=== PATIENT | female | born 1945 | race Caucasian/White ===

== ENCOUNTER 2021-05-04 12:30 | Observation (INO) ==
[2021-05-04] MEDS ORDERED: SODIUM CHLORIDE 0.9% 1000ML 1,000 ML IV ONE (13:51)
[2021-05-04] MEDS ORDERED: ACETAMINOPHEN 1,000 MG/100 ML VIAL IV STA (13:51)
--- NOTE | 2021-05-04 14:14 | XRay Report ---
XR chest 1V portable HISTORY: Atypical Chest Pain COMPARISON: Chest 01/10/2014. Chest CT 03/14/2019 FINDINGS: No pneumothorax. No pleural effusions. The heart is normal in size. Mild diffuse interstiti al thickening which is likely chronic. Stable left suprahilar lobular density measuring 7.1 x 3.2 cm. This was better appreciated on the 03/14/[address] and is consistent with a saccular t horacic aortic aneurysm. IMPRESSION: No significant change compared to the prior study. No acute process. Stable thoracic aortic aneurysm. ACT 112: Negative or not required by law. Electronically signed by: Eduardo Peraza M.D. 05/04/2021 2:13 PM
[2021-05-04 14:33] LABS: Basophils # (auto) 0.02 K/uL (0-0.2); Basophils % (auto) 0.2 %; Eosinophils # (auto) 0.15 K/uL (0-0.5); Eosinophils % (auto) 1.5 %; Hematocrit (blood only) 43.1 % (37-47); Hemoglobin 13.8 g/dL (12.0-16.0); Immature Granulocytes # (auto) 0.03 K/uL (0.00-0.02); Immature Granulocytes % (auto) 0.3 %; Lymphocytes # (auto) 1.54 K/uL (1.2-3.4); Lymphocytes % (auto) 15.6 %; Mean Corpuscular Hemoglobin 33.4 pg (25-34); Mean Corpuscular Volume 104.4 fL (80-100); Mean Platelet Volume 10.4 fL (7.4-10.4); Monocytes % (auto) 13.2 %; Neutrophils # (auto) 6.83 K/uL (1.4-6.5); Neutrophils % (auto) 69.2 %; Platelet Count 168 K/uL (130-400); RDW Coefficient of Variation 12.9 % (11.5-14.5); RDW Standard Deviation 49.2 fL (36.4-46.3); Red Blood Count 4.13 M/uL (4.2-5.4); White Blood Count 9.87 K/uL (4.8-10.8)
[2021-05-04 14:48] LABS: Partial Thromboplastin Ratio 1.1; Partial Thromboplastin Time 27.9 Seconds (21.0-31.0); Prothrombin Time 10.2 Seconds (9.0-12.0)
[2021-05-04 14:51] LABS: Alanine Aminotransferase 13 U/L (12-78); Aspartate Aminotransferase 10 U/L (15-37); BUN Creatinine Ratio 17.5 (10-20); Bilirubin Direct 0.2 mg/dl (0-0.2); Blood Urea Nitrogen 16 mg/dl (7-18); Calcium 8.9 mg/dl (8.5-10.1); Carbon Dioxide 32 mmol/L (21-32); Chloride 102 mmol/L (98-107); Creatinine Clr Calc Pharmacy 42.6 ml/min; Est GFR (African American) 69.2 ml/min; Est GFR (Non-African American) 59.7 ml/min; Glucose 95 mg/dl (70-99); Lipase 122 U/L (73-393); Magnesium 1.7 mg/dl (1.8-2.4); Potassium 4.6 mmol/L (3.5-5.1); Sodium 138 mmol/L (136-145)
[2021-05-04 14:53] LABS: Albumin Globulin Ratio 0.8 (0.9-2); Alkaline Phosphatase 125 U/L (45-117); Bilirubin,Total 0.4 mg/dl (0.2-1); Creatine Kinase 56 U/L (26-192); Globulin 3.8 gm/dl (2.5-4.0); Phosphorus 4.6 mg/dl (2.5-4.9); Total Protein 6.8 gm/dl (6.4-8.2); Troponin I < 0.015 ng/ml (0-0.045)
[2021-05-04 15:38] LABS: Lyme Ab IgG w/WB Rflx Negative (Negative); Lyme Ab IgM w/WB Rflx Negative (Negative)
[2021-05-04] MEDS ORDERED: MAGNESIUM SULFATE / D5W 1 GM/100 ML BAG IV STA (16:17)
--- NOTE | 2021-05-04 16:24 | Emergency Department Note ---
Impression & Plan Atrial fibrillation with rapid ventricular response, Bilateral calf pain, Dehydration, Peripheral arterial disease, Hypomagnesemia, Atrial fibrillation, new onset ED Provider Note NAME: DOUGIE VILLALOBOS AGE: 75 SEX: F ARRIVES VIA: Walk-In INFORMANT: Patient, ED PROVIDER(S): Dante Ingram MD CHIEF COMPLAINT: Bilateral calf pain. PLAN: Disposition: Admit MEDICAL DECISION MAKING: The patient is a pleasant 75-year-old woman with a past medical history of PAD with h/o AAA status post repair in 2005 h/o aorto-femoral bypass on daily 81mg ASA, COPD, CAD, history of MA, tobacco abuse who presents to the emergency department accompanied by her with worsening calf pain bilaterally that has evolved since Wednesday. She reports the pain became quite severe today and so presents for evaluation. She denies any preceding symptoms of similar pain with ambulation prior to her current resting pain. She reports she has a history of getting cramps now and then but nothing like this. She felt as though last night her legs looked more swollen and were warm. Otherwise she denies any fevers, chills, cough, congestion, GI or symptoms. On arrival patient is uncomfortable but in no acute distress, afebrile stable vital signs. She has tenderness to light touch of bilateral lower legs. Slight fullness to right mid calf without significant edema or warmth. No discoloration. Dopplerable pedal pulses. Initial EKG was unremarkable, normal sinus rhythm without overt acute ischemia. Chest x-ray negative for acute cardiopulmonary process. WBC, H/H and platelets within normal limits. Chemistry without metabolic acidosis. Magnesium 1.7 with repletion provided. Electrolytes otherwise unremarkable. LFTs without significant abnormality. CPK within normal limits. Troponin negative/undetectable. ESR and CRP are elevated at 57 and 17.1, nonspecific. Lipase not elevated. Lyme screen was negative. Bilateral lower extremity ultrasound negative for DVT. Formal ABIs performed and consistent with moderate PAD, right greater than left. Upon reevaluation patient was feeling improved after IV fluid hydration and IV APAP as well as magnesium repletion. She was able to ambulate with improved pain though still residual right calf pain with mild limp but significantly better than her symptoms on presentation where she was unable to walk at all. I did review the patient's results with her and given her improvement she did agree with plan for close outpatient follow-up with her pcp and vascular surgery. She was given dose of dexamethasone for anti-inflammatory effect and additional pain relief. As the patient's discharge was being prepared I was notified by RN that the patient had developed atrial fibrillation with RVR in the 130s. I reevaluated the patient and she reports not feeling any palpitations or heart racing. Given the patient's new atrial fibrillation with lack of symptoms, unclear if she has had ongoing paroxysmal afib for some time. Patient agrees with plan for admission for further evaluation and management given her acute bilateral lower extremity pain and peripheral arterial disease. Denies any history of GI bleeding or bleeding otherwise. Will initiate heparin at this time given ISELA SVASC score. IV Lopressor given for rate control. Case was discussed with Dr. Esquivel, [facility] [place], who will evaluate the patient for admission. CTA for abdominal aorta with runoff ordered. Covid-19 PCR negative. Triage Nursing notes reviewed and agree them. Prior medical records reviewed Vital Signs: reviewed and remarkable for tachycardia. Differential diagnosis: DVT, musculoskeletal, infection, joint effusion, trauma, lymphedema, idiopathic, CHF, as well as other pathologies. ER treatment provided: See below. Diagnostics interpreted by me: ECG 1410: Normal sinus rhythm, 70 bpm, no ectopy, no overt ST elevation or depression, QTC 46, QRS 80. ECG 1728: Atrial fibrillation with RVR, 131 bpm, no ectopy, ST and T wave abnormality, no overt ST elevation, QTc 463, QRS 84. Cardiac Monitoring: An order for continuous cardiac monitoring was placed and demonstrated atrial fibrillation with RVR, 131 bpm, no ectopy. Laboratory studies: See below Imaging studies: See below Consultation(s): Case was discussed with Dr. Esquivel, [facility] [place], who will evaluate the patient for admission. HPI: The patient is a pleasant 75-year-old woman with a past medical history of AAA status post repair in 2005, COPD, CAD, history of MA, tobacco abuse who presents emerge department coming by her with worsening calf pain bilaterally that has evolved since Wednesday. She reports the pain became quite severe today and so presents for evaluation. She denies any preceding symptoms of similar pain with ambulation prior to her current resting pain. She reports she has a history of getting cramps now and then but nothing like this. She felt as though last night her legs looked more swollen and were warm. Otherwise she denies any fevers, chills, cough, congestion, GI or symptoms. ROS: See above HPI for pertinent positives & negatives. A total of 10 systems reviewed and were otherwise negative. PAST MEDICAL HISTORY:See Below PAST SURGICAL HISTORY:See Below FAMILY HISTORY:See Below SOCIAL HISTORY:See Below HOME MEDICATIONS:See Below ALLERGIES:See Below VITALS:See Below PHYSICAL EXAMINATION: GENERAL: Awake, alert, uncomfortable-appearing, in no distress HENT: Normocephalic, atraumatic. Oropharynx with dry mucous membranes and otherwise unremarkable. EYES: Normal conjunctiva. Sclera non-icteric. NECK: Supple. No nuchal rigidity. FROM. No JVD. RESPIRATORY: Clear to auscultation. CARDIAC: Regular rate, normal rhythm. Extremities warm and well perfused. Pulses equal. ABDOMEN: Soft, non-distended. No tenderness to palpation. No rebound or guarding. No masses. RECTAL: Deferred. MUSCULOSKELETAL: Chest examination reveals no tenderness. The back is symmetrical on inspection without obvious abnormality. There is no CVA tenderness to palpation. No joint edema. LOWER EXTREMITIES: Tenderness to light touch of bilateral lower legs. Slight fullness to right mid calf without significant edema or warmth. No discoloration . Dopplerable pedal pulses. bilateral DP: Triphasic. bilateral PT: biphasic. NEURO: Normal sensorium. No sensory or motor deficits noted. SKIN: No rash or jaundice noted. ED COURSE: Critical Care: I have personally spent greater than 45 minutes of critical care time in the direct management of this patient. This includes bedside care, interpretation of diagnostic studies, and testing, discussion with consultants, patient, and family members, and other required patient management activities. This 45 minutes is in excess of all separately billable procedures. Dante Ingram MD Past Med/Surg History Medical History Bronchiectasis COPD (chronic obstructive pulmonary disease) Coronary artery disease History of abdominal aortic aneurysm (AAA) History of esophageal ulcer (2013) History of MA (myocardial infarction) (01/08/14) Hypertension Hypoxia Tobacco abuse Surgical History H/O heart artery stent (2013) S/P AAA (abdominal aortic aneurysm) repair (2005) S/P total hysterectomy and bilateral salpingo-oophorectomy (1975) Family History Sister Breast cancer Father Myocardial infarction Coronary heart disease Mother AA (aortic aneurysm) Denies family history of Ovarian cancer Prostate cancer Colorectal cancer Social History Smoking Status: Current every day smoker Tobacco Type: Cigarettes Age Started Using Tobacco: 24; Cigarettes Per Day: 1; Second Hand Exposure: No; Hx Alcohol Use: No Hx Substance Use: No Preferred Language: Taiwanese Communication Ability: Effective Visual Impairment: Limited Hearing Ability: Normal Glassware Finisher Required: No Beliefs That Will Affect Care: None marital status: Current Living Situation: Spouse 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 How many Children do You have: 3 Feels Safe at Home: Yes Childhood Exposure to Second-Hand Smoke: Yes (father) caffeine: Yes during the past year weight has: remained stable Dental Care, Regularly: No Physical Activity Frequency: 3-4 Times per Week Physical Activity Frequency Comment: walks Seatbelt Use: always Sunscreen Use: Yes Assistive Devices: Denture - Upper, Denture - Lower, Glasses and Oxygen - Continuous Allergies Allergies Allergy/AdvReac Type Severity Reaction Status Date / Time Penicillins Allergy Mild Verified 05/04/21 14:24 Sulfa (Sulfonamide Allergy Mild Verified 05/04/21 14:24 Antibiotics) lisinopril AdvReac Intermediate COUGH Verified 05/04/21 14:24 fexofenadine AdvReac Unknown "SKIN Verified 05/04/21 14:24 HURTS" HEADACHE Home Meds Home Medications Medication Instructions Recorded Confirmed albuterol sulfate 2.5 mg INHALATION Q6H 10/28/20 05/04/21 amlodipine 2.5 mg tablet 2.5 mg PO DAILY 10/28/20 05/04/21 aspirin 81 mg tablet,delayed 81 mg PO DAILY 10/28/20 05/04/21 release (Adult Aspirin Regimen) pantoprazole 20 mg tablet,delayed 20 mg PO DAILY 10/28/20 05/04/21 release cyanocobalamin (vitamin B-12) 1,000 mcg PO DAILY 05/04/21 05/04/21 1,000 mcg tablet (Vitamin B-12) Previous Rx's Medication Instructions Recorded nitroglycerin 0.4 mg sublingual 0.4 mg SUBLINGUAL Q5M PRN #30 tab 10/28/20 tablet losartan 100 mg tablet 100 mg PO DAILY #90 tab 02/25/21 fluticasone fur. 100 mcg-umeclid 1 inh INHALATION DAILY #180 ea 03/24/21 62.5 mcg-vilant 25 mcg inhalat.powder (Trelegy Ellipta) metoprolol tartrate 25 mg tablet 25 mg PO BID #180 tab 03/24/21 albuterol sulfate 90 mcg/actuation 2 puff INHALATION Q6H PRN #6.7 g 04/22/21 aerosol inhaler (Ventolin HFA) Results & Data (ED) Vital Signs Vital Signs - 24 hr 05/04/21 12:34 05/04/21 14:10 05/04/21 14:30 Temperature 36.2 C L Temperature Source Temporal Artery Scan Pulse Rate 86 86 79 Pulse Rate from SpO2 Sensor 77 Pulse Rhythm Regular Respiratory Rate 16 16 19 Respiratory Effort / Characteristics Non-Labored Respiratory Depth Normal Blood Pressure 103/65 98/51 L Blood Pressure Mean 77 66 Pulse Oximetry 96 96 100 Oxygen Delivery Method Room Air Room Air Sepsis Recent Fever Within 48 Hours No Sepsis New/Unexplained Change in Mental Status No Sepsis Action Taken by Nursing No Action Required 05/04/21 15:00 05/04/21 16:46 05/04/21 17:00 Temperature Temperature Source Pulse Rate 70 73 65 Pulse Rate from SpO2 Sensor 69 65 Pulse Rhythm Respiratory Rate 21 29 H 24 Respiratory Effort / Characteristics Respiratory Depth Blood Pressure 91/49 L 102/54 L 97/52 L Blood Pressure Mean 63 70 67 Pulse Oximetry 100 100 Oxygen Delivery Method Sepsis Recent Fever Within 48 Hours Sepsis New/Unexplained Change in Mental Status Sepsis Action Taken by Nursing 05/04/21 17:30 05/04/21 18:01 05/04/21 18:30 Temperature Temperature Source Pulse Rate 130 H 149 H 139 H Pulse Rate from SpO2 Sensor 117 H 136 H 140 H Pulse Rhythm Respiratory Rate 19 27 H 27 H Respiratory Effort / Characteristics Respiratory Depth Blood Pressure 101/69 102/64 118/68 Blood Pressure Mean 79 76 84 Pulse Oximetry 97 Oxygen Delivery Method Sepsis Recent Fever Within 48 Hours Sepsis New/Unexplained Change in Mental Status Sepsis Action Taken by Nursing 05/04/21 18:32 05/04/21 19:00 09/12/21 19:30 Temperature Temperature Source Pulse Rate 155 H 135 H 128 H Pulse Rate from SpO2 Sensor 150 H 133 H Pulse Rhythm Respiratory Rate 18 21 Respiratory Effort / Characteristics Respiratory Depth Blood Pressure 118/68 109/71 119/75 Blood Pressure Mean 83 89 Pulse Oximetry 90 97 Oxygen Delivery Method Sepsis Recent Fever Within 48 Hours Sepsis New/Unexplained Change in Mental Status Sepsis Action Taken by Nursing Laboratory Data Attestation: I reviewed the patient's lab results. Result diagrams: 05/04/21 14:22 05/04/21 14:22 Lab Results 05/04/21 05/04/21 05/04/21 Range/Units 14:22 14:22 14:22 WBC 9.87 (4.8-10.8) K/uL RBC 4.13 L (4.2-5.4) M/uL Hgb 13.8 (12.0-16.0) g/dL Hct 43.1 (37-47) % MCV 104.4 H (80-100) fL MCH 33.4 (25-34) pg MCHC 32.0 (32-36) g/dL RDW Std Deviation 49.2 H (36.4-46.3) fL RDW Coeff of Ruthy 12.9 (11.5-14.5) % Plt Count 168 (130-400) K/uL MPV 10.4 (7.4-10.4) fL Immature Gran % (Auto) 0.3 % Neut % (Auto) 69.2 % Lymph % (Auto) 15.6 % [place] % (Auto) 13.2 % Eos % (Auto) 1.5 % Baso % (Auto) 0.2 % Neut # (Auto) 6.83 H (1.4-6.5) K/uL Lymph # (Auto) 1.54 (1.2-3.4) K/uL [place] # (Auto) 1.30 H (0.11-0.59) K/uL Eos # (Auto) 0.15 (0-0.5) K/uL Baso # (Auto) 0.02 (0-0.2) K/uL Immature Gran # (Auto) 0.03 H (0.00-0.02) K/uL ESR 57 H (0-30) mm/hr PT 10.2 (9.0-12.0) Seconds INR 1.0 (0.9-1.1) APTT 27.9 (21.0-31.0) Seconds PTT Ratio 1.1 Sodium (136-145) mmol/L Potassium (3.5-5.1) mmol/L Chloride (98-107) mmol/L Carbon Dioxide (21-32) mmol/L Anion Gap (3-11) BUN (7-18) mg/dl Creatinine (0.6-1.2) mg/dl Est Cr Clr Drug Dosing ml/min Est GFR ( Amer) ml/min Est GFR (Non-Af Amer) ml/min BUN/Creatinine Ratio (10-20) Glucose (70-99) mg/dl Calcium (8.5-10.1) mg/dl Phosphorus (2.5-4.9) mg/dl Magnesium (1.8-2.4) mg/dl Total Bilirubin (0.2-1) mg/dl Direct Bilirubin (0-0.2) mg/dl AST (15-37) U/L ALT (12-78) U/L Alkaline Phosphatase (45-117) U/L Total Creatine Kinase (26-192) U/L Troponin I (0-0.045) ng/ml C-Reactive Protein (0-0.29) mg/dl Total Protein (6.4-8.2) gm/dl Albumin (3.4-5.0) gm/dl Globulin (2.5-4.0) gm/dl Albumin/Globulin Ratio (0.9-2) Lipase (73-393) U/L Lyme Disease IgG Ab (Negative) Lyme Disease IgM Ab (Negative) COVID-19 Eval Order SARS-CoV-2 (PCR) (Negative) 05/04/21 05/04/21 05/04/21 Range/Units 14:22 14:22 18:32 WBC (4.8-10.8) K/uL RBC (4.2-5.4) M/uL Hgb (12.0-16.0) g/dL Hct (37-47) % MCV (80-100) fL MCH (25-34) pg MCHC (32-36) g/dL RDW Std Deviation (36.4-46.3) fL RDW Coeff of Ruthy (11.5-14.5) % Plt Count (130-400) K/uL MPV (7.4-10.4) fL Immature Gran % (Auto) % Neut % (Auto) % Lymph % (Auto) % [place] % (Auto) % Eos % (Auto) % Baso % (Auto) % Neut # (Auto) (1.4-6.5) K/uL Lymph # (Auto) (1.2-3.4) K/uL [place] # (Auto) (0.11-0.59) K/uL Eos # (Auto) (0-0.5) K/uL Baso # (Auto) (0-0.2) K/uL Immature Gran # (Auto) (0.00-0.02) K/uL ESR (0-30) mm/hr PT (9.0-12.0) Seconds INR (0.9-1.1) APTT (21.0-31.0) Seconds PTT Ratio Sodium 138 (136-145) mmol/L Potassium 4.6 (3.5-5.1) mmol/L Chloride 102 (98-107) mmol/L Carbon Dioxide 32 (21-32) mmol/L Anion Gap 4.0 (3-11) BUN 16 (7-18) mg/dl Creatinine 0.93 (0.6-1.2) mg/dl Est Cr Clr Drug Dosing 42.6 ml/min Est GFR ( Amer) 69.2 ml/min Est GFR (Non-Af Amer) 59.7 ml/min BUN/Creatinine Ratio 17.5 (10-20) Glucose 95 (70-99) mg/dl Calcium 8.9 (8.5-10.1) mg/dl Phosphorus 4.6 (2.5-4.9) mg/dl Magnesium 1.7 L (1.8-2.4) mg/dl Total Bilirubin 0.4 (0.2-1) mg/dl Direct Bilirubin 0.2 (0-0.2) mg/dl AST 10 L (15-37) U/L ALT 13 (12-78) U/L Alkaline Phosphatase 125 H (45-117) U/L Total Creatine Kinase 56 (26-192) U/L Troponin I < 0.015 (0-0.045) ng/ml C-Reactive Protein 17.10 H (0-0.29) mg/dl Total Protein 6.8 (6.4-8.2) gm/dl Albumin 3.0 L (3.4-5.0) gm/dl Globulin 3.8 (2.5-4.0) gm/dl Albumin/Globulin Ratio 0.8 L (0.9-2) Lipase 122 (73-393) U/L Lyme Disease IgG Ab Negative (Negative) Lyme Disease IgM Ab Negative (Negative) COVID-19 Eval Order Covid19 at [facility] SARS-CoV-2 (PCR) (Negative) 05/04/21 Range/Units 18:32 WBC (4.8-10.8) K/uL RBC (4.2-5.4) M/uL Hgb (12.0-16.0) g/dL Hct (37-47) % MCV (80-100) fL MCH (25-34) pg MCHC (32-36) g/dL RDW Std Deviation (36.4-46.3) fL RDW Coeff of Ruthy (11.5-14.5) % Plt Count (130-400) K/uL MPV (7.4-10.4) fL Immature Gran % (Auto) % Neut % (Auto) % Lymph % (Auto) % [place] % (Auto) % Eos % (Auto) % Baso % (Auto) % Neut # (Auto) (1.4-6.5) K/uL Lymph # (Auto) (1.2-3.4) K/uL [place] # (Auto) (0.11-0.59) K/uL Eos # (Auto) (0-0.5) K/uL Baso # (Auto) (0-0.2) K/uL Immature Gran # (Auto) (0.00-0.02) K/uL ESR (0-30) mm/hr PT (9.0-12.0) Seconds INR (0.9-1.1) APTT (21.0-31.0) Seconds PTT Ratio Sodium (136-145) mmol/L Potassium (3.5-5.1) mmol/L Chloride (98-107) mmol/L Carbon Dioxide (21-32) mmol/L Anion Gap (3-11) BUN (7-18) mg/dl Creatinine (0.6-1.2) mg/dl Est Cr Clr Drug Dosing ml/min Est GFR ( Amer) ml/min Est GFR (Non-Af Amer) ml/min BUN/Creatinine Ratio (10-20) Glucose (70-99) mg/dl Calcium (8.5-10.1) mg/dl Phosphorus (2.5-4.9) mg/dl Magnesium (1.8-2.4) mg/dl Total Bilirubin (0.2-1) mg/dl Direct Bilirubin (0-0.2) mg/dl AST (15-37) U/L ALT (12-78) U/L Alkaline Phosphatase (45-117) U/L Total Creatine Kinase (26-192) U/L Troponin I (0-0.045) ng/ml C-Reactive Protein (0-0.29) mg/dl Total Protein (6.4-8.2) gm/dl Albumin (3.4-5.0) gm/dl Globulin (2.5-4.0) gm/dl Albumin/Globulin Ratio (0.9-2) Lipase (73-393) U/L Lyme Disease IgG Ab (Negative) Lyme Disease IgM Ab (Negative) COVID-19 Eval Order SARS-CoV-2 (PCR) NEGATIVE (Negative) Administered Medications Heparin Sodium/Dextrose (Heparin Sodium/Dextrose) 25,000 units in 500 mls @ 19 mls/hr IV .Q24H NIKOLAY; Protocol Stop: 06/03/21 18:14 Last Titration: 05/04/21 23:04 Dose: 950 units/hr, 19 mls/hr Documented by: [id number] Cosigned by: [id number] Admin: 05/04/21 18:34 Dose: 950 units/hr, 19 mls/hr Documented by: [id number] Cosigned by: [id number] Potassium Chloride/Sodium Chloride (Normal Saline W/20 Meq Kcl) 20 meq in 1,000 mls @ 100 mls/hr IV .Q10H NIKOLAY Stop: 05/05/21 07:59 Last Admin: 05/04/21 22:22 Dose: 100 mls/hr Documented by: [id number] Metoprolol Tartrate (Metoprolol Tartrate 50 Mg Tab) 50 mg PO BID NIKOLAY Stop: 06/03/21 21:33 Last Admin: 05/04/21 22:23 Dose: 50 mg Documented by: [id number] Discontinued Medications Dexamethasone Sodium Phosphate (DexamethasonePf 10 Mg/Ml Vial) 10 mg IV NOW ONE Stop: 05/04/21 17:21 Last Admin: 05/04/21 18:23 Dose: Not Given Documented by: [id number] Heparin Sodium/Dextrose (Heparin Iv Adult Wt-Based Standard *No* Bolus Protocol) 1 ea N/A ONE ONE; Protocol Stop: 05/04/21 17:56 Last Admin: 05/04/21 22:23 Dose: Not Given Documented by: [id number] Sodium Chloride (Nss 1000ml) 1,000 mls @ 999 mls/hr IV .Q1H1M ONE Stop: 05/04/21 14:51 Last Infusion: 05/04/21 15:19 Dose: 0 mls/hr Documented by: [id number] Admin: 05/04/21 14:23 Dose: 999 mls/hr Documented by: [id number] Acetaminophen (Ofirmev) 1,000 mg in 100 mls @ 400 mls/hr IV NOW STA Stop: 05/04/21 14:05 Last Infusion: 05/04/21 15:18 Dose: 0 mls/hr Documented by: [id number] Admin: 05/04/21 14:23 Dose: 400 mls/hr Documented by: [id number] Magnesium Sulfate/Dextrose (Magnesium Sulfate / D5w) 1 gm in 100 mls @ 100 mls/hr IV NOW STA Stop: 05/04/21 17:16 Last Infusion: 05/04/21 18:11 Dose: 0 mls/hr Documented by: [id number] Admin: 05/04/21 16:49 Dose: 100 mls/hr Documented by: [id number] Sodium Chloride (Nss) 500 mls @ 999 mls/hr IV .Q31M ONE Stop: 05/04/21 19:03 Last Infusion: 05/04/21 19:26 Dose: 0 mls/hr Documented by: [id number] Admin: 05/04/21 18:41 Dose: 999 mls/hr Documented by: [id number] Magnesium Sulfate/Dextrose (Magnesium Sulfate / D5w) 1 gm in 100 mls @ 50 mls/hr IV ONE ONE Stop: 05/04/21 21:32 Last Admin: 05/04/21 20:53 Dose: 50 mls/hr Documented by: [id number] Ioversol (Optiray 320 125ml) 119 ml IV ONCE ONE Stop: 05/04/21 19:09 Last Admin: 05/04/21 19:08 Dose: 1 ml Documented by: [id number] Metoprolol Tartrate (Metoprolol Tartrate 1 Mg/Ml Vial) 5 mg IV NOW STA Stop: 05/04/21 17:53 Last Admin: 05/04/21 18:32 Dose: 5 mg Documented by: [id number] Metoprolol Tartrate (Metoprolol Tartrate 1 Mg/Ml Vial) 5 mg IV NOW STA Stop: 05/04/21 18:34 Last Admin: 05/04/21 19:22 Dose: 5 mg Documented by: [id number] Imaging Data Radiologist's Impression: Ankle Brachial Index 05/04/21 13:51 US ankle/brachial index comp CLINICAL HISTORY: acute bilateral calf pain COMPARISON STUDY: None. FINDINGS: The right ankle-brachial index measured with the dorsalis pedis artery was 0.71 and the posterior tibial artery was 0.74. The left ankle-brachial index measured with the dorsalis pedis artery was 0.82 and the posterior tibial artery was 0.91. IMPRESSION: Abnormally low bilateral ankle brachial indices most pronounced on the right as described above. ACT 112: Negative or not required by law. Electronically signed by: Eduardo Peraza M.D. 05/04/2021 4:38 PM Venous Doppler Study 05/04/21 13:51 BILATERAL LOWER EXTREMITY VENOUS DOPPLER HISTORY: acute bilateral calf pain COMPARISON STUDY: None. FINDINGS: There is normal compressibility, flow, and augmentation within the bilateral lower extremity deep venous systems. IMPRESSION: No DVT within the right or left lower extremity. ACT 112: Negative or not required by law. Electronically signed by: Eduardo Peraza M.D. 05/04/2021 4:36 PM Chest X-Ray 05/04/21 13:52 XR chest 1V portable HISTORY: Atypical Chest Pain COMPARISON: Chest 01/10/2014. Chest CT 03/14/2019 FINDINGS: No pneumothorax. No pleural effusions. The heart is normal in size. Mild diffuse interstitial thickening which is likely chronic. Stable left suprahilar lobular density measuring 7.1 x 3.2 cm. This was better appreciated on the 03/14/[address] and is consistent with a saccular thoracic aortic aneurysm. IMPRESSION: No significant change compared to the prior study. No acute process. Stable thoracic aortic aneurysm. ACT 112: Negative or not required by law. Electronically signed by: Eduardo Peraza M.D. 05/04/2021 2:13 PM Discharge Plan Visit Data Chief Complaint: Leg Weakness, Bilateral Stated Complaint: BILATERAL LEG PAIN/WEAKNESS ED Provider: Dante Ingram Discharge Problem: Atrial fibrillation with rapid ventricular response, Bilateral calf pain, Dehydration, Peripheral arterial disease, Hypomagnesemia, Atrial fibrillation, new onset Patient Disposition: Admitted As Inpatient Discharge Instructions Interventions: ED Discharge Assessment Last Done: 05/04/21 20:44
--- NOTE | 2021-05-04 16:38 | Ultrasound Report ---
BILATERAL LOWER EXTREMITY VENOUS DOPPLER HISTORY: acute bilateral calf pain COMPARISON STUDY: None. FINDINGS: There is normal compressibility, flow, and augmentation within the bilateral lower extremit y deep venous systems. IMPRESSION: No DVT within the right or left lower extremity. ACT 112: Negative or not required by law. Electronically signed by: Eduardo Peraza M.D. 05/04/2021 4:36 PM
--- NOTE | 2021-05-04 16:39 | Ultrasound Report ---
US ankle/brachial index comp CLINICAL HISTORY: acute bilateral calf pain COMPARISON STUDY: None. FINDINGS: The right ankle-brachial index measured with the dorsalis pedis artery was 0.71 and the pos terior tibial artery was 0.74. The left ankle-brachial index measured with the dorsalis pedis artery was 0.82 and the posterior tibial artery was 0.91. IMPRESSION: Abnormally low bilateral ankle brachial indices most pronounced on the right as describe d above. ACT 112: Negative or not required by law. Electronically signed by: Eduardo Peraza M.D. 05/04/2021 4:38 PM
[2021-05-04] MEDS ORDERED: dexAMETHasone**PF** 10 MG/ML VIAL IV ONE (17:20)
[2021-05-04] MEDS ORDERED: METOPROLOL TARTRATE 1 MG/ML VIAL IV STA ×2 (17:52→18:33)
[2021-05-04] MEDS ORDERED: Heparin IV Adult Wt-Based Standard *NO* Bolus Protocol ONE (17:55)
[2021-05-04] MEDS ORDERED: HEPARIN SODIUM/DEXTROSE 25,000 UNITS/500 ML BAG IV SCH (18:15)
[2021-05-04] MEDS ORDERED: SODIUM CHLORIDE 0.9% 500 ML IV ONE (18:33)
[2021-05-04] MEDS ORDERED: OPTIRAY 320 125ml IV ONE (19:08)
[2021-05-04] MEDS ORDERED: MAGNESIUM SULFATE / D5W 1 GM/100 ML BAG IV ONE (19:33)
[2021-05-04] MEDS ORDERED: ALBUT/IPRATROP 3MG/0.5MG NEB 3 ML VIAL NEB PRN (19:53)
--- NOTE | 2021-05-04 19:54 | History & Physical Report ---
Date of Service May 04, 2021 Assessment & Plan (1) Atrial fibrillation with RVR: Plan: Atrial fibrillation with RVR/hypertension/CAD/stented coronary artery The patient will be admitted to telemetry for serial cardiac enzymes, serial EKG's, cardiac rhythm monitoring and a 2-D echocardiogram with Dopplers. Occurred after being in the ED for 6 hours. No previous history Increase metoprolol tartrate from 25 mg p.o. twice daily to 50 mg p.o. twice daily Lopressor 5 mg IV every 4 hours as needed heart rate greater than 110 Continue aspirin 81 mg daily, losartan 100 mg daily Hold amlodipine Nitroglycerin sublingual's as needed Continue heparin drip begun in ED (2) Bilateral calf pain: Plan: Likely secondary to newly diagnosed PAD (3) Peripheral arterial disease: Plan: MADINA 0.71 on the right MADINA 0.74 on the left Will order aortogram with bilateral runoff to further assess. Continue heparin drip begun in the ED (4) Dehydration: Plan: Rehydrate with additional 1 L of NSS + KCl 20 mEq at 60 mils per hour (5) Hypomagnesemia: Plan: Replace with total 2 g of mag sulfate IV, and then recheck in a.m. (6) Tobacco abuse: Plan: Patient reports that she is down to 1 cigarette daily, and will stop altogether after this hospitalization (7) Stented coronary artery: Plan: See above (8) Hypercholesterolemia: Plan: Check a fasting lipid panel Will likely need high-dose statin (9) Hypertension: Plan: See above (10) Coronary artery disease: Plan: See above (11) COPD (chronic obstructive pulmonary disease): Plan: Hold albuterol HFA DuoNebs every 2 hours as needed History of Present Illness Chief Complaint: The patient presents to the emergency department complaining of bilateral calf pain, right greater than left, along with increased swelling of right calf Primary Care Provider: Cathy Cerda DO The patient is a 75-year-old female with a past medical history including tobacco abuse, stented coronary artery, aortic valve insufficiency, hypercholesterolemia, esophageal ulcer, abdominal aortic aneurysm, history of CO, COPD, CAD, hypertension, and status post femoropopliteal bypass in 2005. Patient presents with worsening symptoms of bilateral lower extremity weakness and difficulty ambulating distances. She denies any history of trauma. She denies any recent travels or sick exposures. Work-up in the emergency department included MADINA testing, right 0.71, left 0.74. Venous Dopplers negative bilaterally for lower extremity DVT Chest x-ray shows a stable thoracic aortic aneurysm Allergies Allergy/AdvReac Type Severity Reaction Status Date / Time Penicillins Allergy Mild Verified 05/04/21 14:24 Sulfa (Sulfonamide Allergy Mild Verified 05/04/21 14:24 Antibiotics) lisinopril AdvReac Intermediate COUGH Verified 05/04/21 14:24 fexofenadine AdvReac Unknown "SKIN Verified 05/04/21 14:24 HURTS" HEADACHE Home Medications Medication Instructions Recorded Confirmed Type albuterol sulfate 2.5 mg INHALATION Q6H 10/28/20 05/04/21 History amlodipine 2.5 mg tablet 2.5 mg PO DAILY 10/28/20 05/04/21 History aspirin 81 mg tablet,delayed 81 mg PO DAILY 10/28/20 05/04/21 History release (Adult Aspirin Regimen) nitroglycerin 0.4 mg sublingual 0.4 mg SUBLINGUAL Q5M PRN #30 tab 10/28/20 05/04/21 Rx tablet pantoprazole 20 mg tablet,delayed 20 mg PO DAILY 10/28/20 05/04/21 History release losartan 100 mg tablet 100 mg PO DAILY #90 tab 02/25/21 05/04/21 Rx fluticasone fur. 100 mcg-umeclid 1 inh INHALATION DAILY #180 ea 03/24/21 05/04/21 Rx 62.5 mcg-vilant 25 mcg inhalat.powder (Trelegy Ellipta) metoprolol tartrate 25 mg tablet 25 mg PO BID #180 tab 03/24/21 05/04/21 Rx albuterol sulfate 90 mcg/actuation 2 puff INHALATION Q6H PRN #6.7 g 04/22/21 05/04/21 Rx aerosol inhaler (Ventolin HFA) cyanocobalamin (vitamin B-12) 1,000 mcg PO DAILY 05/04/21 05/04/21 History 1,000 mcg tablet (Vitamin B-12) Past Med/Surg History Medical History Bronchiectasis COPD (chronic obstructive pulmonary disease) Coronary artery disease History of abdominal aortic aneurysm (AAA) History of esophageal ulcer (2013) History of CO (myocardial infarction) (01/08/14) Hypertension Hypoxia Tobacco abuse Surgical History H/O heart artery stent (2013) S/P AAA (abdominal aortic aneurysm) repair (2005) S/P total hysterectomy and bilateral salpingo-oophorectomy (1975) Family History Sister Breast cancer Father Myocardial infarction Coronary heart disease Mother AA (aortic aneurysm) Denies family history of Ovarian cancer Prostate cancer Colorectal cancer Social History Smoking Status: Current every day smoker Tobacco Type: Cigarettes Age Started Using Tobacco: 24; Cigarettes Per Day: 2; Second Hand Exposure: No; Hx Alcohol Use: No Hx Substance Use: No Preferred Language: [place] Visual Impairment: Limited Hearing Ability: Normal Pulp Grinder Required: No Beliefs That Will Affect Care: None marital status: Current Living Situation: Spouse 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 How many Children do You have: 3 Feels Safe at Home: Yes Childhood Exposure to Second-Hand Smoke: Yes (father) caffeine: Yes during the past year weight has: remained stable Dental Care, Regularly: No Physical Activity Frequency: 3-4 Times per Week Physical Activity Frequency Comment: walks Seatbelt Use: always Sunscreen Use: Yes Assistive Devices: Denture - Upper, Denture - Lower, Glasses and Nebulizer Review of Systems Review of Systems: The patient denies chest pain, palpitations, shortness of breath, dyspnea on exertion, cough, sore throat, fevers, chills, sweats, nausea, vomiting, diarrhea , constipation, abdominal pain, pelvic pain, blood in urine or stool, dysuria, urinary frequency or urgency, lightheadedness, dizziness, headache, memory loss, loss of consciousness, rash, abnormal bruising or bleeding, imbalance, focal or generalized weakness, numbness or tingling in arms, generalized arthralgias or myalgias, back or neck pain, or night sweats. The review of systems is otherwise negative other than for that already noted above, and at least 10 systems have been reviewed. Physical Exam Physical Exam: The patient is awake, alert and oriented 3, well developed and well nourished, normocephalic and atraumatic, lying in bed and in no acute distress. HEENT--PERRL, EOMI, mucous membranes and oropharynx normal. Neck--supple. No JVD. No bruits. Thyroid normal, trachea midline, no adenopathy. Heart--initially regular rate and rhythm. Later on while in the ED tachycardia with irregularly irregular rhythm. No murmurs, rubs or gallops. Lungs--clear bilaterally, no respiratory distress, no accessory muscle use. Abdomen--normal bowel sounds and soft. Nontender. Nondistended, no hernias or masses, no organomegaly. Extremities--no cyanosis or clubbing. No edema. Right calf approximately one half times size of the left and tenderness to light touch. Dermatologic--normal skin turgor, normal color, no abnormal lymph nodes, no rash. Neurologic--cranial nerves II through XII grossly intact. Rheumatologic--normal range of motion. Psychiatric--normal affect. Results & Data Results & Data ([facility]) Vital Signs (Past 12 Hours) Vital Signs Temp Pulse Resp BP Pulse Ox 05/04/21 19:00 135 H 18 109/71 90 05/04/21 18:32 155 H 118/68 05/04/21 18:30 139 H 27 H 118/68 05/04/21 18:01 149 H 27 H 102/64 05/04/21 17:30 130 H 19 101/69 97 05/04/21 17:00 65 24 97/52 L 100 05/04/21 16:46 73 29 H 102/54 L 05/04/21 15:00 70 21 91/49 L 100 05/04/21 14:30 79 19 98/51 L 100 05/04/21 14:10 86 16 96 05/04/21 12:34 97.2 F L 86 16 103/65 96 Laboratory Results Laboratory Results WBC 9.87 K/uL (4.8-10.8) 05/04/21 14:22 RBC 4.13 M/uL (4.2-5.4) L 05/04/21 14:22 Hgb 13.8 g/dL (12.0-16.0) 05/04/21 14: Hct 43.1 % (37-47) 05/04/21 14:22 MCV 104.4 fL (80-100) H 05/04/21 14:22 MCH 33.4 pg (25-34) 05/04/21 14: MCHC 32.0 g/dL (32-36) 05/04/21 14:22 RDW Std Deviation 49.2 fL (36.4-46.3) H 05/04/21 14:22 RDW Coeff of Ruthy 12.9 % (11.5-14.5) 05/04/21 14: Plt Count 168 K/uL (130-400) 05/04/21 14: MPV 10.4 fL (7.4-10.4) 05/04/21 14: Immature Gran % (Auto) 0.3 % 05/04/21 14: Neut % (Auto) 69.2 % 05/04/21 14: Lymph % (Auto) 15.6 % 05/04/21 14: Owen % (Auto) 13.2 % 05/04/21 14:22 Eos % (Auto) 1.5 % 05/04/21 14:22 Baso % (Auto) 0.2 % 05/04/21 14:22 Neut # (Auto) 6.83 K/uL (1.4-6.5) H 05/04/21 14: Lymph # (Auto) 1.54 K/uL (1.2-3.4) 05/04/21 14:22 Owen # (Auto) 1.30 K/uL (0.11-0.59) H 05/04/21 14: Eos # (Auto) 0.15 K/uL (0-0.5) 05/04/21 14: Baso # (Auto) 0.02 K/uL (0-0.2) 05/04/21 14: Immature Gran # (Auto) 0.03 K/uL (0.00-0.02) H 05/04/21 14: ESR 57 mm/hr (0-30) H 05/04/21 14:22 PT 10.2 Seconds (9.0-12.0) 05/04/21 14: INR 1.0 (0.9-1.1) 05/04/21 14: APTT 27.9 Seconds (21.0-31.0) 05/04/21 14:22 PTT Ratio 1.1 05/04/21 14:22 Sodium 138 mmol/L (136-145) 05/04/21 14:22 Potassium 4.6 mmol/L (3.5-5.1) 05/04/21 14:22 Chloride 102 mmol/L (98-107) 05/04/21 14:22 Carbon Dioxide 32 mmol/L (21-32) 05/04/21 14:22 Anion Gap 4.0 (3-11) 05/04/21 14:22 BUN 16 mg/dl (7-18) 05/04/21 14:22 Creatinine 0.93 mg/dl (0.6-1.2) 05/04/21 14:22 Est Cr Clr Drug Dosing 42.6 ml/min 05/04/21 14:22 Est GFR ( Amer) 69.2 ml/min 05/04/21 14:22 Est GFR (Non-Af Amer) 59.7 ml/min 05/04/21 14:22 BUN/Creatinine Ratio 17.5 (10-20) 05/04/21 14:22 Glucose 95 mg/dl (70-99) 05/04/21 14:22 Calcium 8.9 mg/dl (8.5-10.1) 05/04/21 14:22 Phosphorus 4.6 mg/dl (2.5-4.9) 05/04/21 14:22 Magnesium 1.7 mg/dl (1.8-2.4) L 05/04/21 14:22 Total Bilirubin 0.4 mg/dl (0.2-1) 05/04/21 14:22 Direct Bilirubin 0.2 mg/dl (0-0.2) 05/04/21 14:22 AST 10 U/L (15-37) L 05/04/21 14:22 ALT 13 U/L (12-78) 05/04/21 14:22 Alkaline Phosphatase 125 U/L (45-117) H 05/04/21 14:22 Total Creatine Kinase 56 U/L (26-192) 05/04/21 14:22 Troponin I < 0.015 ng/ml (0-0.045) 05/04/21 14:22 C-Reactive Protein 17.10 mg/dl (0-0.29) H 05/04/21 14:22 Total Protein 6.8 gm/dl (6.4-8.2) 05/04/21 14:22 Albumin 3.0 gm/dl (3.4-5.0) L 05/04/21 14:22 Globulin 3.8 gm/dl (2.5-4.0) 05/04/21 14:22 Albumin/Globulin Ratio 0.8 (0.9-2) L 05/04/21 14:22 Lipase 122 U/L (73-393) 05/04/21 14:22 Lyme Disease IgG Ab Negative (Negative) 05/04/21 14:22 Lyme Disease IgM Ab Negative (Negative) 05/04/21 14:22 COVID-19 Eval Order Covid19 at [facility] 05/04/21 18:32 Impressions Ankle Brachial Index 05/04/21 13:51 US ankle/brachial index comp CLINICAL HISTORY: acute bilateral calf pain COMPARISON STUDY: None. FINDINGS: The right ankle-brachial index measured with the dorsalis pedis artery was 0.71 and the posterior tibial artery was 0.74. The left ankle-brachial index measured with the dorsalis pedis artery was 0.82 and the posterior tibial artery was 0.91. IMPRESSION: Abnormally low bilateral ankle brachial indices most pronounced on the right as described above. ACT 112: Negative or not required by law. Electronically signed by: Eduardo Peraza M.D. 05/04/2021 4:38 PM Venous Doppler Study 05/04/21 13:51 BILATERAL LOWER EXTREMITY VENOUS DOPPLER HISTORY: acute bilateral calf pain COMPARISON STUDY: None. FINDINGS: There is normal compressibility, flow, and augmentation within the bilateral lower extremity deep venous systems. IMPRESSION: No DVT within the right or left lower extremity. ACT 112: Negative or not required by law. Electronically signed by: Eduardo Peraza M.D. 05/04/2021 4:36 PM Chest X-Ray 05/04/21 13:52 XR chest 1V portable HISTORY: Atypical Chest Pain COMPARISON: Chest 01/10/2014. Chest CT 03/14/2019 FINDINGS: No pneumothorax. No pleural effusions. The heart is normal in size. Mild diffuse interstitial thickening which is likely chronic. Stable left suprahilar lobular density measuring 7.1 x 3.2 cm. This was better appreciated on the 03/14/[address] and is consistent with a saccular thoracic aortic aneurysm. IMPRESSION: No significant change compared to the prior study. No acute process. Stable thoracic aortic aneurysm. ACT 112: Negative or not required by law. Electronically signed by: Eduardo Peraza M.D. 05/04/2021 2:13 PM ECG Additional Comments: DOUGIE VILLALOBOS ID:[id number] 04-MAY-2021 14:10:58 [facility] Normal sinus rhythm Normal ECG When compared with ECG of 10-JAN-2014 07:44, Nonspecific T wave abnormality no longer evident in Inferior leads T wave amplitude has increased in Lateral leads 25mm/s 10mm/mV 150Hz 9.0.9 12SL 241 ENRIQUE: 15 Referred by: REFERRED SELF Unconfirmed Vent. rate 78 BPM FL interval 138 ms QRS duration 80 ms QT/QTc 374/426 ms P-R-T axes 82 63 65 1945 (75 yr) Female [address] [place] [address] Room:[facility] Loc:15 Industrial Electrician:Siobhan Gutierrez Test in DOUGIE VILLALOBOS ID:[id number] 04-MAY-2021 17:28:10 [facility] ROUTINE RETRIEVAL Atrial fibrillation with rapid ventricular response ST & T wave abnormality, consider inferolateral ischemia Abnormal ECG When compared with ECG of 04-MAY-2021 14:10, (unconfirmed) Atrial fibrillation has replaced Sinus rhythm Vent. rate has increased BY [address] now depressed in Inferior leads ST now depressed in Lateral leads T wave inversion now evident in Inferior leads Nonspecific T wave abnormality now evident in Anterolateral leads 25mm/s 10mm/mV 150Hz 9.0.9 12SL 241 ENRIQUE: 3 Referred by: SELF Unconfirmed Vent. rate 131 BPM FL interval * ms QRS duration 84 ms QT/QTc 314/463 ms P-R-T axes * 55 268 1945 (75 yr) [facility] Room: Loc:15 Industrial Electrician:Yair Tan Code Status & VTE Plan Code Status Full code VTE Prophylaxis Plan VTE Prophylaxis will be ordered: Yes PG Care Time/CCT Total # of Minutes Spent Total Time Spent with Patient: Total time spent is greater than 50% in coordination of care (as documented) at patient's floor/unit and/or counseling patient: Coding Level of Care Code 21962 Initial Inpt Care Lvl 3 Diagnoses Atrial fibrillation with RVR I48.91 Bilateral calf pain M79.661; M79.662 Peripheral arterial disease I73.9 Dehydration E86.0 Hypomagnesemia E83.42 Tobacco abuse Z72.0 Stented coronary artery Z95.5 Hypercholesterolemia E78.00 Hypertension I10 Coronary artery disease I25.10 COPD (chronic obstructive pulmonary disease) J44.9
[2021-05-04] MEDS ORDERED: METOPROLOL TARTRATE 1 MG/ML VIAL IV PRN (21:34)
[2021-05-04] MEDS ORDERED: NITROGLYCERIN SL 0.4 MG/TAB TAB SL PRN (21:34)
[2021-05-04] MEDS ORDERED: ACETAMINOPHEN 325 MG TAB PO PRN (21:34)
[2021-05-04] MEDS ORDERED: ONDANSETRON INJ 2 MG/ML 2 ML VIAL IV PRN (21:34)
[2021-05-04] MEDS ORDERED: NSS + 20MEQ KCL 20 MEQ/1,000 ML BAG IV SCH (22:00)
[2021-05-04] MEDS: METOPROLOL TARTRATE 50 MG TAB PO SCH (22:23)
[2021-05-05 02:05] LABS: Partial Thromboplastin Ratio 1.8
[2021-05-05 02:10] LABS: Partial Thromboplastin Time 47.9 Seconds (21.0-31.0)
[2021-05-05 06:39] LABS: Basophils # (auto) 0.01 K/uL (0-0.2); Basophils % (auto) 0.1 %; Eosinophils # (auto) 0.15 K/uL (0-0.5); Eosinophils % (auto) 1.7 %; Hematocrit (blood only) 37.8 % (37-47); Hemoglobin 11.9 g/dL (12.0-16.0); Immature Granulocytes # (auto) 0.02 K/uL (0.00-0.02); Immature Granulocytes % (auto) 0.2 %; Lymphocytes # (auto) 1.44 K/uL (1.2-3.4); Mean Corpuscular Hemoglobin 33.4 pg (25-34); Mean Corpuscular Hgb Conc 31.5 g/dL (32-36); Mean Corpuscular Volume 106.2 fL (80-100); Monocytes # (auto) 0.82 K/uL (0.11-0.59); Monocytes % (auto) 9.1 %; Neutrophils # (auto) 6.54 K/uL (1.4-6.5); Neutrophils % (auto) 72.9 %; Platelet Count 161 K/uL (130-400); RDW Coefficient of Variation 12.7 % (11.5-14.5); Red Blood Count 3.56 M/uL (4.2-5.4); White Blood Count 8.98 K/uL (4.8-10.8)
[2021-05-05 07:17] LABS: Albumin Level 2.5 gm/dl (3.4-5.0); BUN Creatinine Ratio 15.9 (10-20); Calcium 8.2 mg/dl (8.5-10.1); Creatinine Clr Calc Pharmacy 67.1 ml/min; Est GFR (African American) 103.2 ml/min; Magnesium 2.1 mg/dl (1.8-2.4); Potassium 4.3 mmol/L (3.5-5.1)
[2021-05-05 07:22] LABS: Albumin Globulin Ratio 0.7 (0.9-2); Bilirubin,Total 0.3 mg/dl (0.2-1); Globulin 3.5 gm/dl (2.5-4.0)
[2021-05-05] MEDS: FLUTICASONE FUROATE 100MCG 14 PUFFS/INHALER INH SCH (08:24)
[2021-05-05] MEDS: UMECLIDINIUM/VILANTEROL 62.5/25MCG 7 PUFFS/INHALER INH SCH (08:24)
[2021-05-05] MEDS: PANTOprazole 40 MG TAB PO SCH (08:25)
--- NOTE | 2021-05-05 08:25 | CT Scan Report ---
CT ANGIOGRAPHY OF THE ABDOMEN AND PELVIS WITH BILATERAL LOWER EXTREMITY RUNOFF CLINICAL HISTORY: b/l calf pain, pad, h/o AAA repair, Ao fem bypass COMPARISON STUDY: CT of the abdomen and pelvis June 28, 2006. Bilateral ankle to brachial indices May 04, 2021. TECHNIQUE: Helical axial images of the abdomen and pelvis and both lower extremities were obtained du ring arterial phase following intravenous injection of 118 cc Optiray 320 IV. Sagittal and coronal re constructions were viewed as well as maximal intensity projections on an independent 3-D workstation. Automated exposure control was utilized for the study. A dose lowering technique was utilized adher ing to the principles of ALARA. FINDINGS: No pneumatosis, free air or portal venous gas is present. Hypervascularity within the left hepatic lobe is likely due to shunting. The spleen, adrenal glands and pancreas are unremarkable. Is no biliary or pancreatic ductal dilatation. There is scarring within the midpole the left kidney. The re is no hydronephrosis. There is no evidence for a bowel obstruction. Caliber and wall thickness of small and large bowel are normal. No acute fracture or suspicious lesion is identified within the vis ualized skeletal structures. There is extensive plaque within visualized portions of the descending thoracic aorta which is dilate d, measuring 3.8 x 3.7 cm. There is no evidence for rupture. There is also extensive plaque within th e abdominal aorta. There is a combined origin of the celiac axis and superior mesenteric artery. Ther e is moderate stenosis at the origin of the left renal artery. There is mild stenosis at the origin o f the superior mesenteric artery. Postoperative findings of the distal abdominal aorta are noted. The re is mild dilatation of the right common iliac artery, measuring 1.5 cm in caliber. The right tool designer al iliac and common femoral arteries are patent. There is moderate plaque within the right superficia l femoral artery with mild to moderate multifocal stenoses. No severe stenosis within the right super ficial femoral artery is noted. The right popliteal artery is patent. The right trifurcation is paten t. Evaluation of the right calf vessels is difficult given their small size and extensive vascular ca lcification. The right calf vessels are patent to at least the level of the distal ptosis of the righ t tibia. No contrast is identified within the vessels within the right foot. It's unclear whether thi s is due to occlusion or outrunning the bolus. The left common iliac artery is patent to the left common iliac artery is dilated, measuring 1.6 cm i n caliber. The left external iliac artery is patent. The left superficial femoral artery is patent. T here are mild to moderate multifocal stenoses within the left superficial femoral artery. No severe s tenosis is identified within this vessel. The left popliteal artery is patent. The left trifurcation is patent. Left calf vessels are suboptimally assessed due to small size and extensive vascular calci fication. Contrast within the left calf vessels is noted to at least the level of the midshaft of the left tibia. No contrast is identified within the left foot vessels. This could be due to outrunning the pelvis. IMPRESSION: 1. Extensive aortoiliac atherosclerotic plaque and plaque within the bilateral lower extremity. Posto perative findings of the distal abdominal aorta. Mild to moderate multifocal stenosis within the bila teral superficial femoral arteries. Bilateral trifurcations patent. Suboptimal evaluation of the bila teral calf vessels, as described above, due to their small size and extensive plaque. Flow identified within the bilateral calf vessels to at least the level of the mid diaphyses of the tibias. No flow identified within the distal aspect of these vessels which could be due to outrunning the bolus or ve ssel occlusion. The findings could be correlated with bilateral lower extremity arterial Doppler ultr asound. 2. Extensive atherosclerotic plaque of the distal descending thoracic aorta and abdominal aorta. Aneu rysmal dilatation of the descending thoracic aorta, measuring 3.8 x 3.7 cm. Mild dilatation of the bi lateral common iliac arteries. 3. No acute process within the abdomen or pelvis. 4. No dissection. ACT 112: Negative or not required by law. Electronically signed by: Richard Fischer M.D. 05/05/2021 8:24 AM
[2021-05-05] MEDS: CYANOCOBALAMIN 500 MCG TABLET (VITAMIN B-12) PO SCH (08:26)
[2021-05-05] MEDS: ASPIRIN 81 MG ECTAB PO SCH (08:26)
[2021-05-05] MEDS: LOSARTAN POTASSIUM 50 MG TAB PO SCH (08:29)
[2021-05-05] MEDS: METOPROLOL TARTRATE 50 MG TAB PO SCH ×2 (08:30→20:57)
[2021-05-05] MEDS ORDERED: NON-FORMULARY MEDICATION (Fluticasone-Umeclidin-Vilanter [Trelegy Ellipta] 100-62.5-25 mcg INH SCH (09:00)
--- NOTE | 2021-05-05 11:35 | Cardiology Consultation ---
Date of Consultation May 05, 2021 Assessment & Plan (1) Atrial fibrillation with rapid ventricular response: -new diagnosis. -agree with increased dose of metoprolol tartrate. -would start either Eliquis or Xarelto at full dose. -stable for hospital discharge. (2) Coronary artery disease: -2.5 x 26 mm BMS in mid RCA, December 2013. -nonobstructive disease in LAD and LCx, December 2013. -continue medical management. (3) Peripheral arterial disease: -probably moderate disease throughout the aorta and distally. -I have asked Dr. Cortez to review the aortogram. -doubt presenting complaints represent claudication. -stable distal thoracic aortic aneurysm. -s/p AAA repair, June 2006. (4) Hypertension: -adequate control on current regimen. (5) Hypercholesterolemia: -would restart rosuvastatin at 20 mg daily. History of Present Illness Attending Physician: Rodriguez Ortiz MD History of Present Illness Mrs. Joy is a 75-year-old female admitted yesterday with atrial fibrillation and a rapid ventricular response. This consultation was ordered to assist in her management. Of note, the patient is well known to me from the outpatient setting. The patient was in her usual state of health until approximately 3-4 days prior to admission. The patient began to note progressive lower extremity weakness, calf pain, and difficulty in ambulation. On the day of presentation, she could not walk. Her evaluation in the emergency room revealed evidence of moderate peripheral vascular disease as her ABIs were abnormal (0.71 right, 0.74 left). She had a CT scan of the abdomen and pelvis with aortic runoff performed. This revealed extensive plaque within the aortoiliac, distal thoracic, abdominal aortic, and femoral arterial tree. There was a 3.8 x 3.7 cm distal thoracic aortic aneurysm. In any event, patient was treated with intravenous hydration and steroids. She was improved and was preparing for discharge from the emergency room. She then developed atrial fibrillation with a rapid ventricular response. She was placed on intravenous heparin and hospitalization was advised. The patient has never been diagnosed with atrial fibrillation previously. We have discussed need for rate control and long-term anticoagulation therapies. Her cardiac history began on January 08, 2014 when she presented to our institution with a non ST elevation DE. The patient had a cardiac catheterization performed by Dr. Donaldson which noted a culprit lesion in the mid RCA. A 2.5 x 26 mm bare metal stent was deployed in that position. Other coronary disease included a 20% ostial LAD, 50% mid LAD, and luminal irregularities in the distal LAD. The left circumflex noted a 70% ostial OM 1 branch stenosis. There was a 30% stenosis in the distal LCx. The patient had dobutamine stress echocardiogram performed on August 28, 2019 which showed no evidence of inducible ischemia. Baseline study noted normal left ventricular size and function with an ejection fraction of 60-65%. There was mild aortic valve sclerosis with mild aortic valve regurgitation. Currently, patient is resting comfortably in bed without complaints. Past medical and surgical history 1. Coronary artery disease-see above 2. RCA BMS-December 2013 3. Hypertension 4. Hypercholesterolemia 5. Mild aortic insufficiency 6. COPD 7. GERD 8. History esophageal ulcer-December 2013 9. ANGEL/BSO 10. 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 Allergies Allergy/AdvReac Type Severity Reaction Status Date / Time Penicillins Allergy Mild Verified 05/04/21 14:24 Sulfa (Sulfonamide Allergy Mild Verified 05/04/21 14:24 Antibiotics) lisinopril AdvReac Intermediate COUGH Verified 05/04/21 14:24 fexofenadine AdvReac Unknown "SKIN Verified 05/04/21 14:24 HURTS" HEADACHE Home Medications Medication Instructions Recorded Confirmed Type albuterol sulfate 2.5 mg INHALATION Q6H 10/28/20 05/04/21 History amlodipine 2.5 mg tablet 2.5 mg PO DAILY 10/28/20 05/04/21 History aspirin 81 mg tablet,delayed 81 mg PO DAILY 10/28/20 05/04/21 History release (Adult Aspirin Regimen) nitroglycerin 0.4 mg sublingual 0.4 mg SUBLINGUAL Q5M PRN #30 tab 10/28/20 05/04/21 Rx tablet pantoprazole 20 mg tablet,delayed 20 mg PO DAILY 10/28/20 05/04/21 History release losartan 100 mg tablet 100 mg PO DAILY #90 tab 02/25/21 05/04/21 Rx fluticasone fur. 100 mcg-umeclid 1 inh INHALATION DAILY #180 ea 03/24/21 05/04/21 Rx 62.5 mcg-vilant 25 mcg inhalat.powder (Trelegy Ellipta) metoprolol tartrate 25 mg tablet 25 mg PO BID #180 tab 03/24/21 05/04/21 Rx albuterol sulfate 90 mcg/actuation 2 puff INHALATION Q6H PRN #6.7 g 04/22/21 05/04/21 Rx aerosol inhaler (Ventolin HFA) cyanocobalamin (vitamin B-12) 1,000 mcg PO DAILY 05/04/21 05/04/21 History 1,000 mcg tablet (Vitamin B-12) Patient History Medical History Bronchiectasis COPD (chronic obstructive pulmonary disease) Coronary artery disease History of abdominal aortic aneurysm (AAA) History of esophageal ulcer (2013) History of DE (myocardial infarction) (01/08/14) Hypertension Hypoxia Tobacco abuse Surgical History H/O heart artery stent (2013) S/P AAA (abdominal aortic aneurysm) repair (2005) S/P total hysterectomy and bilateral salpingo-oophorectomy (1975) Family History Sister Breast cancer Father Myocardial infarction Coronary heart disease Mother AA (aortic aneurysm) Denies family history of Ovarian cancer Prostate cancer Colorectal cancer Social History Smoking Status: Current every day smoker Tobacco Type: Cigarettes Age Started Using Tobacco: 24; Cigarettes Per Day: 1; Second Hand Exposure: No; Hx Alcohol Use: No Hx Substance Use: No Preferred Language: French Communication Ability: Effective Visual Impairment: Limited Hearing Ability: Normal Wool Brusher Required: No Beliefs That Will Affect Care: None marital status: Current Living Situation: Spouse 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 HEENT exam is negative. Neck is supple with full carotid upstrokes. There are no carotid bruits. Jugular venous pressure is flat at 90. There is no thyromegaly. Cardiovascular exam reveals a regular rhythm with a normal S1 and S2. No S3, S4, or murmurs are noted. Lungs are clear without rales, rhonchi, or wheezes. Abdomen is soft and nontender without bruits. Extremities reveal intact radial artery pulses bilaterally. Posterior tibial pulses are nonpalpable. There is no peripheral edema. Results & Data ([facility]) Vital Signs (Past 12 Hours) Vital Signs Temp Pulse Pulse Resp BP Pulse Ox 05/05/21 07:00 81 05/05/21 03:18 36.5 C 74 18 108/68 95 05/04/21 23:33 36.7 C 63 19 107/64 96 Laboratory Results CBC notes hemoglobin 11.9, hematocrit 37.8, white count 8.98, and platelet count 161 1000. Electrolytes note a sodium of 138, potassium 4.3, chloride 105, bicarb 31, BUN 9, creatinine 0.59, and glucose of 104. Troponin I level is undetectable at less than 0.015 x 3. Diagnostic Findings Initial EKG noted normal sinus rhythm without abnormalities. Second tracing noted atrial fibrillation with rapid ventricular response and inferolateral ST abnormality. The 3rd tracing notes sinus rhythm with frequent PACs. Chest x- ray shows no acute disease. Aortogram as described above. Lower extremity ultrasound showed no evidence of DVT. electronic device monitor notes sinus rhythm. PG Care Time/CCT Total # of Minutes Spent Total Time Spent with Patient: Total time spent is greater than 50% in coordination of care (as documented) at patient's floor/unit and/or counseling patient: Coding Level of Care Code INT OBSERVATION CARE 70M LVL 3 Diagnoses Atrial fibrillation with rapid ventricular response I48.91 Coronary artery disease I25.10 Peripheral arterial disease I73.9 Hypertension I10 Hypercholesterolemia E78.00
--- NOTE | 2021-05-05 13:57 | XCELERA ---
[id number]
--- NOTE | 2021-05-05 15:08 | Electrocardiogram Report ---
Test Reason : Blood Pressure : / mmHG Vent. Rate : 078 BPM Atrial Rate : 078 BPM P-R Int : 138 ms QRS Dur : 080 ms QT Int : 374 ms P-R-T Axes : 082 063 065 degrees QTc Int : 426 ms Normal sinus rhythm Normal ECG When compared with ECG of 10-JAN-2014 07:44, Nonspecific T wave abnormality no longer evident in Inferior leads T wave amplitude has increased in Lateral leads Confirmed by Santiago Godinez ([id number]) on 05/05/2021 3:08:13 PM Referred By: REFERRED SELF Confirmed By:Santiago Godinez
--- NOTE | 2021-05-05 15:25 | Electrocardiogram Report ---
Test Reason : Blood Pressure : / mmHG Vent. Rate : 131 BPM Atrial Rate : 166 BPM P-R Int : 000 ms QRS Dur : 084 ms QT Int : 314 ms P-R-T Axes : 000 055 268 degrees QTc Int : 463 ms Atrial fibrillation with rapid ventricular response Abnormal ECG When compared with ECG of 04-MAY-2021 14:10, (unconfirmed) Significant changes have occurred Confirmed by Santiago Godinez ([id number]) on 05/05/2021 3:25:36 PM Referred By: REFERRED SELF Confirmed By:Santiago Godienz
--- NOTE | 2021-05-05 15:45 | Electrocardiogram Report ---
Test Reason : Blood Pressure : / mmHG Vent. Rate : 082 BPM Atrial Rate : 082 BPM P-R Int : 146 ms QRS Dur : 078 ms QT Int : 352 ms P-R-T Axes : 080 069 065 degrees QTc Int : 411 ms Sinus rhythm with occasional Premature ventricular complexes and Premature atrial complexes Otherwise normal ECG When compared with ECG of 04-MAY-2021 17:28, (unconfirmed) Significant changes have occurred Confirmed by Santiago Godinez ([id number]) on 05/05/2021 3:44:56 PM Referred By: REFERRED SELF Confirmed By:Santiago Godinez
--- NOTE | 2021-05-05 17:49 | Hospitalist Progress Note ---
Date of Service May 05, 2021 Assessment & Plan (1) Atrial fibrillation with RVR: Plan: Atrial fibrillation with RVR/hypertension/CAD/stented coronary artery Atrial fibrillation with RVR Continue metoprolol 50 mg p.o. twice daily Lopressor 5 mg IV every 4 hours on-call as needed for tachycardia greater than 110 Patient in the rhythm at time of bedside assessment Continue aspirin 81 mg daily Continue losartan 100 mg daily Amlodipine held Nitroglycerin sublingual as needed Heparin GTT converted to apixaban, continue apixaban 5 mg twice daily. Patient less than 80 years old, serum creatinine less than 1.5 does not meet dose reduction criteria. Troponin negative (2) Bilateral calf pain: Plan: Likely secondary to newly diagnosed PAD, although symptoms not consistent with claudication (3) Peripheral arterial disease: Plan: -MADINA 0.71 on the right -MADINA 0.74 on the left -Aortogram: Extensive aortoiliac atherosclerotic plaque and plaque within the bilateral lower extremity. Postoperative findings of the distal abdominal aorta. Mild to moderate multifocal stenosis within the bilateral superficial femoral arteries. Bilateral trifurcations patent. Suboptimal evaluation of the bilateral calf vessels, as described above, due to their small size and extensive plaque. Flow identified within the bilateral calf vessels to at least the level of the mid diaphyses of the tibias. No flow identified within the distal aspect of these vessels which could be due to outrunning the bolus or vessel occlusion. The findings could be correlated with bilateral lower extremity arterial Doppler ultrasound. Extensive atherosclerotic plaque of the distal descending thoracic aorta and abdominal aorta. Aneurysmal dilatation of the descending thoracic aorta, measuring 3.8 x 3.7 cm. Mild dilatation of the bilateral common iliac arteries. No acute process within the abdomen or pelvis. No dissection. -Case discussed with cardiology, being discussed with Dr. Cortez has a stent candidate, although given symptoms lack of clear clarification overall presentation patient is not likely to be a stent candidate. Anticipate outpat ient follow-up (4) Dehydration: Plan: P.o. intake improve pain, creatinine normal IV fluids discontinued, encourage p.o. hydration (5) Hypomagnesemia: Plan: Repleted (6) Tobacco abuse: Plan: Patient reports that she is down to 1 cigarette daily, and will stop altogether after this hospitalization (7) Stented coronary artery: Plan: See above (8) Hypercholesterolemia: Plan: - Triglycerides/cholesterol/LDL/HDL 144/145/75/41 Recommend addition of atorvastatin 40 mg (9) Hypertension: Plan: See above (10) Coronary artery disease: Plan: See above (11) COPD (chronic obstructive pulmonary disease): Plan: Hold albuterol HFA DuoNebs every 2 hours as needed (12) Macrocytosis: Plan: B12, folate pending Plan: Omayra is a 75-year-old female who presents with calf pain and is found to be in A. fib. She has significant peripheral arterial disease, being evaluated for vascular intervention although unlikely to be a candidate for stenting. Anticipate outpatient follow-up, patient pending PT/OT and will likely require rehab for discharge. She has been converted from heparin drip to DOAC anticoagulation, and is rate controlled on metoprolol at this time. Admission and Anticipated Discharge Date Admission Date: May 04, 2021 Kassie Cutler is seen at the bedside this morning. She reports that she feels well. She would like to go home as soon as possible, but recognizes that she has difficulty ambulating with a walker and has not yet seen physical therapy. Continues to have leg pain in her legs and calfs bilaterally, endorses this as a stiff pain which improves as she starts to walk and progressively stretches and continues walking. She denies the sensation of comfortable walking until she hits a cramp/wall, history not consistent with claudication. Denies chest pain, chest pressure, lightheadedness, dizziness, fever, chills, sweats at time of bedside assessment. Patient again expresses desire to get home to help take care of her as quickly as possible, but has no other questions or concerns. Review of Systems Review of Systems: Constitutional: Denies fever, chills, malaise Eyes: Denies vision change ENT: Denies ear pain, sore throat, sinus pain Cardiovascular: Denies Chest pain, chest pressure, palpitations, extremity swelling Respiratory: Denies shortness of breath, cough, sputum production, difficulty breathing Gastrointestinal: Denies abdominal pain, nausea, vomiting, constipation, diarrhea Genitourinary: Denies dysuria, urinary frequency Musculoskeletal: Versus bilateral leg pain as noted in HPI Integumentary:Denies acute rash, lesions, bruising Neurological: Barbara is some tingling, cramps in legs bilaterally Physical Exam Physical Exam: General: A&Ox3. NAD. Cooperative. Answers questions appropriately. HEENT: Atraumatic, normocephalic. Dual acuity grossly intact. Hearing grossly intact. Pulm: CTAB A&P. -wheezes, -rales, -rhonchi. Symmetrical chest rise. No increase work of breathing. No respiratory distress. Cardiac: RRR, -mrg. Radial pulses intact and symmetrical. Extremities: Left calf circumference greater than right calf circumference, light tenderness to touch bilaterally. PT pulses diminished bilaterally but intact. Extremities cool, dry. Ankle dorsiflexion/plantar flexion 5/5 without asymmetry, svp chief marketing officer strength, elbow flexion 5/5 bilaterally without asymmetry. Sensation to soft touch intact in feet and hands bilaterally. Results & Data Results & Data ([facility]) Vital Signs (Past 12 Hours) Vital Signs Pulse 05/05/21 07:00 81 PG Care Time/CCT Total # of Minutes Spent Total Time Spent with Patient: Total time spent is greater than 50% in coordination of care (as documented) at patient's floor/unit and/or counseling patient: Coding Level of Care Code 12880 Subseq Hosp Care Lvl 3 Diagnoses Atrial fibrillation with RVR I48.91 Bilateral calf pain M79.661; M79.662 Peripheral arterial disease I73.9 Dehydration E86.0 Hypomagnesemia E83.42 Tobacco abuse Z72.0 Stented coronary artery Z95.5 Hypercholesterolemia E78.00 Hypertension I10 Coronary artery disease I25.10 COPD (chronic obstructive pulmonary disease) J44.9 Macrocytosis D75.89
[2021-05-05] MEDS: APIXABAN 5 MG TABLET PO SCH (19:17)
[2021-05-06 06:31] LABS: Basophils # (auto) 0.01 K/uL (0-0.2); Basophils % (auto) 0.1 %; Eosinophils # (auto) 0.13 K/uL (0-0.5); Eosinophils % (auto) 1.7 %; Hematocrit (blood only) 38.8 % (37-47); Hemoglobin 12.1 g/dL (12.0-16.0); Immature Granulocytes # (auto) 0.02 K/uL (0.00-0.02); Immature Granulocytes % (auto) 0.3 %; Lymphocytes # (auto) 1.13 K/uL (1.2-3.4); Lymphocytes % (auto) 14.5 %; Mean Corpuscular Hemoglobin 33.1 pg (25-34); Mean Corpuscular Hgb Conc 31.2 g/dL (32-36); Mean Platelet Volume 10.4 fL (7.4-10.4); Monocytes # (auto) 0.88 K/uL (0.11-0.59); Monocytes % (auto) 11.3 %; Neutrophils % (auto) 72.1 %; Platelet Count 183 K/uL (130-400); RDW Coefficient of Variation 12.7 % (11.5-14.5); RDW Standard Deviation 49.9 fL (36.4-46.3); Red Blood Count 3.66 M/uL (4.2-5.4); White Blood Count 7.77 K/uL (4.8-10.8)
[2021-05-06 06:44] LABS: Partial Thromboplastin Ratio 1.2; Partial Thromboplastin Time 32.2 Seconds (21.0-31.0)
[2021-05-06 06:59] LABS: Albumin Level 2.5 gm/dl (3.4-5.0); BUN Creatinine Ratio 13.5 (10-20); Calcium 8.6 mg/dl (8.5-10.1); Creatinine Clr Calc Pharmacy 60.9 ml/min; Est GFR (Non-African American) 86.2 ml/min; Magnesium 1.9 mg/dl (1.8-2.4); Potassium 4.2 mmol/L (3.5-5.1)
[2021-05-06 07:02] LABS: Albumin Globulin Ratio 0.7 (0.9-2); Bilirubin,Total 0.4 mg/dl (0.2-1); Globulin 3.8 gm/dl (2.5-4.0); Total Protein 6.3 gm/dl (6.4-8.2)
[2021-05-06 07:56] LABS: Folate (Folic Acid) 7.2 ng/ml (>5.38)
[2021-05-06] MEDS: FLUTICASONE FUROATE 100MCG 14 PUFFS/INHALER INH SCH (08:48)
[2021-05-06] MEDS: UMECLIDINIUM/VILANTEROL 62.5/25MCG 7 PUFFS/INHALER INH SCH (08:49)
[2021-05-06] MEDS: PANTOprazole 40 MG TAB PO SCH (08:49)
[2021-05-06] MEDS: ASPIRIN 81 MG ECTAB PO SCH (08:50)
[2021-05-06] MEDS: CYANOCOBALAMIN 500 MCG TABLET (VITAMIN B-12) PO SCH (08:50)
[2021-05-06] MEDS: APIXABAN 5 MG TABLET PO SCH (08:50)
[2021-05-06] MEDS: METOPROLOL TARTRATE 50 MG TAB PO SCH (08:54)
[2021-05-06] MEDS: LOSARTAN POTASSIUM 50 MG TAB PO SCH (08:54)
[2021-05-06 11:52] VITALS: PULSE 88; TEMP 98.1; O2SAT 95
--- NOTE | 2021-05-06 11:55 | Discharge Summary ---
Date of Service May 06, 2021 Admission HPI Per Admitting Provider The patient is a 75-year-old female with a past medical history including tobacco abuse, stented coronary artery, aortic valve insufficiency, hypercholesterolemia, esophageal ulcer, abdominal aortic aneurysm, history of AL, COPD, CAD, hypertension, and status post femoropopliteal bypass in 2005. Patient presents with worsening symptoms of bilateral lower extremity weakness and difficulty ambulating distances. She denies any history of trauma. She denies any recent travels or sick exposures. Work-up in the emergency department included MADINA testing, right 0.71, left 0.74. Venous Dopplers negative bilaterally for lower extremity DVT Chest x-ray shows a stable thoracic aortic aneurysm Admission Exam Per Admitting Provider The patient is awake, alert and oriented 3, well developed and well nourished, normocephalic and atraumatic, lying in bed and in no acute distress. HEENT--PERRL, EOMI, mucous membranes and oropharynx normal. Neck--supple. No JVD. No bruits. Thyroid normal, trachea midline, no adenopathy. Heart--initially regular rate and rhythm. Later on while in the ED tachycardia with irregularly irregular rhythm. No murmurs, rubs or gallops. Lungs--clear bilaterally, no respiratory distress, no accessory muscle use. Abdomen--normal bowel sounds and soft. Nontender. Nondistended, no hernias or masses, no organomegaly. Extremities--no cyanosis or clubbing. No edema. Right calf approximately one half times size of the left and tenderness to light touch. Dermatologic--normal skin turgor, normal color, no abnormal lymph nodes, no rash. Neurologic--cranial nerves II through XII grossly intact. Rheumatologic--normal range of motion. Psychiatric--normal affect. Principal Diagnosis Peripheral artery disease A. fib RVR Discharge Exam General: A&Ox3. NAD. Cooperative. HEENT: Atraumatic, normocephalic. Dual acuity and hearing grossly intact. Pulm: CTAB A&P. -wheezes, -rales, -rhonchi. Symmetrical chest rise. No increase work of breathing. No respiratory distress. Cardiac: RRR, -mrg. Radial pulses intact and symmetrical. Abdominal: Nontender, nondistended, soft. BS present. Extremities: Moving all extremities equally. [employer] strength, ankle plantarflexion/dorsiflexion 5/5. Hip flexion 5/5. PT pulses intact bilaterally. Discharge Data Allergies Allergy/AdvReac Type Severity Reaction Status Date / Time Penicillins Allergy Mild Verified 05/04/21 14:24 Sulfa (Sulfonamide Allergy Mild Verified 05/04/21 14:24 Antibiotics) lisinopril AdvReac Intermediate COUGH Verified 05/04/21 14:24 fexofenadine AdvReac Unknown "SKIN Verified 05/04/21 14:24 HURTS" HEADACHE Consultations 05/04/21 18:19 ED Decision to Admit Stat 05/04/21 21:34 Consult Cardiology Routine Ordered Studies 05/04/21 13:51 US ankle/brachial index comp Stat US venous doppler LE BI Stat 05/04/21 18:33 CT ang AA runof w inc [facility] Hospital Course (1) Atrial fibrillation with RVR: Omayra is a 75-year-old female who presented to the emergency department with bilateral lower extremity weakness and difficulty ambulating. She was found to be in A. fib, and was noted to also have peripheral arterial disease. Atrial fibrillation with RVR Presented with atrial fibrillation in ER which converted to normal sinus rhythm. Continue metoprolol 50 mg p.o. twice daily Continue aspirin 81 mg daily Continue losartan 100 mg daily Amlodipine held ondischarge, may resume if pt hypertensive although BP well controlled with MTP increase for rate control. -Coagulated with heparin GTT during admission, converted to apixaban during admission and discharge to continue apixaban. Patient less than 80 years old, serum creatinine less than 1.5 does not meet dose reduction criteria. Troponin negative x3 -Follow-up scheduled with cardiology (2) Bilateral calf pain: Likely secondary to newly diagnosed PAD, although symptoms not consistent with claudication Able to ambulate safely with PT/OT, recommended for home with home health services and follow-up to PCP (3) Peripheral arterial disease: -MADINA 0.71 on the right -MADINA 0.74 on the left -Aortogram: Extensive aortoiliac atherosclerotic plaque and plaque within the bilateral lower extremity. Postoperative findings of the distal abdominal aorta. Mild to moderate multifocal stenosis within the bilateral superficial femoral arteries. Bilateral trifurcations patent. Suboptimal evaluation of the bilateral calf vessels, as described above, due to their small size and extensive plaque. Flow identified within the bilateral calf vessels to at least the level of the mid diaphyses of the tibias. No flow identified within the distal aspect of these vessels which could be due to outrunning the bolus or vessel occlusion. The findings could be correlated with bilateral lower extremity arterial Doppler ultrasound. Extensive atherosclerotic plaque of the distal descending thoracic aorta and abdominal aorta. Aneurysmal dilatation of the descending thoracic aorta, measuring 3.8 x 3.7 cm. Mild dilatation of the bilateral common iliac arteries. No acute process within the abdomen or pelvis. No dissection. -Case discussed with cardiology, being discussed with Dr. Cortez has a stent candidate, although given symptoms lack of clear clarification overall presentation patient is not likely to be a stent candidate. Anticipate outpatient follow-up. Do not feel that based on presentation cilastatin sole was likely to produce benefit the time of hospitalization, may assess up (4) Dehydration: P.o. intake improved, creatinine remain normal (5) Hypomagnesemia: Repleted (6) Tobacco abuse: Patient reports that she is down to 1 cigarette daily, and will stop altogether after this hospitalization. Tobacco cessation counseling provided. (7) Stented coronary artery: See above (8) Hypercholesterolemia: - Triglycerides/cholesterol/LDL/HDL 144/145/75/41 Discussed addition/resumption of a statin medication with patient. She notes that she has been on multiple statins in the past and was intolerant of them due to side effects, does not remember which statin she was tried on. Does not want a resume a statin at time of hospitalization but agrees to talk with her physician for review of her records of which when she has been on and potentially try a different/newer generation statin. Given her underlying peripheral artery disease and cardiac disease strongly recommended that she be on this. (9) Hypertension: See above (10) Coronary artery disease: See above (11) COPD (chronic obstructive pulmonary disease): No acute exacerbation was experienced during admission Total Time Total Time Spent Total Time Spent (In Minutes): Time spent coordinating discharge including patient visit, documentation, coordination of care, and history and physical approximately 40 minutes. Discharge Plan Discharge Items Patient Disposition: Home - Home Health Services Reason For Visit: B/L LE WEAKNESS, PAD, A-FIB WITH RVR Discharge Diagnosis: Peripheral vascular these A. fib with RVR Activity: Per Instructions section Non-emergency contact: Primary Care Provider Call non-emergency contact if: you have any medication questions, your symptoms worsen and your pain is not controlled Follow-up/Referrals: Santiago Godinez MD [Physician] - Cathy Cerda DO [Primary Care Provider] - Diet: Heart Healthy Addtl Attending Provider Instructions: You were seen in the hospital for leg pain and atrial fibrillation. Atrial fibrillation can raise your risk of blood clots and stroke, you have been started on a blood thinner to protect you from these. Your work-up did not show evidence of a heart attack or acute heart damage. Imaging and tests of your arteries showed some atherosclerotic/plaque related disease, after discussion of your case with cardiology it is unlikely that this was causing your symptoms and that stenting or other procedures would benefit your symptoms. It is recommended that you resume a cholesterol medication such as rosuvastatin, this was discussed with you but you noted you would had been on multiple of these medicines in the past and did not tolerate them well. Recommend you follow-up with your primary care provider to review which ones were tried, and to continue a trial of a different one if possible as this is likely to benefit both your heart and your peripheral artery disease A follow-up appointment is being made for you with your primary provider Dr. Cerda. You should be seen within 1 week. You should receive a call to confirm your appointment, if you do not receive a call to confirm your appointment or need to reschedule your appointment please call her office at [phone]. A follow-up appointment is being made for you with [facility] cardiology. You should receive a call to confirm your appointment, you should be seen within 1 month. If you do not receive a call to confirm your appointment, or need to reschedule your appointment please call their office at [phone]. You have been started on a new medication apixaban. Apixaban is a blood thinner to help protect you against strokes and blood clots which can occur with A. fib. Please take Eliquis 5 mg by mouth twice daily. Being on a blood thinner will make it more difficult for your blood to clot, however this can increase risk of bleeding. If you sustain a small cut apply firm direct pressure for 10 minutes before checking it. If you sustain a larger injury, other bleeding, or bleeding that does not stop with simple pressure please contact your primary care physician or to the emergency department for evaluation if you are very concerned. Your dose of metoprolol has been used to 50 mg to help prevent a fast heart rate caused by A. fib. If you experience lightheadedness, dizziness, or excess fatigue please discuss this with your primary care physician or your school adjustment counselor. If you develop any new or worsening symptoms including fever, chills, sweats, chest pain, chest pressure, difficulty breathing, uncontrolled nausea/vomiting, rash, wheezing, passing out or nearly passing out, bleeding, black/bloody bowel movements, or other new or concerning symptoms please call your primary care physician at [phone], or call 911 for re-evaluation in the emergency department if you are very concerned. Pending Studies at Discharge: No Stand-Alone Forms: My [facility] [employer], Smoking Cessation Medications and DC Order Prescriptions: New Eliquis 5 mg Tablet 5 mg PO BID 30 Days Qty: 60 RF: 0 metoprolol tartrate 50 mg Tablet 50 mg PO BID Qty: 30 RF: 0 Continued losartan 100 mg tablet 100 mg PO DAILY Qty: 90 RF: 0 Trelegy Ellipta 100-62.5-25 mcg blister with device 1 inh inhalation DAILY Qty: 180 RF: 1 albuterol sulfate [Ventolin HFA] 90 mcg/actuation HFA aerosol inhaler 2 puff inhalation Q6H PRN (Reason: shortness of breath or wheezing) Qty: 6.7 RF: 2 pantoprazole 20 mg tablet,delayed release (DR/EC) 20 mg PO DAILY RF: 0 aspirin [Adult Aspirin Regimen] 81 mg tablet,delayed release (DR/EC) 81 mg PO DAILY RF: 0 albuterol sulfate 2.5 mg /3 mL (0.083 %) solution for nebulization 2.5 mg inhalation Q6H RF: 0 nitroglycerin 0.4 mg tablet, sublingual 0.4 mg sublingual Q5M PRN (Reason: chest pain) Qty: 30 RF: 5 cyanocobalamin (vitamin B-12) [Vitamin B-12] 1,000 mcg Tablet 1,000 mcg PO DAILY RF: 0 Discontinued metoprolol tartrate 25 mg tablet 25 mg PO BID Qty: 180 RF: 1 amlodipine 2.5 mg tablet 2.5 mg PO DAILY RF: 0 Discharge Orders: Discharge Order (Routine); Ordered 05/06/21 Ordered By: Rodriguez Ortiz Admission Data Admit Date/Time: 05/04/21 19:37 Attending Provider: Rodriguez Ortiz Admit Provider: Diego Esquivel Primary Care Provider: Cathy Cerda Other Providers: Diego Esquivel ; Ricco Santacruz Coding Level of Care Code D/C DAY MANAGEMENT >30 MINS Diagnoses Atrial fibrillation with RVR I48.91 Bilateral calf pain M79.661; M79.662 Peripheral arterial disease I73.9 Dehydration E86.0 Hypomagnesemia E83.42 Tobacco abuse Z72.0 Stented coronary artery Z95.5 Hypercholesterolemia E78.00 Hypertension I10 Coronary artery disease I25.10 COPD (chronic obstructive pulmonary disease) J44.9
--- NOTE | 2021-05-06 12:31 | Cardiology Progress Note ---
Date of Service May 06, 2021 Assessment & Plan (1) Atrial fibrillation with rapid ventricular response: Plan: -new onset. -tolerating increased dose of metoprolol tartrate. -full dose Eliquis started yesterday. -stable for hospital discharge. (2) Coronary artery disease: Plan: -2.5 x 26 mm BMS in mid RCA, December 2013. -nonobstructive disease in LAD and LCx, December 2013. -continue medical management. (3) Peripheral arterial disease: Plan: -probably moderate disease throughout the aorta and distally. -presenting complaints do not represent claudication. -Dr. Cortez reviewed the aortogram, medical management at this time. No intervention necessary. -stable distal thoracic aortic aneurysm. -s/p AAA repair, aortoiliac bypass, June 2006. (4) Hypertension: Plan: -adequate control on current regimen. (5) Hypercholesterolemia: Plan: -would restart rosuvastatin at 20 mg daily. Admission and Anticipated Discharge Date Admission Date: May 04, 2021 Subjective The patient is resting comfortably in the bedside chair without complaints of chest pain, dyspnea, or palpitations. She is anxious for hospital discharge. Physical Exam Physical Exam: In general this is a well-developed well-nourished white female in no acute distress. HEENT exam is negative. Neck is supple with full carotid upstrokes. There are no carotid bruits. Jugular venous pressure is flat at 90. There is no thyromegaly. Cardiovascular exam reveals a regular rhythm with a normal S1 and S2. No S3, S4, or murmurs are noted. Lungs are clear without rales, rhonchi, or wheezes. Abdomen is soft and nontender without bruits. Extremities reveal intact radial artery pulses bilaterally. Posterior tibial pulses are nonpalpable. There is no peripheral edema. Results & Data ([facility]) Vital Signs (Past 12 Hours) Vital Signs Temp Pulse Pulse Resp BP BP Pulse Ox 05/06/21 11:51 36.7 C 88 20 112/70 95 05/06/21 07:47 36.3 C L 77 18 98/62 L 100 05/06/21 07:14 87 05/06/21 04:20 36.9 C 78 20 112/66 100 05/06/21 02:31 70 Diagnostic Findings environmental monitoring specialist notes sinus rhythm with occasional PACs and PVCs. PG Care Time/CCT Total # of Minutes Spent Total Time Spent with Patient: Total time spent is greater than 50% in coordination of care (as documented) at patient's floor/unit and/or counseling patient: Coding Level of Care Code 90253 Subseq Hosp Care Lvl 3 Diagnoses Atrial fibrillation with rapid ventricular response I48.91 Coronary artery disease I25.10 Peripheral arterial disease I73.9 Hypertension I10 Hypercholesterolemia E78.00
[2021-05-06 13:14] VITALS: BP 112/66
--- NOTE | 2021-05-06 16:26 | Electrocardiogram Report ---
Test Reason : Blood Pressure : / mmHG Vent. Rate : 077 BPM Atrial Rate : 077 BPM P-R Int : 146 ms QRS Dur : 084 ms QT Int : 376 ms P-R-T Axes : 078 063 067 degrees QTc Int : 425 ms Sinus rhythm with Premature atrial complexes Possible Left atrial enlargement Borderline ECG When compared with ECG of 05-MAY-2021 06:14, Premature ventricular complexes are no longer Present Confirmed by Santiago Godinez ([id number]) on 05/06/2021 4:26:37 PM Referred By: REFERRED SELF Confirmed By:Santiago Godinez
== END 2021-05-06 14:31 | disposition home health service (06) ==
LOC: ED 12:30 → 2S 19:37 → INTOOBSV 19:37 → SUATTDRO 19:37 → 2S 20:44

== ENCOUNTER 2022-02-19 22:56 | Inpatient (IN) ==
[2022-02-19] MEDS ORDERED: SODIUM CHLORIDE 0.9% 500 ML IV ONE (22:59)
--- NOTE | 2022-02-19 23:00 | Emergency Department Note ---
Impression & Plan Elevated troponin ADMIT ED Provider Note HPI: The patient is a 76-year-old female with history of COPD/chronic respiratory failure on home oxygen, paroxysmal atrial fibrillation, on Coumadin, coronary artery disease, presents the emergency department with a chief complaint of shortness of breath. Patient was noted to be in SVT in the field with hypotension and therefore was cardioverted in the field with success. Patient denies any chest pain on arrival, she is hemodynamically stable on my initial assessment, she is saturating well on her baseline 4 L nasal cannula oxygen. She is otherwise in no acute distress currently. ROS: -Cardio: Palpitations, shortness of breath *10 point review systems was conducted and is otherwise negative unless stated above *Outpatient medications and allergy history reviewed PE: General: Alert, NAD, frail-appearing HEENT: Normocephalic, atraumatic Eyes: Extraocular eye movement is intact, no scleral erythema Pulmonary: Clear to auscultation bilaterally, no wheezing Cardio: Regular rate and rhythm GI: Abdomen is soft, nontender : No suprapubic tenderness MSK: No evidence of trauma or malformation of the extremities, no edema Skin: No evidence of rash Neuro: Alert, no focal deficits 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 Severe centrilobular emphysema. Spiculated mass in the left lung base, measuring 3.1 x 2.9 cm, highly concerning for malignancy. Small satellite nodules are present at the left lung base and right lung base. PET/CT scan should be considered for further evaluation. No pleural effusion or pneumothorax. Status post thoracic endovascular stent repair with underlying ascending aortic aneurysm measuring 6.8 cm. Sternotomy wires. Cardiomegaly. No pericardial effusion. Degenerative changes of the spine. Osteoporosis. Radiologist: Héctor Juarez MD Medical Decision Making: Patient presented to the emergency department after EMS was contacted for shortness of breath, patient was noted to be in a tachyarrhythmia in the field suspected to be SVT, she was cardioverted x1 with success back into sinus rhythm. Patient is in sinus rhythm on arrival here, she denies any current chest pain, she is stable on 4 L nasal cannula oxygen which she does wear at home. IV was established, lab work obtained, patient was placed on battery starter, HS troponin is elevated at 83, CT angiography of the chest was obtained that does not show any evidence of endovascular stent leak, no evidence of pulmonary embolism. On reassessment the patient states that she is feeling some mild shortness of breath but no chest pain, she is saturating well on baseline nasal cannula oxygen, she was given aspirin here and is otherwise in no acute d istress. Hemoglobin is noted to be stable at 10.2, evidence of hyperglycemia without DKA. Bedside RN states when the patient had a bowel movement and her bowel movement appeared to be dark in coloration, occult stool test was obtained and is positive. Patient is therapeutic on Coumadin with an INR of 2.5, she denies any gross bleeding per rectum recently. Her hemoglobin is stable in comparison to her previous levels. TSH is noted to be mildly elevated at approximately 10.0, free T4 is within normal limits. Given the patient's elevated troponin and comorbidities, I do feel that she would benefit from telemetry admission and cardiology consultation in the morning. Trending of troponins. [facility] for [facility] and the patient was admitted in stable condition. Diagnosis: 1. Tachyarrhythmia 2. Elevated high-sensitivity troponin level 3. Dyspnea 4. Occult positive stool 5. Elevated TSH Disposition: Admission Bryson Escobar DO Emergency Medicine Past Med/Surg History Medical History (Updated 02/20/22 @ 00:58 by Bryson Escobar DO) Anxiety Atrial fibrillation with rapid ventricular response Bronchiectasis Bronchiectasis Chronic respiratory failure COPD (chronic obstructive pulmonary disease) Coronary artery disease Dehydration History of abdominal aortic aneurysm (AAA) History of esophageal ulcer (2013) History of CT (myocardial infarction) (01/08/14) Hypertension Hypomagnesemia Hypoxia Peripheral arterial disease Thoracic aortic aneurysm Tobacco abuse Surgical History (Updated 02/05/22 @ 16:39 by Cathy Cerda DO) H/O heart artery stent (2013) H/O heart bypass surgery (09/15/21) 09/15/21 Dr. Jerry Ellsworth at [facility] [place]- CABG x 2 SVG to LAD and OM/Ligation left atrial appendage with 35 mm Atricure clip/debranching of aortic arch with "Y" graft from ascending aorta to innominate and left carotid artery H/O vascular surgery (11/18/21) L common carotid A to L subclavian artery dacron bypass graft S/P AAA (abdominal aortic aneurysm) repair (07/14/06) open repair, Aortiobiiliac graft S/P aneurysm repair (01/06/22) S/P right cataract extraction S/P ANGEL-BSO (1975) secondary to endometriosis S/P tonsillectomy S/P total hysterectomy and bilateral salpingo-oophorectomy (1975) Status post coronary angiogram 09/10/21 Dr. Jean Baptiste at [facility] [place]- Coronary angiography (recommended bypass) Family History Sister Breast cancer Father Myocardial infarction Coronary heart disease Atrial fibrillation AAA (abdominal aortic aneurysm) Stroke Lung cancer Hypertension Mother AA (aortic aneurysm) Denies family history of Ovarian cancer Prostate cancer Colorectal cancer Social History Smoking Status: Former smoker Tobacco Type: Cigarettes Age Started Using Tobacco: 24; Cigarettes Per Day: 1; Second Hand Exposure: No; Hx Alcohol Use: No Hx Substance Use: No Preferred Language: Belarusian Communication Ability: Effective Visual Impairment: Limited Hearing Ability: Normal Weight Yardage Checker Required: No Beliefs That Will Affect Care: None marital status: Current Living Situation: Spouse 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 How many Children do You have: 3 Feels Safe at Home: Yes Childhood Exposure to Second-Hand Smoke: Yes (father) caffeine: Yes during the past year weight has: remained stable Dental Care, Regularly: No Physical Activity Frequency: 3-4 Times per Week Physical Activity Frequency Comment: walks Seatbelt Use: always Sunscreen Use: Yes Assistive Devices: Walker Allergies Allergies Allergy/AdvReac Type Severity Reaction Status Date / Time Sulfa (Sulfonamide Allergy Intermediate Rash Verified 02/19/22 23:33 Antibiotics) Penicillins Allergy Unknown HAPPENED Verified 02/19/22 23:33 A TEENAGER amiodarone AdvReac Intermediate SKIN Verified 02/19/22 23:33 PEELED OFF FEET fexofenadine AdvReac Intermediate "SKIN Verified 02/19/22 23:33 HURTS" HEADACHE lisinopril AdvReac Intermediate COUGH Verified 02/19/22 23:33 Home Meds Home Medications Medication Instructions Recorded Confirmed aspirin 81 mg tablet,delayed 81 mg PO DAILY 10/28/20 02/19/22 release (Adult Aspirin Regimen) cyanocobalamin (vitamin B-12) 1,000 mcg PO DAILY 05/04/21 02/19/22 1,000 mcg tablet (Vitamin B-12) pantoprazole 40 mg tablet,delayed 40 mg PO DAILY 11/25/21 02/19/22 release acetaminophen 325 mg tablet 325 mg PO .COMPLEX PRN 02/19/22 02/19/22 Previous Rx's Medication Instructions Recorded nitroglycerin 0.4 mg sublingual 0.4 mg SUBLINGUAL Q5M PRN #30 tab 10/28/20 tablet rosuvastatin 10 mg tablet 10 mg PO DAILY #30 tab 08/05/21 metoprolol tartrate 50 mg tablet 50 mg PO BID #180 tab 09/08/21 Oxygen Home #1 ea 09/30/21 fluticasone fur. 100 mcg-umeclid 1 inh INHALATION DAILY #180 ea 10/06/21 62.5 mcg-vilant 25 mcg inhalat.powder (Trelegy Ellipta) warfarin 5 mg tablet 2.5 mg PO DAILY #90 tab 10/24/21 warfarin 1 mg tablet 1 mg PO .COMPLEX #100 tab 10/28/21 albuterol sulfate 90 mcg/actuation 2 puff INHALATION Q6H PRN #6.7 g 11/12/21 aerosol inhaler (Ventolin HFA) lorazepam 0.5 mg tablet 0.5 mg PO Q8H PRN #45 tab 01/15/22 ondansetron 4 mg disintegrating 4 mg PO Q8H PRN #30 tab 01/15/22 tablet sertraline 50 mg tablet 50 mg PO DAILY #90 tab 01/22/22 albuterol sulfate 2.5 mg INHALATION Q6H PRN #180 ml 02/04/22 Walker #1 ea 02/05/22 Results & Data (ED) Vital Signs Vital Signs - 24 hr 02/19/22 23:05 02/19/22 23:23 02/19/22 23:24 Temperature 36.8 C Temperature Source Oral Pulse Rate 87 Pulse Rate [Apical] Respiratory Rate 20 Respiratory Effort / Characteristics Short of Breath Blood Pressure 187/79 H Blood Pressure [Right Arm] Blood Pressure Mean 115 Blood Pressure Mean [Right Arm] Blood Pressure Position Semi-fowlers Pulse Oximetry 96 96 96 Oxygen Delivery Method Nasal Cannula Nasal Cannula Nasal Cannula Oxygen Flow Rate 4 4 4 Sepsis Recent Fever Within 48 Hours No Sepsis New/Unexplained Change in Mental Status N/A Sepsis Action Taken by Nursing No Action Required 02/19/22 23:30 Temperature Temperature Source Pulse Rate Pulse Rate [Apical] 66 Respiratory Rate 20 Respiratory Effort / Characteristics Blood Pressure Blood Pressure [Right Arm] 180/74 H Blood Pressure Mean Blood Pressure Mean [Right Arm] 109 Blood Pressure Position Pulse Oximetry 93 Oxygen Delivery Method Nasal Cannula Oxygen Flow Rate 4 Sepsis Recent Fever Within 48 Hours Sepsis New/Unexplained Change in Mental Status Sepsis Action Taken by Nursing Laboratory Data Result diagrams: 02/19/22 23:05 02/19/22 23:05 Lab Results 02/19/22 02/19/22 02/19/22 Range/Units 23:05 23:05 23:05 WBC 10.25 (4.8-10.8) K/uL RBC 3.26 L (4.2-5.4) M/uL Hgb 10.2 L (12.0-16.0) g/dL Hct 34.9 L (37-47) % MCV 107.1 H (80-100) fL MCH 31.3 (25-34) pg MCHC 29.2 L (32-36) g/dL RDW Std Deviation 62.0 H (36.4-46.3) fL RDW Coeff of Ruthy 15.7 H (11.5-14.5) % Plt Count 168 (130-400) K/uL MPV 10.5 H (7.4-10.4) fL Immature Gran % (Auto) 0.3 % Neut % (Auto) 72.5 % Lymph % (Auto) 21.6 % [place] % (Auto) 4.8 % Eos % (Auto) 0.8 % Baso % (Auto) 0.0 % Neut # (Auto) 7.44 H (1.4-6.5) K/uL Lymph # (Auto) 2.21 (1.2-3.4) K/uL [place] # (Auto) 0.49 (0.11-0.59) K/uL Eos # (Auto) 0.08 (0-0.5) K/uL Baso # (Auto) 0.00 (0-0.2) K/uL Immature Gran # (Auto) 0.03 H (0.00-0.02) K/uL PT 25.7 H (9.0-12.0) Seconds INR 2.5 H (0.9-1.1) APTT 30.9 (21.0-31.0) Seconds PTT Ratio 1.1 Sodium 141 (136-145) mmol/L Potassium 4.9 (3.5-5.1) mmol/L Chloride 102 (98-107) mmol/L Carbon Dioxide 31 (21-32) mmol/L Anion Gap 8 (3-11) BUN 18 (6-23) mg/dl Creatinine 1.09 (0.6-1.2) mg/dl Est Cr Clr Drug Dosing 27.2 ml/min Est GFR ( Amer) 56.7 ml/min Est GFR (Non-Af Amer) 48.9 ml/min BUN/Creatinine Ratio 16.5 (10-20) Glucose 303 H* (70-99(Fasting)) mg/dl Calcium 8.3 L (8.5-10.1) mg/dl Magnesium 1.9 (1.7-2.4) mg/dl Total Bilirubin 0.4 (0.2-1.0) mg/dl AST 64 H (13-39) U/L ALT 26 (7-52) U/L Alkaline Phosphatase 112 H (34-104) U/L Troponin I High Sens 83.4 H* (0-14) pg/ml Total Protein 5.9 L (6.0-8.3) gm/dl Albumin 3.1 L (3.4-5.0) gm/dl Globulin 2.8 (2.5-4.0) gm/dl Albumin/Globulin Ratio 1.1 (0.9-2) Lipase 49 (11-82) U/L TSH (0.300-4.500) uIu/ml Free T4 (0.61-1.60) ng/dl SARS-CoV-2, RNA, NAAT (NEGATIVE) 02/19/22 02/20/22 Range/Units 23:05 00:25 WBC (4.8-10.8) K/uL RBC (4.2-5.4) M/uL Hgb (12.0-16.0) g/dL Hct (37-47) % MCV (80-100) fL MCH (25-34) pg MCHC (32-36) g/dL RDW Std Deviation (36.4-46.3) fL RDW Coeff of Ruthy (11.5-14.5) % Plt Count (130-400) K/uL MPV (7.4-10.4) fL Immature Gran % (Auto) % Neut % (Auto) % Lymph % (Auto) % [place] % (Auto) % Eos % (Auto) % Baso % (Auto) % Neut # (Auto) (1.4-6.5) K/uL Lymph # (Auto) (1.2-3.4) K/uL [place] # (Auto) (0.11-0.59) K/uL Eos # (Auto) (0-0.5) K/uL Baso # (Auto) (0-0.2) K/uL Immature Gran # (Auto) (0.00-0.02) K/uL PT (9.0-12.0) Seconds INR (0.9-1.1) APTT (21.0-31.0) Seconds PTT Ratio Sodium (136-145) mmol/L Potassium (3.5-5.1) mmol/L Chloride (98-107) mmol/L Carbon Dioxide (21-32) mmol/L Anion Gap (3-11) BUN (6-23) mg/dl Creatinine (0.6-1.2) mg/dl Est Cr Clr Drug Dosing ml/min Est GFR ( Amer) ml/min Est GFR (Non-Af Amer) ml/min BUN/Creatinine Ratio (10-20) Glucose (70-99(Fasting)) mg/dl Calcium (8.5-10.1) mg/dl Magnesium (1.7-2.4) mg/dl Total Bilirubin (0.2-1.0) mg/dl AST (13-39) U/L ALT (7-52) U/L Alkaline Phosphatase (34-104) U/L Troponin I High Sens (0-14) pg/ml Total Protein (6.0-8.3) gm/dl Albumin (3.4-5.0) gm/dl Globulin (2.5-4.0) gm/dl Albumin/Globulin Ratio (0.9-2) Lipase (11-82) U/L TSH 10.724 H (0.300-4.500) uIu/ml Free T4 1.53 (0.61-1.60) ng/dl SARS-CoV-2, RNA, NAAT NEGATIVE (NEGATIVE) Administered Medications Discontinued Medications Aspirin (Aspirin Chew 324 Mg) 324 mg PO NOW STA Stop: 02/20/22 00:43 Last Admin: 02/20/22 00:56 Dose: 324 mg Documented by: [id number] Sodium Chloride (Nss) 500 mls @ 999 mls/hr IV .Q31M ONE Stop: 02/19/22 23:29 Last Infusion: 02/19/22 23:45 Dose: 0 mls/hr Documented by: [id number] Admin: 02/19/22 23:12 Dose: 999 mls/hr Documented by: [id number] Ioversol (Optiray 320 125ml) 125 ml IV ONCE ONE Stop: 02/20/22 00:19 Last Admin: 02/20/22 00:18 Dose: 115 ml Documented by: [id number] Discharge Plan Visit Data Chief Complaint: Cardiac Assessment ED Provider: Bryson Escobar Discharge Problem: Elevated troponin Forms Stand Alone Forms: [facility] [employer] Prescriptions Prescriptions: No Action rosuvastatin 10 mg tablet 10 mg PO DAILY Qty: 30 RF: 2 metoprolol tartrate 50 mg tablet 50 mg PO BID Qty: 180 RF: 1 Trelegy Ellipta 100-62.5-25 mcg blister with device 1 inh inhalation DAILY Qty: 180 RF: 1 warfarin 5 mg tablet 2.5 mg PO DAILY Qty: 90 RF: 5 albuterol sulfate [Ventolin HFA] 90 mcg/actuation HFA aerosol inhaler 2 puff inhalation Q6H PRN (Reason: shortness of breath or wheezing) Qty: 6.7 RF: 2 lorazepam 0.5 mg tablet 0.5 mg PO Q8H PRN (Reason: anxiety) Qty: 45 RF: 0 sertraline 50 mg tablet 50 mg PO DAILY Qty: 90 RF: 1 aspirin [Adult Aspirin Regimen] 81 mg tablet,delayed release (DR/EC) 81 mg PO DAILY RF: 0 nitroglycerin 0.4 mg tablet, sublingual 0.4 mg sublingual Q5M PRN (Reason: chest pain) Qty: 30 RF: 5 albuterol sulfate 2.5 mg /3 mL (0.083 %) solution for nebulization 2.5 mg inhalation Q6H PRN (Reason: shortness of breath or wheezing) Qty: 180 RF: 5 (DME) Oxygen Home Liters Per Minute See Rx Instructions .Route Qty: 1 RF: 0 (DME) Walker See Rx Instructions .Route .MEDSUPPLY Qty: 1 RF: 0 warfarin 1 mg tablet 1 mg PO .COMPLEX Qty: 100 RF: 3 pantoprazole 40 mg tablet,delayed release (DR/EC) 40 mg PO DAILY RF: 0 ondansetron 4 mg tablet,disintegrating 4 mg PO Q8H PRN (Reason: nausea and vomiting) Qty: 30 RF: 0 cyanocobalamin (vitamin B-12) [Vitamin B-12] 1,000 mcg Tablet 1,000 mcg PO DAILY RF: 0 acetaminophen 325 mg tablet 325 mg PO .COMPLEX PRN (Reason: FEVER/PAIN) RF: 0 Referrals Referrals: Cathy Creda DO [Primary Care Provider] -
[2022-02-19 23:41] LABS: INR 2.5 (0.9-1.1); Partial Thromboplastin Ratio 1.1; Partial Thromboplastin Time 30.9 Seconds (21.0-31.0); Prothrombin Time 25.7 Seconds (9.0-12.0)
[2022-02-19 23:47] LABS: Albumin Globulin Ratio 1.1 (0.9-2); Albumin Level 3.1 gm/dl (3.4-5.0); BUN Creatinine Ratio 16.5 (10-20); Bilirubin,Total 0.4 mg/dl (0.2-1.0); Calcium 8.3 mg/dl (8.5-10.1); Creatinine Clr Calc Pharmacy 27.2 ml/min; Est GFR (African American) 56.7 ml/min; Est GFR (Non-African American) 48.9 ml/min; Globulin 2.8 gm/dl (2.5-4.0); Magnesium 1.9 mg/dl (1.7-2.4); Potassium 4.9 mmol/L (3.5-5.1); Total Protein 5.9 gm/dl (6.0-8.3)
[2022-02-19 23:49] LABS: Troponin I High Sensitivity 83.4 pg/ml (0-14)
[2022-02-19 23:55] LABS: Thyroid Stimulating Hormone 10.724 uIu/ml (0.300-4.500)
[2022-02-20 00:11] LABS: Eosinophils # (auto) 0.08 K/uL (0-0.5); Eosinophils % (auto) 0.8 %; Hematocrit (blood only) 34.9 % (37-47); Hemoglobin 10.2 g/dL (12.0-16.0); Immature Granulocytes # (auto) 0.03 K/uL (0.00-0.02); Immature Granulocytes % (auto) 0.3 %; Lymphocytes # (auto) 2.21 K/uL (1.2-3.4); Lymphocytes % (auto) 21.6 %; Mean Corpuscular Hemoglobin 31.3 pg (25-34); Mean Corpuscular Hgb Conc 29.2 g/dL (32-36); Mean Corpuscular Volume 107.1 fL (80-100); Mean Platelet Volume 10.5 fL (7.4-10.4); Monocytes # (auto) 0.49 K/uL (0.11-0.59); Monocytes % (auto) 4.8 %; Neutrophils # (auto) 7.44 K/uL (1.4-6.5); Neutrophils % (auto) 72.5 %; Platelet Count 168 K/uL (130-400); RDW Coefficient of Variation 15.7 % (11.5-14.5); Red Blood Count 3.26 M/uL (4.2-5.4); White Blood Count 10.25 K/uL (4.8-10.8)
[2022-02-20] MEDS ORDERED: OPTIRAY 320 125ml IV ONE (00:18)
[2022-02-20 00:34] LABS: T4 Free Thyroxine 1.53 ng/dl (0.61-1.60)
[2022-02-20] MEDS ORDERED: ASPIRIN CHEW 324 MG PO STA (00:42)
--- NOTE | 2022-02-20 01:48 | History & Physical Report ---
Date of Service February 20, 2022 Assessment & Plan (1) Elevated troponin: Plan: 76 y/o F Hx anemia, HTN, HLD, COPD, PAF, PAD, CAD, abdominal and thoracic aortic aneurysm. She developed acute diaphoresis, lightheadedness and diarrhea this reagan and contacted EMS. It was reported that she was hypotensive with SVTs on initial evaluation. She required a shock and did revert to a sinus rhythm following. On arrival to the ER, she had a melanotic bowel movement. She had n ot noted any GI bleeding at home. She does take Coumadin. Initial labs are notable for a trop of 83, TSH of 10.7, mild protein malnutrition and stable macrocytic anemia. EKG showed lateral inversion with prior inferior infarct. CTA was negative for PE but did demonstrate a 3cm x 3cm mass in the L lung base. 1) SVT - monitor on telemetry, echo, cardiology consult. She has reverted to a sinus rhythm on admission. 2) CAD/Elevated trop - likely due to SVT and shock rather than ACS. We will trend for now and an echo is ordered as above. Cont statin, metoprolol. 3) Diarrhea with reported melena. Stool is guaiac + and she takes Coumadin. We will trend her Hb which is stable per prior. Hold Coumadin, ASA. 4) PAF - sinus rhythm on admission - Coumadin is held owing to GI bleeding. Cont metoprolol. 5) Multiple aortic aneurysms - no evidence of acute change or leak on CT - control rate and pressure. 6) COPD - no evidence of exacerbation - we would prefer to avoid albuterol. C ont 02 and Trelegy. 7) HTN, HLD - cont statin, metoprolol 8) TSH is abnormal with normal T4. T3 is pending. 9) Mass in L lung base is suspicious for malignancy. This can be worked up in the outpt setting if the pt is inclined. Full code Total time for this admit including review of labs, meds, imaging, records - discussion with pt and ER attending 55 min (2) Anxiety: (3) Thoracic aortic aneurysm: (4) PAF (paroxysmal atrial fibrillation): (5) COPD (chronic obstructive pulmonary disease): (6) SVT (supraventricular tachycardia): History of Present Illness Chief Complaint: SVT Primary Care Provider: Cathy Cerda, 76 y/o F Hx anemia, HTN, HLD, COPD, PAF, PAD, CAD, abdominal and thoracic aortic aneurysm. She developed acute diaphoresis, lightheadedness and diarrhea this reagan and contacted EMS. It was reported that she was hypotensive with SVTs on initial evaluation. She required a shock and did revert to a sinus rhythm following. On arrival to the ER, she had a melanotic bowel movement. She had not noted any GI bleeding at home. She does take Coumadin. Initial labs are notable for a trop of 83, TSH of 10.7, mild protein malnutrition and stable macrocytic anemia. EKG showed lateral inversion with prior inferior infarct. CTA was negative for PE but did demonstrate a 3cm x 3cm mass in the L lung base. PMH: 1) HTN 2) HLD 3) CAD - prior SD, CABG 4) PAF 5) Thoracic aortic aneurysm 6) Abdominal aortic aneurysm 7) PAD 8) Pernicious anemia - baseline Hb 9-10 9) COPD - home 02 10) Bronchiectasis Surgical: 1) CABG - 3 vessel 08/2021 2) Thoracic aorta repair with debranching of L subclavian and L carotid - 08/2021 3) TEVAR - 12/2021 4) ANGEL-BSO - 1975 5) Aortoiliac bypass - 2005 Social: Quit smoking 08/2021, does not drink alcohol. Family: Both parents due to aortic aneurysm Allergies Allergy/AdvReac Type Severity Reaction Status Date / Time Sulfa (Sulfonamide Allergy Intermediate Rash Verified 02/19/22 23:33 Antibiotics) Penicillins Allergy Unknown HAPPENED Verified 02/19/22 23:33 A TEENAGER amiodarone AdvReac Intermediate SKIN Verified 02/19/22 23:33 PEELED OFF FEET fexofenadine AdvReac Intermediate "SKIN Verified 02/19/22 23:33 HURTS" HEADACHE lisinopril AdvReac Intermediate COUGH Verified 02/19/22 23:33 Home Medications Medication Instructions Recorded Confirmed Type aspirin 81 mg tablet,delayed 81 mg PO DAILY 10/28/20 02/19/22 History release (Adult Aspirin Regimen) nitroglycerin 0.4 mg sublingual 0.4 mg SUBLINGUAL Q5M PRN #30 tab 10/28/20 02/19/22 Rx tablet cyanocobalamin (vitamin B-12) 1,000 mcg PO DAILY 05/04/21 02/19/22 History 1,000 mcg tablet (Vitamin B-12) rosuvastatin 10 mg tablet 10 mg PO DAILY #30 tab 08/05/21 02/19/22 Rx metoprolol tartrate 50 mg tablet 50 mg PO BID #180 tab 09/08/21 02/19/22 Rx Oxygen Home #1 ea 09/30/21 02/12/22 Rx fluticasone fur. 100 mcg-umeclid 1 inh INHALATION DAILY #180 ea 10/06/21 02/19/22 Rx 62.5 mcg-vilant 25 mcg inhalat.powder (Trelegy Ellipta) warfarin 5 mg tablet 2.5 mg PO DAILY #90 tab 10/24/21 02/19/22 Rx warfarin 1 mg tablet 1 mg PO .COMPLEX #100 tab 10/28/21 02/19/22 Rx albuterol sulfate 90 mcg/actuation 2 puff INHALATION Q6H PRN #6.7 g 11/12/21 02/19/22 Rx aerosol inhaler (Ventolin HFA) pantoprazole 40 mg tablet,delayed 40 mg PO DAILY 11/25/21 02/19/22 History release lorazepam 0.5 mg tablet 0.5 mg PO Q8H PRN #45 tab 01/15/22 02/19/22 Rx ondansetron 4 mg disintegrating 4 mg PO Q8H PRN #30 tab 01/15/22 02/19/22 Rx tablet sertraline 50 mg tablet 50 mg PO DAILY #90 tab 01/22/22 02/19/22 Rx albuterol sulfate 2.5 mg INHALATION Q6H PRN #180 ml 02/04/22 02/19/22 Rx Walker #1 ea 02/05/22 02/05/22 Rx acetaminophen 325 mg tablet 325 mg PO .COMPLEX PRN 02/19/22 02/19/22 History Past Med/Surg History Medical History (Updated 02/20/22 @ 02:15 by Conrad Alvarado MD) Anxiety Atrial fibrillation with rapid ventricular response Bronchiectasis Bronchiectasis Chronic respiratory failure COPD (chronic obstructive pulmonary disease) Coronary artery disease Dehydration History of abdominal aortic aneurysm (AAA) History of esophageal ulcer (2013) History of SD (myocardial infarction) (01/08/14) Hypertension Hypomagnesemia Hypoxia Peripheral arterial disease Thoracic aortic aneurysm Tobacco abuse Surgical History (Updated 02/05/22 @ 16:39 by Cathy Cerda DO) H/O heart artery stent (2013) H/O heart bypass surgery (09/15/21) 09/15/21 Dr. Jerry Ellsworth [place] [facility] [place] CABG x 2 SVG to LAD and OM/Ligation left atrial appendage with 35 mm Atricure clip/debranching of aortic arch with "Y" graft from ascending aorta to innominate and left carotid artery H/O vascular surgery (11/18/21) L common carotid A to L subclavian artery dacron bypass graft S/P AAA (abdominal aortic aneurysm) repair (07/14/06) open repair, Aortiobiiliac graft S/P aneurysm repair (01/06/22) S/P right cataract extraction S/P ANGEL-BSO (1975) secondary to endometriosis S/P tonsillectomy S/P total hysterectomy and bilateral salpingo-oophorectomy (1975) Status post coronary angiogram 09/10/21 Dr. Jean Baptiste [place] [facility] [place] Coronary angiography (recommended bypass) Family History Sister Breast cancer Father Myocardial infarction Coronary heart disease Atrial fibrillation AAA (abdominal aortic aneurysm) Stroke Lung cancer Hypertension Mother AA (aortic aneurysm) Denies family history of Ovarian cancer Prostate cancer Colorectal cancer Social History Smoking Status: Former smoker Tobacco Type: Cigarettes Age Started Using Tobacco: 24; Cigarettes Per Day: 1; Second Hand Exposure: No; Hx Alcohol Use: No Hx Substance Use: No Preferred Language: Japanese Communication Ability: Effective Visual Impairment: Limited Hearing Ability: Normal Needle Bar Molder Required: No Beliefs That Will Affect Care: None marital status: Current Living Situation: Spouse 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 + diaphoresis. ENT: Denies congestion, throat pain, hearing loss Eyes: Denies acute visual changes CV: Denies CP, palpitations Pulmonary: Denies SOB, cough, wheezing GI: + Diarrhea Neuro: Denies acute or unilateral weakness. + dizziness Musculoskeletal: Denies joint pain, inflammation Endocrine: Denies polydipsia, polyuria Skin: Denies acute rashes or ulcers Physical Exam Physical Exam: General: AAO x 3, no distress ENT: No erythema or exudates, no thrush Eyes: ALVIN, EOMI Head and neck: Normocephalic, atraumatic, No JVD, neck is supple. Chest/heart: Nontender, S1,2, RRR, no murmurs, no gallops Lungs: CTAB, no wheezing or crackles Abdomen: Nontender, nondistended, BS+ Neuro: AAO x 3, speech is clear, no unilateral weakness or loss of sensation, coordination intact Musculoskeletal: No joint inflammation, muscle tenderness, FROM Skin: No acute rashes or ulcers Extremities: No clubbing, cyanosis, edema Results & Data Results & Data ([facility]) Vital Signs (Past 12 Hours) Vital Signs Temp Pulse Pulse Resp BP BP Pulse Ox 02/20/22 01:00 67 18 179/73 H 96 02/19/22 23:30 66 20 180/74 H 93 02/19/22 23:24 96 02/19/22 23:23 96 02/19/22 23:05 98.2 F 87 20 187/79 H 96 Code Status & VTE Plan VTE Prophylaxis Plan VTE Prophylaxis will be ordered: No PG Care Time/CCT Total # of Minutes Spent Total Time Spent with Patient: Total time spent is greater than 50% in coordination of care (as documented) at patient's floor/unit and/or counseling patient: Coding Level of Care Code 27182 Initial Inpt Care Lvl 3 Diagnoses Elevated troponin R77.8 Anxiety F41.9 Thoracic aortic aneurysm I71.2 PAF (paroxysmal atrial fibrillation) I48.0 COPD (chronic obstructive pulmonary disease) J44.9 SVT (supraventricular tachycardia) I47.1
[2022-02-20] MEDS ORDERED: LACTATED RINGER'S 1,000 ML IV STA (01:59)
[2022-02-20] MEDS ORDERED: NITROGLYCERIN SL 0.4 MG/TAB TAB SL PRN (02:58)
--- NOTE | 2022-02-20 07:08 | XRay Report ---
XR chest 1V portable HISTORY: 76 years-old Female Chest Pain acute chest pain COMPARISON: CTA chest of same day, chest radiograph 11/20/2021, chest CT 09/23/2021 TECHNIQUE: Portable AP view of the chest FINDINGS: The cardiac silhouette is mildly enlarged. Left atrial exclusion device. Prior median sternotomy with ascending thoracic aortic endograft and thoracic aortic aneurysm redemonstrated. 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 Progressed bilateral reticular nodular opacities are noted with consolid ation of the lateral basal left lower lobe. No pneumothorax, large pleural effusion or overt pulmonar y edema. Degenerative changes of the shoulders and spine. IMPRESSION: 1. Cardiomegaly with prior median sternotomy and ascending thoracic aorta endograft with chronic thor acic aortic aneurysm. Please refer to the CTA chest study of same day for additional findings. 2. Emphysema with multifocal reticular nodular opacities suggestive of an infectious or inflammatory pneumonitis. ACT 112: Negative or not required by law. The above report was generated using voice recognition software. It may contain grammatical, syntax o r spelling errors. Electronically signed by: Yousif Mejia M.D. 02/20/2022 7:06 AM
--- NOTE | 2022-02-20 07:30 | XCELERA ---
[id number]
[2022-02-20] MEDS: SERTRALINE HCL 50 MG TABLET PO SCH (08:09)
[2022-02-20] MEDS: PANTOprazole 40 MG TAB PO SCH (08:09)
[2022-02-20] MEDS: ROSUVASTATIN CALCIUM 10 MG TAB PO SCH (08:09)
[2022-02-20] MEDS: UMECLIDINIUM/VILANTEROL 62.5/25MCG 7 PUFFS/INHALER INH SCH (08:09)
[2022-02-20] MEDS: FLUTICASONE FUROATE 100MCG 14 PUFFS/INHALER INH SCH (08:09)
[2022-02-20] MEDS: METOPROLOL TARTRATE 50 MG TAB PO SCH ×2 (08:09→20:27)
--- NOTE | 2022-02-20 08:40 | CT Scan Report ---
CT angio chest PE protocol CLINICAL HISTORY: PE TECHNIQUE: Multidetector row helical CT of the chest was performed with angiographic protocol. Olguin l and sagittal reformations were obtained. Coronal and sagittal MIPS were obtained from the axial jaspreet a set and were submitted for review. Automated dose lowering techniques and/or adjustment according to patient size were utilized for this exam. CT DOSE: 246.60 mGy.cm Comparison: Comparison is made to CT chest 09/23/2021. FINDINGS: Lungs and pleura: Diffuse centrilobular emphysema is seen most prominent in the upper lobes. Biapical scarring is seen. There is a 25 x 22 mm nodule in the right lung base. Additional ill-defined nodula r densities are seen in the lower lungs. This is new from 09/23/2021 Heart and pericardium: Heart size is normal. No pericardial effusion. Vessels: The pulmonary trunk is enlarged measuring 37 mm. No pulmonary embolus is seen. Aortic graft is seen excluding a large aneurysm, no graft defect is seen. Calcified and noncalcified atheroscleros is is seen most prominently in the descending aorta. There is a chronic narrowing in the left subclav delfin artery. A filling defect is noted in the level of the first rib space which may represent moises priscilla versus thrombus. Reflux into the cervical and subcutaneous venous system is noted. Mediastinum and alf: Unremarkable. Chest wall and lower neck: Unremarkable. Abdomen: Unremarkable. Bones: Unremarkable. IMPRESSION: 1. Dominant nodule in the left lung base with numerous lower lung predominant nodules noted. These a re new from exam of 09/23/2021. This is favored to represent infectious/inflammatory process. Short-ter m follow-up to resolution is recommended. 2. Status post aortic aneurysm repair. 3. No evidence of pulmonary embolism. Pulmonary hypertension is noted. ACT 112: Negative or not required by law. Electronically signed by: Scotty Guillaume M.D. 02/20/2022 8:38 AM
[2022-02-20] MEDS ORDERED: NON-FORMULARY MEDICATION (Fluticasone-Umeclidin-Vilanter [Trelegy Ellipta] 100-62.5-25 mcg INH SCH (09:00)
--- NOTE | 2022-02-20 09:34 | Communication Note ---
Date of Service: February 20, 2022 The patient was seen and examined by me. Cardiac echo is pending. Cardiology and gastroenterology consultations requested. Chest CTA negative for PE but t here is a left lower lobe mass that will need further evaluation as an outpatient. Coumadin is on hold. Admission INR 2.5. Hemoglobin stable at 10.8. Will follow.
--- NOTE | 2022-02-20 10:26 | Electrocardiogram Report ---
Test Reason : Blood Pressure : / mmHG Vent. Rate : 087 BPM Atrial Rate : 087 BPM P-R Int : 176 ms QRS Dur : 098 ms QT Int : 416 ms P-R-T Axes : 072 032 090 degrees QTc Int : 500 ms Poor data quality, interpretation may be adversely affected Normal sinus rhythm Left atrial enlargement T wave abnormality, consider anterolateral ischemia Abnormal ECG When compared with ECG of 23-SEP-2021 00:51, T-wave inversion in Anterior leads more pronounced Confirmed by Jones Kruse ([id number]) on 02/20/2022 10:26:08 AM Referred By: REFERRED SELF Confirmed By:Jones Kruse
[2022-02-20] MEDS ORDERED: PHYTONADIONE 5 MG in DEXTROSE 5% 50 ML IV ONE (10:58)
--- NOTE | 2022-02-20 12:29 | Gastrointestinal Consultation ---
Date of Consultation February 20, 2022 Assessment & Plan (1) GI bleed: (2) SVT (supraventricular tachycardia): (3) Elevated troponin: (4) Chronic respiratory failure: (5) H/O vascular surgery: (6) Chronic anticoagulation: This is a 76 y/o female with multiple co-morbidities, admitted yesterday after 1 shock in the field for suspected SVT, hypotension, now with elevated troponin, reduced EF on echo, and we are consulted for GIB given reported dark stool in the ER and today had fresh BRBPR while I was examining her. She does have hemorrhoids notable on exam. Of note, H/H is at baseline with no elevated BUN. Abd soft, nontender. -Diff dx to consider for etiologies would be hemorrhoidal, diverticular, also consider ischemic (given recent hypotension), less likely infectious or chronic pathology such as AVM, IBD, malignancy or brisk UGIB given normal BUN. - I updated nursing staff, hospitalist and GI attending re: pt's presentation. - Continue to hold Coumadin, ASA - Would reverse INR - Repeat CBC, trend H&H, transfuse PRN - Await cardiology eval for abnormal labs/echo, h/o SVT - Would keep on clear liquids today - Monitor and document GI output - Would keep on PPI - If she has diarrhea consider sending for C diff, GI pathogen panel - Given acute cardiac issues, stable labs and VS, will defer endoscopy at this time, but would consider OP endoscopy once acute issues stabilize/improve. If she has continued GIB, drop in HGB and need for urgent endoscopy over the week end please contact on-call provider Thank you for allowing us to participate in the care of this patient. Please call with any acute changes, questions or concerns. Please see addendum below with additional recommendation from my supervising physician. Supervising Physician Co-Signing Physician Notes I performed a history and physical examination of the patient today, including specifically on physical exam - soft abdomen. I have discussed the patient's management with the advanced practitioner. Please refer to the nurse practitioner's note for the documented findings and plan of care. Hemorrhoidal bleeding in the setting of coagulopathy due to Coumadin. Complex cardiac history. Treat with topical therapy. May need colonoscopy if bleeding persists. Monitor H/H will continue to follow History of Present Illness Reason for Consultation: GI bleed Requesting Physician: Dr. Alvarado Attending Physician: Андрей Hahn MD History of Present Illness This is a 76 y/o female with PMhx anemia, HTN, HLD, COPD on home O2, PAF on Coumadin, PAD, CAD w/ prior DC/CAGB, AAA/TAA s/p TEVAR 12/2021, and others admitted yesterday after experiencing diaphoresis, lightheadedness and diarrhea. Called EMS; reportedly had hypotension and tachyarrhythmia and required a shock in the field, converted to NSR. In the ER she reportedly had a dark BM that was guaiac positive. She has elevated troponin (bumped today 83->600), and echo showing reduced EF, with apical akinesis. EKG showed lateral inversion with prior inferior infarct. CTA was negative for PE but did demonstrate a 3cm x 3cm mass in the L lung base. She has a chronic anemia with a baseline hemoglobin of 9-10. Today HGB 10.8 with normal BUN. Other today had a liquid BM that was reportedly red, dark we are consulted for concern over GI bleed. Aspirin and Coumadin have been held; INR was 2.5 on admit. Cardiology consult is pending. She had orange juice with breakfast. She reports at home stool is typically formed, can have issues with constipation assoc w/ abd discomfort at times. Today denies abd pain. At home appeteite hasn't been great since her surgery in December. No nausea, vomiting, hematemesis, hematochezia or melena at home. No fever, chills, CP, SOB. No other AC, no NSAIDs, former smoker, no ETOH. Remote history of esophageal ulceration as below, healed with PPI: EGD 12/2013: Esophageal ulceration. Antral gastritis EGD 03/2014: Previously seen esophageal ulcers have healed Colonoscopy 2013: One 4 mm polyp, otherwise normal Allergies Allergy/AdvReac Type Severity Reaction Status Date / Time Sulfa (Sulfonamide Allergy Intermediate Rash Verified 02/19/22 23:33 Antibiotics) Penicillins Allergy Unknown HAPPENED Verified 02/19/22 23:33 A TEENAGER amiodarone AdvReac Intermediate SKIN Verified 02/19/22 23:33 PEELED OFF FEET fexofenadine AdvReac Intermediate "SKIN Verified 02/19/22 23:33 HURTS" HEADACHE lisinopril AdvReac Intermediate COUGH Verified 02/19/22 23:33 Home Medications Medication Instructions Recorded Confirmed Type aspirin 81 mg tablet,delayed 81 mg PO DAILY 10/28/20 02/19/22 History release (Adult Aspirin Regimen) nitroglycerin 0.4 mg sublingual 0.4 mg SUBLINGUAL Q5M PRN #30 tab 10/28/20 02/19/22 Rx tablet cyanocobalamin (vitamin B-12) 1,000 mcg PO DAILY 05/04/21 02/19/22 History 1,000 mcg tablet (Vitamin B-12) rosuvastatin 10 mg tablet 10 mg PO DAILY #30 tab 08/05/21 02/19/22 Rx metoprolol tartrate 50 mg tablet 50 mg PO BID #180 tab 09/08/21 02/19/22 Rx Oxygen Home #1 ea 09/30/21 02/12/22 Rx fluticasone fur. 100 mcg-umeclid 1 inh INHALATION DAILY #180 ea 10/06/2102/19 Rx 62.5 mcg-vilant 25 mcg inhalat.powder (Trelegy Ellipta) warfarin 5 mg tablet 2.5 mg PO DAILY #90 tab 10/24/21 02/19/22 Rx warfarin 1 mg tablet 1 mg PO .COMPLEX #100 tab 10/28/21 02/19/22 Rx pantoprazole 40 mg tablet,delayed 40 mg PO DAILY 11/25/21 02/19/22 History release lorazepam 0.5 mg tablet 0.5 mg PO Q8H PRN #45 tab 01/15/22 02/19/22 Rx ondansetron 4 mg disintegrating 4 mg PO Q8H PRN #30 tab 01/15/22 02/19/22 Rx tablet sertraline 50 mg tablet 50 mg PO DAILY #90 tab 01/22/22 02/19/22 Rx albuterol sulfate 2.5 mg INHALATION Q6H PRN #180 ml 02/04/22 02/19/22 Rx Walker #1 ea 02/05/22 02/05/22 Rx acetaminophen 325 mg tablet 325 mg PO .COMPLEX PRN 02/19/22 02/19/22 History albuterol sulfate 90 mcg/actuation 2 puff INHALATION Q6H PRN #6.7 g 02/20/22 Rx aerosol inhaler (Ventolin HFA) Patient History Medical History (Updated 02/20/22 @ 13:11 by Santiago Godinez MD) Anxiety Atrial fibrillation with rapid ventricular response Bronchiectasis Bronchiectasis Chronic respiratory failure COPD (chronic obstructive pulmonary disease) Coronary artery disease Dehydration History of abdominal aortic aneurysm (AAA) History of esophageal ulcer (2013) History of DC (myocardial infarction) (01/08/14) Hypertension Hypomagnesemia Hypoxia Peripheral arterial disease Thoracic aortic aneurysm Tobacco abuse Surgical History (Updated 02/05/22 @ 16:39 by Cathy Cerda DO) H/O heart artery stent (2013) H/O heart bypass surgery (09/15/21) 09/15[place] [facility] [place] 2 SVG to LAD and OM/Ligation left atrial appendage with 35 mm Atricure clip/debranching of aortic arch with "Y" graft from ascending aorta to innominate and left carotid artery H/O vascular surgery (11/18/21) L common carotid A to L subclavian artery dacron bypass graft S/P AAA (abdominal aortic aneurysm) repair (07/14/06) open repair, Aortiobiiliac graft S/P aneurysm repair (01/06/22) S/P right cataract extraction S/P ANGEL-BSO (1975) secondary to endometriosis S/P tonsillectomy S/P total hysterectomy and bilateral salpingo-oophorectomy (1975) Status post coronary angiogram 09/10/21 [place] [facility] [place] (recommended bypass) Family History Sister Breast cancer Father Myocardial infarction Coronary heart disease Atrial fibrillation AAA (abdominal aortic aneurysm) Stroke Lung cancer Hypertension Mother AA (aortic aneurysm) Denies family history of Ovarian cancer Prostate cancer Colorectal cancer Social History Smoking Status: Former smoker Tobacco Type: Cigarettes Age Started Using Tobacco: 24; Cigarettes Per Day: 1; Second Hand Exposure: No; Hx Alcohol Use: No Hx Substance Use: No Preferred Language: Bermudian Communication Ability: Effective Visual Impairment: Limited Hearing Ability: Normal Upholstery Cutter Required: No Beliefs That Will Affect Care: None marital status: Current Living Situation: Spouse 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 How many Children do You have: 3 Feels Safe at Home: Yes Childhood Exposure to Second-Hand Smoke: Yes (father) caffeine: Yes during the past year weight has: remained stable Dental Care, Regularly: No Physical Activity Frequency: 3-4 Times per Week Physical Activity Frequency Comment: walks Seatbelt Use: always Sunscreen Use: Yes Assistive Devices: Walker Review of Systems Review of Systems: All systems reviewed & are unremarkable except as noted in HPI & below Physical Exam Constitutional: WD/WN, vitals as above Chronically ill, NAD Eyes: PERRL, conjunctivae normal, anicteric sclerae Respiratory: normal respiratory effort, lungs clear to auscultation Cardiovascular: RRR, no edema Gastrointestinal (Abdomen): normal bowel sounds, soft, nontender, no hepatosplenomegaly Rectal Exam: + hemorrhoids (When I was examining perirectal area, had gush of fresh BRBPR, no melena) Skin: no rashes, warm and dry Psychiatric: A+Ox3, euthymic affect Results & Data ([facility]) Vital Signs (Past 12 Hours) Vital Signs Temp Pulse Resp BP BP Pulse Ox 02/20/22 11:04 36.5 C 62 18 145/66 H 100 02/20/22 06:59 36.7 C 69 18 154/69 H 96 02/20/22 02:58 72 24 146/73 H 99 02/20/22 02:15 80 18 165/61 H 97 02/20/22 01:00 67 18 179/73 H 96 Laboratory Results 02/20/22 02/20/22 02/20/22 Range/Units 09:05 05:19 02:56 WBC (4.8-10.8) K/uL RBC (4.2-5.4) M/uL Hgb (12.0-16.0) g/dL Hct (37-47) % MCV (80-100) fL MCH (25-34) pg MCHC (32-36) g/dL RDW Std Deviation (36.4-46.3) fL RDW Coeff of Ruthy (11.5-14.5) % Plt Count (130-400) K/uL MPV (7.4-10.4) fL Immature Gran % (Auto) % Neut % (Auto) % Lymph % (Auto) % [place] % (Auto) % Eos % (Auto) % Baso % (Auto) % Neut # (Auto) (1.4-6.5) K/uL Lymph # (Auto) (1.2-3.4) K/uL [place] # (Auto) (0.11-0.59) K/uL Eos # (Auto) (0-0.5) K/uL Baso # (Auto) (0-0.2) K/uL Immature Gran # (Auto) (0.00-0.02) K/uL PT (9.0-12.0) Seconds INR (0.9-1.1) APTT (21.0-31.0) Seconds PTT Ratio Sodium (136-145) mmol/L Potassium (3.5-5.1) mmol/L Chloride (98-107) mmol/L Carbon Dioxide (21-32) mmol/L Anion Gap (3-11) BUN (6-23) mg/dl Creatinine (0.6-1.2) mg/dl Est Cr Clr Drug Dosing ml/min Est GFR ( Amer) ml/min Est GFR (Non-Af Amer) ml/min BUN/Creatinine Ratio (10-20) Glucose (70-99(Fasting)) mg/dl POC Glucose 181 H (70-99) mg/dl Calcium (8.5-10.1) mg/dl Magnesium (1.7-2.4) mg/dl Total Bilirubin (0.2-1.0) mg/dl AST (13-39) U/L ALT (7-52) U/L Alkaline Phosphatase (34-104) U/L Troponin I High Sens 679.7 H* 611.5 H* D (0-14) pg/ml Total Protein (6.0-8.3) gm/dl Albumin (3.4-5.0) gm/dl Globulin (2.5-4.0) gm/dl Albumin/Globulin Ratio (0.9-2) Lipase (11-82) U/L TSH (0.300-4.500) uIu/ml Free T4 (0.61-1.60) ng/dl Total T3 SARS-CoV-2, RNA, NAAT (NEGATIVE) 02/20/22 02/20/22 02/20/22 Range/Units 02:20 02:20 00:25 WBC (4.8-10.8) K/uL RBC (4.2-5.4) M/uL Hgb 10.8 L (12.0-16.0) g/dL Hct (37-47) % MCV (80-100) fL MCH (25-34) pg MCHC (32-36) g/dL RDW Std Deviation (36.4-46.3) fL RDW Coeff of Ruthy (11.5-14.5) % Plt Count (130-400) K/uL MPV (7.4-10.4) fL Immature Gran % (Auto) % Neut % (Auto) % Lymph % (Auto) % [place] % (Auto) % Eos % (Auto) % Baso % (Auto) % Neut # (Auto) (1.4-6.5) K/uL Lymph # (Auto) (1.2-3.4) K/uL [place] # (Auto) (0.11-0.59) K/uL Eos # (Auto) (0-0.5) K/uL Baso # (Auto) (0-0.2) K/uL Immature Gran # (Auto) (0.00-0.02) K/uL PT (9.0-12.0) Seconds INR (0.9-1.1) APTT (21.0-31.0) Seconds PTT Ratio Sodium (136-145) mmol/L Potassium (3.5-5.1) mmol/L Chloride (98-107) mmol/L Carbon Dioxide (21-32) mmol/L Anion Gap (3-11) BUN (6-23) mg/dl Creatinine (0.6-1.2) mg/dl Est Cr Clr Drug Dosing ml/min Est GFR ( Amer) ml/min Est GFR (Non-Af Amer) ml/min BUN/Creatinine Ratio (10-20) Glucose (70-99(Fasting)) mg/dl POC Glucose (70-99) mg/dl Calcium (8.5-10.1) mg/dl Magnesium (1.7-2.4) mg/dl Total Bilirubin (0.2-1.0) mg/dl AST (13-39) U/L ALT (7-52) U/L Alkaline Phosphatase (34-104) U/L Troponin I High Sens 305.3 H* D (0-14) pg/ml Total Protein (6.0-8.3) gm/dl Albumin (3.4-5.0) gm/dl Globulin (2.5-4.0) gm/dl Albumin/Globulin Ratio (0.9-2) Lipase (11-82) U/L TSH (0.300-4.500) uIu/ml Free T4 (0.61-1.60) ng/dl Total T3 SARS-CoV-2, RNA, NAAT NEGATIVE (NEGATIVE) 02/19/22 02/19/22 02/19/22 Range/Units 23:05 23:05 23:05 WBC (4.8-10.8) K/uL RBC (4.2-5.4) M/uL Hgb (12.0-16.0) g/dL Hct (37-47) % MCV (80-100) fL MCH (25-34) pg MCHC (32-36) g/dL RDW Std Deviation (36.4-46.3) fL RDW Coeff of Ruthy (11.5-14.5) % Plt Count (130-400) K/uL MPV (7.4-10.4) fL Immature Gran % (Auto) % Neut % (Auto) % Lymph % (Auto) % [place] % (Auto) % Eos % (Auto) % Baso % (Auto) % Neut # (Auto) (1.4-6.5) K/uL Lymph # (Auto) (1.2-3.4) K/uL [place] # (Auto) (0.11-0.59) K/uL Eos # (Auto) (0-0.5) K/uL Baso # (Auto) (0-0.2) K/uL Immature Gran # (Auto) (0.00-0.02) K/uL PT (9.0-12.0) Seconds INR (0.9-1.1) APTT (21.0-31.0) Seconds PTT Ratio Sodium 141 (136-145) mmol/L Potassium 4.9 (3.5-5.1) mmol/L Chloride 102 (98-107) mmol/L Carbon Dioxide 31 (21-32) mmol/L Anion Gap 8 (3-11) BUN 18 (6-23) mg/dl Creatinine 1.09 (0.6-1.2) mg/dl Est Cr Clr Drug Dosing 27.2 ml/min Est GFR ( Amer) 56.7 ml/min Est GFR (Non-Af Amer) 48.9 ml/min BUN/Creatinine Ratio 16.5 (10-20) Glucose 303 H* (70-99(Fasting)) mg/dl POC Glucose (70-99) mg/dl Calcium 8.3 L (8.5-10.1) mg/dl Magnesium 1.9 (1.7-2.4) mg/dl Total Bilirubin 0.4 (0.2-1.0) mg/dl AST 64 H (13-39) U/L ALT 26 (7-52) U/L Alkaline Phosphatase 112 H (34-104) U/L Troponin I High Sens 83.4 H* (0-14) pg/ml Total Protein 5.9 L (6.0-8.3) gm/dl Albumin 3.1 L (3.4-5.0) gm/dl Globulin 2.8 (2.5-4.0) gm/dl Albumin/Globulin Ratio 1.1 (0.9-2) Lipase 49 (11-82) U/L TSH 10.724 H (0.300-4.500) uIu/ml Free T4 1.53 (0.61-1.60) ng/dl Total T3 Pending SARS-CoV-2, RNA, NAAT (NEGATIVE) 02/19/22 02/19/22 Range/Units 23:05 23:05 WBC 10.25 (4.8-10.8) K/uL RBC 3.26 L (4.2-5.4) M/uL Hgb 10.2 L (12.0-16.0) g/dL Hct 34.9 L (37-47) % MCV 107.1 H (80-100) fL MCH 31.3 (25-34) pg MCHC 29.2 L (32-36) g/dL RDW Std Deviation 62.0 H (36.4-46.3) fL RDW Coeff of Ruthy 15.7 H (11.5-14.5) % Plt Count 168 (130-400) K/uL MPV 10.5 H (7.4-10.4) fL Immature Gran % (Auto) 0.3 % Neut % (Auto) 72.5 % Lymph % (Auto) 21.6 % [place] % (Auto) 4.8 % Eos % (Auto) 0.8 % Baso % (Auto) 0.0 % Neut # (Auto) 7.44 H (1.4-6.5) K/uL Lymph # (Auto) 2.21 (1.2-3.4) K/uL [place] # (Auto) 0.49 (0.11-0.59) K/uL Eos # (Auto) 0.08 (0-0.5) K/uL Baso # (Auto) 0.00 (0-0.2) K/uL Immature Gran # (Auto) 0.03 H (0.00-0.02) K/uL PT 25.7 H (9.0-12.0) Seconds INR 2.5 H (0.9-1.1) APTT 30.9 (21.0-31.0) Seconds PTT Ratio 1.1 Sodium (136-145) mmol/L Potassium (3.5-5.1) mmol/L Chloride (98-107) mmol/L Carbon Dioxide (21-32) mmol/L Anion Gap (3-11) BUN (6-23) mg/dl Creatinine (0.6-1.2) mg/dl Est Cr Clr Drug Dosing ml/min Est GFR ( Amer) ml/min Est GFR (Non-Af Amer) ml/min BUN/Creatinine Ratio (10-20) Glucose (70-99(Fasting)) mg/dl POC Glucose (70-99) mg/dl Calcium (8.5-10.1) mg/dl Magnesium (1.7-2.4) mg/dl Total Bilirubin (0.2-1.0) mg/dl AST (13-39) U/L ALT (7-52) U/L Alkaline Phosphatase (34-104) U/L Troponin I High Sens (0-14) pg/ml Total Protein (6.0-8.3) gm/dl Albumin (3.4-5.0) gm/dl Globulin (2.5-4.0) gm/dl Albumin/Globulin Ratio (0.9-2) Lipase (11-82) U/L TSH (0.300-4.500) uIu/ml Free T4 (0.61-1.60) ng/dl Total T3 SARS-CoV-2, RNA, NAAT (NEGATIVE) Diagnostic Findings CTA chest: Comparison: Comparison is made to CT chest 09/23/2021. FINDINGS: Lungs and pleura: Diffuse centrilobular emphysema is seen most prominent in the upper lobes. Biapical scarring is seen. There is a 25 x 22 mm nodule in the right lung base. Additional ill-defined nodular densities are seen in the lower lungs. This is new from 09/23/2021 Heart and pericardium: Heart size is normal. No pericardial effusion. Vessels: The pulmonary trunk is enlarged measuring 37 mm. No pulmonary embolus is seen. Aortic graft is seen excluding a large aneurysm, no graft defect is seen. Calcified and noncalcified atherosclerosis is seen most prominently in the descending aorta. There is a chronic narrowing in the left subclavian artery. A filling defect is noted in the level of the first rib space which may represent compression versus thrombus. Reflux into the cervical and subcutaneous venous system is noted. Mediastinum and alf: Unremarkable. Chest wall and lower neck: Unremarkable. Abdomen: Unremarkable. Bones: Unremarkable. IMPRESSION: 1. Dominant nodule in the left lung base with numerous lower lung predominant nodules noted. These are new from exam of 09/23/2021. This is favored to represent infectious/inflammatory process. Short-term follow-up to resolution is recommended. 2. Status post aortic aneurysm repair. 3. No evidence of pulmonary embolism. Pulmonary hypertension is noted. CXR: FINDINGS: The cardiac silhouette is mildly enlarged. Left atrial exclusion device. Prior median sternotomy with ascending thoracic aortic endograft and thoracic aortic aneurysm redemonstrated. Emphysema with chronic interstitial coarsening. Progressed bilateral reticular nodular opacities are noted with consolidation of the lateral basal left lower lobe. No pneumothorax, large pleural effusion or overt pulmonary edema. Degenerative changes of the shoulders and spine. IMPRESSION: 1. Cardiomegaly with prior median sternotomy and ascending thoracic aorta endograft with chronic thoracic aortic aneurysm. Please refer to the CTA chest study of same day for additional findings. 2. Emphysema with multifocal reticular nodular opacities suggestive of an infectious or inflammatory pneumonitis.
--- NOTE | 2022-02-20 13:17 | Cardiology Consultation ---
Date of Consultation February 20, 2022 Assessment & Plan (1) SVT (supraventricular tachycardia): -her rhythm strips not available for review. -her dysrhythmia was poorly tolerated with hypotension and need for cardioversion. -would strongly consider the use of amiodarone as she also carries a history of paroxysmal AFib. (2) Ischemic cardiomyopathy: -LVEF now 40-45% with a new apical wall motion abnormality. -would follow conservative care due to her numerous comorbidities and severe deconditioning. -would had an ACEI or ARB. (3) Coronary artery disease: -s/p CABG x2, August 2021. (4) Thoracic aortic aneurysm: -repair as described above, August and December 2021. History of Present Illness Attending Physician: Андрей Hahn MD History of Present Illness Mrs. Benita Hayes 76-year-old female admitted yesterday with a poorly tolerated supraventricular tachycardia. This consultation was ordered to assist in her cardiac management. Of note, patient is well known to me from the outpatient setting. The patient was in her usual state of health until last evening when she had the acute onset of diaphoresis, lightheadedness, and diarrhea. She called 911 and when EMS arrived, she was noted to be in an SVT with hypotension. She required an electrical cardioversion. She was then brought to the emergency room for further care. She did have a melanotic stool while in the emergency room. Coumadin was placed on hold. The patient has extensive cardiac history. She was found to have an 8.3 x 5 cm aneurysm of the descending thoracic aorta which involve the left subclavian artery back in August. She had a 2 vessel CABG (SVG to the LAD, SVG to an OM branch) and de branching of the left subclavian and left carotid arteries with a Y graft along with ligation of left atrial appendage. She was then readmitted in December to continue repair of her thoracic aortic aneurysm and place a thoracic aortic stent graft. Since returned home, patient has done poorly. She is having a difficult time with her appetite and has been losing weight. She leads a very sedentary lifestyle. She does carry history of paroxysmal atrial fibrillation diagnosed in April 2021. She had another episode following her surgery August. She has been following a rate control and long-term anticoagulation strategy. She did have an echocardiogram performed on September 23, 2021 through the [facility]. This noted normal systolic function with ejection fraction of 60-65%. There were no wall motion abnormalities. There was mild aortic insufficiency. Currently, patient is resting comfortably in bed without complaints. Past medical and surgical history 1. Coronary artery disease-see above 2. RCA BMS-December 2013 3. CABGx2-August 2021 4. De branching of left subclavian and left carotid artery-August 2021 5. Thoracic aortic stent graft-December 2021 6. Hypertension 7. Hypercholesterolemia 8. Mild aortic insufficiency 9. COPD 10. GERD 11. History esophageal ulcer-December 2013 12. ANGEL/BSO 13. 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 Allergies Allergy/AdvReac Type Severity Reaction Status Date / Time Sulfa (Sulfonamide Allergy Intermediate Rash Verified 02/19/22 23:33 Antibiotics) Penicillins Allergy Unknown HAPPENED Verified 02/19/22 23:33 A TEENAGER amiodarone AdvReac Intermediate SKIN Verified 02/19/22 23:33 PEELED OFF FEET fexofenadine AdvReac Intermediate "SKIN Verified 02/19/22 23:33 HURTS" HEADACHE lisinopril AdvReac Intermediate COUGH Verified 02/19/22 23:33 Home Medications Medication Instructions Recorded Confirmed Type aspirin 81 mg tablet,delayed 81 mg PO DAILY 10/28/20 02/19/22 History release (Adult Aspirin Regimen) nitroglycerin 0.4 mg sublingual 0.4 mg SUBLINGUAL Q5M PRN #30 tab 10/28/20 02/19/22 Rx tablet cyanocobalamin (vitamin B-12) 1,000 mcg PO DAILY 05/04/21 02/19/22 History 1,000 mcg tablet (Vitamin B-12) rosuvastatin 10 mg tablet 10 mg PO DAILY #30 tab 08/05/21 02/19/22 Rx metoprolol tartrate 50 mg tablet 50 mg PO BID #180 tab 09/08/21 02/19/22 Rx Oxygen Home #1 ea 09/30/21 02/12/22 Rx fluticasone fur. 100 mcg-umeclid 1 inh INHALATION DAILY #180 ea 10/06/21 02/19/22 Rx 62.5 mcg-vilant 25 mcg inhalat.powder (Trelegy Ellipta) warfarin 5 mg tablet 2.5 mg PO DAILY #90 tab 10/24/21 02/19/22 Rx warfarin 1 mg tablet 1 mg PO .COMPLEX #100 tab 10/28/21 02/19/22 Rx pantoprazole 40 mg tablet,delayed 40 mg PO DAILY 11/25/21 02/19/22 History release lorazepam 0.5 mg tablet 0.5 mg PO Q8H PRN #45 tab 01/15/22 02/19/22 Rx ondansetron 4 mg disintegrating 4 mg PO Q8H PRN #30 tab 01/15/22 02/19/22 Rx tablet sertraline 50 mg tablet 50 mg PO DAILY #90 tab 01/22/22 02/19/22 Rx albuterol sulfate 2.5 mg INHALATION Q6H PRN #180 ml 02/04/22 02/19/22 Rx Walker #1 ea 02/05/22 02/05/22 Rx acetaminophen 325 mg tablet 325 mg PO .COMPLEX PRN 02/19/22 02/19/22 History albuterol sulfate 90 mcg/actuation 2 puff INHALATION Q6H PRN #6.7 g 02/20/22 Rx aerosol inhaler (Ventolin HFA) Patient History Medical History (Updated 02/20/22 @ 13:11 by Santiago Godinez MD) Anxiety Atrial fibrillation with rapid ventricular response Bronchiectasis Bronchiectasis Chronic respiratory failure COPD (chronic obstructive pulmonary disease) Coronary artery disease Dehydration History of abdominal aortic aneurysm (AAA) History of esophageal ulcer (2013) History of NH (myocardial infarction) (01/08/14) Hypertension Hypomagnesemia Hypoxia Peripheral arterial disease Thoracic aortic aneurysm Tobacco abuse Surgical History (Updated 02/05/22 @ 16:39 by Cathy Cerda DO) H/O heart artery stent (2013) H/O heart bypass surgery (09/15/21) 09/15/21 Dr. Jerry Ellsworth at [facility] [place]- CABG x 2 SVG to LAD and OM/Ligation left atrial appendage with 35 mm Atricure clip/debranching of aortic arch with "Y" graft from ascending aorta to innominate and left carotid artery H/O vascular surgery (11/18/21) L common carotid A to L subclavian artery dacron bypass graft S/P AAA (abdominal aortic aneurysm) repair (07/14/06) open repair, Aortiobiiliac graft S/P aneurysm repair (01/06/22) S/P right cataract extraction S/P ANGEL-BSO (1975) secondary to endometriosis S/P tonsillectomy S/P total hysterectomy and bilateral salpingo-oophorectomy (1975) Status post coronary angiogram 09/10/21 Dr. Jean Baptiste at [facility] [place]- Coronary angiography (recommended bypass) Family History Sister Breast cancer Father Myocardial infarction Coronary heart disease Atrial fibrillation AAA (abdominal aortic aneurysm) Stroke Lung cancer Hypertension Mother AA (aortic aneurysm) Denies family history of Ovarian cancer Prostate cancer Colorectal cancer Social History Smoking Status: Former smoker Tobacco Type: Cigarettes Age Started Using Tobacco: 24; Cigarettes Per Day: 1; Second Hand Exposure: No; Hx Alcohol Use: No Hx Substance Use: No Preferred Language: Korean Communication Ability: Effective Visual Impairment: Limited Hearing Ability: Normal [employer] Required: No Beliefs That Will Affect Care: None marital status: Current Living Situation: Spouse 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 HEENT exam is negative. Neck is supple with full carotid upstrokes. There are no carotid bruits. No jugular venous distention. There is no thyromegaly. Cardiovascular exam reveals a regular rhythm with a normal S1 and S2. No S3, S4, or murmurs are noted. Chest reveals a well-healed midline scar. Lungs are clear without rales, rhonchi, or wheezes. Abdomen is soft and nontender without bruits. Extremities reveal intact radial artery pulses bilaterally. Posterior tibial pulses are nonpalpable. There is no peripheral edema. Results & Data ([facility]) Vital Signs (Past 12 Hours) Vital Signs Temp Pulse Resp BP BP Pulse Ox 02/20/22 11:04 36.5 C 62 18 145/66 H 100 02/20/22 06:59 36.7 C 69 18 154/69 H 96 02/20/22 02:58 72 24 146/73 H 99 02/20/22 02:15 80 18 165/61 H 97 02/20/22 01:00 67 18 179/73 H 96 Laboratory Results CBC notes hemoglobin of 10.2, hematocrit 34.9, white count 10.25, and platelet count 141511. Electrolytes note a sodium of 141, potassium 4.9, chloride 102, bicarb 31, BUN 18, creatinine 1.09, glucose of 303. Initial high sensitivity troponin was 83.4 with follow-up values of 305.3 and 611.5 TSH is elevated at 10.72 with a normal free T4 at 1.53. Diagnostic Findings EKG notes normal sinus rhythm with a left atrial abnormality anterolateral T- wave abnormality. With ejection fraction 40-45% with apical akinesis. There was evidence of mild LVH and mild aortic insufficiency. Compared with the study done on September 23, left ventricular dysfunction apical wall motion abnormality are new. And a thoracic aortic endograft. PG Care Time/CCT Total # of Minutes Spent Total Time Spent with Patient: Total time spent is greater than 50% in coordination of care (as documented) at patient's floor/unit and/or counseling patient: Coding Level of Care Code 25429 Initial Inpt Care Lvl 3 Diagnoses SVT (supraventricular tachycardia) I47.1 Ischemic cardiomyopathy I25.5 Coronary artery disease I25.10 Thoracic aortic aneurysm I71.2
[2022-02-20] MEDS ORDERED: Nursing to Pharmacy Communication SCH (13:45)
[2022-02-20] MEDS: ACETAMINOPHEN 325 MG TAB PO PRN (20:24)
[2022-02-20] MEDS: DEXTROMETHORPHAN POLYMR COMPLX 60 MG/10 ML UDP PO SCH (20:24)
[2022-02-20] MEDS: guaiFENesin 600 MG TABCR PO SCH (20:25)
[2022-02-20] MEDS: ANUSOL SUPP 1 EA PR SCH ×2 (20:26→20:32)
[2022-02-20] MEDS: HYDROCORTISONE HC 2.5% CRM 30GM TUBE EXT SCH (20:27)
[2022-02-20] MEDS: LORazepam 0.5 MG TAB PO PRN (22:18)
[2022-02-21 07:51] LABS: INR 1.1 (0.9-1.1); Prothrombin Time 11.8 Seconds (9.0-12.0)
[2022-02-21 08:07] LABS: BUN Creatinine Ratio 23.2 (10-20); Calcium 8.4 mg/dl (8.5-10.1); Creatinine Clr Calc Pharmacy 45.2 ml/min; Est GFR (African American) 97.3 ml/min
[2022-02-21 08:18] LABS: Basophils # (auto) 0.01 K/uL (0-0.2); Basophils % (auto) 0.1 %; Eosinophils # (auto) 0.05 K/uL (0-0.5); Eosinophils % (auto) 0.4 %; Hematocrit (blood only) 32.7 % (37-47); Hemoglobin 9.7 g/dL (12.0-16.0); Immature Granulocytes # (auto) 0.03 K/uL (0.00-0.02); Immature Granulocytes % (auto) 0.3 %; Lymphocytes # (auto) 1.93 K/uL (1.2-3.4); Lymphocytes % (auto) 16.8 %; Mean Corpuscular Hemoglobin 31.3 pg (25-34); Mean Corpuscular Hgb Conc 29.7 g/dL (32-36); Mean Corpuscular Volume 105.5 fL (80-100); Mean Platelet Volume 10.3 fL (7.4-10.4); Monocytes # (auto) 0.92 K/uL (0.11-0.59); Neutrophils # (auto) 8.56 K/uL (1.4-6.5); Neutrophils % (auto) 74.4 %; Platelet Count 151 K/uL (130-400); RDW Coefficient of Variation 15.9 % (11.5-14.5)
[2022-02-21] MEDS ORDERED: Nursing to Pharmacy Communication SCH (08:45)
[2022-02-21] MEDS ORDERED: lisinopril 10 MG TAB PO SCH (09:00)
[2022-02-21] MEDS: ANUSOL SUPP 1 EA PR SCH ×2 (09:48→20:02)
[2022-02-21] MEDS: guaiFENesin 600 MG TABCR PO SCH ×2 (09:51→20:02)
[2022-02-21] MEDS: HYDROCORTISONE HC 2.5% CRM 30GM TUBE EXT SCH ×2 (10:01→20:02)
[2022-02-21] MEDS: DEXTROMETHORPHAN POLYMR COMPLX 60 MG/10 ML UDP PO SCH ×2 (10:01→20:02)
[2022-02-21] MEDS: METOPROLOL TARTRATE 50 MG TAB PO SCH ×2 (10:01→20:02)
[2022-02-21] MEDS: ROSUVASTATIN CALCIUM 10 MG TAB PO SCH (10:02)
[2022-02-21] MEDS: PANTOprazole 40 MG TAB PO SCH (10:02)
[2022-02-21] MEDS: SERTRALINE HCL 50 MG TABLET PO SCH (10:02)
--- NOTE | 2022-02-21 11:09 | Hospitalist Progress Note ---
Date of Service February 21, 2022 Assessment & Plan (1) Elevated troponin: Plan: Now trending downward. It appears she had a recent apical injury. She has hypokinesis in that area as seen on echo and persistent EKG changes. Low-dose aspirin and lisinopril have been added. She states she is allergic to amiodarone. Appreciate cardiology consultation. Coumadin has now been reversed. (2) Anxiety: Plan: Stable. Continue current medical management (3) Thoracic aortic aneurysm: Plan: Stable. No evidence of hemorrhage. Serial chest CT scans as outpatient (4) PAF (paroxysmal atrial fibrillation): Plan: Rate controlled. She states she is allergic to amiodarone. Telemetry. Continue current medical management (5) COPD (chronic obstructive pulmonary disease): Plan: Stable. Continue current medical management (6) SVT (supraventricular tachycardia): Plan: No recurrence while hospitalized. She states she is allergic to amiodarone. Continue current medical management (7) Ischemic cardiomyopathy: Plan: Recent apical injury with persistent EKG changes. Troponin is now downtrending. Low-dose aspirin and lisinopril have been added. Appreciate cardiology consultation (8) Chronic anticoagulation: Plan: The patient is uncertain why she is on chronic Coumadin therapy which has now been discontinued and reversed. She has multiple comorbidities and advanced age and probably should not be on systemic anticoagulation at this time anyway (9) GI bleed: Plan: Hemoglobin is stable. No recurrent lower GI bleeding. Coumadin has been reversed. Serial lab studies Plan: Eventual discharge to home. Hopefully tomorrow, February 22 Admission and Anticipated Discharge Date Admission Date: February 20, 2022 Subjective Alert and oriented. Coumadin has been discontinued and reversed with vitamin K. INR is now 1.1. Hemoglobin stable at 9.7. No further GI bleeding evident. Troponin is now trending down. She had a recent apical injury with continued EKG changes. Ejection fraction is down to 45%. Low-dose aspirin and lisinopril started. She states she is allergic to amiodarone. Diet has been advanced. OT and PT assessments requested. Hopefully home tomorrow, February 22 Review of Systems Review of Systems: Constitutional-no fever or chills ENT-no blurred vision, no double vision, no epistaxis, no sore throat Respiratory-no cough, no wheezing, no shortness of breath Cardiac-no palpitations, no chest pain, no syncope GI-no nausea, vomiting, diarrhea, melena, hematochezia -no urinary retention, no urinary incontinence, no dysuria, no hematuria Musculoskeletal-no joint pain, no muscle tenderness Skin-no bruising, no rashes, no pruritus Neuro-no isolated weakness, no paresthesia, no weakness Psych-no depression, no anxiety Physical Exam Physical Exam: General-alert and oriented x3, no fevers, no chills. Appears pale and chronically ill HEENT-head atraumatic and normocephalic, TMs intact bilaterally, pupils equal and reactive to light, extraocular muscles intact Neck-no lymphadenopathy or thyromegaly, trachea midline Chest-clear to auscultation percussion. No rales wheezing or rhonchi Cardiac-regular rate and rhythm, normal S1 and S2 Abdomen-normal bowel sounds, nontender, no hepatosplenomegaly Extremities-no cyanosis, clubbing, or edema Neuro-cranial nerves II through XII intact, motor and sensory function within normal limits, strength symmetrical , no focal deficits Psych-normal affect, normal mood Results & Data Results & Data ([facility]) Vital Signs (Past 12 Hours) Vital Signs Temp Pulse Pulse Resp BP Pulse Ox 02/21/22 07:11 36.6 C 68 19 150/60 H 98 02/21/22 06:45 59 L 02/21/22 03:05 36.6 C 63 18 106/55 L 99 02/21/22 00:00 56 L 02/20/22 23:04 36.6 C 55 L 18 120/54 L 98 Laboratory Results 02/21/22 07:09 02/21/22 07:09 PG Care Time/CCT Total # of Minutes Spent Total Time Spent with Patient: Total time spent is greater than 50% in coordination of care (as documented) at patient's floor/unit and/or counseling patient: Coding Level of Care Code 94414 Subseq Hosp Care Lvl 3 Diagnoses Elevated troponin R77.8 Anxiety F41.9 Thoracic aortic aneurysm I71.2 PAF (paroxysmal atrial fibrillation) I48.0 COPD (chronic obstructive pulmonary disease) J44.9 SVT (supraventricular tachycardia) I47.1 Ischemic cardiomyopathy I25.5 Chronic anticoagulation Z79.01 GI bleed K92.2
[2022-02-21] MEDS: ASPIRIN 81 MG ECTAB PO SCH (11:11)
--- NOTE | 2022-02-21 11:12 | Gastroenterology Progress Note ---
Date of Service February 21, 2022 Assessment & Plan (1) Rectal bleeding: Plan: Found to have active bleeding from hemorrhoid yesterday Patient and nurse requests to go to daily, ok if returns, then do BID for 3-5 days Hb stable VSS No signs of ongoing clinically significant disease Hold off on colonoscopy given cardiovascular issues call with questions Admission and Anticipated Discharge Date Admission Date: February 20, 2022 Subjective No signs of GI bleeding, feels better. Physical Exam Physical Exam: a and o x 3 rodriguez nad nabs/soft/nt/nd no edema Results & Data ([facility]) Vital Signs (Past 12 Hours) Vital Signs Temp Pulse Pulse Resp BP Pulse Ox 02/21/22 11:03 36.4 C L 63 18 139/68 99 02/21/22 07:11 36.6 C 68 19 150/60 H 98 02/21/22 06:45 59 L 02/21/22 03:05 36.6 C 63 18 106/55 L 99 02/21/22 00:00 56 L
[2022-02-21] MEDS: FLUTICASONE FUROATE 100MCG 14 PUFFS/INHALER INH SCH (12:26)
[2022-02-21] MEDS: UMECLIDINIUM/VILANTEROL 62.5/25MCG 7 PUFFS/INHALER INH SCH (12:27)
[2022-02-21] MEDS: LORazepam 0.5 MG TAB PO PRN (22:22)
[2022-02-22 07:48] LABS: INR 1.1 (0.9-1.1); Prothrombin Time 11.3 Seconds (9.0-12.0)
[2022-02-22 08:06] LABS: Basophils # (auto) 0.01 K/uL (0-0.2); Basophils % (auto) 0.1 %; Eosinophils # (auto) 0.08 K/uL (0-0.5); Eosinophils % (auto) 0.9 %; Hematocrit (blood only) 31.8 % (37-47); Hemoglobin 9.3 g/dL (12.0-16.0); Immature Granulocytes # (auto) 0.02 K/uL (0.00-0.02); Immature Granulocytes % (auto) 0.2 %; Lymphocytes # (auto) 1.71 K/uL (1.2-3.4); Lymphocytes % (auto) 18.8 %; Mean Corpuscular Hemoglobin 31.3 pg (25-34); Mean Corpuscular Hgb Conc 29.2 g/dL (32-36); Mean Corpuscular Volume 107.1 fL (80-100); Mean Platelet Volume 10.2 fL (7.4-10.4); Monocytes # (auto) 0.77 K/uL (0.11-0.59); Monocytes % (auto) 8.5 %; Neutrophils % (auto) 71.5 %; Platelet Count 156 K/uL (130-400); RDW Coefficient of Variation 15.8 % (11.5-14.5); RDW Standard Deviation 62.1 fL (36.4-46.3); Red Blood Count 2.97 M/uL (4.2-5.4); White Blood Count 9.09 K/uL (4.8-10.8)
[2022-02-22 08:10] LABS: BUN Creatinine Ratio 22.5 (10-20); Calcium 8.4 mg/dl (8.5-10.1); Creatinine Clr Calc Pharmacy 44.1 ml/min; Est GFR (African American) 95.2 ml/min; Est GFR (Non-African American) 82.2 ml/min; Potassium 3.9 mmol/L (3.5-5.1)
[2022-02-22] MEDS: ASPIRIN 81 MG ECTAB PO SCH (08:17)
[2022-02-22] MEDS: DEXTROMETHORPHAN POLYMR COMPLX 60 MG/10 ML UDP PO SCH ×2 (08:17→20:19)
[2022-02-22] MEDS: HYDROCORTISONE HC 2.5% CRM 30GM TUBE EXT SCH ×2 (08:18→20:21)
[2022-02-22] MEDS: guaiFENesin 600 MG TABCR PO SCH ×2 (08:18→20:20)
[2022-02-22] MEDS: SERTRALINE HCL 50 MG TABLET PO SCH (08:19)
[2022-02-22] MEDS: PANTOprazole 40 MG TAB PO SCH (08:19)
[2022-02-22] MEDS ORDERED: lisinopril 5 MG TAB PO SCH (09:00)
[2022-02-22] MEDS: ROSUVASTATIN CALCIUM 10 MG TAB PO SCH (09:21)
[2022-02-22] MEDS: METOPROLOL TARTRATE 50 MG TAB PO SCH ×2 (09:22→20:21)
--- NOTE | 2022-02-22 11:12 | Hospitalist Progress Note ---
Date of Service February 22, 2022 Assessment & Plan (1) Elevated troponin: Plan: Now trending downward. It appears she had a recent apical injury. She has hypokinesis in that area as seen on echo and persistent EKG changes. Low-dose aspirin and lisinopril have been added. She states she is allergic to amiodarone. Appreciate cardiology consultation. Coumadin has now been reversed. Lisinopril dosage down titrated today, February 22, due to borderline low blood pressure (2) Anxiety: Plan: Stable. Continue current medical management (3) Thoracic aortic aneurysm: Plan: Stable. No evidence of hemorrhage. Serial chest CT scans as outpatient (4) PAF (paroxysmal atrial fibrillation): Plan: Rate controlled. She states she is allergic to amiodarone. Telemetry. Continue current medical management except Coumadin has been discontinued (5) COPD (chronic obstructive pulmonary disease): Plan: Stable. Continue current medical management (6) SVT (supraventricular tachycardia): Plan: No recurrence while hospitalized. She states she is allergic to amiodarone. Continue current medical management (7) Ischemic cardiomyopathy: Plan: Recent apical injury with persistent EKG changes. Troponin is now downtrending. Low-dose aspirin and lisinopril have been added. Lisinopril dosage down titrated today, February 22, due to borderline blood pressure. Appreciate cardiology consultation (8) Chronic anticoagulation: Plan: She takes Coumadin for atrial fibrillation. Coumadin temporarily discontinued. Will defer to PCP whether this should be restarted at a later date or not. (9) GI bleed: Plan: Hemoglobin is stable. No recurrent lower GI bleeding. Coumadin has been reversed. Serial lab studies Plan: Eventual discharge to home if she is able to ambulate. Hopefully tomorrow, February 23 Admission and Anticipated Discharge Date Admission Date: February 20, 2022 Subjective Alert and oriented. She states she has not been out of bed yet. OT and PT services requested. She wears oxygen at home chronically. I called by phone and spoke to her Murphy. He understands she probably had a recent apical [place] and ejection fraction is now slightly low at 45%. Lisinopril has been started and the dosage down titrated today due to blood pressure concerns. Coumadin has been discontinued and reversed. PCP will determine if this needs to be restarted at a later date. The states that her build engineer, Dr. León, is aware of the left lung nodule and is following it. Review of Systems Review of Systems: Constitutional-no fever or chills ENT-no blurred vision, no double vision, no epistaxis, no sore throat Respiratory-no cough, no wheezing, no shortness of breath Cardiac-no palpitations, no chest pain, no syncope GI-no nausea, vomiting, diarrhea, melena, hematochezia -no urinary retention, no urinary incontinence, no dysuria, no hematuria Musculoskeletal-no joint pain, no muscle tenderness Skin-no bruising, no rashes, no pruritus Neuro-no isolated weakness, no paresthesia, no weakness Psych-no depression, no anxiety Physical Exam Physical Exam: General-alert and oriented x3, no fevers, no chills. Chronically ill-appearing HEENT-head atraumatic and normocephalic, TMs intact bilaterally, pupils equal and reactive to light, extraocular muscles intact Neck-no lymphadenopathy or thyromegaly, trachea midline Chest-clear to auscultation percussion. No rales wheezing or rhonchi Cardiac-regular rate and rhythm, normal S1 and S2, no murmurs Abdomen-normal bowel sounds, nontender, no hepatosplenomegaly Extremities-no cyanosis, clubbing, or edema Neuro-cranial nerves II through XII intact, motor and sensory function within normal limits, strength symmetrical , no focal deficits Psych-normal affect, normal mood Results & Data Results & Data ([facility]) Vital Signs (Past 12 Hours) Vital Signs Temp Pulse Pulse Resp BP Pulse Ox 02/22/22 09:21 65 02/22/22 08:47 113/65 02/22/22 07:44 58 L 02/22/22 07:40 36.8 C 63 18 97/54 L 99 02/22/22 03:44 36.7 C 60 18 101/53 L 100 Laboratory Results 02/22/22 07:12 02/22/22 07:12 PG Care Time/CCT Total # of Minutes Spent Total Time Spent with Patient: Total time spent is greater than 50% in coordination of care (as documented) at patient's floor/unit and/or counseling patient: Coding Level of Care Code 37873 Subseq Hosp Care Lvl 3 Diagnoses Elevated troponin R77.8 Anxiety F41.9 Thoracic aortic aneurysm I71.2 PAF (paroxysmal atrial fibrillation) I48.0 COPD (chronic obstructive pulmonary disease) J44.9 SVT (supraventricular tachycardia) I47.1 Ischemic cardiomyopathy I25.5 Chronic anticoagulation Z79.01 GI bleed K92.2
[2022-02-22] MEDS: UMECLIDINIUM/VILANTEROL 62.5/25MCG 7 PUFFS/INHALER INH SCH (12:33)
[2022-02-22] MEDS: FLUTICASONE FUROATE 100MCG 14 PUFFS/INHALER INH SCH (12:33)
[2022-02-22] MEDS: ACETAMINOPHEN 325 MG TAB PO PRN (13:00)
[2022-02-22] MEDS: ANUSOL SUPP 1 EA PR SCH (20:20)
[2022-02-22] MEDS: LORazepam 0.5 MG TAB PO PRN (22:04)
[2022-02-23 06:12] LABS: Eosinophils # (auto) 0.06 K/uL (0-0.5); Hematocrit (blood only) 32.9 % (37-47); Hemoglobin 9.7 g/dL (12.0-16.0); Lymphocytes # (auto) 1.32 K/uL (1.2-3.4); Lymphocytes % (auto) 21.6 %; Mean Corpuscular Hemoglobin 31.7 pg (25-34); Mean Corpuscular Hgb Conc 29.5 g/dL (32-36); Mean Corpuscular Volume 107.5 fL (80-100); Mean Platelet Volume 9.7 fL (7.4-10.4); Monocytes # (auto) 0.62 K/uL (0.11-0.59); Monocytes % (auto) 10.2 %; Neutrophils % (auto) 67.2 %; Platelet Count 140 K/uL (130-400); RDW Coefficient of Variation 15.5 % (11.5-14.5); RDW Standard Deviation 61.1 fL (36.4-46.3); Red Blood Count 3.06 M/uL (4.2-5.4)
[2022-02-23 06:30] LABS: Calcium 8.1 mg/dl (8.5-10.1); Creatinine Clr Calc Pharmacy 51.7 ml/min; Est GFR (African American) 101.9 ml/min; Est GFR (Non-African American) 87.9 ml/min; INR 1.1 (0.9-1.1); Potassium 3.7 mmol/L (3.5-5.1); Prothrombin Time 11.7 Seconds (9.0-12.0)
[2022-02-23] MEDS: ROSUVASTATIN CALCIUM 10 MG TAB PO SCH (07:56)
[2022-02-23] MEDS: PANTOprazole 40 MG TAB PO SCH (07:56)
[2022-02-23] MEDS: guaiFENesin 600 MG TABCR PO SCH ×2 (07:56→20:01)
[2022-02-23] MEDS: DEXTROMETHORPHAN POLYMR COMPLX 60 MG/10 ML UDP PO SCH ×2 (07:56→20:30)
[2022-02-23] MEDS: lisinopril 5 MG TAB PO SCH (07:56)
[2022-02-23] MEDS: ASPIRIN 81 MG ECTAB PO SCH (07:57)
[2022-02-23] MEDS: SERTRALINE HCL 50 MG TABLET PO SCH (07:57)
[2022-02-23] MEDS: METOPROLOL TARTRATE 50 MG TAB PO SCH ×2 (07:57→20:01)
--- NOTE | 2022-02-23 07:57 | Hospitalist Progress Note ---
Date of Service February 23, 2022 Assessment & Plan (1) Elevated troponin: Plan: Likely NSTEMI, seen by cardiology, conservative management (2) Anxiety: Plan: Stable. Continue current medical management (3) Thoracic aortic aneurysm: Plan: Stable. No evidence of hemorrhage. Serial chest CT scans as outpatient (4) PAF (paroxysmal atrial fibrillation): Plan: Rate controlled.; Clinically regular; she states she is allergic to amiodarone. Telemetry. Continue current medical management except Coumadin has been discontinued (5) COPD (chronic obstructive pulmonary disease): Plan: Stable. Continue current medical management (6) SVT (supraventricular tachycardia): Plan: No recurrence while hospitalized. She states she is allergic to amiodarone. Continue current medical management (7) Ischemic cardiomyopathy: Plan: Recent apical injury with persistent EKG changes. Troponin is now downtrending. Low-dose aspirin and lisinopril have been added. Cardiology following (8) Chronic anticoagulation: Plan: She takes Coumadin for atrial fibrillation. Coumadin temporarily discontinued. Will defer to PCP whether this should be restarted at a later date or not. (9) GI bleed: Plan: No clinical bleeding again; repeat hemoglobin in a.m. (10) Opacity of lung on imaging study: Plan: New densities appear infective/inflammatory; empiric course of Doxy Plan: Leukocytosis noted, repeat in a.m. rehab placement pending Admission and Anticipated Discharge Date Admission Date: February 20, 2022 Subjective Alert and oriented. She states she has not been out of bed yet. OT and PT services requested. She wears oxygen at home chronically. I called by phone an d spoke to her Murphy. He understands she probably had a recent apical [place] and ejection fraction is now slightly low at 45%. Lisinopril has been started and the dosage down titrated today due to blood pressure concerns. Coumadin has been discontinued and reversed. PCP will determine if this needs to be restarted at a later date. The states that her diet clerk, Dr. León, is aware of the left lung nodule and is following it. Physical Exam Physical Exam: Constitutional and general: No acute distress, looks biologic age; decreased muscle mass Head and face: No puffiness, atraumatic Eyes: No scleral icterus, extraocular movements normal Neck: Supple, JVD Musculoskeletal: No acute joint swelling, no bony abnormalities Skin/dermatologic/integument: No rash, no purpura Hematologic and lymphatic: pallor +, no petechia Gastrointestinal/abdomen: Nondistended, soft, nonacute Neurologic: Cranial nerves intact, nonfocal Psychiatry: Awake, alert, pleasant, communicative Cardiovascular: Heart rhythm regular, no rub, systolic murmur about 3 x 6, no gallop Respiratory: Chest movements equal, no use of accessory muscles, no adventitious sounds; emphysematous; decreased breath sounds Extremities: No edema, no cyanosis Results & Data Results & Data ([facility]) Vital Signs (Past 12 Hours) Vital Signs Temp Pulse Pulse Resp BP Pulse Ox 02/23/22 07:00 61 02/23/22 03:42 36.8 C 64 15 97/57 L 97 02/22/22 22:50 61 02/22/22 22:47 36.5 C 82 17 109/66 97 Laboratory Results Laboratory Results - last 24 hr 02/22/22 02/22/22 02/23/22 07:12 07:12 05:41 WBC 9.09 6.10 RBC 2.97 L 3.06 L Hgb 9.3 L 9.7 L Hct 31.8 L 32.9 L MCV 107.1 H 107.5 H MCH 31.3 31.7 MCHC 29.2 L 29.5 L RDW Std Deviation 62.1 H 61.1 H RDW Coeff of Ruthy 15.8 H 15.5 H Plt Count 156 140 MPV 10.2 9.7 Immature Gran % (Auto) 0.2 0.0 Neut % (Auto) 71.5 67.2 Lymph % (Auto) 18.8 21.6 [place] % (Auto) 8.5 10.2 Eos % (Auto) 0.9 1.0 Baso % (Auto) 0.1 0.0 Neut # (Auto) 6.50 4.10 Lymph # (Auto) 1.71 1.32 [place] # (Auto) 0.77 H 0.62 H Eos # (Auto) 0.08 0.06 Baso # (Auto) 0.01 0.00 Immature Gran # (Auto) 0.02 0.00 PT INR Sodium 143 Potassium 3.9 Chloride 101 Carbon Dioxide 40 H Anion Gap 2 L BUN 16 Creatinine 0.71 Est Cr Clr Drug Dosing 44.1 Est GFR ( Amer) 95.2 Est GFR (Non-Af Amer) 82.2 BUN/Creatinine Ratio 22.5 H Glucose 84 Calcium 8.4 L 02/23/22 02/23/22 05:41 05:41 WBC RBC Hgb Hct MCV MCH MCHC RDW Std Deviation RDW Coeff of Ruthy Plt Count MPV Immature Gran % (Auto) Neut % (Auto) Lymph % (Auto) [place] % (Auto) Eos % (Auto) Baso % (Auto) Neut # (Auto) Lymph # (Auto) [place] # (Auto) Eos # (Auto) Baso # (Auto) Immature Gran # (Auto) PT 11.7 INR 1.1 Sodium 142 Potassium 3.7 Chloride 101 Carbon Dioxide 39 H Anion Gap 2 L BUN 15 Creatinine 0.60 Est Cr Clr Drug Dosing 51.7 Est GFR ( Amer) 101.9 Est GFR (Non-Af Amer) 87.9 BUN/Creatinine Ratio 25.0 H Glucose 90 Calcium 8.1 L PG Care Time/CCT Total # of Minutes Spent Total Time Spent with Patient: Total time spent is greater than 50% in coordination of care (as documented) at patient's floor/unit and/or counseling patient: Coding Level of Care Code 99074 Subseq Hosp Care Lvl 2 Diagnoses Elevated troponin R77.8 Anxiety F41.9 Thoracic aortic aneurysm I71.2 PAF (paroxysmal atrial fibrillation) I48.0 COPD (chronic obstructive pulmonary disease) J44.9 SVT (supraventricular tachycardia) I47.1 Ischemic cardiomyopathy I25.5 Chronic anticoagulation Z79.01 GI bleed K92.2 Opacity of lung on imaging study R91.8
[2022-02-23] MEDS: HYDROCORTISONE HC 2.5% CRM 30GM TUBE EXT SCH ×2 (07:58→20:01)
[2022-02-23] MEDS: DOXYCYCLINE HYCLATE 100 MG CAP PO SCH ×2 (08:49→20:30)
[2022-02-23] MEDS: FLUTICASONE FUROATE 100MCG 14 PUFFS/INHALER INH SCH (12:05)
[2022-02-23] MEDS: UMECLIDINIUM/VILANTEROL 62.5/25MCG 7 PUFFS/INHALER INH SCH (12:05)
[2022-02-23] MEDS: ANUSOL SUPP 1 EA PR SCH (20:30)
[2022-02-23] MEDS: LORazepam 0.5 MG TAB PO PRN (22:10)
[2022-02-24 06:36] LABS: Basophils # (auto) 0.01 K/uL (0-0.2); Basophils % (auto) 0.2 %; Eosinophils # (auto) 0.11 K/uL (0-0.5); Eosinophils % (auto) 1.7 %; Hematocrit (blood only) 34.1 % (37-47); Hemoglobin 9.9 g/dL (12.0-16.0); Immature Granulocytes # (auto) 0.01 K/uL (0.00-0.02); Immature Granulocytes % (auto) 0.2 %; Lymphocytes # (auto) 1.59 K/uL (1.2-3.4); Mean Corpuscular Hemoglobin 30.8 pg (25-34); Mean Corpuscular Volume 106.2 fL (80-100); Mean Platelet Volume 10.2 fL (7.4-10.4); Monocytes # (auto) 0.73 K/uL (0.11-0.59); Monocytes % (auto) 11.5 %; Neutrophils # (auto) 3.91 K/uL (1.4-6.5); Neutrophils % (auto) 61.4 %; Platelet Count 152 K/uL (130-400); RDW Coefficient of Variation 15.5 % (11.5-14.5); RDW Standard Deviation 60.4 fL (36.4-46.3); Red Blood Count 3.21 M/uL (4.2-5.4); White Blood Count 6.36 K/uL (4.8-10.8)
[2022-02-24 07:06] LABS: Albumin Globulin Ratio 1.1 (0.9-2); Albumin Level 2.9 gm/dl (3.4-5.0); Bilirubin,Total 0.3 mg/dl (0.2-1.0); Calcium 8.1 mg/dl (8.5-10.1); Creatinine Clr Calc Pharmacy 53.9 ml/min; Est GFR (Non-African American) 88.9 ml/min; Globulin 2.6 gm/dl (2.5-4.0); Magnesium 1.6 mg/dl (1.7-2.4); Potassium 3.8 mmol/L (3.5-5.1); Total Protein 5.5 gm/dl (6.0-8.3)
[2022-02-24] MEDS: DOXYCYCLINE HYCLATE 100 MG CAP PO SCH ×2 (08:42→20:12)
[2022-02-24] MEDS: PANTOprazole 40 MG TAB PO SCH (08:43)
[2022-02-24] MEDS: ROSUVASTATIN CALCIUM 10 MG TAB PO SCH (08:43)
[2022-02-24] MEDS: guaiFENesin 600 MG TABCR PO SCH ×2 (08:43→20:12)
[2022-02-24] MEDS: lisinopril 5 MG TAB PO SCH (08:43)
[2022-02-24] MEDS: METOPROLOL TARTRATE 50 MG TAB PO SCH ×2 (08:43→20:12)
[2022-02-24] MEDS: ASPIRIN 81 MG ECTAB PO SCH (08:43)
[2022-02-24] MEDS: HYDROCORTISONE HC 2.5% CRM 30GM TUBE EXT SCH ×2 (08:44→20:13)
[2022-02-24] MEDS: DEXTROMETHORPHAN POLYMR COMPLX 60 MG/10 ML UDP PO SCH ×2 (08:44→20:12)
[2022-02-24] MEDS: SERTRALINE HCL 50 MG TABLET PO SCH (08:45)
[2022-02-24] MEDS: MAGNESIUM SULFATE / D5W 1 GM/100 ML BAG IV SCH ×2 (10:40→12:48)
--- NOTE | 2022-02-24 11:04 | Cardiology Progress Note ---
Date of Service February 24, 2022 Assessment & Plan (1) SVT (supraventricular tachycardia): Plan: -no recurrence since admission. -her dysrhythmia was poorly tolerated with hypotension and need for cardioversion. -would strongly consider the use of amiodarone, however, she states that she is allergic. (2) Ischemic cardiomyopathy: Plan: -LVEF now 40-45% with a new apical wall motion abnormality. -would follow conservative care due to her numerous comorbidities and severe deconditioning. -tolerating low-dose lisinopril. -would convert metoprolol tartrate to metoprolol succinate 100 mg daily prior to hospital discharge. (3) Coronary artery disease: Plan: -s/p CABG x2, August 2021. (4) Thoracic aortic aneurysm: Plan: -repair as described, August and December 2021. Admission and Anticipated Discharge Date Admission Date: February 20, 2022 Subjective The patient is resting comfortably in bed without complaints of chest discomfort. She does note dyspnea with minimal physical activity. We have discussed her recent apical [place]. Physical Exam Physical Exam: In general this is a well-developed well-nourished white female in no acute distress. HEENT exam is negative. Neck is supple with full carotid upstrokes. There are no carotid bruits. No jugular venous distention. There is no thyromegaly. Cardiovascular exam reveals a regular rhythm with a normal S1 and S2. No S3, S4, or murmurs are noted. Chest reveals a well-healed midline scar. Lungs are clear without rales, rhonchi, or wheezes. Abdomen is soft and nontender without bruits. Extremities reveal intact radial artery pulses bilaterally. Posterior tibial pulses are nonpalpable. There is no peripheral edema. Results & Data ([facility]) Vital Signs (Past 12 Hours) Vital Signs Temp Pulse Pulse Resp BP Pulse Ox 02/24/22 07:55 37.1 C 60 18 110/66 97 02/24/22 07:54 67 02/24/22 02:48 37 C 67 18 108/72 93 Diagnostic Findings technical project manager notes rate controlled atrial fibrillation. PG Care Time/CCT Total # of Minutes Spent Total Time Spent with Patient: Total time spent is greater than 50% in coordination of care (as documented) at patient's floor/unit and/or counseling patient: Coding Level of Care Code 17358 Subseq Hosp Care Lvl 3 Diagnoses SVT (supraventricular tachycardia) I47.1 Ischemic cardiomyopathy I25.5 Coronary artery disease I25.10 Thoracic aortic aneurysm I71.2
[2022-02-24] MEDS: UMECLIDINIUM/VILANTEROL 62.5/25MCG 7 PUFFS/INHALER INH SCH (12:09)
[2022-02-24] MEDS: FLUTICASONE FUROATE 100MCG 14 PUFFS/INHALER INH SCH (12:10)
--- NOTE | 2022-02-24 14:54 | Hospitalist Progress Note ---
Date of Service February 24, 2022 Assessment & Plan (1) Elevated troponin: Plan: Likely NSTEMI, seen by cardiology, conservative management (2) Anxiety: Plan: Stable. Continue current medical management (3) Thoracic aortic aneurysm: Plan: Stable. No evidence of hemorrhage. Serial chest CT scans as outpatient (4) PAF (paroxysmal atrial fibrillation): Plan: Rate controlled.; Clinically regular; she states she is allergic to amiodarone. Telemetry. Continue current medical management except Coumadin has been discontinued (5) COPD (chronic obstructive pulmonary disease): Plan: Stable. Continue current medical management (6) SVT (supraventricular tachycardia): Plan: No recurrence while hospitalized. She states she is allergic to amiodarone. Continue current medical management (7) Ischemic cardiomyopathy: Plan: Recent apical injury with persistent EKG changes. Low-dose aspirin and lisinopril have been added. Cardiology following (8) Chronic anticoagulation: Plan: She takes Coumadin for atrial fibrillation. Coumadin temporarily discontinued. Will defer to PCP whether this should be restarted at a later date or not. (9) GI bleed: Plan: No clinical bleeding reported, hemoglobin stable, follow (10) Opacity of lung on imaging study: Plan: New densities appear infective/inflammatory; empiric course of Doxy (11) Hypomagnesemia: Plan: Replace Plan: Disposition pending Admission and Anticipated Discharge Date Admission Date: February 20, 2022 Subjective Follow-up of original presentation with SVTdoing well; no complaint Physical Exam Physical Exam: Constitutional and general: No acute distress, looks biologic age; decreased muscle mass Head and face: No puffiness, atraumatic Eyes: No scleral icterus, extraocular movements normal Neck: Supple, JVD Musculoskeletal: No acute joint swelling, no bony abnormalities Skin/dermatologic/integument: No rash, no purpura Hematologic and lymphatic: pallor +, no petechia Gastrointestinal/abdomen: Nondistended, soft, nonacute Neurologic: Cranial nerves intact, nonfocal Psychiatry: Awake, alert, pleasant, communicative Cardiovascular: Heart rhythm regular, no rub, systolic murmur about 3 x 6, no gallop Respiratory: Chest movements equal, no use of accessory muscles, no adventitious sounds; emphysematous; decreased breath sounds Extremities: No edema, no cyanosis Results & Data Results & Data ([facility]) Vital Signs (Past 12 Hours) Vital Signs Temp Pulse Pulse Resp BP Pulse Ox 02/24/22 11:51 37.3 C 62 18 139/62 97 02/24/22 07:55 37.1 C 60 18 110/66 97 02/24/22 07:54 67 Laboratory Results Laboratory Results - last 24 hr 02/24/22 02/24/22 05:40 05:40 WBC 6.36 RBC 3.21 L Hgb 9.9 L Hct 34.1 L MCV 106.2 H MCH 30.8 MCHC 29.0 L RDW Std Deviation 60.4 H RDW Coeff of Ruthy 15.5 H Plt Count 152 MPV 10.2 Immature Gran % (Auto) 0.2 Neut % (Auto) 61.4 Lymph % (Auto) 25.0 [place] % (Auto) 11.5 Eos % (Auto) 1.7 Baso % (Auto) 0.2 Neut # (Auto) 3.91 Lymph # (Auto) 1.59 [place] # (Auto) 0.73 H Eos # (Auto) 0.11 Baso # (Auto) 0.01 Immature Gran # (Auto) 0.01 Sodium 142 Potassium 3.8 Chloride 101 Carbon Dioxide 38 H Anion Gap 3 BUN 12 Creatinine 0.58 L Est Cr Clr Drug Dosing 53.9 Est GFR ( Amer) 103.0 Est GFR (Non-Af Amer) 88.9 Fasting Glucose 101 H Calcium 8.1 L Magnesium 1.6 L Total Bilirubin 0.3 AST 12 L ALT 9 Alkaline Phosphatase 85 Total Protein 5.5 L Albumin 2.9 L Globulin 2.6 Albumin/Globulin Ratio 1.1 PG Care Time/CCT Total # of Minutes Spent Total Time Spent with Patient: Total time spent is greater than 50% in coordination of care (as documented) at patient's floor/unit and/or counseling patient: Coding Level of Care Code 34809 Subseq Hosp Care Lvl 2 Diagnoses Elevated troponin R77.8 Anxiety F41.9 Thoracic aortic aneurysm I71.2 PAF (paroxysmal atrial fibrillation) I48.0 COPD (chronic obstructive pulmonary disease) J44.9 SVT (supraventricular tachycardia) I47.1 Ischemic cardiomyopathy I25.5 Chronic anticoagulation Z79.01 GI bleed K92.2 Opacity of lung on imaging study R91.8 Hypomagnesemia E83.42
[2022-02-24] MEDS: ANUSOL SUPP 1 EA PR SCH (20:12)
[2022-02-24] MEDS: LORazepam 0.5 MG TAB PO PRN (22:18)
[2022-02-25] MEDS ORDERED: METOPROLOL TARTRATE 1 MG/ML VIAL IV PRN (06:34)
--- NOTE | 2022-02-25 06:37 | Communication Note ---
Date of Service: February 25, 2022 notified by nurse at 630 of sustained a flutter 140s-150s x2-3 hours. ordering lopressor pushes and electrolyte labs. handoff to day hospitalist.
[2022-02-25] MEDS: dilTIAZem HCL 30 MG TAB PO SCH ×4 (08:08→20:06)
[2022-02-25] MEDS: ASPIRIN 81 MG ECTAB PO SCH (08:09)
[2022-02-25] MEDS: DEXTROMETHORPHAN POLYMR COMPLX 60 MG/10 ML UDP PO SCH ×2 (08:09→20:06)
[2022-02-25] MEDS: DOXYCYCLINE HYCLATE 100 MG CAP PO SCH ×2 (08:09→20:06)
[2022-02-25] MEDS: PANTOprazole 40 MG TAB PO SCH (08:10)
[2022-02-25] MEDS: ROSUVASTATIN CALCIUM 10 MG TAB PO SCH (08:10)
[2022-02-25] MEDS: guaiFENesin 600 MG TABCR PO SCH ×2 (08:10→20:06)
[2022-02-25] MEDS: HYDROCORTISONE HC 2.5% CRM 30GM TUBE EXT SCH ×2 (08:10→20:06)
[2022-02-25] MEDS: SERTRALINE HCL 50 MG TABLET PO SCH (08:10)
[2022-02-25 09:04] LABS: Albumin Level 2.9 gm/dl (3.4-5.0); Bilirubin,Total 0.3 mg/dl (0.2-1.0); Calcium 8.5 mg/dl (8.5-10.1); Creatinine Clr Calc Pharmacy 49.9 ml/min; Est GFR (African American) 99.8 ml/min; Est GFR (Non-African American) 86.1 ml/min; Globulin 2.8 gm/dl (2.5-4.0); Magnesium 1.9 mg/dl (1.7-2.4); Potassium 4.5 mmol/L (3.5-5.1); Total Protein 5.7 gm/dl (6.0-8.3)
[2022-02-25 09:34] LABS: Basophils # (auto) 0.01 K/uL (0-0.2); Basophils % (auto) 0.2 %; Eosinophils # (auto) 0.12 K/uL (0-0.5); Eosinophils % (auto) 2.1 %; Hematocrit (blood only) 37.4 % (37-47); Hemoglobin 10.8 g/dL (12.0-16.0); Immature Granulocytes # (auto) 0.02 K/uL (0.00-0.02); Immature Granulocytes % (auto) 0.3 %; Lymphocytes # (auto) 1.63 K/uL (1.2-3.4); Lymphocytes % (auto) 28.1 %; Mean Corpuscular Hemoglobin 30.8 pg (25-34); Mean Corpuscular Hgb Conc 28.9 g/dL (32-36); Mean Corpuscular Volume 106.6 fL (80-100); Mean Platelet Volume 10.2 fL (7.4-10.4); Monocytes # (auto) 0.68 K/uL (0.11-0.59); Monocytes % (auto) 11.7 %; Neutrophils # (auto) 3.34 K/uL (1.4-6.5); Neutrophils % (auto) 57.6 %; Platelet Count 162 K/uL (130-400); RDW Coefficient of Variation 15.6 % (11.5-14.5); RDW Standard Deviation 61.4 fL (36.4-46.3); Red Blood Count 3.51 M/uL (4.2-5.4)
[2022-02-25 10:14] LABS: Base Excess ABG 15.1 mEq/L (-9-1.8); HCO3 ABG 43 mmol/L (19-24); Oxygen Saturation ABG 98.9 % (90-95); PCO2 ABG 70 mmHg (35-46); PO2 ABG 87 mmHg (80-95)
[2022-02-25 10:21] LABS: Allen Test Pos (Pos)
[2022-02-25] MEDS: FLUTICASONE FUROATE 100MCG 14 PUFFS/INHALER INH SCH (12:22)
[2022-02-25] MEDS: UMECLIDINIUM/VILANTEROL 62.5/25MCG 7 PUFFS/INHALER INH SCH (12:22)
[2022-02-25] MEDS: LORazepam 0.5 MG TAB PO PRN ×2 (13:07→22:09)
--- NOTE | 2022-02-25 14:36 | Pulmonary Consultation ---
Date of Consultation February 25, 2022 Assessment & Plan (1) Chronic respiratory failure: (2) Hypoxia: (3) COPD (chronic obstructive pulmonary disease): (4) Opacity of lung on imaging study: Attending: Dr. Maher Impression: Is a 76-year-old female that follows with Dr. Silva in the outpatient pulmonary office. Last seen by him 02/04/2022. She carries a diagnosis of COPD, chronic respiratory failure with hypoxia requiring supplemental oxygen at 3 L/min via nasal cannula, history of tobacco abuse (former cigarette smoker). Patient had an arrhythmic event at home on the evening of 02/20/2022. She had diaphoresis and shortness of breath. When EMS arrived at her home they found her to be in SVT and she required electrical cardioversion in the field. A CT scan of the chest was completed to rule out pulmonary emboli. It was negative for PE. It was noted that patient has m ultiple pulmonary nodules which were previously noted on imaging in the past. These are being followed outpatient by Dr. Silva. Patient's ABG revealed a pH of 7.4, a PCO2 of 70, and an HCO3 of 43. The pulmonary group was consulted for comment on her hypercapnic failure. Recommendations: 1. Chronic respiratory failure with hypoxia and newly discovered hypercapnia: * Patient is on supplemental oxygen at 3 L/min via nasal cannula * She is noted to have COPD group D. I do not see pulmonary function tests in the system at this time * No prior note of elevated PCO2 with ABGs * Patient does appear to be compensated as her pH is 7.4, PCO2 is 70, and her HCO3 is 43 * Although we could try CPAP or BiPAP to reduce her carbon dioxide, patient very anxious and continues to have tachycardia with a rate in the 130s. We will continue to focus on her cardiac issues as long as she is lucid and oxygenating well. * Continue to monitor on telemetry. Continue titrate supplemental oxygen to maintain SaO2 between 88 and 92%. * Continue to follow serum CO2 or VBG. No further ABGs are required at this time 2. COPD: * Patient quit smoking in January 2022 * Gold class D * Continue with Trelegy inhaler (ICS/AC/LABA) on discharge * While inpatient we will continue on Arnuity Ellipta (ICS) and Anoro Ellipta (AC/LABA) * Maintain SaO2 between 88 and 92% * Continue to encourage complete cessation of smoking 3. Tobacco abuse history: * Patient quit smoking in January 2022. Continue to encourage complete abstinence * Patient denies need for NicoDerm patch. Continue to monitor 4. Pulmonary nodules: * These were previously noted on other CTs. * The nodules appear to wax and wane with the exception of the larger left lower lobe nodule * No further work-up inpatient is required * Will have Dr. Silva in the outpatient setting manage following these nodules Thank you very much for including us in the care of this patient. The pulmonary service will sign off at this time. Patient should continue to follow with Dr. Silva in the outpatient setting. Please refer to Dr. Maher's addendum for further recommendations and corrections. Supervising Physician Co-Signing Physician Notes Patient seen and examined. EMR reviewed. Discussed with pulmonary PA. Agree with assessment and plan as noted. Patient has advanced COPD was admitted for underlying cardiac issues. She is found to have an elevated bicarb. This has been elevated dating back to 2020. Blood gas was obtained which shows compensated hypercarbic respiratory failure. She is dependent on oxygen at baseline. She is not bronchospastic currently. This represents the acute recognition of a chronic problem given the fact the patient's pH is normal. Her elevated PCO2 may benefit from outpatient evaluation by Dr. Silva and consideration of possible nocturnal positive pressure ventilation however this does not need to be attempted during patient's inpatient stay and her cardiac issues appear to be more pressing currently. 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 Will continue her home inhalers. No indication for steroids. Outpatient pulmonary rehabilitation could be a consideration as well No additional pulmonary evaluation required at this time as the patient's pulmonary status appears stable. We will sign off. Feel free to contact us if we can be of additional assistance History of Present Illness Reason for Consultation: Acute on chronic respiratory failure Requesting Physician: Dr. Schafer Attending Physician: Bree Schafer MD History of Present Illness Attending: Dr. Maher This is a pleasant 76-year-old female with past medical history including chronic respiratory failure with hypoxia on supplemental oxygen at 2 L/min via nasal cannula , COPD, pulmonary nodules, bronchiectasis, history of MN with CABG 12/2021, thoracic aortic aneurysm status postrepair (surgery x3), supraventricular tachycardia, peripheral artery disease, paroxysmal atrial fibrillation, history of esophageal ulcer, hypertension, CAD, macrocytosis. Patient was admitted 02/20/2022. She was doing relatively well until the evening of her admission when she began to experience diaphoresis, lightheadedness, diarrhea. She called 911 and was noted to be in SVT with hypotension. She received electrocardioversion in the field and presented to the emergency department. She was placed on telemetry unit and is currently followed by cardiology. Pulmonary service is consulted today for hypercapnic respiratory failure. Patient reports that she follows with Dr. Silva in the outpatient setting. She was most recently seen by him 02/04/2022. She is followed for COPD group D. She is on chronic supplemental oxygen at 2 L/min via nasal cannula. She also uses Trelegy Ellipta (ICS/AC/LABA) on a daily basis. She does have albuterol HFA as well as nebulizer as rescue medications. It was recommended in Dr. Silva's last note that she should continue supplemental oxygen but should be on 3 L/min at all times to maintain saturations above 88%. Patient denies any fever, chills, sweats, rigors. No significant cough or sputum production. There does not appear to be any exacerbation of her COPD. Patient did have shortness of breath the night of admission. It is unclear if this is due to her chronic pulmonary issues or to the SVT requiring electrical cardioversion. Currently patient is oxygenating well via nasal cannula. Patient has pulmonary nodules which appear to be chronic. They are being followed by Dr. Silva as an outpatient. Arterial blood gas completed this admission reveals compensated hypercapnic respiratory failure with a pH of 7.4 and a PCO2 of 70. Patient's bicarb is 43. Currently patient is on 3 L/min via nasal cannula Patient has no other acute pulmonary complaints. There is no edema. She currently has no chest pain. She is tachycardic. This is being managed by cardiology. Allergies Allergy/AdvReac Type Severity Reaction Status Date / Time Sulfa (Sulfonamide Allergy Intermediate Rash Verified 02/19/22 23:33 Antibiotics) Penicillins Allergy Unknown HAPPENED Verified 02/19/22 23:33 A TEENAGER amiodarone AdvReac Intermediate SKIN Verified 02/19/22 23:33 PEELED OFF FEET fexofenadine AdvReac Intermediate "SKIN Verified 02/19/22 23:33 HURTS" HEADACHE lisinopril AdvReac Intermediate COUGH Verified 02/19/22 23:33 Home Medications Medication Instructions Recorded Confirmed Type aspirin 81 mg tablet,delayed 81 mg PO DAILY 10/28/20 02/19/22 History release (Adult Aspirin Regimen) nitroglycerin 0.4 mg sublingual 0.4 mg SUBLINGUAL Q5M PRN #30 tab 10/28/20 02/19/22 Rx tablet cyanocobalamin (vitamin B-12) 1,000 mcg PO DAILY 05/04/21 02/19/22 History 1,000 mcg tablet (Vitamin B-12) rosuvastatin 10 mg tablet 10 mg PO DAILY #30 tab 08/05/21 02/19/22 Rx metoprolol tartrate 50 mg tablet 50 mg PO BID #180 tab 09/08/21 02/19/22 Rx Oxygen Home #1 ea 09/30/21 02/12/22 Rx fluticasone fur. 100 mcg-umeclid 1 inh INHALATION DAILY #180 ea 10/06/21 02/19/22 Rx 62.5 mcg-vilant 25 mcg inhalat.powder (Trelegy Ellipta) warfarin 5 mg tablet 2.5 mg PO DAILY #90 tab 10/24/21 02/19/22 Rx warfarin 1 mg tablet 1 mg PO .COMPLEX #100 tab 10/28/21 02/19/22 Rx pantoprazole 40 mg tablet,delayed 40 mg PO DAILY 11/25/21 02/19/22 History release lorazepam 0.5 mg tablet 0.5 mg PO Q8H PRN #45 tab 01/15/22 02/19/22 Rx ondansetron 4 mg disintegrating 4 mg PO Q8H PRN #30 tab 01/15/22 02/19/22 Rx tablet sertraline 50 mg tablet 50 mg PO DAILY #90 tab 01/22/22 02/19/22 Rx albuterol sulfate 2.5 mg INHALATION Q6H PRN #180 ml 02/04/22 02/19/22 Rx Walker #1 ea 02/05/22 02/05/22 Rx acetaminophen 325 mg tablet 325 mg PO .COMPLEX PRN 02/19/22 02/19/22 History albuterol sulfate 90 mcg/actuation 2 puff INHALATION Q6H PRN #6.7 g 02/20/22 Rx aerosol inhaler (Ventolin HFA) Patient History Medical History Anxiety Atrial fibrillation with rapid ventricular response Bronchiectasis Bronchiectasis Chronic respiratory failure COPD (chronic obstructive pulmonary disease) Coronary artery disease Dehydration History of abdominal aortic aneurysm (AAA) History of esophageal ulcer (2013) History of MN (myocardial infarction) (01/08/14) Hypertension Hypomagnesemia Hypoxia Peripheral arterial disease Thoracic aortic aneurysm Tobacco abuse Surgical History H/O heart artery stent (2013) H/O heart bypass surgery (09/15/21) 09/15/21 Dr. Jerry Ellsworth at [facility] [place]- CABG x 2 SVG to LAD and OM/Ligation left atrial appendage with 35 mm Atricure clip/debranching of aortic arch with "Y" graft from ascending aorta to innominate and left carotid artery H/O vascular surgery (11/18/21) L common carotid A to L subclavian artery dacron bypass graft S/P AAA (abdominal aortic aneurysm) repair (07/14/06) open repair, Aortiobiiliac graft S/P aneurysm repair (01/06/22) S/P right cataract extraction S/P ANGEL-BSO (1975) secondary to endometriosis S/P tonsillectomy S/P total hysterectomy and bilateral salpingo-oophorectomy (1975) Status post coronary angiogram 09/10/21 Dr. Jean Baptiste at [facility] [place]- Coronary angiography (recommended bypass) Family History Sister Breast cancer Father Myocardial infarction Coronary heart disease Atrial fibrillation AAA (abdominal aortic aneurysm) Stroke Lung cancer Hypertension Mother AA (aortic aneurysm) Denies family history of Ovarian cancer Prostate cancer Colorectal cancer Social History Smoking Status: Former smoker Tobacco Type: Cigarettes Age Started Using Tobacco: 24; Cigarettes Per Day: 1; Second Hand Exposure: No; Hx Alcohol Use: No Hx Substance Use: No Preferred Language: Frisian Communication Ability: Effective Visual Impairment: Limited Hearing Ability: Normal Slasher Operator Required: No Beliefs That Will Affect Care: None marital status: Current Living Situation: Spouse 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 How many Children do You have: 3 Feels Safe at Home: Yes Childhood Exposure to Second-Hand Smoke: Yes (father) caffeine: Yes during the past year weight has: remained stable Dental Care, Regularly: No Physical Activity Frequency: 3-4 Times per Week Physical Activity Frequency Comment: walks Seatbelt Use: always Sunscreen Use: Yes Assistive Devices: Oxygen - Continuous and Walker Review of Systems Review of Systems: A total of 10 systems was reviewed and is negative other than as listed in the HPI Physical Exam Physical Exam: GENERAL : No acute distress EYES: No icterus, gaze conjugate NOSE: No evidence of epistaxis MOUTH: No lesions or candidiasis NECK: Supple LUNGS: Decreased breath sounds bilaterally. Generally CTA B/L, no wheezes, rales or rhonchi HEART: Regular, tachycardic in the 130s ABDOMEN: Soft, NT, ND, BS Present EXTREMITIES: No LE edema, pedal pulses intact NEURO: A&OX3 Results & Data Results & Data ([facility]) Vital Signs (Past 12 Hours) Vital Signs Temp Pulse Pulse Resp BP BP BP 02/25/22 10:53 36.4 C L 141 H 19 117/73 02/25/22 10:31 135 H 02/25/22 08:06 134 H 104/67 02/25/22 07:17 138 H 101/62 02/25/22 07:06 36.6 C 131 H 17 94/53 L 02/25/22 02:56 36.6 C 124 H 18 106/71 Pulse Ox 02/25/22 10:53 98 02/25/22 10:31 02/25/22 08:06 02/25/22 07:17 02/25/22 07:06 100 02/25/22 02:56 99 Critical Care Results & Data Vital Signs (Past 12 Hours) Vital Signs Temp Pulse Pulse Resp BP BP BP 02/25/22 10:53 36.4 C L 141 H 19 117/73 02/25/22 10:31 135 H 02/25/22 08:06 134 H 104/67 02/25/22 07:17 138 H 101/62 02/25/22 07:06 36.6 C 131 H 17 94/53 L 02/25/22 02:56 36.6 C 124 H 18 106/71 Pulse Ox 02/25/22 10:53 98 02/25/22 10:31 02/25/22 08:06 02/25/22 07:17 02/25/22 07:06 100 02/25/22 02:56 99 Lab & Micro Results (Past 24 Hours) RBC 3.51 M/uL (4.2-5.4) L 02/25/22 WBC 5.80 K/uL (4.8-10.8) 02/25/22 Hgb 10.8 g/dL (12.0-16.0) L 02/25/22 Hct 37.4 % (37-47) 02/25/22 MCV 106.6 fL (80-100) H 02/25/22 MCH 30.8 pg (25-34) 02/25/22 MCHC 28.9 g/dL (32-36) L 02/25/22 RDW Standard Deviation 61.4 fL (36.4-46.3) H 02/25/22 RDW Coefficient of Variation 15.6 % (11.5-14.5) H 02/25/22 Plt Count 162 K/uL (130-400) 02/25/22 MPV 10.2 fL (7.4-10.4) 02/25/22 Neutrophils (%) (Auto) 57.6 % 02/25/22 Lymphocytes (%) (Auto) 28.1 % 02/25/22 Monocytes # (Auto) 0.68 K/uL (0.11-0.59) H 02/25/22 Eosinophils # (Auto) 0.12 K/uL (0-0.5) 02/25/22 Immature Granulocyte % (Auto) 0.3 % 02/25/22 Neutrophils # (Auto) 3.34 K/uL (1.4-6.5) 02/25/22 Lymphocytes # (Auto) 1.63 K/uL (1.2-3.4) 02/25/22 Monocytes # (Auto) 0.68 K/uL (0.11-0.59) H 02/25/22 Eosinophils # (Auto) 0.12 K/uL (0-0.5) 02/25/22 Basophils # (Auto) 0.01 K/uL (0-0.2) 02/25/22 Immature Granulocyte # (Auto) 0.02 K/uL (0.00-0.02) 02/25/22 Na 141 mmol/L (136-145) 02/25/22 K 4.5 mmol/L (3.5-5.1) 02/25/22 Cl 97 mmol/L (98-107) L 02/25/22 CO2 43 mmol/L (21-32) H* 02/25/22 Anion Gap 1 (3-11) L 02/25/22 BUN 13 mg/dl (6-23) 02/25/22 Creatinine 0.64 mg/dl (0.6-1.2) 02/25/22 Estimated GFR ( Amer) 99.8 ml/min 02/25/22 Estimated GFR (Non-Af Amer) 86.1 ml/min 02/25/22 Ca 8.5 mg/dl (8.5-10.1) 02/25/22 Total Bilirubin 0.3 mg/dl (0.2-1.0) 02/25/22 AST 13 U/L (13-39) 02/25/22 ALT 10 U/L (7-52) 02/25/22 Alkaline Phosphatase 97 U/L (34-104) 02/25/22 TP 5.7 gm/dl (6.0-8.3) L 02/25/22 Albumin 2.9 gm/dl (3.4-5.0) L 02/25/22 Globulin 2.8 gm/dl (2.5-4.0) 02/25/22 Albumin/Globulin Ratio 1.0 (0.9-2) 02/25/22 Mg 1.9 mg/dl (1.7-2.4) 02/25/22 07:26 02/25/22 Calcium Level 8.5 mg/dl (8.5-10.1) 02/25/22 07:26 02/25/22 Arterial Blood pH 7.40 (7.35-7.45) 02/25/22 09:47 02/25/22 Arterial Blood Partial Pressure CO2 70 mmHg (35-46) H 02/25/22 09:47 02/25/22 Arterial Blood Partial Pressure O2 87 mmHg (80-95) 02/25/22 09:47 02/25/22 Arterial Blood HCO3 43 mmol/L (19-24) H 02/25/22 09:47 02/25/22 Arterial Blood Base Excess 15.1 mEq/L (-9-1.8) H 02/25/22 09:47 02/25/22 Arterial Blood Oxygen Saturation 98.9 % (90-95) H 02/25/22 09:47 02/25/22 Blood Gas Oxygen Given 3L 02/25/22 09:47 02/25/22 Francois Test Pos (Pos) 02/25/22 09:47 02/25/22 I & O Totals 24 Hours 02/24/22 02/25/22 02/26/22 06:59 06:59 06:59 Intake Total 700 / 700 470.0 / 470.0 120 / 120 Output Total 101 / 101 300 / 300 Balance 599 / 599 170.0 / 170.0 120 / 120 Cumulative 02/19/22 22:45 thru 02/25/22 14:13 Intake Total 5009.8 Output Total 1101 Balance 3908.8 RT Ventilator Mngmt (Last Documented) Ventilator Ordered Settings Respiratory Rate 19 02/25/22 10:53 Ventilator - PT Measurements Respiratory Rate 19 PG Care Time/CCT Total # of Minutes Spent Total Time Spent with Patient: Total time spent is greater than 50% in coordination of care (as documented) at patient's floor/unit and/or counseling patient:50 minutes with family in the room aswell Coding Level of Care Code 46786 Initial Inpt Care Lvl 3 Diagnoses Chronic respiratory failure J96.10 Hypoxia R09.02 COPD (chronic obstructive pulmonary disease) J44.9 Opacity of lung on imaging study R91.8 Time Spent (min) 50
[2022-02-25] MEDS ORDERED: DIGOXIN 250 MCG in SYRINGE 9 ML IV ONE ×2 (14:45→21:15)
--- NOTE | 2022-02-25 15:07 | Cardiology Progress Note ---
Date of Service February 25, 2022 Assessment & Plan (1) Paroxysmal atrial flutter: Plan: -the patient developed atrial flutter with 2-1 conduction this morning. -would add digoxin 0.25 mg IV now and repeat in 4 hours if necessary -could consider use of intravenous diltiazem. -patient claims she is allergic to amiodarone. (2) SVT (supraventricular tachycardia): Plan: -no recurrence since admission. (3) Ischemic cardiomyopathy: Plan: -LVEF now 40-45% with a new apical wall motion abnormality. -would follow conservative care due to her numerous comorbidities and severe deconditioning. -tolerating low-dose lisinopril. -would convert metoprolol tartrate to metoprolol succinate 100 mg daily prior to hospital discharge. (4) Coronary artery disease: Plan: -s/p CABG x2, August 2021. (5) Thoracic aortic aneurysm: Plan: -repair as described, August and December 2021. Admission and Anticipated Discharge Date Admission Date: February 20, 2022 Subjective The patient is resting comfortably in bed without complaints of chest pain, dyspnea, or palpitations. Physical Exam Physical Exam: In general this is a well-developed well-nourished white female in no acute distress. HEENT exam is negative. Neck is supple with full carotid upstrokes. There are no carotid bruits. No jugular venous distention. There is no thyromegaly. Cardiovascular exam reveals a regular rhythm with a normal S1 and S2. No S3, S4, or murmurs are noted. Chest reveals a well-healed midline scar. Lungs are clear without rales, rhonchi, or wheezes. Abdomen is soft and nontender without bruits. Extremities reveal intact radial artery pulses bilaterally. Posterior tibial pulses are nonpalpable. There is no peripheral edema. Results & Data ([facility]) Vital Signs (Past 12 Hours) Vital Signs Temp Pulse Pulse Resp BP BP BP 02/25/22 10:53 36.4 C L 141 H 19 117/73 02/25/22 10:31 135 H 02/25/22 08:06 134 H 104/67 02/25/22 07:17 138 H 101/62 02/25/22 07:06 36.6 C 131 H 17 94/53 L Pulse Ox 02/25/22 10:53 98 02/25/22 10:31 02/25/22 08:06 02/25/22 07:17 02/25/22 07:06 100 Diagnostic Findings director hair notes atrial flutter with 2-1 AV conduction. PG Care Time/CCT Total # of Minutes Spent Total Time Spent with Patient: Total time spent is greater than 50% in coordination of care (as documented) at patient's floor/unit and/or counseling patient: Coding Level of Care Code 56187 Subseq Hosp Care Lvl 3 Diagnoses SVT (supraventricular tachycardia) I47.1 Ischemic cardiomyopathy I25.5 Coronary artery disease I25.10 Thoracic aortic aneurysm I71.2 Paroxysmal atrial flutter I48.92
[2022-02-25] MEDS ORDERED: bisacodyL 10 MG SUPP PR PRN (17:10)
--- NOTE | 2022-02-25 17:27 | Hospitalist Progress Note ---
Date of Service February 25, 2022 Assessment & Plan (1) Atrial flutter: Plan: Added short acting Cardizem, heart rate remained elevated, 1 dose digoxin, repeat after 4 hours if needed (2) Elevated troponin: Plan: Likely NSTEMI, seen by cardiology, conservative management (3) Anxiety: Plan: Stable. Continue current medical management (4) Thoracic aortic aneurysm: Plan: Stable. No evidence of hemorrhage. Serial chest CT scans as outpatient (5) PAF (paroxysmal atrial fibrillation): Plan: See #1; she states she is allergic to amiodarone. Telemetry. Continue current medical management except Coumadin has been discontinued (6) Respiratory failure: Plan: Hypoxic and hypercapnic; Pulmonary input noted and appreciated ICS/AC/LABA on discharge Continue current ICS and AC/LABA (7) COPD (chronic obstructive pulmonary disease): Plan: Reportedly Gold class Chadwick above (8) SVT (supraventricular tachycardia): Plan: No recurrence while hospitalized. She states she is allergic to amiodarone. Continue current medical management (9) Ischemic cardiomyopathy: Plan: Recent apical injury with persistent EKG changes. Low-dose aspirin; lisinopril temporarily held; metoprolol switch to succinate at discharge; cardiology following (10) Chronic anticoagulation: Plan: She takes Coumadin for atrial fibrillation. Coumadin temporarily discontinued. Will defer to PCP whether this should be restarted at a later date or not. (11) GI bleed: Plan: No clinical bleeding reported, hemoglobin stable, follow (12) Opacity of lung on imaging study: Plan: New densities appear infective/inflammatory; empiric course of Doxy Benefit of doubt, possible pneumonia but not confirmed (13) Hypomagnesemia: Plan: Replace as appropriate (14) Protein calorie malnutrition: Plan: Encourage intake, nutrition note noted Plan: Treat constipation Speech therapy consulted Admission and Anticipated Discharge Date Admission Date: February 20, 2022 Subjective Follow-up of presentation with SVTovernight atrial flutter with RVR; feels generally unwell and woozy Physical Exam Physical Exam: Constitutional and general: Chronically ill, looks biologic age Poor muscle mass Head and face: No puffiness, atraumatic Eyes: No scleral icterus, extraocular movements normal Neck: Supple, mild JVD Musculoskeletal: No acute joint swelling, no bony abnormalities Skin/dermatologic/integument: No rash, no purpura Hematologic and lymphatic: pallor +, no petechia Gastrointestinal/abdomen: Nondistended, soft, nonacute Neurologic: Cranial nerves intact, nonfocal Psychiatry: Awake, alert, pleasant, communicative Cardiovascular: Heart rhythm regular, no rub, no murmur, no gallop Respiratory: Chest movements equal, mild use of accessory muscles, no adventitious sounds; at emphysematous and overall decreased breath sounds Extremities: No edema, no cyanosis Results & Data Results & Data ([facility]) Vital Signs (Past 12 Hours) Vital Signs Temp Pulse Pulse Resp BP BP BP 02/25/22 15:24 36.5 C 135 H 19 114/68 02/25/22 15:19 142 H 02/25/22 15:14 151 H 02/25/22 10:53 36.4 C L 141 H 19 117/73 02/25/22 10:31 135 H 02/25/22 08:06 134 H 104/67 02/25/22 07:17 138 H 101/62 02/25/22 07:06 36.6 C 131 H 17 94/53 L Pulse Ox 02/25/22 15:24 93 02/25/22 15:19 02/25/22 15:14 02/25/22 10:53 98 02/25/22 10:31 02/25/22 08:06 02/25/22 07:17 02/25/22 07:06 100 Laboratory Results Laboratory Results - last 24 hr 02/25/22 02/25/22 02/25/22 07:26 07:26 09:47 WBC 5.80 RBC 3.51 L Hgb 10.8 L Hct 37.4 MCV 106.6 H MCH 30.8 MCHC 28.9 L RDW Std Deviation 61.4 H RDW Coeff of Ruthy 15.6 H Plt Count 162 MPV 10.2 Immature Gran % (Auto) 0.3 Neut % (Auto) 57.6 Lymph % (Auto) 28.1 Wharton % (Auto) 11.7 Eos % (Auto) 2.1 Baso % (Auto) 0.2 Neut # (Auto) 3.34 Lymph # (Auto) 1.63 Wharton # (Auto) 0.68 H Eos # (Auto) 0.12 Baso # (Auto) 0.01 Immature Gran # (Auto) 0.02 ABG pH 7.40 ABG pCO2 70 H ABG pO2 87 ABG HCO3 43 H ABG O2 Saturation 98.9 H ABG Base Excess 15.1 H Francois Test Pos Oxygen Given 3L Sodium 141 Potassium 4.5 Chloride 97 L Carbon Dioxide 43 H* Anion Gap 1 L BUN 13 Creatinine 0.64 Est Cr Clr Drug Dosing 49.9 Est GFR ( Amer) 99.8 Est GFR (Non-Af Amer) 86.1 Fasting Glucose 103 H Calcium 8.5 Magnesium 1.9 Total Bilirubin 0.3 AST 13 ALT 10 Alkaline Phosphatase 97 Total Protein 5.7 L Albumin 2.9 L Globulin 2.8 Albumin/Globulin Ratio 1.0 PG Care Time/CCT Total # of Minutes Spent Total Time Spent with Patient: Total time spent is greater than 50% in coordination of care (as documented) at patient's floor/unit and/or counseling patient: Coding Level of Care Code 95642 Subseq Hosp Care Lvl 2 Diagnoses Elevated troponin R77.8 Anxiety F41.9 Thoracic aortic aneurysm I71.2 PAF (paroxysmal atrial fibrillation) I48.0 COPD (chronic obstructive pulmonary disease) J44.9 SVT (supraventricular tachycardia) I47.1 Ischemic cardiomyopathy I25.5 Chronic anticoagulation Z79.01 GI bleed K92.2 Opacity of lung on imaging study R91.8 Hypomagnesemia E83.42 Atrial flutter I48.92 Respiratory failure J96.90 Protein calorie malnutrition E46
[2022-02-25] MEDS: POLYETHYLENE (MIRALAX) 17 GM PACK PO SCH (20:02)
[2022-02-25] MEDS: ANUSOL SUPP 1 EA PR SCH (20:07)
[2022-02-26] MEDS ORDERED: METOPROLOL TARTRATE 1 MG/ML VIAL IV STA ×2 (01:52→05:53)
--- NOTE | 2022-02-26 01:55 | Communication Note ---
Date of Service: February 26, 2022 a flutter mid 130s despite 2nd dose IV digoxin. BP soft 97/51. Ordering 1 dose Lopressor. During day, consider holding PO dilt QID in favor of dilt drip. Re-examine amio allergy; prior reaction of skin necrosis? more common w/ IV than PO? 90/42 after Lopressor. HR 100s-120s. Gave 250mL NSS bolus. BP 102/63 on recheck. HR 135. Giving 2.5mg Lopressor.
[2022-02-26] MEDS ORDERED: SODIUM CHLORIDE 0.9% 1000ML 250 ML IV ONE (02:29)
[2022-02-26 07:55] LABS: Basophils # (auto) 0.02 K/uL (0-0.2); Basophils % (auto) 0.3 %; Eosinophils # (auto) 0.19 K/uL (0-0.50); Hematocrit (blood only) 34.7 % (34.1-44.9); Hemoglobin 10.3 g/dl (12.0-16.0); Immature Granulocytes # (auto) 0.02 K/uL (0.00-0.02); Immature Granulocytes % (auto) 0.3 %; Lymphocytes # (auto) 1.63 K/uL (1.2-3.4); Lymphocytes % (auto) 25.6 %; Mean Corpuscular Hemoglobin 30.9 pg (25.0-34.0); Mean Corpuscular Hgb Conc 29.7 g/dL (32.0-36.0); Mean Corpuscular Volume 104.2 fL (80.0-100.0); Mean Platelet Volume 10.4 fL (9.4-12.3); Monocytes # (auto) 0.71 K/uL (0.24-0.82); Monocytes % (auto) 11.1 %; Neutrophils % (auto) 59.7 %; Platelet Count 149 K/uL (130-400); Red Blood Count 3.33 M/uL (3.93-5.22); White Blood Count 6.37 K/ul (4.8-10.8)
[2022-02-26 08:33] LABS: Alanine Aminotransferase 9 U/L (7-52); Albumin Globulin Ratio 1.2 (0.9-2); Albumin Level 2.9 gm/dl (3.4-5.0); Alkaline Phosphatase 92 U/L (34-104); Aspartate Aminotransferase 16 U/L (13-39); Bilirubin,Total 0.3 mg/dl (0.2-1.0); Blood Urea Nitrogen 14 mg/dl (6-23); Calcium 8.3 mg/dl (8.5-10.1); Carbon Dioxide > 45 mmol/L (21-32); Chloride 96 mmol/L (98-107); Creatinine Clr Calc Pharmacy 49.7 ml/min; Est GFR (African American) 101.3 ml/min; Est GFR (Non-African American) 87.4 ml/min; Globulin 2.5 gm/dl (2.5-4.0); Glucose Fasting 96 mg/dl (70-99); Magnesium 1.8 mg/dl (1.7-2.4); Potassium 4.7 mmol/L (3.5-5.1); Sodium 140 mmol/L (136-145); Total Protein 5.4 gm/dl (6.0-8.3)
[2022-02-26] MEDS: ROSUVASTATIN CALCIUM 10 MG TAB PO SCH (08:55)
[2022-02-26] MEDS: ASPIRIN 81 MG ECTAB PO SCH (08:55)
[2022-02-26] MEDS: guaiFENesin 600 MG TABCR PO SCH ×2 (08:55→20:13)
[2022-02-26] MEDS: SERTRALINE HCL 50 MG TABLET PO SCH (08:56)
[2022-02-26] MEDS: PANTOprazole 40 MG TAB PO SCH (08:56)
[2022-02-26] MEDS: DEXTROMETHORPHAN POLYMR COMPLX 60 MG/10 ML UDP PO SCH ×2 (08:56→20:14)
[2022-02-26] MEDS: POLYETHYLENE (MIRALAX) 17 GM PACK PO SCH (08:57)
[2022-02-26] MEDS: HYDROCORTISONE HC 2.5% CRM 30GM TUBE EXT SCH ×2 (08:58→20:10)
[2022-02-26] MEDS ORDERED: SOTALOL HCL 80 MG TAB PO ONE (09:39)
[2022-02-26] MEDS ORDERED: HEPARIN SOD (PORCINE) 1000 UNIT/ML IV ONE ×2 (09:55→19:17)
--- NOTE | 2022-02-26 09:58 | Cardiology Progress Note ---
Date of Service February 26, 2022 Assessment & Plan (1) Paroxysmal atrial flutter: Plan: -atrial flutter with 2-1 conduction despite digoxin, diltiazem, and metoprolol. -would restart anticoagulation with intravenous heparin. -start sotalol 80 mg b.i.d., 1st dose this morning. -patient claims she is allergic to amiodarone. (2) SVT (supraventricular tachycardia): Plan: -no recurrence since admission. (3) Ischemic cardiomyopathy: Plan: -LVEF now 40-45% with a new apical wall motion abnormality. -would follow conservative care due to her numerous comorbidities and severe deconditioning. -tolerating low-dose lisinopril. -would convert metoprolol tartrate to metoprolol succinate 100 mg daily prior to hospital discharge. (4) Coronary artery disease: Plan: -s/p CABG x2, August 2021. (5) Thoracic aortic aneurysm: Plan: -repair as described, August and December 2021. Admission and Anticipated Discharge Date Admission Date: February 20, 2022 Subjective Patient is resting comfortably in bed without complaints of chest pain or palpitations. She does note dyspnea with minor physical activity. Physical Exam Physical Exam: In general this is a well-developed well-nourished white female in no acute distress. HEENT exam is negative. Neck is supple with full carotid upstrokes. There are no carotid bruits. No jugular venous distention. There is no thyromegaly. Cardiovascular exam reveals a regular rhythm with distant breath sounds. Chest reveals a well-healed midline scar. Lungs are clear without rales, rhonchi, or wheezes. Abdomen is soft and nontender without bruits. Extremities reveal intact radial artery pulses bilaterally. Posterior tibial pulses are nonpalpable. There is no peripheral edema. 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 QT interval is normal. PG Care Time/CCT Total # of Minutes Spent Total Time Spent with Patient: Total time spent is greater than 50% in coordination of care (as documented) at patient's floor/unit and/or counseling patient: Coding Level of Care Code 41415 Subseq Hosp Care Lvl 3 Diagnoses Paroxysmal atrial flutter I48.92 SVT (supraventricular tachycardia) I47.1 Ischemic cardiomyopathy I25.5 Coronary artery disease I25.10 Thoracic aortic aneurysm I71.2
[2022-02-26] MEDS: DOXYCYCLINE HYCLATE 100 MG CAP PO SCH ×2 (10:32→20:13)
[2022-02-26 10:33] LABS: Basophils # (auto) 0.02 K/uL (0-0.2); Basophils % (auto) 0.3 %; Eosinophils # (auto) 0.14 K/uL (0-0.50); Eosinophils % (auto) 2.1 %; Hematocrit (blood only) 35.9 % (34.1-44.9); Hemoglobin 10.7 g/dl (12.0-16.0); Immature Granulocytes # (auto) 0.03 K/uL (0.00-0.02); Immature Granulocytes % (auto) 0.4 %; Lymphocytes # (auto) 1.13 K/uL (1.2-3.4); Lymphocytes % (auto) 16.7 %; Mean Corpuscular Hemoglobin 31.4 pg (25.0-34.0); Mean Corpuscular Hgb Conc 29.8 g/dL (32.0-36.0); Mean Corpuscular Volume 105.3 fL (80.0-100.0); Mean Platelet Volume 10.1 fL (9.4-12.3); Monocytes # (auto) 0.64 K/uL (0.24-0.82); Monocytes % (auto) 9.5 %; Platelet Count 145 K/uL (130-400); RDW Standard Deviation 58.8 fL (36.4-46.3); Red Blood Count 3.41 M/uL (3.93-5.22); White Blood Count 6.76 K/ul (4.8-10.8)
[2022-02-26 10:45] LABS: INR 1.1 (0.9-1.1); Partial Thromboplastin Time 26.5 Seconds (21.0-31.0); Prothrombin Time 11.8 Seconds (9.0-12.0)
[2022-02-26] MEDS: Heparin IV Adult Wt-Based Low-Dose WITH Bolus Protocol IV SCH ×2 (11:26→11:28)
[2022-02-26] MEDS: UMECLIDINIUM/VILANTEROL 62.5/25MCG 7 PUFFS/INHALER INH SCH (11:38)
[2022-02-26] MEDS: FLUTICASONE FUROATE 100MCG 14 PUFFS/INHALER INH SCH (11:38)
[2022-02-26] MEDS: HEPARIN SODIUM/DEXTROSE 25,000 UNITS/500 ML BAG IV SCH (11:49)
--- NOTE | 2022-02-26 13:38 | Hospitalist Progress Note ---
Date of Service February 26, 2022 Assessment & Plan (1) Atrial flutter: Plan: Discussion with cardiology, Dr. Godinez, initiate sotalol, he recommended 80 mg twice daily till she converts, then 80 once a day; he also recommended initiate heparin drip for risk of embolism if converts; he reviewed rhythm strips, he is aware of QTC, a daily EKG (2) Elevated troponin: Plan: Likely NSTEMI, seen by cardiology, conservative management (3) Anxiety: Plan: Stable. Continue current medical management (4) Thoracic aortic aneurysm: Plan: Stable. No evidence of hemorrhage. Serial chest CT scans as outpatient (5) PAF (paroxysmal atrial fibrillation): Plan: See #1; she states she is allergic to amiodarone. Telemetry. Continue current medical management except Coumadin has been discontinued (6) Respiratory failure: Plan: Hypoxic and hypercapnic; Pulmonary input noted and appreciated ICS/AC/LABA on discharge Continue current ICS and AC/LABA (7) COPD (chronic obstructive pulmonary disease): Plan: Reportedly Gold class [place]wick above (8) SVT (supraventricular tachycardia): Plan: No recurrence while hospitalized. She states she is allergic to amiodarone. Continue current medical management (9) Ischemic cardiomyopathy: Plan: Recent apical injury with persistent EKG changes. Low-dose aspirin; lisinopril temporarily held; metoprolol switch to succinate at discharge; cardiology following (10) Chronic anticoagulation: Plan: She takes Coumadin for atrial fibrillation. Coumadin temporarily discontinued. Will defer to PCP whether this should be restarted at a later date or not. (11) GI bleed: Plan: No clinical bleeding reported, hemoglobin stable, follow (12) Opacity of lung on imaging study: Plan: New densities appear infective/inflammatory; empiric course of Doxy Benefit of doubt, possible pneumonia but not confirmed (13) Hypomagnesemia: Plan: Replace as appropriate (14) Protein calorie malnutrition: Plan: Encourage intake, nutrition note noted Plan: Treat constipation Speech therapy consulted; they will reassess Wednesday Admission and Anticipated Discharge Date Admission Date: February 20, 2022 Subjective Follow up of presentation with SVTrecent issue recurrence of flutter/fib with RVR; continues RVR, feels generally poorly Physical Exam Physical Exam: Constitutional and general: Chronically ill, looks biologic age Poor muscle mass Head and face: No puffiness, atraumatic Eyes: No scleral icterus, extraocular movements normal Neck: Supple, mild JVD Musculoskeletal: No acute joint swelling, no bony abnormalities Skin/dermatologic/integument: No rash, no purpura Hematologic and lymphatic: pallor +, no petechia Gastrointestinal/abdomen: Nondistended, soft, nonacute Neurologic: Cranial nerves intact, nonfocal Psychiatry: Awake, alert, pleasant, communicative Cardiovascular: Heart rhythm irregular, no rub, no murmur, no gallop Respiratory: Chest movements equal, mild use of accessory muscles, no adventitious sounds; at emphysematous and overall decreased breath sounds Extremities: No edema, no cyanosis Results & Data Results & Data ([facility]) Vital Signs (Past 12 Hours) Vital Signs Temp Pulse Pulse Pulse Resp BP BP 02/26/22 11:13 36.9 C 140 H 22 108/78 02/26/22 08:00 136 H 108/74 02/26/22 07:34 68 02/26/22 07:03 36.6 C 111 H 16 93/56 L 02/26/22 06:04 135 H 105/67 02/26/22 02:58 36.4 C L 109 H 18 102/63 02/26/22 02:05 130 H 97/65 L Pulse Ox 02/26/22 11:13 99 02/26/22 08:00 02/26/22 07:34 02/26/22 07:03 94 02/26/22 06:04 02/26/22 02:58 99 02/26/22 02:05 Laboratory Results Laboratory Results - last 24 hr 02/26/22 02/26/22 02/26/22 07:16 07:16 10:17 WBC 6.37 6.76 RBC 3.33 L 3.41 L Hgb 10.3 L 10.7 L Hct 34.7 35.9 MCV 104.2 H 105.3 H MCH 30.9 31.4 MCHC 29.7 L 29.8 L RDW Std Deviation 58.0 H 58.8 H RDW Coeff of [place] 15.0 H 15.0 H Plt Count 149 145 MPV 10.4 10.1 Immature Gran % (Auto) 0.3 0.4 Neut % (Auto) 59.7 71.0 Lymph % (Auto) 25.6 16.7 [place] % (Auto) 11.1 9.5 Eos % (Auto) 3.0 2.1 Baso % (Auto) 0.3 0.3 Neut # (Auto) 3.80 4.80 Lymph # (Auto) 1.63 1.13 L [place] # (Auto) 0.71 0.64 Eos # (Auto) 0.19 0.14 Baso # (Auto) 0.02 0.02 Immature Gran # (Auto) 0.02 0.03 H PT INR APTT PTT Ratio Sodium 140 Potassium 4.7 Chloride 96 L Carbon Dioxide > 45 H* Anion Gap TNP BUN 14 Creatinine 0.61 Est Cr Clr Drug Dosing 49.7 Est GFR ( Amer) 101.3 Est GFR (Non-Af Amer) 87.4 Fasting Glucose 96 Calcium 8.3 L Magnesium 1.8 Total Bilirubin 0.3 AST 16 ALT 9 Alkaline Phosphatase 92 Total Protein 5.4 L Albumin 2.9 L Globulin 2.5 Albumin/Globulin Ratio 1.2 02/26/22 10:17 WBC RBC Hgb Hct MCV MCH MCHC RDW Std Deviation RDW Coeff of Ruthy Plt Count MPV Immature Gran % (Auto) Neut % (Auto) Lymph % (Auto) [place] % (Auto) Eos % (Auto) Baso % (Auto) Neut # (Auto) Lymph # (Auto) [place] # (Auto) Eos # (Auto) Baso # (Auto) Immature Gran # (Auto) PT 11.8 INR 1.1 APTT 26.5 PTT Ratio 1.0 Sodium Potassium Chloride Carbon Dioxide Anion Gap BUN Creatinine Est Cr Clr Drug Dosing Est GFR ( Amer) Est GFR (Non-Af Amer) Fasting Glucose Calcium Magnesium Total Bilirubin AST ALT Alkaline Phosphatase Total Protein Albumin Globulin Albumin/Globulin Ratio PG Care Time/CCT Total # of Minutes Spent Total Time Spent with Patient: Total time spent is greater than 50% in coordination of care (as documented) at patient's floor/unit and/or counseling patient: Coding Level of Care Code 80072 Subseq Hosp Care Lvl 3 Diagnoses Atrial flutter I48.92 Elevated troponin R77.8 Anxiety F41.9 Thoracic aortic aneurysm I71.2 PAF (paroxysmal atrial fibrillation) I48.0 Respiratory failure J96.90 COPD (chronic obstructive pulmonary disease) J44.9 SVT (supraventricular tachycardia) I47.1 Ischemic cardiomyopathy I25.5 Chronic anticoagulation Z79.01 GI bleed K92.2 Opacity of lung on imaging study R91.8 Hypomagnesemia E83.42 Protein calorie malnutrition E46
[2022-02-26 19:00] LABS: Partial Thromboplastin Ratio 1.3; Partial Thromboplastin Time 35.5 Seconds (21.0-31.0)
[2022-02-26] MEDS ORDERED: HEPARIN IV BOLUS 2,000 UNITS in SYRINGE 0 ML IV ONE (19:45)
[2022-02-26] MEDS: ANUSOL SUPP 1 EA PR SCH (20:12)
[2022-02-26] MEDS ORDERED: SOTALOL HCL 80 MG TAB PO SCH (21:00)
[2022-02-26] MEDS: LORazepam 0.5 MG TAB PO PRN ×2 (21:59→22:02)
--- NOTE | 2022-02-26 22:48 | Communication Note ---
Date of Service: February 26, 2022 changing/reducing q8h prn ativan from 0.5 to 0.25mg dose per patient request.
[2022-02-27 01:59] LABS: Partial Thromboplastin Ratio 2.1
[2022-02-27 02:14] LABS: Partial Thromboplastin Time 56.5 Seconds (21.0-31.0)
[2022-02-27 07:34] LABS: Basophils # (auto) 0.02 K/uL (0-0.2); Basophils % (auto) 0.4 %; Eosinophils # (auto) 0.29 K/uL (0-0.50); Eosinophils % (auto) 5.1 %; Hematocrit (blood only) 34.9 % (34.1-44.9); Hemoglobin 10.4 g/dl (12.0-16.0); Immature Granulocytes # (auto) 0.02 K/uL (0.00-0.02); Immature Granulocytes % (auto) 0.4 %; Lymphocytes # (auto) 1.21 K/uL (1.2-3.4); Lymphocytes % (auto) 21.3 %; Mean Corpuscular Hemoglobin 30.5 pg (25.0-34.0); Mean Corpuscular Hgb Conc 29.8 g/dL (32.0-36.0); Mean Corpuscular Volume 102.3 fL (80.0-100.0); Mean Platelet Volume 10.8 fL (9.4-12.3); Monocytes # (auto) 0.59 K/uL (0.24-0.82); Monocytes % (auto) 10.4 %; Neutrophils # (auto) 3.55 K/uL (1.4-6.5); Neutrophils % (auto) 62.4 %; Platelet Count 152 K/uL (130-400); RDW Coefficient of Variation 14.6 % (11.5-14.5); RDW Standard Deviation 55.6 fL (36.4-46.3); Red Blood Count 3.41 M/uL (3.93-5.22); White Blood Count 5.68 K/ul (4.8-10.8)
[2022-02-27 08:05] LABS: Partial Thromboplastin Ratio 1.6; Partial Thromboplastin Time 43.3 Seconds (21.0-31.0)
[2022-02-27 08:18] LABS: Albumin Globulin Ratio 1.1 (0.9-2); Albumin Level 3.1 gm/dl (3.4-5.0); Bilirubin,Total 0.4 mg/dl (0.2-1.0); Calcium 8.6 mg/dl (8.5-10.1); Creatinine Clr Calc Pharmacy 57.4 ml/min; Est GFR (African American) 106.1 ml/min; Est GFR (Non-African American) 91.6 ml/min; Globulin 2.7 gm/dl (2.5-4.0); Magnesium 1.6 mg/dl (1.7-2.4); Potassium 3.8 mmol/L (3.5-5.1); Total Protein 5.8 gm/dl (6.0-8.3)
[2022-02-27] MEDS: DOXYCYCLINE HYCLATE 100 MG CAP PO SCH ×2 (08:18→20:29)
[2022-02-27] MEDS: SERTRALINE HCL 50 MG TABLET PO SCH (08:19)
[2022-02-27] MEDS: DEXTROMETHORPHAN POLYMR COMPLX 60 MG/10 ML UDP PO SCH ×2 (08:19→20:29)
[2022-02-27] MEDS: PANTOprazole 40 MG TAB PO SCH (08:19)
[2022-02-27] MEDS: SOTALOL HCL 80 MG TAB PO SCH (08:19)
[2022-02-27] MEDS: guaiFENesin 600 MG TABCR PO SCH ×2 (08:19→20:30)
[2022-02-27] MEDS: HYDROCORTISONE HC 2.5% CRM 30GM TUBE EXT SCH ×3 (08:20→20:37)
[2022-02-27] MEDS: ASPIRIN 81 MG ECTAB PO SCH (08:20)
[2022-02-27] MEDS: ROSUVASTATIN CALCIUM 10 MG TAB PO SCH (08:20)
[2022-02-27] MEDS: POLYETHYLENE (MIRALAX) 17 GM PACK PO SCH (08:21)
[2022-02-27] MEDS: MAGNESIUM SULFATE / D5W 1 GM/100 ML BAG IV SCH ×2 (10:16→12:00)
[2022-02-27] MEDS: UMECLIDINIUM/VILANTEROL 62.5/25MCG 7 PUFFS/INHALER INH SCH (11:12)
[2022-02-27] MEDS: lisinopril 5 MG TAB PO SCH (11:12)
[2022-02-27] MEDS: FLUTICASONE FUROATE 100MCG 14 PUFFS/INHALER INH SCH (11:13)
--- NOTE | 2022-02-27 12:38 | Hospitalist Progress Note ---
Date of Service February 27, 2022 Assessment & Plan (1) Atrial flutter: Plan: Converted; continue renally adjusted sotalol; QTC acceptabledaily EKGs for now; for now continue heparin dripsee #5 vide infra (2) Elevated troponin: Plan: Likely NSTEMI, seen by cardiology, conservative management (3) Anxiety: Plan: Stable. Continue current medical management (4) Thoracic aortic aneurysm: Plan: Stable. No evidence of hemorrhage. Serial chest CT scans as outpatient (5) PAF (paroxysmal atrial fibrillation): Plan: See #1; she states she is allergic to amiodarone. Telemetry. Continue current medical management; Coumadin discontinued on account of GI bleed on presentation-at present IV heparin while A-flutter was being chemically converted; being continued for now; reassessstop and defer to PCP versus challenge with anticoagulation (6) Respiratory failure: Plan: Hypoxic and hypercapnic; Pulmonary input noted and appreciated ICS/AC/LABA on discharge Continue current ICS and AC/LABA Follow-up with Dr. Silva (7) COPD (chronic obstructive pulmonary disease): Plan: Reportedly Gold class Chadwick above (8) SVT (supraventricular tachycardia): Plan: No recurrence while hospitalized. She states she is allergic to amiodarone. Continue current medical management (9) Ischemic cardiomyopathy: Plan: Recent apical injury with persistent EKG changes. Low-dose aspirin; BP drifting up, lisinopril resumed; cardiology following (10) GI bleed: Plan: No clinical bleeding reported, hemoglobin stable, follow (11) Opacity of lung on imaging study: Plan: New densities appear infective/inflammatory; empiric course of Doxy Benefit of doubt, possible pneumonia but not confirmedfinish 5-day course of Doxy, ends today; pulmonary follow-up (12) Hypomagnesemia: Plan: Replace as appropriate (13) Protein calorie malnutrition: Plan: Encourage intake, nutrition note noted Plan: Treat constipation Speech therapy consulted; they will reassess Wednesday Admission and Anticipated Discharge Date Admission Date: February 20, 2022 Subjective Follow up of presentation with SVTrecent issue recurrence of flutter/fib - initiated on sotalol and converted; today feels a little better overall, denies bleeding Physical Exam Physical Exam: Constitutional and general: Chronically ill, looks biologic age Poor muscle mass Head and face: No puffiness, atraumatic Eyes: No scleral icterus, extraocular movements normal Neck: Supple, mild JVD Musculoskeletal: No acute joint swelling, no bony abnormalities Skin/dermatologic/integument: No rash, no purpura Hematologic and lymphatic: pallor +, no petechia Gastrointestinal/abdomen: Nondistended, soft, nonacute Neurologic: Cranial nerves intact, nonfocal Psychiatry: Awake, alert, pleasant, communicative Cardiovascular: Heart rhythm irregular, no rub, SM 2/6, no gallop Respiratory: Chest movements equal, mild use of accessory muscles, no adventitious sounds; at emphysematous and overall decreased breath sounds Extremities: No edema, no cyanosis Results & Data Results & Data ([facility]) Vital Signs (Past 12 Hours) Vital Signs Temp Pulse Pulse Resp BP Pulse Ox 02/27/22 11:03 36.5 C 75 18 180/74 H 97 02/27/22 08:13 36.3 C L 80 18 182/72 H 100 02/27/22 07:06 77 02/27/22 03:27 37.0 C 82 16 157/71 H 94 Laboratory Results Laboratory Results - last 24 hr 02/26/22 02/27/22 02/27/22 18:34 01:17 06:10 WBC 5.68 RBC 3.41 L Hgb 10.4 L Hct 34.9 MCV 102.3 H MCH 30.5 MCHC 29.8 L RDW Std Deviation 55.6 H RDW Coeff of Ruthy 14.6 H Plt Count 152 MPV 10.8 Immature Gran % (Auto) 0.4 Neut % (Auto) 62.4 Lymph % (Auto) 21.3 [place] % (Auto) 10.4 Eos % (Auto) 5.1 Baso % (Auto) 0.4 Neut # (Auto) 3.55 Lymph # (Auto) 1.21 [place] # (Auto) 0.59 Eos # (Auto) 0.29 Baso # (Auto) 0.02 Immature Gran # (Auto) 0.02 APTT 35.5 H 56.5 H* PTT Ratio 1.3 2.1 Sodium Potassium Chloride Carbon Dioxide Anion Gap BUN Creatinine Est Cr Clr Drug Dosing Est GFR ( Amer) Est GFR (Non-Af Amer) Fasting Glucose Calcium Magnesium Total Bilirubin AST ALT Alkaline Phosphatase Total Protein Albumin Globulin Albumin/Globulin Ratio 02/27/22 02/27/22 06:10 06:10 WBC RBC Hgb Hct MCV MCH MCHC RDW Std Deviation RDW Coeff of Ruthy Plt Count MPV Immature Gran % (Auto) Neut % (Auto) Lymph % (Auto) [place] % (Auto) Eos % (Auto) Baso % (Auto) Neut # (Auto) Lymph # (Auto) [place] # (Auto) Eos # (Auto) Baso # (Auto) Immature Gran # (Auto) APTT 43.3 H PTT Ratio 1.6 Sodium 140 Potassium 3.8 Chloride 94 L Carbon Dioxide 43 H* Anion Gap 3 BUN 12 Creatinine 0.53 L Est Cr Clr Drug Dosing 57.4 Est GFR ( Amer) 106.1 Est GFR (Non-Af Amer) 91.6 Fasting Glucose 100 H Calcium 8.6 Magnesium 1.6 L Total Bilirubin 0.4 AST 19 ALT 11 Alkaline Phosphatase 94 Total Protein 5.8 L Albumin 3.1 L Globulin 2.7 Albumin/Globulin Ratio 1.1 PG Care Time/CCT Total # of Minutes Spent Total Time Spent with Patient: Total time spent is greater than 50% in coordination of care (as documented) at patient's floor/unit and/or counseling patient: Coding Level of Care Code 67299 Subseq Hosp Care Lvl 3 Diagnoses Atrial flutter I48.92 Elevated troponin R77.8 Anxiety F41.9 Thoracic aortic aneurysm I71.2 PAF (paroxysmal atrial fibrillation) I48.0 Respiratory failure J96.90 COPD (chronic obstructive pulmonary disease) J44.9 SVT (supraventricular tachycardia) I47.1 Ischemic cardiomyopathy I25.5 GI bleed K92.2 Opacity of lung on imaging study R91.8 Hypomagnesemia E83.42 Protein calorie malnutrition E46
--- NOTE | 2022-02-27 13:03 | Cardiology Progress Note ---
Date of Service February 27, 2022 Assessment & Plan (1) Paroxysmal atrial flutter: Plan: -converted to sinus rhythm after 1 dose of sotalol 80 mg. -can convert intravenous heparin to oral Eliquis. -would favor Eliquis 2.5 mg b.i.d. realizing her low body weight and borderline renal function. -continue sotalol 80 mg daily. (2) SVT (supraventricular tachycardia): Plan: -no recurrence since admission. -hopefully sotalol will control this dysrhythmia also. (3) Ischemic cardiomyopathy: Plan: -LVEF now 40-45% with a new apical wall motion abnormality. -conservative care due to her numerous comorbidities and severe deconditioning. -tolerating low-dose lisinopril. -consider restarting metoprolol succinate 50 mg daily prior to hospital discharge. (4) Coronary artery disease: Plan: -s/p CABG x2, August 2021. (5) Thoracic aortic aneurysm: Plan: -repair as described, August and December 2021. Admission and Anticipated Discharge Date Admission Date: February 20, 2022 Subjective The patient is resting comfortably in bed without complaints of chest pain, dyspnea, or palpitations. Physical Exam Physical Exam: In general this is a well-developed well-nourished white female in no acute distress. HEENT exam is negative. Neck is supple with full carotid upstrokes. There are no carotid bruits. No jugular venous distention. There is no thyromegaly. Cardiovascular exam reveals a regular rhythm with distant heart sounds. Lungs are clear without rales, rhonchi or wheezes. Chest reveals a well-healed midline scar. Lungs are clear without rales, rhonchi, or wheezes. Abdomen is soft and nontender without bruits. Extremities reveal intact radial artery pulses bilaterally. Posterior tibial pulses are nonpalpable. There is no peripheral edema. Results & Data ([facility] [place]) Vital Signs (Past 12 Hours) Vital Signs Temp Pulse Pulse Resp BP Pulse Ox 02/27/22 11:03 36.5 C 75 18 180/74 H 97 02/27/22 08:13 36.3 C L 80 18 182/72 H 100 02/27/22 07:06 77 02/27/22 03:27 37.0 C 82 16 157/71 H 94 Diagnostic Findings advertising copywriter notes normal sinus rhythm. The patient converted from sinus rhythm at approximately 1:30 p.m. yesterday. PG Care Time/CCT Total # of Minutes Spent Total Time Spent with Patient: Total time spent is greater than 50% in coordination of care (as documented) at patient's floor/unit and/or counseling patient: Coding Level of Care Code 38009 Subseq Hosp Care Lvl 3 Diagnoses Paroxysmal atrial flutter I48.92 SVT (supraventricular tachycardia) I47.1 Ischemic cardiomyopathy I25.5 Coronary artery disease I25.10 Thoracic aortic aneurysm I71.2
--- NOTE | 2022-02-27 13:32 | Electrocardiogram Report ---
Test Reason : Blood Pressure : / mmHG Vent. Rate : 139 BPM Atrial Rate : 272 BPM P-R Int : 000 ms QRS Dur : 164 ms QT Int : 312 ms P-R-T Axes : 270 031 -86 degrees QTc Int : 474 ms Probable Atrial flutter with variable A-V block with premature ventricular or aberrantly conducted co mplexes Non-specific intra-ventricular conduction block Possible Inferior infarct (cited on or before 26-FEB-2022) Abnormal ECG When compared with ECG of 19-FEB-2022 23:02, Atrial flutter has replaced Sinus rhythm T wave inversion no longer evident in Anterior leads Confirmed by Amado De La Cruz ([id number]) on 02/27/2022 1:31:57 PM Referred By: REFERRED SELF Confirmed By:Amado De La Cruz
[2022-02-27 14:44] LABS: Partial Thromboplastin Ratio 1.5; Partial Thromboplastin Time 42.2 Seconds (21.0-31.0)
[2022-02-27] MEDS ORDERED: COVID-19 VACC, TRIS(PFIZER)/PF 30 MCG/0.3 ML VIAL IM ONE (16:03)
[2022-02-27] MEDS: HEPARIN SODIUM/DEXTROSE 25,000 UNITS/500 ML BAG IV SCH (17:02)
[2022-02-27] MEDS: APIXABAN 2.5 MG TAB PO SCH (17:49)
[2022-02-27] MEDS: ANUSOL SUPP 1 EA PR SCH (20:29)
[2022-02-27] MEDS: LORazepam 0.5 MG TAB PO PRN (22:06)
--- NOTE | 2022-02-27 23:00 | Electrocardiogram Report ---
Test Reason : Blood Pressure : / mmHG Vent. Rate : 074 BPM Atrial Rate : 074 BPM P-R Int : 154 ms QRS Dur : 094 ms QT Int : 384 ms P-R-T Axes : 075 061 093 degrees QTc Int : 426 ms Normal sinus rhythm ST elevation consider anterior injury or acute infarct Abnormal ECG When compared with ECG of 26-FEB-2022 09:26, Sinus rhythm has replaced Atrial flutter T wave inversion now evident in Anterior leads Confirmed by Amado De La Cruz ([id number] on 02/27/2022 11:00:35 PM Referred By: REFERRED SELF Confirmed By:Amado De La Cruz
[2022-02-28] MEDS: APIXABAN 2.5 MG TAB PO SCH ×2 (06:20→20:21)
[2022-02-28 06:21] LABS: Basophils # (auto) 0.02 K/uL (0-0.2); Basophils % (auto) 0.3 %; Hematocrit (blood only) 35.1 % (34.1-44.9); Hemoglobin 10.7 g/dl (12.0-16.0); Immature Granulocytes # (auto) 0.03 K/uL (0.00-0.02); Immature Granulocytes % (auto) 0.5 %; Lymphocytes # (auto) 1.63 K/uL (1.2-3.4); Lymphocytes % (auto) 24.7 %; Mean Corpuscular Hemoglobin 31.8 pg (25.0-34.0); Mean Corpuscular Hgb Conc 30.5 g/dL (32.0-36.0); Mean Corpuscular Volume 104.2 fL (80.0-100.0); Mean Platelet Volume 10.7 fL (9.4-12.3); Monocytes # (auto) 0.91 K/uL (0.24-0.82); Monocytes % (auto) 13.8 %; Neutrophils % (auto) 57.7 %; Platelet Count 147 K/uL (130-400); RDW Coefficient of Variation 14.8 % (11.5-14.5); RDW Standard Deviation 57.2 fL (36.4-46.3); Red Blood Count 3.37 M/uL (3.93-5.22); White Blood Count 6.59 K/ul (4.8-10.8)
[2022-02-28 07:08] LABS: Albumin Globulin Ratio 1.1 (0.9-2); Albumin Level 2.9 gm/dl (3.4-5.0); Bilirubin,Total 0.4 mg/dl (0.2-1.0); Calcium 8.3 mg/dl (8.5-10.1); Creatinine Clr Calc Pharmacy 54.9 ml/min; Est GFR (African American) 104.9 ml/min; Est GFR (Non-African American) 90.5 ml/min; Globulin 2.6 gm/dl (2.5-4.0); Potassium 4.2 mmol/L (3.5-5.1); Total Protein 5.5 gm/dl (6.0-8.3)
[2022-02-28] MEDS: guaiFENesin 600 MG TABCR PO SCH ×2 (09:00→21:20)
[2022-02-28] MEDS: PANTOprazole 40 MG TAB PO SCH (09:08)
[2022-02-28] MEDS: DEXTROMETHORPHAN POLYMR COMPLX 60 MG/10 ML UDP PO SCH ×2 (09:08→21:20)
[2022-02-28] MEDS: lisinopril 5 MG TAB PO SCH (09:11)
[2022-02-28] MEDS: ROSUVASTATIN CALCIUM 10 MG TAB PO SCH (09:11)
[2022-02-28] MEDS: SOTALOL HCL 80 MG TAB PO SCH (09:12)
[2022-02-28] MEDS: SERTRALINE HCL 50 MG TABLET PO SCH (09:12)
[2022-02-28] MEDS: ASPIRIN 81 MG ECTAB PO SCH (09:12)
[2022-02-28] MEDS: UMECLIDINIUM/VILANTEROL 62.5/25MCG 7 PUFFS/INHALER INH SCH (09:13)
[2022-02-28] MEDS: POLYETHYLENE (MIRALAX) 17 GM PACK PO SCH (09:13)
[2022-02-28] MEDS: FLUTICASONE FUROATE 100MCG 14 PUFFS/INHALER INH SCH (09:14)
[2022-02-28] MEDS: HYDROCORTISONE HC 2.5% CRM 30GM TUBE EXT SCH ×2 (09:15→20:22)
--- NOTE | 2022-02-28 11:27 | Hospitalist Progress Note ---
Date of Service February 28, 2022 Assessment & Plan (1) Atrial flutter: Plan: Patient admitted secondary to syncope Was started on sotalol yesterday. Immediately after first dose, patient converted to normal sinus rhythm and has remained in NSR Tolerating sotalol well. Continue daily EKGs Will finalize plan with cardiology tomorrow. Can most likely change patient from heparin drip to Eliquis Appreciate cardiology consult Will need outpatient cardiology follow-up (2) Elevated troponin: Plan: Likely NSTEMI Cardiology consulted and following Continue with conservative management Continue to monitor on telemetry while adjusting sotalol (3) Anxiety: Plan: Stable. Continue current medical management (4) Thoracic aortic aneurysm: Plan: Stable. No evidence of hemorrhage. Serial chest CT scans as outpatient (5) PAF (paroxysmal atrial fibrillation): Plan: See #1; Patient states she is allergic to amiodarone. Coumadin discontinued on account of GI bleed on presentation Continue IV heparin while A-flutter was being chemically converted Patient now in normal sinus rhythm Continue to monitor on telemetry (6) Respiratory failure: Plan: Hypoxic and hypercapnic; Pulmonary input noted and appreciated ICS/AC/LABA on discharge Continue current ICS and AC/LABA Follow-up with Dr. Silva as an outpatient as patient follows with him It was elected not to start CPAP or BiPAP while inpatient due to anxiety, tachycardia, atrial flutter (7) COPD (chronic obstructive pulmonary disease): Plan: Prior tobacco abuse history. Patient quit smoking last month Gold class D according to outpatient notes but no evidence of pulmonary function testing Continue with Trelegy inhaler (ICS/AC/LABA) on discharge Maintain SaO2 between 88 and 92% Patient encouraged to continue with abstention of tobacco products (8) SVT (supraventricular tachycardia): Plan: No recurrence while hospitalized. She states she is allergic to amiodarone. Continue current medical management (9) Ischemic cardiomyopathy: Plan: Recent apical injury with persistent EKG changes. Continue low-dose aspirin Continue close monitoring of blood pressure Appreciate cardiology input (10) GI bleed: Plan: No clinical bleeding reported Hemoglobin stable Continue to monitor (11) Opacity of lung on imaging study: Plan: New densities appear infective/inflammatory; empiric course of Doxy Patient completed 5 days of doxycycline Will follow patient as an outpatient in pulmonary clinic (12) Hypomagnesemia: Plan: Currently repleted appropriately. Magnesium level today is 2.0 (13) Protein calorie malnutrition: Plan: Encourage intake, nutrition note noted Plan: Treat constipation Speech therapy consulted; they will reassess Wednesday Discharge planning in conjunction with cardiology secondary to initiation of sotalol Admission and Anticipated Discharge Date Admission Date: February 20, 2022 Subjective Attending: Dr. Darrell Hawkins Is a 76-year-old female that was admitted 02/20/2022 for acute diaphoresis, lightheadedness, and diarrhea. Patient was found to be hypotensive with SVTs. She did require electrical cardioversion at that time. On admission, she was found to be hypercapnic with hypoxia. She follows with Dr. Silva as an outpatient. Her failure appear to be compensated with a pH of 7.4 and a PCO2 of 70. Her bicarb was slightly elevated at 43. CPAP and BiPAP were avoided secondary to patient's anxiety with associated tachycardia with a rate in the 130s. Patient was seen by cardiology and was started on sotalol yesterday and converted to sinus rhythm after 1 dose of 80 mg. Patient was also started on Eliquis 2.5 mg twice daily. She is currently being monitored on telemetry for initiation of sotalol daily therapy. Review of Systems Review of Systems: A total of 10 systems was reviewed and is negative other than as listed in the HPI Physical Exam Physical Exam: GENERAL : No acute distress EYES: No icterus, gaze conjugate NOSE: No evidence of epistaxis. Nasal cannula in place MOUTH: No lesions or candidiasis NECK: Supple LUNGS: Fine bilateral crackles HEART: Regular, rate controlled ABDOMEN: Soft, NT, ND, BS Present EXTREMITIES: No LE edema, pedal pulses intact NEURO: A&OX3 Results & Data Results & Data ([facility]) Vital Signs (Past 12 Hours) Vital Signs Temp Pulse Pulse Resp BP Pulse Ox 02/28/22 11:11 36.4 C L 71 18 129/61 99 02/28/22 07:57 79 02/28/22 07:35 36.3 C L 73 18 161/77 H 98 02/28/22 03:14 36.7 C 77 16 150/71 H 99 Critical Care Results & Data Vital Signs (Past 12 Hours) Vital Signs Temp Pulse Pulse Resp BP Pulse Ox 02/28/22 11:11 36.4 C L 71 18 129/61 99 02/28/22 07:57 79 02/28/22 07:35 36.3 C L 73 18 161/77 H 98 02/28/22 03:14 36.7 C 77 16 150/71 H 99 Lab & Micro Results (Past 24 Hours) RBC 3.37 M/uL (3.93-5.22) L 02/28/22 WBC 6.59 K/ul (4.8-10.8) 02/28/22 Hgb 10.7 g/dl (12.0-16.0) L 02/28/22 Hct 35.1 % (34.1-44.9) 02/28/22 MCV 104.2 fL (80.0-100.0) H 02/28/22 MCH 31.8 pg (25.0-34.0) 02/28/22 MCHC 30.5 g/dL (32.0-36.0) L 02/28/22 RDW Standard Deviation 57.2 fL (36.4-46.3) H 02/28/22 RDW Coefficient of Variation 14.8 % (11.5-14.5) H 02/28/22 Plt Count 147 K/uL (130-400) 02/28/22 MPV 10.7 fL (9.4-12.3) 02/28/22 Neutrophils (%) (Auto) 57.7 % 02/28/22 Lymphocytes (%) (Auto) 24.7 % 02/28/22 Monocytes # (Auto) 0.91 K/uL (0.24-0.82) H 02/28/22 Eosinophils # (Auto) 0.20 K/uL (0-0.50) 02/28/22 Immature Granulocyte % (Auto) 0.5 % 02/28/22 Neutrophils # (Auto) 3.80 K/uL (1.4-6.5) 02/28/22 Lymphocytes # (Auto) 1.63 K/uL (1.2-3.4) 02/28/22 Monocytes # (Auto) 0.91 K/uL (0.24-0.82) H 02/28/22 Eosinophils # (Auto) 0.20 K/uL (0-0.50) 02/28/22 Basophils # (Auto) 0.02 K/uL (0-0.2) 02/28/22 Immature Granulocyte # (Auto) 0.03 K/uL (0.00-0.02) H 02/28/22 Na 139 mmol/L (136-145) 02/28/22 K 4.2 mmol/L (3.5-5.1) 02/28/22 Cl 92 mmol/L (98-107) L 02/28/22 CO2 44 mmol/L (21-32) H* 02/28/22 Anion Gap 3 (3-11) 02/28/22 BUN 12 mg/dl (6-23) 02/28/22 Creatinine 0.55 mg/dl (0.6-1.2) L 02/28/22 Estimated GFR ( Amer) 104.9 ml/min 02/28/22 Estimated GFR (Non-Af Amer) 90.5 ml/min 02/28/22 Ca 8.3 mg/dl (8.5-10.1) L 02/28/22 Total Bilirubin 0.4 mg/dl (0.2-1.0) 02/28/22 AST 16 U/L (13-39) 02/28/22 ALT 10 U/L (7-52) 02/28/22 Alkaline Phosphatase 90 U/L (34-104) 02/28/22 TP 5.5 gm/dl (6.0-8.3) L 02/28/22 Albumin 2.9 gm/dl (3.4-5.0) L 02/28/22 Globulin 2.6 gm/dl (2.5-4.0) 02/28/22 Albumin/Globulin Ratio 1.1 (0.9-2) 02/28/22 Mg 2.0 mg/dl (1.7-2.4) 02/28/22 05:17 02/28/22 Calcium Level 8.3 mg/dl (8.5-10.1) L 02/28/22 05:17 02/28/22 I & O Totals 24 Hours 02/27/22 02/28/22 03/01/22 06:59 06:59 06:59 Intake Total 558.333 / 558.333 571.834 / 571.834 Output Total 875 / 875 375 / 375 Balance -316.667 / -316.667 196.834 / 196.834 -25 / -25 Cumulative 02/19/22 22:45 thru 02/28/22 08:00 Intake Total 2579.967 Output Total 2376 Balance 4103.967 RT Ventilator Mngmt (Last Documented) Ventilator Ordered Settings Respiratory Rate 18 02/28/22 11:11 Ventilator - PT Measurements Respiratory Rate 18 PG Care Time/CCT Total # of Minutes Spent Total Time Spent with Patient: Total time spent is greater than 50% in coordination of care (as documented) at patient's floor/unit and/or counseling patient: Coding Level of Care Code 55767 Subseq Hosp Care Lvl 2 Diagnoses Atrial flutter I48.92 Elevated troponin R77.8 Anxiety F41.9 Thoracic aortic aneurysm I71.2 PAF (paroxysmal atrial fibrillation) I48.0 Respiratory failure J96.90 COPD (chronic obstructive pulmonary disease) J44.9 SVT (supraventricular tachycardia) I47.1 Ischemic cardiomyopathy I25.5 GI bleed K92.2 Opacity of lung on imaging study R91.8 Hypomagnesemia E83.42 Protein calorie malnutrition E46
--- NOTE | 2022-02-28 12:25 | Electrocardiogram Report ---
Test Reason : Blood Pressure : / mmHG Vent. Rate : 072 BPM Atrial Rate : 072 BPM P-R Int : 146 ms QRS Dur : 092 ms QT Int : 400 ms P-R-T Axes : 074 063 088 degrees QTc Int : 438 ms Sinus rhythm with occasional Premature ventricular complexes T wave abnormality, consider anterior ischemia Abnormal ECG When compared with ECG of 27-FEB-2022 05:47, Premature ventricular complexes are now Present Confirmed by Gaston Santacruz ([id number]) on 02/28/2022 12:25:15 PM Referred By: REFERRED SELF Confirmed By:Dez Santacruz
[2022-02-28] MEDS: ANUSOL SUPP 1 EA PR SCH (20:21)
[2022-02-28] MEDS: LORazepam 0.5 MG TAB PO PRN (21:28)
[2022-03-01] MEDS: lisinopril 5 MG TAB PO SCH (09:14)
[2022-03-01] MEDS: SERTRALINE HCL 50 MG TABLET PO SCH (09:14)
[2022-03-01] MEDS: SOTALOL HCL 80 MG TAB PO SCH (09:14)
[2022-03-01] MEDS: PANTOprazole 40 MG TAB PO SCH (09:14)
[2022-03-01] MEDS: ROSUVASTATIN CALCIUM 10 MG TAB PO SCH (09:14)
[2022-03-01] MEDS: guaiFENesin 600 MG TABCR PO SCH ×2 (09:14→20:44)
[2022-03-01] MEDS: APIXABAN 2.5 MG TAB PO SCH ×2 (09:14→20:45)
[2022-03-01] MEDS: ASPIRIN 81 MG ECTAB PO SCH (09:14)
[2022-03-01] MEDS: HYDROCORTISONE HC 2.5% CRM 30GM TUBE EXT SCH ×2 (09:15→20:45)
[2022-03-01] MEDS: POLYETHYLENE (MIRALAX) 17 GM PACK PO SCH (09:15)
[2022-03-01] MEDS: DEXTROMETHORPHAN POLYMR COMPLX 60 MG/10 ML UDP PO SCH ×2 (09:15→20:44)
[2022-03-01 11:00] LABS: Allen Test Pos (Pos); Base Excess ABG 19.1 mEq/L (-9-1.8); HCO3 ABG 50 mmol/L (19-24); Oxygen Saturation ABG 99.7 % (90-95); PCO2 ABG 90 mmHg (35-46); PO2 ABG > 200 mmHg (80-95); pH ABG 7.35 (7.35-7.45)
--- NOTE | 2022-03-01 11:15 | XRay Report ---
XR chest 1V portable CLINICAL HISTORY: Hypoxia, respiratory distress TECHNIQUE: Single frontal radiograph of the chest was obtained. Comparison: Comparison is made to chest radiograph 02/19/2022 FINDINGS: Median sternotomy wires are seen. Aortic graft is noted. Metallic density favored to represent atrial appendage clip is noted. Density to the left of the aorta likely representing aneurysm is unchanged. Reticular interstitial opacities are seen. No evidence of pleural effusion or pneumothorax. IMPRESSION: Stable findings of interstitial thickening without evidence of airspace opacity. Aortic graft and exc luded aneurysm are again seen. ACT 112: Negative or not required by law. Electronically signed by: Scotty Guillaume M.D. 03/01/2022 11:14 AM
[2022-03-01] MEDS: UMECLIDINIUM/VILANTEROL 62.5/25MCG 7 PUFFS/INHALER INH SCH (11:27)
[2022-03-01] MEDS: FLUTICASONE FUROATE 100MCG 14 PUFFS/INHALER INH SCH (11:27)
[2022-03-01] MEDS ORDERED: ALBUT/IPRATROP 3MG/0.5MG NEB 3 ML VIAL ONE (12:13)
[2022-03-01] MEDS ORDERED: ALBUT/IPRATROP 3MG/0.5MG NEB 3 ML VIAL NEB PRN (12:13)
--- NOTE | 2022-03-01 12:18 | Electrocardiogram Report ---
Test Reason : Blood Pressure : / mmHG Vent. Rate : 076 BPM Atrial Rate : 076 BPM P-R Int : 150 ms QRS Dur : 090 ms QT Int : 380 ms P-R-T Axes : 071 050 089 degrees QTc Int : 427 ms Sinus rhythm with occasional Premature ventricular complexes T wave abnormality, consider anterior ischemia Abnormal ECG When compared with ECG of 28-FEB-2022 05:59, No significant change was found Confirmed by Gaston Santacruz ([id number]) on 03/01/2022 12:18:04 PM Referred By: REFERRED SELF Confirmed By:Dez Santacruz
--- NOTE | 2022-03-01 15:47 | Hospitalist Progress Note ---
Date of Service March 01, 2022 Assessment & Plan (1) Atrial flutter: Plan: Patient admitted secondary to syncope Was started on sotalol and has now completed 4 doses. EKG with QTC of 427 ms Tolerating sotalol well. Can discharge home on sotalol at this point Continue daily EKGs Heparin drip discontinued and patient placed on apixaban 2.5 mg p.o. twice daily Appreciate cardiology consult Will need outpatient cardiology follow-up (2) Elevated troponin: Plan: Likely NSTEMI Cardiology consulted and following Continue with conservative management Continue to monitor on telemetry while adjusting sotalol (3) Anxiety: Plan: Avoid benzodiazepines and other QTC prolonging agents (4) Thoracic aortic aneurysm: Plan: Stable. No evidence of hemorrhage. Status post serial surgical repair with graft in place (5) PAF (paroxysmal atrial fibrillation): Plan: See #1; Patient states she is allergic to amiodarone. Coumadin discontinued on account of GI bleed on presentation Patient converted back to normal sinus rhythm Continue with sotalol Apixaban 2.5 mg p.o. twice daily ordered and being administered Continue to monitor on telemetry (6) Respiratory failure: Plan: Hypoxic and hypercapnic; Pulmonary input noted and appreciated ICS/AC/LABA on discharge Continue current ICS and AC/LABA Follow-up with Dr. Silva as an outpatient as patient follows with him ABG this morning with pH of 7.35, PCO2 of 90 (increased from 70) PaO2>200, HCO3 50 (increased from 43) Attempted BiPAP low IPAP/EPAP patient did not tolerate Continue to monitor supportive care (7) COPD (chronic obstructive pulmonary disease): Plan: Prior tobacco abuse history. Patient quit smoking 01/2022 Gold class D according to outpatient notes but no evidence of pulmonary function testing Continue with Trelegy inhaler (ICS/AC/LABA) on discharge Maintain SaO2 between 88 and 92% Patient encouraged to continue with abstention of tobacco products (8) SVT (supraventricular tachycardia): Plan: No recurrence while hospitalized. She states she is allergic to amiodarone. Continue current medical management (9) Ischemic cardiomyopathy: Plan: Recent apical injury with persistent EKG changes. Continue low-dose aspirin Continue close monitoring of blood pressure Appreciate cardiology input (10) GI bleed: Plan: No clinical bleeding reported Hemoglobin stable Continue to monitor (11) Opacity of lung on imaging study: Plan: New densities appear infective/inflammatory; empiric course of Doxy Patient completed 5 days of doxycycline Will follow patient as an outpatient in pulmonary clinic (12) Hypomagnesemia: Plan: Magnesium level today is 1.8 Potassium is 4.2 Check a.m. labs Continue to monitor on telemetry (13) Protein calorie malnutrition: Plan: Encourage intake, nutrition note noted Plan: I do not see a recent bowel movement. Patient is currently on postcoital 10 mg per rectum daily as needed and MiraLAX every morning scheduled. No abdominal pain. Continue to follow. Speech therapy consulted; they will reassess Wednesday Disposition: Patient currently lives with at home. Anticipate discharge to [facility] or [facility] when medically stable Admission and Anticipated Discharge Date Admission Date: February 20, 2022 Subjective Attending: Dr. Hawkins Patient is seen and examined in room 230. She was doing well this morning and was noted to be in normal sinus rhythm. She had 2 episodes where she reverted back to atrial fibrillation with a rate in the 140s. These were short-lived and resolved spontaneously. Patient received her fourth dose of sotalol today. EKG was obtained and revealed a QTC of 427 ms. Patient denies any chest pain or tightness. She has no awareness of palpitations. She does report that she feels weak today and did complain of some nausea. This was not necessarily associated with her revision back to atrial fibrillation. Patient was not treated with any antiemetics. She was found to have SaO2 at 100%. Although I do not have PFTs she is diagnosed with class D COPD. ABG was performed and revealed a pH of 7.35 with a PCO2 of 90 and a PaO2 greater than 200. Patient was on Oxymask at that time. That was taken off and patient was put back on nasal cannula with instructions to titrate between 88 and 92%. Patient is chronically on 2 L/min via nasal cannula at home. She follows with Dr. Silva as an outpatient. Patient denies fever, chills, sweats, rigors. No diarrhea. No abdominal pain. No lower extremity pain. Review of Systems Review of Systems: A total of 10 systems was reviewed and is negative other than as listed in the HPI Physical Exam Physical Exam: GENERAL : Patient was some acute distress. She appears ill EYES: No icterus, gaze conjugate. Pupils equal round reactive to light NOSE: No evidence of epistaxis. Initially Oxymask was in place. This was replaced with a nasal cannula MOUTH: No lesions or candidiasis. Mucosa is dry NECK: Supple LUNGS: CTA B/L, no wheezes, rales or rhonchi. Decreased breath sounds bilaterally HEART: Regular, rate controlled in the 80s ABDOMEN: Soft, NT, ND, BS Present EXTREMITIES: No LE edema, pedal pulses intact NEURO: A&OX3 Results & Data Results & Data ([facility]) Vital Signs (Past 12 Hours) Vital Signs Temp Pulse Pulse Resp BP Pulse Ox 03/01/22 15:29 36.7 C 72 16 99/62 L 100 03/01/22 14:39 72 03/01/22 12:23 78 78 16 90 03/01/22 11:27 36.4 C L 61 16 145/70 H 88 L 03/01/22 09:09 81 03/01/22 08:50 142 H 22 161/75 H 91 03/01/22 08:40 142 H 03/01/22 08:13 74 03/01/22 07:35 36.6 C 79 18 146/78 H 92 Critical Care Results & Data Vital Signs (Past 12 Hours) Vital Signs Temp Pulse Pulse Resp BP Pulse Ox 03/01/22 15:29 36.7 C 72 16 99/62 L 100 03/01/22 14:39 72 03/01/22 12:23 78 78 16 90 03/01/22 11:27 36.4 C L 61 16 145/70 H 88 L 03/01/22 09:09 81 03/01/22 08:50 142 H 22 161/75 H 91 03/01/22 08:40 142 H 03/01/22 08:13 74 03/01/22 07:35 36.6 C 79 18 146/78 H 92 Lab & Micro Results (Past 24 Hours) No Data to Display No Data to Display Mg 1.8 mg/dl (1.7-2.4) 03/01/22 06:58 03/01/22 Arterial Blood pH 7.35 (7.35-7.45) 03/01/22 10:53 03/01/22 Arterial Blood Partial Pressure CO2 90 mmHg (35-46) H 03/01/22 10:53 03/01/22 Arterial Blood Partial Pressure O2 > 200 mmHg (80-95) H 03/01/22 10:53 03/01/22 Arterial Blood HCO3 50 mmol/L (19-24) H 03/01/22 10:53 03/01/22 Arterial Blood Base Excess 19.1 mEq/L (-9-1.8) H 03/01/22 10:53 03/01/22 Arterial Blood Oxygen Saturation 99.7 % (90-95) H 03/01/22 10:53 03/01/22 Blood Gas Oxygen Given 6L 03/01/22 10:53 03/01/22 Francois Test Pos (Pos) 03/01/22 10:53 03/01/22 Diagnostic Findings (Past 24 Hours) Chest X-Ray 03/01/22 10:33 XR chest 1V portable CLINICAL HISTORY: Hypoxia, respiratory distress TECHNIQUE: Single frontal radiograph of the chest was obtained. Comparison: Comparison is made to chest radiograph 02/19/2022 FINDINGS: Median sternotomy wires are seen. Aortic graft is noted. Metallic density favored to represent atrial appendage clip is noted. Density to the left of the aorta likely representing aneurysm is unchanged. Reticular interstitial opacities are seen. No evidence of pleural effusion or pneumothorax. IMPRESSION: Stable findings of interstitial thickening without evidence of airspace opacity. Aortic graft and excluded aneurysm are again seen. ACT 112: Negative or not required by law. Electronically signed by: Scotty Guillaume M.D. 03/01/2022 11:14 AM I & O Totals 24 Hours 02/28/22 03/01/22 03/02/22 06:59 06:59 06:59 Intake Total 571.834 / 571.834 250 / 250 Output Total 375 / 375 625 / 625 Balance 196.834 / 196.834 -375 / -375 Cumulative 02/19/22 22:45 thru 03/01/22 09:04 Intake Total 6729.967 Output Total 2976 Balance 3753.967 RT Ventilator Mngmt (Last Documented) Ventilator Ordered Settings Respiratory Rate 16 03/01/22 15:29 Fraction of Inspired Oxygen 32 03/01/22 12:23 Ventilator - PT Measurements Respiratory Rate 16 PG Care Time/CCT Total # of Minutes Spent Total Time Spent with Patient: Total time spent is greater than 50% in coordination of care (as documented) at patient's floor/unit and/or counseling patient:40 minutes Coding Level of Care Code 92701 Subseq Hosp Care Lvl 2 Diagnoses Atrial flutter I48.92 Elevated troponin R77.8 Anxiety F41.9 Thoracic aortic aneurysm I71.2 PAF (paroxysmal atrial fibrillation) I48.0 Respiratory failure J96.90 COPD (chronic obstructive pulmonary disease) J44.9 SVT (supraventricular tachycardia) I47.1 Ischemic cardiomyopathy I25.5 GI bleed K92.2 Opacity of lung on imaging study R91.8 Hypomagnesemia E83.42 Protein calorie malnutrition E46
[2022-03-01] MEDS: ANUSOL SUPP 1 EA PR SCH (20:45)
[2022-03-01] MEDS: LORazepam 0.5 MG TAB PO PRN (20:48)
[2022-03-02 07:45] LABS: Creatinine Clr Calc Pharmacy 42.1 ml/min; Est GFR (African American) 96.9 ml/min; Est GFR (Non-African American) 83.6 ml/min
[2022-03-02] MEDS: lisinopril 5 MG TAB PO SCH (08:43)
[2022-03-02] MEDS: ASPIRIN 81 MG ECTAB PO SCH (08:43)
[2022-03-02] MEDS: PANTOprazole 40 MG TAB PO SCH (08:43)
[2022-03-02] MEDS: ROSUVASTATIN CALCIUM 10 MG TAB PO SCH (08:43)
[2022-03-02] MEDS: SOTALOL HCL 80 MG TAB PO SCH (08:43)
[2022-03-02] MEDS: APIXABAN 2.5 MG TAB PO SCH ×2 (08:44→20:35)
[2022-03-02] MEDS: guaiFENesin 600 MG TABCR PO SCH ×2 (08:44→20:34)
[2022-03-02] MEDS: SERTRALINE HCL 50 MG TABLET PO SCH (08:44)
[2022-03-02] MEDS: POLYETHYLENE (MIRALAX) 17 GM PACK PO SCH (08:45)
[2022-03-02] MEDS: HYDROCORTISONE HC 2.5% CRM 30GM TUBE EXT SCH ×2 (08:47→20:36)
[2022-03-02] MEDS: DEXTROMETHORPHAN POLYMR COMPLX 60 MG/10 ML UDP PO SCH ×2 (08:57→20:35)
[2022-03-02] MEDS: FLUTICASONE FUROATE 100MCG 14 PUFFS/INHALER INH SCH (12:42)
[2022-03-02] MEDS: UMECLIDINIUM/VILANTEROL 62.5/25MCG 7 PUFFS/INHALER INH SCH (12:43)
--- NOTE | 2022-03-02 13:02 | Electrocardiogram Report ---
Test Reason : Blood Pressure : / mmHG Vent. Rate : 073 BPM Atrial Rate : 073 BPM P-R Int : 146 ms QRS Dur : 090 ms QT Int : 434 ms P-R-T Axes : 076 058 076 degrees QTc Int : 478 ms Sinus rhythm with occasional Premature ventricular complexes T wave abnormality, consider anterolateral ischemia Prolonged QT Abnormal ECG When compared with ECG of 01-MAR-2022 06:33, Nonspecific T wave abnormality now evident in Inferior leads Confirmed by Gaston Santacruz ([id number]) on 03/02/2022 1:02:30 PM Referred By: REFERRED SELF Confirmed By:Dez Santacruz
--- NOTE | 2022-03-02 13:05 | Electrocardiogram Report ---
Test Reason : Blood Pressure : / mmHG Vent. Rate : 074 BPM Atrial Rate : 074 BPM P-R Int : 144 ms QRS Dur : 092 ms QT Int : 414 ms P-R-T Axes : 072 056 082 degrees QTc Int : 459 ms Sinus rhythm with occasional Premature ventricular complexes ST segment changes conceerning for anterior ischemia Abnormal ECG When compared with ECG of 02-MAR-2022 06:17, (unconfirmed) Acute Inferior infarct is now Present Confirmed by Gaston Santacruz ([id number]) on 03/02/2022 1:05:22 PM Referred By: REFERRED SELF Confirmed By:Dez Santacruz
--- NOTE | 2022-03-02 15:16 | Hospitalist Progress Note ---
Date of Service March 02, 2022 Assessment & Plan (1) Atrial flutter: Plan: Patient admitted secondary to syncope Was started on sotalol and has now completed 4 doses. Tolerating sotalol well. Can discharge home on sotalol when stable Continue daily EKGs Heparin drip discontinued and patient placed on apixaban 2.5 mg p.o. twice daily Appreciate cardiology consult Will need outpatient cardiology follow-up (2) Elevated troponin: Plan: Likely NSTEMI Cardiology consulted and following Continue with conservative management Continue to monitor on telemetry while adjusting sotalol (3) Anxiety: Plan: Avoid benzodiazepines and other QTC prolonging agents (4) Thoracic aortic aneurysm: Plan: Stable. No evidence of hemorrhage. Status post serial surgical repair with graft in place (5) PAF (paroxysmal atrial fibrillation): Plan: See #1; Patient states she is allergic to amiodarone. Coumadin discontinued on account of GI bleed on presentation Patient converted back to normal sinus rhythm Continue with sotalol Apixaban 2.5 mg p.o. twice daily ordered and being administered Continue to monitor on telemetry (6) Respiratory failure: Plan: Hypoxic and hypercapnic; Pulmonary input noted and appreciated ICS/AC/LABA on discharge Continue current ICS and AC/LABA Follow-up with Dr. Silva as an outpatient as patient follows with him Last ABG with pH of 7.35, PCO2 of 90 (increased from 70) PaO2>200, HCO3 50 (increased from 43) Attempted BiPAP low IPAP/EPAP patient did not tolerate Continue to monitor supportive care (7) COPD (chronic obstructive pulmonary disease): Plan: Prior tobacco abuse history. Patient quit smoking 01/2022 Gold class D according to outpatient notes but no evidence of pulmonary function testing Continue with Trelegy inhaler (ICS/AC/LABA) on discharge Maintain SaO2 between 88 and 92% Patient encouraged to continue with abstention of tobacco products (8) SVT (supraventricular tachycardia): Plan: No recurrence while hospitalized. She states she is allergic to amiodarone. Continue current medical management (9) Ischemic cardiomyopathy: Plan: Recent apical injury with persistent EKG changes. Continue low-dose aspirin Continue close monitoring of blood pressure Appreciate cardiology input (10) GI bleed: Plan: No clinical bleeding reported Hemoglobin stable Continue to monitor (11) Opacity of lung on imaging study: Plan: New densities appear infective/inflammatory; empiric course of Doxy Patient completed 5 days of doxycycline Will follow patient as an outpatient in pulmonary clinic (12) Hypomagnesemia: Plan: replace (13) Protein calorie malnutrition: Plan: Encourage intake, nutrition note noted Plan: Disposition: Patient currently lives with at home. Anticipate discharge to [facility] or [facility] when medically stable Admission and Anticipated Discharge Date Admission Date: February 20, 2022 Subjective patient seen and examined, still short of breath,says she has poor appetite Review of Systems Review of Systems: All systems reviewed are negative, apart from the ones contained in the history. Physical Exam Physical Exam: The patient is awake, alert and oriented 3, thin looking HEENT--PERRL, EOMI, mucous membranes and oropharynx mildly dry Neck--supple. No JVD. No bruits. Thyroid normal, trachea midline, no adenopathy. Heart--normal S1 and S2. No murmurs, rubs or gallops. Lungs--reduced air entry on auscultation, mild wheeze Abdomen--normal bowel sounds and soft. Mild epigastric and left sided abdominal pain Extremities--no cyanosis or clubbing. No edema. Dermatologic--normal skin turgor, normal color, no abnormal lymph nodes, no rash. Neurologic--cranial nerves II through XII grossly intact. Rheumatologic--normal range of motion. Psychiatric--normal affect. Results & Data Results & Data ([facility]) Vital Signs (Past 12 Hours) Vital Signs Temp Pulse Pulse Resp BP Pulse Ox 03/02/22 12:29 66 03/02/22 11:33 97.5 F L 59 L 18 103/58 L 100 03/02/22 07:51 73 16 90 03/02/22 07:13 97.7 F 70 18 153/64 H 99 03/02/22 03:23 98.1 F 66 18 109/66 100 PG Care Time/CCT Total # of Minutes Spent Total Time Spent with Patient: Total time spent is greater than 50% in coordination of care (as documented) at patient's floor/unit and/or counseling patient: Coding Level of Care Code 01165 Subseq Hosp Care Lvl 2 Diagnoses Atrial flutter I48.92 Elevated troponin R77.8 Anxiety F41.9 Thoracic aortic aneurysm I71.2 PAF (paroxysmal atrial fibrillation) I48.0 Respiratory failure J96.90 COPD (chronic obstructive pulmonary disease) J44.9 SVT (supraventricular tachycardia) I47.1 Ischemic cardiomyopathy I25.5 GI bleed K92.2 Opacity of lung on imaging study R91.8 Hypomagnesemia E83.42 Protein calorie malnutrition E46 Time Spent (min) 35
[2022-03-02] MEDS: LORazepam 0.5 MG TAB PO PRN (20:34)
[2022-03-02] MEDS: ANUSOL SUPP 1 EA PR SCH (20:35)
[2022-03-03] MEDS ORDERED: SODIUM CHLORIDE 0.9% 1000ML 1,000 ML IV SCH (05:00)
[2022-03-03] MEDS ORDERED: SODIUM CHLORIDE 0.9% 1000ML 250 ML IV SCH (05:15)
[2022-03-03] MEDS: FLUTICASONE FUROATE 100MCG 14 PUFFS/INHALER INH SCH (08:37)
[2022-03-03] MEDS: APIXABAN 2.5 MG TAB PO SCH (08:37)
[2022-03-03] MEDS: DEXTROMETHORPHAN POLYMR COMPLX 60 MG/10 ML UDP PO SCH (08:37)
[2022-03-03] MEDS: ASPIRIN 81 MG ECTAB PO SCH (08:37)
[2022-03-03] MEDS: guaiFENesin 600 MG TABCR PO SCH (08:38)
[2022-03-03] MEDS: HYDROCORTISONE HC 2.5% CRM 30GM TUBE EXT SCH (08:38)
[2022-03-03] MEDS: PANTOprazole 40 MG TAB PO SCH (08:39)
[2022-03-03] MEDS: ROSUVASTATIN CALCIUM 10 MG TAB PO SCH (08:39)
[2022-03-03] MEDS: UMECLIDINIUM/VILANTEROL 62.5/25MCG 7 PUFFS/INHALER INH SCH (08:39)
[2022-03-03] MEDS: SOTALOL HCL 80 MG TAB PO SCH (08:39)
[2022-03-03] MEDS: lisinopril 5 MG TAB PO SCH (08:39)
[2022-03-03] MEDS: SERTRALINE HCL 50 MG TABLET PO SCH (08:39)
[2022-03-03] MEDS: POLYETHYLENE (MIRALAX) 17 GM PACK PO SCH (08:40)
--- NOTE | 2022-03-03 12:53 | Cardiology Progress Note ---
Date of Service March 03, 2022 Assessment & Plan (1) Paroxysmal atrial flutter: Plan: -converted to sinus rhythm after 1 dose of sotalol 80 mg. -continue low-dose Eliquis. -continue sotalol 80 mg daily. (2) SVT (supraventricular tachycardia): Plan: -no recurrence since admission. -hopefully sotalol will control this dysrhythmia also. (3) Ischemic cardiomyopathy: Plan: -LVEF now 40-45% with a new apical wall motion abnormality. -conservative care due to her numerous comorbidities and severe deconditioning. -tolerating low-dose lisinopril. -consider restarting metoprolol succinate 50 mg daily prior to hospital discharge. (4) Coronary artery disease: Plan: -s/p CABG x2, August 2021. (5) Thoracic aortic aneurysm: Plan: -repair as described, August and December 2021. Admission and Anticipated Discharge Date Admission Date: February 20, 2022 Subjective The patient is resting comfortably in bed without complaints of chest pain or dyspnea. Physical Exam Physical Exam: In general this is a well-developed well-nourished white female in no acute distress. HEENT exam is negative. Neck is supple with full carotid upstrokes. There are no carotid bruits. No jugular venous distention. There is no thyromegaly. Cardiovascular exam reveals a regular rhythm with distant heart sounds. Lungs are clear without rales, rhonchi or wheezes. Chest reveals a well-healed midline scar. Lungs are clear without rales, rhonchi, or wheezes. Abdomen is soft and nontender without bruits. Extremities reveal intact radial artery pulses bilaterally. Posterior tibial pulses are nonpalpable. There is no peripheral edema. Results & Data ([facility]) Vital Signs (Past 12 Hours) Vital Signs Temp Pulse Pulse Resp BP Pulse Ox 03/03/22 12:07 35.9 C L 56 L 16 105/57 L 92 03/03/22 08:30 63 101/61 03/03/22 07:28 36.7 C 64 16 84/52 L 96 03/03/22 06:45 60 03/03/22 02:45 36.4 C L 59 L 16 79/45 L 94 Diagnostic Findings cardiac monitor notes normal sinus rhythm. No further atrial fibrillation. PG Care Time/CCT Total # of Minutes Spent Total Time Spent with Patient: Total time spent is greater than 50% in coordination of care (as documented) at patient's floor/unit and/or counseling patient: Coding Level of Care Code 12658 Subseq Hosp Care Lvl 3 Diagnoses Paroxysmal atrial flutter I48.92 SVT (supraventricular tachycardia) I47.1 Ischemic cardiomyopathy I25.5 Coronary artery disease I25.10 Thoracic aortic aneurysm I71.2
--- NOTE | 2022-03-03 14:32 | Discharge Summary ---
Date of Service March 03, 2022 Admission HPI Per Admitting Provider 76 y/o F Hx anemia, HTN, HLD, COPD, PAF, PAD, CAD, abdominal and thoracic aortic aneurysm. She developed acute diaphoresis, lightheadedness and diarrhea this reagan and contacted EMS. It was reported that she was hypotensive with SVTs on initial evaluation. She required a shock and did revert to a sinus rhythm following. On arrival to the ER, she had a melanotic bowel movement. She had not noted any GI bleeding at home. She does take Coumadin. Initial labs are notable for a trop of 83, TSH of 10.7, mild protein malnutrition and stable macrocytic anemia. EKG showed lateral inversion with prior inferior infarct. CTA was negative for PE but did demonstrate a 3cm x 3cm mass in the L lung base. PMH: 1) HTN 2) HLD 3) CAD - prior IA, CABG 4) PAF 5) Thoracic aortic aneurysm 6) Abdominal aortic aneurysm 7) PAD 8) Pernicious anemia - baseline Hb 9-10 9) COPD - home 02 10) Bronchiectasis Surgical: 1) CABG - 3 vessel 08/2021 2) Thoracic aorta repair with debranching of L subclavian and L carotid - 08/2021 3) TEVAR - 12/2021 4) [facility] - 1975 5) Aortoiliac bypass - 2005 Social: Quit smoking 08/2021, does not drink alcohol. Family: Both parents due to aortic aneurysm Principal Diagnosis Paroxysmal Afib Discharge Exam The patient is awake, alert and oriented 3, thin looking HEENT--PERRL, EOMI, mucous membranes and oropharynx mildly dry Neck--supple. No JVD. No bruits. Thyroid normal, trachea midline, no adenopathy. Heart--normal S1 and S2. No murmurs, rubs or gallops. Lungs--reduced air entry on auscultation, mild wheeze Abdomen--normal bowel sounds and soft. Mild epigastric and left sided abdominal pain Extremities--no cyanosis or clubbing. No edema. Dermatologic--normal skin turgor, normal color, no abnormal lymph nodes, no rash. Neurologic--cranial nerves II through XII grossly intact. Rheumatologic--normal range of motion. Psychiatric--normal affect. Discharge Data Allergies Allergy/AdvReac Type Severity Reaction Status Date / Time Sulfa (Sulfonamide Allergy Intermediate Rash Verified 02/19/22 23:33 Antibiotics) Penicillins Allergy Unknown HAPPENED Verified 02/19/22 23:33 A TEENAGER amiodarone AdvReac Intermediate SKIN Verified 02/19/22 23:33 PEELED OFF FEET fexofenadine AdvReac Intermediate "SKIN Verified 02/19/22 23:33 HURTS" HEADACHE lisinopril AdvReac Intermediate COUGH Verified 02/19/22 23:33 Consultations 02/20/22 01:05 ED Decision to Admit Stat 02/20/22 02:41 Consult Gastroenterology Routine 02/20/22 02:58 Consult Cardiology Routine 02/25/22 11:11 Consult Pulmonology Routine Ordered Studies 02/19/22 23:17 CT angio chest PE protocol Urgent Hospital Course (1) Atrial flutter: Patient admitted secondary to syncope Was started on sotalol and has now completed 4 doses. Tolerating sotalol well. Can discharge home on sotalol when stable Continue daily EKGs Heparin drip discontinued and patient placed on apixaban 2.5 mg p.o. twice daily Appreciate cardiology consult Will need outpatient cardiology follow-up (2) Elevated troponin: Likely NSTEMI Cardiology consulted and following Continue with conservative management Continue to monitor on telemetry while adjusting sotalol (3) Anxiety: Avoid benzodiazepines and other QTC prolonging agents (4) Thoracic aortic aneurysm: Stable. No evidence of hemorrhage. Status post serial surgical repair with graft in place (5) PAF (paroxysmal atrial fibrillation): See #1; Patient states she is allergic to amiodarone. Coumadin discontinued on account of GI bleed on presentation Patient converted back to normal sinus rhythm Continue with sotalol Apixaban 2.5 mg p.o. twice daily ordered and being administered Continue to monitor on telemetry (6) Respiratory failure: Hypoxic and hypercapnic; Pulmonary input noted and appreciated ICS/AC/LABA on discharge Continue current ICS and AC/LABA Follow-up with Dr. Silva as an outpatient as patient follows with him Last ABG with pH of 7.35, PCO2 of 90 (increased from 70) PaO2>200, HCO3 50 (increased from 43) Attempted BiPAP low IPAP/EPAP patient did not tolerate Continue to monitor supportive care (7) COPD (chronic obstructive pulmonary disease): Prior tobacco abuse history. Patient quit smoking 01/2022 Gold class D according to outpatient notes but no evidence of pulmonary function testing Continue with Trelegy inhaler (ICS/AC/LABA) on discharge Maintain SaO2 between 88 and 92% Patient encouraged to continue with abstention of tobacco products (8) SVT (supraventricular tachycardia): No recurrence while hospitalized. She states she is allergic to amiodarone. Continue current medical management (9) Ischemic cardiomyopathy: Recent apical injury with persistent EKG changes. Continue low-dose aspirin Continue close monitoring of blood pressure Appreciate cardiology input (10) GI bleed: No clinical bleeding reported Hemoglobin stable Continue to monitor (11) Opacity of lung on imaging study: New densities appear infective/inflammatory; empiric course of Doxy Patient completed 5 days of doxycycline Will follow patient as an outpatient in pulmonary clinic (12) Hypomagnesemia: replace (13) Protein calorie malnutrition: Encourage intake, nutrition note noted Disposition: Patient currently lives with at home. Anticipate discharge to [facility] or [facility] when medically stable Total Time Total Time Spent Total Time Spent (In Minutes): 35 Discharge Plan Discharge Items Patient Disposition: Transfer [facility] Fac Reason For Visit: SVT Discharge Diagnosis: Paroxysmal Afib Activity: Resume your previous activity Non-emergency contact: Primary Care Provider, Clinical Appeals Reviewer and Physician/Allergy/Immunology Call non-emergency contact if: you have any medication questions Follow-up/Referrals: Cathy Cerda DO [Primary Care Provider] - Diet: Regular Addtl Attending Provider Instructions: please make appointment to follow up with your doctors Please dont take metoprolol if your heart rate is below 60 Please dont take Lisinopril if your Blood Pressure is below 110 systolic Pending Studies at Discharge: No Stand-Alone Forms: My [facility] Skilled Items Patient informed of condition?: Yes DNR: No Discharge Level of Care: Skilled Communicable Disease: No Discharge Prognosis: Improving Lines: None Urinary Catheter: No Medications and DC Order Prescriptions: New Eliquis 2.5 mg Tablet 2.5 mg PO BID 90 Days Qty: 180 RF: 0 sotalol 80 mg Tablet 80 mg PO DAILY 30 Days Qty: 30 RF: 0 lisinopril [Zestril] 5 mg Tablet 5 mg PO QAM 30 Days Qty: 30 RF: 0 Continued rosuvastatin 10 mg tablet 10 mg PO DAILY Qty: 30 RF: 2 metoprolol tartrate 50 mg tablet 50 mg PO BID Qty: 180 RF: 1 Trelegy Ellipta 100-62.5-25 mcg blister with device 1 inh inhalation DAILY Qty: 180 RF: 1 lorazepam 0.5 mg tablet 0.5 mg PO Q8H PRN (Reason: anxiety) Qty: 45 RF: 0 sertraline 50 mg tablet 50 mg PO DAILY Qty: 90 RF: 1 albuterol sulfate [Ventolin HFA] 90 mcg/actuation HFA aerosol inhaler 2 puff inhalation Q6H PRN (Reason: shortness of breath or wheezing) Qty: 6.7 RF: 2 aspirin [Adult Aspirin Regimen] 81 mg tablet,delayed release (DR/EC) 81 mg PO DAILY RF: 0 nitroglycerin 0.4 mg tablet, sublingual 0.4 mg sublingual Q5M PRN (Reason: chest pain) Qty: 30 RF: 5 (DME) Oxygen Home Liters Per Minute See Rx Instructions .Route Qty: 1 RF: 0 (DME) Walker See Rx Instructions .Route .MEDSUPPLY Qty: 1 RF: 0 pantoprazole 40 mg tablet,delayed release (DR/EC) 40 mg PO DAILY RF: 0 ondansetron 4 mg tablet,disintegrating 4 mg PO Q8H PRN (Reason: nausea and vomiting) Qty: 30 RF: 0 cyanocobalamin (vitamin B-12) [Vitamin B-12] 1,000 mcg Tablet 1,000 mcg PO DAILY RF: 0 acetaminophen 325 mg tablet 325 mg PO .COMPLEX PRN (Reason: FEVER/PAIN) RF: 0 Discontinued warfarin 5 mg tablet 2.5 mg PO DAILY Qty: 90 RF: 5 albuterol sulfate 2.5 mg /3 mL (0.083 %) solution for nebulization 2.5 mg inhalation Q6H PRN (Reason: shortness of breath or wheezing) Qty: 180 RF: 5 warfarin 1 mg tablet 1 mg PO .COMPLEX Qty: 100 RF: 3 Discharge Orders: Discharge Order (Routine); Ordered 03/03/22 Ordered By: Elsy Thompson Admission Data Admit Date/Time: 02/20/22 01:41 Attending Provider: Elsy Thompson Admit Provider: Conrad Alvarado Primary Care Provider: Cathy Cedra Other Providers: Conrad Alvarado ; Jones Kruse ; Regla Reynolds ; Jaleel Ballard ; Siddhartha Maher Coding Level of Care Code D/C DAY MANAGEMENT >30 MINS Diagnoses Atrial flutter I48.92 Elevated troponin R77.8 Anxiety F41.9 Thoracic aortic aneurysm I71.2 PAF (paroxysmal atrial fibrillation) I48.0 Respiratory failure J96.90 COPD (chronic obstructive pulmonary disease) J44.9 SVT (supraventricular tachycardia) I47.1 Ischemic cardiomyopathy I25.5 GI bleed K92.2 Opacity of lung on imaging study R91.8 Hypomagnesemia E83.42 Protein calorie malnutrition E46 Time Spent (min) 35
--- NOTE | 2022-03-04 11:48 | Electrocardiogram Report ---
Test Reason : Blood Pressure : / mmHG Vent. Rate : 057 BPM Atrial Rate : 057 BPM P-R Int : 144 ms QRS Dur : 088 ms QT Int : 430 ms P-R-T Axes : 081 068 051 degrees QTc Int : 418 ms Sinus bradycardia Abnormal ECG When compared with ECG of 02-MAR-2022 06:18, Premature ventricular complexes are no longer Present Nonspecific T wave abnormality, worse in Inferior leads Confirmed by Gaston Santacruz ([id number]) on 03/04/2022 11:47:43 AM Referred By: REFERRED SELF Confirmed By:Dez Santacruz
== END 2022-03-03 15:00 | DRG 280 ==
LOC: ED 22:56 → SUATTDRO 02-20 01:41 → 2S 02-20 01:41

== ENCOUNTER 2022-03-07 11:30 | Inpatient (IN) ==
[2022-03-07] MEDS ORDERED: dexAMETHasone**PF** 10 MG/ML VIAL IV ONE (11:39)
[2022-03-07] MEDS ORDERED: SODIUM CHLORIDE 0.9% 1000ML 1,000 ML IV ONE ×3 (11:39→16:45)
[2022-03-07] MEDS ORDERED: ALBUT/IPRATROP 3MG/0.5MG NEB 3 ML VIAL NEB ONE (11:39)
[2022-03-07] MEDS ORDERED: STAT IV Infusion **Titration per Protocol STA ×3 (11:40→16:38)
--- NOTE | 2022-03-07 11:45 | Emergency Department Note ---
Impression & Plan Acute respiratory failure, Acute hypotension, Elevated lactic acid level, Acute hyperkalemia, Obtundation ED Provider Note Name: DOUGIE VILLALOBOS Age: 76 Sex: F Arrives Via: Ambulance Informant: EMS ED Provider: Kike Simon MD Chief Complaint: Respiratory failure Impression: As per impressions above Medical Decision Makin-year-old female with quite complex past medical history including anemia, hypertension, hyperlipidemia, COPD, PAF, PAD, CAD, abdominal/thoracic aortic aneurysm repair in the last few months who was just discharged from the facility in the last few days following syncope issue. Patient arrives with rapidly worsening respiratory distress from local nursing facility. On arrival she is obtunded severely ill-appearing and not breathing requiring BVM by EMS team. She weakly opens eyes and moves hands periodically. She has a blood pressure in the 60s. She was immediately intubated, IV access further established and fluid bolus begun. Light sedatives were used for sedation and after initial liter and a half of fluid her blood pressure started dropping again and she was started on norepinephrine with good response. No clear evidence of infectious etiology however with her respiratory failure as well as a left elevated lactic acid she was given empiric vancomycin and cefepime for sepsis coverage. She did receive a 30/kg bolus of IV fluids (1.5L IV NSS Bolus) initially along with a second liter of fluid after lactic acid was noted to be increased. Furthermore patient was noted to be hyperkalemic. This was verified with a [id number] BMP. She was given empiric insulin, dextrose and bicarb IV along with the significant fluid boluses she was getting. She is not in acute renal failure I do not see a clear indication for emergent dialysis at this time. ET tube was noted to be slightly high and this data communications technician advanced at this two centimeters. Patient clearly exhibiting signs of shock unclear true etiology though sepsis of high concern despite no fever nor significant WBC elevation at this time. She was treated empirically as septic shock. Did have quite labile blood pressures responding to the Levophed and fluids. EKG without clear evidence of ischemia and initial Trope does not severely elevated is actually consistent with previous troponins. She is on Eliquis and this seems less likely this is PE. I consulted hospitalist and critical care team. Critical care at bedside and placed central line. Prior Medical Record and Triage/Nursing Notes reviewed by Me Additional history obtained from and EMS Differentials:Infection, hypoglycemia, electrolyte abnormalities, overdose, toxicologic, cardiac sources, intracerebral event, neurologic, trauma, as well as other pathologies. Vital Signs: reviewed and remarkable for hypoxia, hypotension Interventions: Normal saline bolus 1.5 L IV initially followed by 1 L IV bolus. Levophed IV. Cefepime/vancomycin IV. Labs:Reviewed and remarkable for hyperkalemia Imagin view chest x-ray no infiltrates, ET tube slightly high, ct head no acute findings as per radiologist reads EKG:Per My Interpretation: Indication Respiratory failure: Sinus lisandro 57 bpm, qtc 465 with PAC, abnormal ST anteriorly which is similar to EKG from March 03, 2022. There is no clear ischemic findings when compared to previous EKG. Cardiac/Tele Monitoring: Cardiac Monitoring: An Order was placed for continuous cardiac monitoring. The monitor shows a rate of 55 with a sinus lisandro rhythm. Consults:Dr. Campbell of the [facility]ist service, Dr. Stanton of the critical care service Plan: Disposition:Hospitalization. Condition: Critical History of Present Illness:76-year-old female arrives for evaluation of respiratory failure. Patient is unresponsive and unable to give review of systems or history. Per EMS called to nursing facility for worsening respiratory distress. On arrival patient in severe respiratory distress with poor inspiratory effort. She was started on a DuoNeb however had a respiratory arrest and stopped breathing. She was bagged for several minutes before she started to breathe again, was on CPAP for a few minutes and then stopped breathing again. She has been bagged for the last 15 minutes prior to getting here. No other medications given in route. No report of falls, trauma, injuries. No report of patient with any complaints prior to this occurring. No further information available other than per EMS they state she is a full code Review of chart patient recently started on sotalol and Eliquis for paroxysmal A. fib/flutter. ROS: Unable to obtain Past Medical History:See Below Past Surgical History:See Below Family History:See Below Social History:See Below Home Medications:See Below Allergies:See Below Vitals:Blood Pressure: 60/-, Pulse 55, RR 4, T 37.7C, O2 unable to obtain Physical Exam: GENERAL: Patient is severely unwell appearing, obtunded, cachectic EYES: No scleral icterus, unremarkable pupils. ENT: Mucous membranes dry, no nasal congestion. NECK: No masses appreciated, nomeningismus, trachea is midline. RESPIRATORY: Poor respiratory drive. Minimal breath sounds throughout the right lung voss. Mild wheezing appreciated throughout the left lung voss. CARDIOVASCULAR: Regular rate and rhythm.No murmurs, rubs, gallops appreciated. GASTROINTESTINAL: Abdomen soft, non-tender, no peritonitis.Bowel sounds positive.No masses appreciated. BACK: No midline tenderness, no CVA tenderness EXTREMITIES: Cool mottled extremities NEUROLOGIC: Weakly moves arms/hands, weakly opens eyes, no verbal, not following commands SKIN: No rash, no jaundice, no diaphoresis. PSYCH: Unresponsive ED Course: Times/Reassessments: Frequent reassessments at bedside and bedside management throughout ED stay. Procedures: Endotracheal Intubation Indication: Respiratory failure The patient was being bagged by respiratory with BVM. Suction, airway equipment, RSI drugs, respiratory equipment, and appropriate personnel were prepared prior to the initiation of the procedure. A time out was taken. Induction was performed with Etomidate & Succinylcholine. After observing the clinical benefit of the medications, the airway was easily visualized utilizing a #3 Glidescope. A 7.0 size ETT tube was placed atraumatically to 21 cm using standard technique. The cuff inflated without signs of malfunction. There were bilateral breath sounds, positive colormetric change, no gastric sounds, a good capnography waveform, and post procedure pulse oximetry was 98%. Post intubation sedation and paralysis was administered using propofol. There were no complications. Critical Care: I have personally spent 60 minutes of critical care time in the direct management of this patient. Acute respiratory failure requiring intubation and circulatory shock requiring vasopressors and resuscitation. This was a life/limb threatening event. This 60 minutes is in excess of all separately billable procedures. Kike Simon MD Past Med/Surg History Medical History Anxiety Atrial fibrillation with rapid ventricular response Bronchiectasis Bronchiectasis Chronic respiratory failure COPD (chronic obstructive pulmonary disease) Coronary artery disease Dehydration History of abdominal aortic aneurysm (AAA) History of esophageal ulcer (2013) History of MN (myocardial infarction) (01/08/14) Hypertension Hypomagnesemia Hypoxia Peripheral arterial disease Thoracic aortic aneurysm Tobacco abuse Surgical History H/O heart artery stent (2013) H/O heart bypass surgery (09/15/21) 09/15/21 Dr. Jerry Ellsworth at [facility] – [place]- CABG x 2 SVG to LAD and OM/Ligation left atrial appendage with 35 mm Atricure clip/debranching of aortic arch with "Y" graft from ascending aorta to innominate and left carotid artery H/O vascular surgery (11/18/21) L common carotid A to L subclavian artery dacron bypass graft S/P AAA (abdominal aortic aneurysm) repair (07/14/06) open repair, Aortiobiiliac graft S/P aneurysm repair (01/06/22) S/P right cataract extraction S/P ANGEL-BSO (1975) secondary to endometriosis S/P tonsillectomy S/P total hysterectomy and bilateral salpingo-oophorectomy (1975) Status post coronary angiogram 09/10/21 Dr. Jean Baptiste at [facility] [place]- Coronary angiography (recommended bypass) Family History Sister Breast cancer Father Myocardial infarction Coronary heart disease Atrial fibrillation AAA (abdominal aortic aneurysm) Stroke Lung cancer Hypertension Mother AA (aortic aneurysm) Denies family history of Ovarian cancer Prostate cancer Colorectal cancer Social History Smoking Status: Smoker, status unknown Tobacco Type: Cigarettes Age Started Using Tobacco: 24; Cigarettes Per Day: 1; Second Hand Exposure: No; Hx Alcohol Use: No Hx Substance Use: No Preferred Language: Palauan Communication Ability: Effective Visual Impairment: Limited Hearing Ability: Normal Welder Manufacture Required: No Beliefs That Will Affect Care: None marital status: Current Living Situation: Spouse 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 How many Children do You have: 3 Other Information That Helps Us Care for You: No Feels Safe at Home: Yes Safety Concerns: Feels Safe At This Time Childhood Exposure to Second-Hand Smoke: Yes (father) caffeine: Yes during the past year weight has: remained stable Dental Care, Regularly: No Physical Activity Frequency: 3-4 Times per Week Physical Activity Frequency Comment: walks Seatbelt Use: always Sunscreen Use: Yes Assistive Devices: Oxygen - Continuous and Walker Allergies Allergies Allergy/AdvReac Type Severity Reaction Status Date / Time Sulfa (Sulfonamide Allergy Intermediate Rash Verified 03/07/22 14:51 Antibiotics) Penicillins Allergy Unknown HAPPENED Verified 03/07/22 14:51 A TEENAGER amiodarone AdvReac Intermediate SKIN Verified 03/07/22 14:51 PEELED OFF FEET fexofenadine AdvReac Intermediate "SKIN Verified 03/07/22 14:51 HURTS" HEADACHE lisinopril AdvReac Intermediate COUGH Verified 03/07/22 14:51 Home Meds Home Medications Medication Instructions Recorded Confirmed aspirin 81 mg tablet,delayed 81 mg PO DAILY 10/28/20 03/07/22 release (Adult Aspirin Regimen) cyanocobalamin (vitamin B-12) 1,000 mcg PO DAILY 05/04/21 03/07/22 1,000 mcg tablet (Vitamin B-12) pantoprazole 40 mg tablet,delayed 40 mg PO DAILY 11/25/21 03/07/22 release acetaminophen 325 mg tablet 325 mg PO Q4H PRN FEVER/PAIN 02/19/22 03/07/22 Theracalazinc 1 applic topical TID 03/07/22 03/07/22 fluticasone fur. 100 mcg-umeclid 1 inh inhalation DAILY 03/07/22 03/07/22 62.5 mcg-vilant 25 mcg inhalat.powder (Trelegy Ellipta) guaifenesin 600 mg tablet, 600 mg PO BID 03/07/22 03/07/22 extended release 12 hr (Mucus Relief ER) lorazepam 0.5 mg tablet 0.25 mg PO Q8H PRN anxiety 03/07/22 03/07/22 losartan 25 mg tablet 25 mg PO DAILY 03/07/22 03/07/22 mirtazapine 15 mg disintegrating 15 mg PO HS 03/07/22 03/07/22 tablet Previous Rx's Medication Instructions Recorded nitroglycerin 0.4 mg sublingual 0.4 mg sublingual Q5M PRN chest 10/28/20 tablet pain #30 tabs rosuvastatin 10 mg tablet 10 mg PO DAILY #30 tabs 08/05/21 metoprolol tartrate 50 mg tablet 50 mg PO BID #180 tabs 09/08/21 Oxygen Home #1 ea 09/30/21 ondansetron 4 mg disintegrating 4 mg PO Q8H PRN nausea and 01/15/22 tablet vomiting #30 tabs sertraline 50 mg tablet 50 mg PO DAILY #90 tabs 01/22/22 Walker #1 ea 02/05/22 albuterol sulfate 90 mcg/actuation 2 puff inhalation Q6H PRN 02/20/22 aerosol inhaler (Ventolin HFA) shortness of breath or wheezing #6.7 grams sotalol 80 mg tablet 80 mg PO DAILY 30 days #30 tabs 03/03/22 apixaban 2.5 mg tablet (Eliquis) 2.5 mg PO BID 90 days #180 tabs 03/06/22 Results & Data (ED) Vital Signs Vital Signs - 24 hr 03/07/22 12:00 03/07/22 11:39 03/07/22 11:39 Temperature 36.5 C Temperature Source Rectal Pulse Rate 57 L Pulse Rate [Forehead] 70 Pulse Rate from SpO2 Sensor Respiratory Rate 18 16 Respiratory Effort / Characteristics Spontaneous Gasping/Agonal Gasping/Agonal Respiratory Depth Shallow Shallow Respiratory Pattern Bradypnea Agonal Blood Pressure Blood Pressure [Right Arm] Blood Pressure Mean Blood Pressure Mean [Right Arm] Blood Pressure Position [Right Arm] Pulse Oximetry 100 Oxygen Delivery Method Mechanical Vent Ambu-Bag Fraction of Inspired Oxygen 60 Sepsis Recent Fever Within 48 Hours No Sepsis New/Unexplained Change in Mental Status N/A Sepsis Action Taken by Nursing No Action Required End-Tidal CO2 Pulse Oximetry Post Tiitration 03/07/22 11:39 03/07/22 11:38 03/07/22 11:38 Temperature Temperature Source Pulse Rate 59 L Pulse Rate [Forehead] Pulse Rate from SpO2 Sensor Respiratory Rate 16 Respiratory Effort / Characteristics Respiratory Depth Respiratory Pattern Blood Pressure 58/35 L Blood Pressure [Right Arm] Blood Pressure Mean 42 Blood Pressure Mean [Right Arm] Blood Pressure Position [Right Arm] Pulse Oximetry Oxygen Delivery Method Mechanical Vent Fraction of Inspired Oxygen 100 Sepsis Recent Fever Within 48 Hours Sepsis New/Unexplained Change in Mental Status Sepsis Action Taken by Nursing End-Tidal CO2 Pulse Oximetry Post Tiitration 100 03/07/22 11:40 03/07/22 11:42 03/07/22 11:42 Temperature Temperature Source Pulse Rate 58 L 55 L Pulse Rate [Forehead] Pulse Rate from SpO2 Sensor Respiratory Rate 19 10 L Respiratory Effort / Characteristics Respiratory Depth Respiratory Pattern Blood Pressure 79/38 L Blood Pressure [Right Arm] Blood Pressure Mean 51 Blood Pressure Mean [Right Arm] Blood Pressure Position [Right Arm] Pulse Oximetry 100 Oxygen Delivery Method Mechanical Vent Fraction of Inspired Oxygen Sepsis Recent Fever Within 48 Hours Sepsis New/Unexplained Change in Mental Status Sepsis Action Taken by Nursing End-Tidal CO2 Pulse Oximetry Post Tiitration 03/07/22 11:46 03/07/22 11:46 03/07/22 11:50 Temperature Temperature Source Pulse Rate 56 L Pulse Rate [Forehead] Pulse Rate from SpO2 Sensor Respiratory Rate 23 Respiratory Effort / Characteristics Respiratory Depth Respiratory Pattern Blood Pressure 136/49 L 152/49 H Blood Pressure [Right Arm] Blood Pressure Mean 78 83 Blood Pressure Mean [Right Arm] Blood Pressure Position [Right Arm] Pulse Oximetry Oxygen Delivery Method Fraction of Inspired Oxygen Sepsis Recent Fever Within 48 Hours Sepsis New/Unexplained Change in Mental Status Sepsis Action Taken by Nursing End-Tidal CO2 Pulse Oximetry Post Tiitration 03/07/22 11:50 03/07/22 11:57 03/07/22 11:57 Temperature Temperature Source Pulse Rate 58 L 62 Pulse Rate [Forehead] Pulse Rate from SpO2 Sensor 62 Respiratory Rate 17 18 Respiratory Effort / Characteristics Respiratory Depth Respiratory Pattern Blood Pressure 184/56 H Blood Pressure [Right Arm] Blood Pressure Mean 98 Blood Pressure Mean [Right Arm] Blood Pressure Position [Right Arm] Pulse Oximetry 100 Oxygen Delivery Method Fraction of Inspired Oxygen Sepsis Recent Fever Within 48 Hours Sepsis New/Unexplained Change in Mental Status Sepsis Action Taken by Nursing End-Tidal CO2 40 45 Pulse Oximetry Post Tiitration 03/07/22 12:00 03/07/22 12:03 03/07/22 12:03 Temperature Temperature Source Pulse Rate 57 L 70 Pulse Rate [Forehead] Pulse Rate from SpO2 Sensor 59 L 57 L Respiratory Rate 18 21 Respiratory Effort / Characteristics Respiratory Depth Respiratory Pattern Blood Pressure 110/44 L Blood Pressure [Right Arm] Blood Pressure Mean 66 Blood Pressure Mean [Right Arm] Blood Pressure Position [Right Arm] Pulse Oximetry 93 100 Oxygen Delivery Method Fraction of Inspired Oxygen Sepsis Recent Fever Within 48 Hours Sepsis New/Unexplained Change in Mental Status Sepsis Action Taken by Nursing End-Tidal CO2 46 49 Pulse Oximetry Post Tiitration 03/07/22 12:10 03/07/22 12:16 03/07/22 12:16 Temperature Temperature Source Pulse Rate 54 L 52 L Pulse Rate [Forehead] Pulse Rate from SpO2 Sensor 55 L Respiratory Rate 20 20 Respiratory Effort / Characteristics Respiratory Depth Respiratory Pattern Blood Pressure 65/27 L Blood Pressure [Right Arm] Blood Pressure Mean 39 Blood Pressure Mean [Right Arm] Blood Pressure Position [Right Arm] Pulse Oximetry 100 100 Oxygen Delivery Method Fraction of Inspired Oxygen Sepsis Recent Fever Within 48 Hours Sepsis New/Unexplained Change in Mental Status Sepsis Action Taken by Nursing End-Tidal CO2 42 40 Pulse Oximetry Post Tiitration 03/07/22 12:17 03/07/22 12:17 03/07/22 12:20 Temperature Temperature Source Pulse Rate 50 L 61 Pulse Rate [Forehead] Pulse Rate from SpO2 Sensor Respiratory Rate 20 14 Respiratory Effort / Characteristics Respiratory Depth Respiratory Pattern Blood Pressure 69/25 L Blood Pressure [Right Arm] Blood Pressure Mean 39 Blood Pressure Mean [Right Arm] Blood Pressure Position [Right Arm] Pulse Oximetry 81 L 95 Oxygen Delivery Method Fraction of Inspired Oxygen Sepsis Recent Fever Within 48 Hours Sepsis New/Unexplained Change in Mental Status Sepsis Action Taken by Nursing End-Tidal CO2 39 38 Pulse Oximetry Post Tiitration 03/07/22 12:21 03/07/22 12:21 03/07/22 12:25 Temperature Temperature Source Pulse Rate 53 L 50 L Pulse Rate [Forehead] Pulse Rate from SpO2 Sensor Respiratory Rate 20 20 Respiratory Effort / Characteristics Respiratory Depth Respiratory Pattern Blood Pressure 93/44 L Blood Pressure [Right Arm] Blood Pressure Mean 60 Blood Pressure Mean [Right Arm] Blood Pressure Position [Right Arm] Pulse Oximetry 97 Oxygen Delivery Method Fraction of Inspired Oxygen Sepsis Recent Fever Within 48 Hours Sepsis New/Unexplained Change in Mental Status Sepsis Action Taken by Nursing End-Tidal CO2 43 41 Pulse Oximetry Post Tiitration 03/07/22 12:25 03/07/22 12:30 03/07/22 12:30 Temperature Temperature Source Pulse Rate 47 L Pulse Rate [Forehead] Pulse Rate from SpO2 Sensor Respiratory Rate 20 Respiratory Effort / Characteristics Respiratory Depth Respiratory Pattern Blood Pressure 83/30 L 111/46 L Blood Pressure [Right Arm] Blood Pressure Mean 47 67 Blood Pressure Mean [Right Arm] Blood Pressure Position [Right Arm] Pulse Oximetry 90 Oxygen Delivery Method Mechanical Vent Fraction of Inspired Oxygen Sepsis Recent Fever Within 48 Hours Sepsis New/Unexplained Change in Mental Status Sepsis Action Taken by Nursing End-Tidal CO2 42 Pulse Oximetry Post Tiitration 03/07/22 12:39 03/07/22 12:39 03/07/22 12:40 Temperature Temperature Source Pulse Rate 63 Pulse Rate [Forehead] Pulse Rate from SpO2 Sensor Respiratory Rate 21 Respiratory Effort / Characteristics Respiratory Depth Respiratory Pattern Blood Pressure 90/77 L 96/37 L Blood Pressure [Right Arm] Blood Pressure Mean 81 56 Blood Pressure Mean [Right Arm] Blood Pressure Position [Right Arm] Pulse Oximetry Oxygen Delivery Method Fraction of Inspired Oxygen Sepsis Recent Fever Within 48 Hours Sepsis New/Unexplained Change in Mental Status Sepsis Action Taken by Nursing End-Tidal CO2 38 Pulse Oximetry Post Tiitration 03/07/22 12:40 03/07/22 13:08 03/07/22 14:10 Temperature Temperature Source Pulse Rate 48 L 69 Pulse Rate [Forehead] Pulse Rate from SpO2 Sensor Respiratory Rate 20 20 Respiratory Effort / Characteristics Respiratory Depth Respiratory Pattern Blood Pressure Blood Pressure [Right Arm] 66/29 L Blood Pressure Mean Blood Pressure Mean [Right Arm] 41 Blood Pressure Position [Right Arm] Lying Pulse Oximetry 100 Oxygen Delivery Method Fraction of Inspired Oxygen 60 Sepsis Recent Fever Within 48 Hours Sepsis New/Unexplained Change in Mental Status Sepsis Action Taken by Nursing End-Tidal CO2 43 36 Pulse Oximetry Post Tiitration 03/07/22 14:17 03/07/22 12:50 03/07/22 12:56 Temperature Temperature Source Pulse Rate Pulse Rate [Forehead] 51 L Pulse Rate from SpO2 Sensor Respiratory Rate 20 Respiratory Effort / Characteristics Respiratory Depth Respiratory Pattern Blood Pressure 129/52 L 125/49 L Blood Pressure [Right Arm] Blood Pressure Mean 77 74 Blood Pressure Mean [Right Arm] Blood Pressure Position [Right Arm] Pulse Oximetry 98 Oxygen Delivery Method Mechanical Vent Fraction of Inspired Oxygen Sepsis Recent Fever Within 48 Hours Sepsis New/Unexplained Change in Mental Status Sepsis Action Taken by Nursing End-Tidal CO2 Pulse Oximetry Post Tiitration 03/07/22 13:00 03/07/22 13:00 03/07/22 13:10 Temperature Temperature Source Pulse Rate 45 L Pulse Rate [Forehead] Pulse Rate from SpO2 Sensor Respiratory Rate 20 20 Respiratory Effort / Characteristics Respiratory Depth Respiratory Pattern Blood Pressure 104/38 L 139/63 Blood Pressure [Right Arm] Blood Pressure Mean 60 88 Blood Pressure Mean [Right Arm] Blood Pressure Position [Right Arm] Pulse Oximetry 97 90 Oxygen Delivery Method Mechanical Vent Fraction of Inspired Oxygen Sepsis Recent Fever Within 48 Hours Sepsis New/Unexplained Change in Mental Status Sepsis Action Taken by Nursing End-Tidal CO2 42 Pulse Oximetry Post Tiitration 03/07/22 13:10 03/07/22 13:15 03/07/22 13:15 Temperature Temperature Source Pulse Rate 46 L 46 L Pulse Rate [Forehead] Pulse Rate from SpO2 Sensor 46 L Respiratory Rate 20 20 Respiratory Effort / Characteristics Respiratory Depth Respiratory Pattern Blood Pressure 129/38 L Blood Pressure [Right Arm] Blood Pressure Mean 68 Blood Pressure Mean [Right Arm] Blood Pressure Position [Right Arm] Pulse Oximetry 100 Oxygen Delivery Method Fraction of Inspired Oxygen Sepsis Recent Fever Within 48 Hours Sepsis New/Unexplained Change in Mental Status Sepsis Action Taken by Nursing End-Tidal CO2 38 37 Pulse Oximetry Post Tiitration 03/07/22 13:20 03/07/22 13:38 03/07/22 13:40 Temperature Temperature Source Pulse Rate Pulse Rate [Forehead] Pulse Rate from SpO2 Sensor 49 L Respiratory Rate 20 Respiratory Effort / Characteristics Respiratory Depth Respiratory Pattern Blood Pressure 178/147 H Blood Pressure [Right Arm] Blood Pressure Mean 157 Blood Pressure Mean [Right Arm] Blood Pressure Position [Right Arm] Pulse Oximetry 100 Oxygen Delivery Method Fraction of Inspired Oxygen Sepsis Recent Fever Within 48 Hours Sepsis New/Unexplained Change in Mental Status Sepsis Action Taken by Nursing End-Tidal CO2 35 Pulse Oximetry Post Tiitration 03/07/22 13:40 03/07/22 13:45 03/07/22 13:45 Temperature Temperature Source Pulse Rate 55 L 48 L Pulse Rate [Forehead] Pulse Rate from SpO2 Sensor Respiratory Rate 20 20 Respiratory Effort / Characteristics Respiratory Depth Respiratory Pattern Blood Pressure 107/47 L Blood Pressure [Right Arm] Blood Pressure Mean 67 Blood Pressure Mean [Right Arm] Blood Pressure Position [Right Arm] Pulse Oximetry Oxygen Delivery Method Fraction of Inspired Oxygen Sepsis Recent Fever Within 48 Hours Sepsis New/Unexplained Change in Mental Status Sepsis Action Taken by Nursing End-Tidal CO2 39 33 Pulse Oximetry Post Tiitration 03/07/22 13:50 03/07/22 13:54 03/07/22 13:54 Temperature Temperature Source Pulse Rate 49 L 50 L Pulse Rate [Forehead] Pulse Rate from SpO2 Sensor 50 L 50 L Respiratory Rate 20 20 Respiratory Effort / Characteristics Respiratory Depth Respiratory Pattern Blood Pressure 108/45 L Blood Pressure [Right Arm] Blood Pressure Mean 66 Blood Pressure Mean [Right Arm] Blood Pressure Position [Right Arm] Pulse Oximetry 97 94 Oxygen Delivery Method Fraction of Inspired Oxygen Sepsis Recent Fever Within 48 Hours Sepsis New/Unexplained Change in Mental Status Sepsis Action Taken by Nursing End-Tidal CO2 34 35 Pulse Oximetry Post Tiitration 03/07/22 13:55 03/07/22 13:55 03/07/22 14:00 Temperature Temperature Source Pulse Rate 49 L Pulse Rate [Forehead] Pulse Rate from SpO2 Sensor 49 L Respiratory Rate 20 Respiratory Effort / Characteristics Respiratory Depth Respiratory Pattern Blood Pressure 116/48 L 123/40 L Blood Pressure [Right Arm] Blood Pressure Mean 70 67 Blood Pressure Mean [Right Arm] Blood Pressure Position [Right Arm] Pulse Oximetry 93 Oxygen Delivery Method Fraction of Inspired Oxygen Sepsis Recent Fever Within 48 Hours Sepsis New/Unexplained Change in Mental Status Sepsis Action Taken by Nursing End-Tidal CO2 35 Pulse Oximetry Post Tiitration 03/07/22 14:00 03/07/22 14:05 03/07/22 14:05 Temperature Temperature Source Pulse Rate 55 L 51 L Pulse Rate [Forehead] Pulse Rate from SpO2 Sensor 54 L 51 L Respiratory Rate 20 20 Respiratory Effort / Characteristics Respiratory Depth Respiratory Pattern Blood Pressure 99/35 L Blood Pressure [Right Arm] Blood Pressure Mean 56 Blood Pressure Mean [Right Arm] Blood Pressure Position [Right Arm] Pulse Oximetry 97 100 Oxygen Delivery Method Fraction of Inspired Oxygen Sepsis Recent Fever Within 48 Hours Sepsis New/Unexplained Change in Mental Status Sepsis Action Taken by Nursing End-Tidal CO2 34 30 Pulse Oximetry Post Tiitration 03/07/22 14:07 03/07/22 14:07 03/07/22 14:08 Temperature Temperature Source Pulse Rate 50 L 50 L Pulse Rate [Forehead] Pulse Rate from SpO2 Sensor 51 L 52 L Respiratory Rate 20 20 Respiratory Effort / Characteristics Respiratory Depth Respiratory Pattern Blood Pressure 73/31 L Blood Pressure [Right Arm] Blood Pressure Mean 45 Blood Pressure Mean [Right Arm] Blood Pressure Position [Right Arm] Pulse Oximetry 94 99 Oxygen Delivery Method Fraction of Inspired Oxygen Sepsis Recent Fever Within 48 Hours Sepsis New/Unexplained Change in Mental Status Sepsis Action Taken by Nursing End-Tidal CO2 31 30 Pulse Oximetry Post Tiitration 03/07/22 14:08 03/07/22 14:10 03/07/22 14:11 Temperature Temperature Source Pulse Rate 51 L Pulse Rate [Forehead] Pulse Rate from SpO2 Sensor 51 L Respiratory Rate 20 Respiratory Effort / Characteristics Respiratory Depth Respiratory Pattern Blood Pressure 66/29 L 80/29 L Blood Pressure [Right Arm] Blood Pressure Mean 41 46 Blood Pressure Mean [Right Arm] Blood Pressure Position [Right Arm] Pulse Oximetry 93 Oxygen Delivery Method Fraction of Inspired Oxygen Sepsis Recent Fever Within 48 Hours Sepsis New/Unexplained Change in Mental Status Sepsis Action Taken by Nursing End-Tidal CO2 29 Pulse Oximetry Post Tiitration 03/07/22 14:11 03/07/22 14:16 03/07/22 14:16 Temperature Temperature Source Pulse Rate 51 L 49 L Pulse Rate [Forehead] Pulse Rate from SpO2 Sensor 51 L 50 L Respiratory Rate 20 20 Respiratory Effort / Characteristics Respiratory Depth Respiratory Pattern Blood Pressure 163/68 H Blood Pressure [Right Arm] Blood Pressure Mean 99 Blood Pressure Mean [Right Arm] Blood Pressure Position [Right Arm] Pulse Oximetry 96 98 Oxygen Delivery Method Fraction of Inspired Oxygen Sepsis Recent Fever Within 48 Hours Sepsis New/Unexplained Change in Mental Status Sepsis Action Taken by Nursing End-Tidal CO2 31 33 Pulse Oximetry Post Tiitration 03/07/22 14:17 03/07/22 14:17 03/07/22 14:20 Temperature Temperature Source Pulse Rate 47 L 54 L Pulse Rate [Forehead] Pulse Rate from SpO2 Sensor 49 L 52 L Respiratory Rate 19 21 Respiratory Effort / Characteristics Respiratory Depth Respiratory Pattern Blood Pressure 178/56 H Blood Pressure [Right Arm] Blood Pressure Mean 96 Blood Pressure Mean [Right Arm] Blood Pressure Position [Right Arm] Pulse Oximetry 99 100 Oxygen Delivery Method Fraction of Inspired Oxygen Sepsis Recent Fever Within 48 Hours Sepsis New/Unexplained Change in Mental Status Sepsis Action Taken by Nursing End-Tidal CO2 34 34 Pulse Oximetry Post Tiitration 03/07/22 14:21 03/07/22 14:21 Temperature Temperature Source Pulse Rate 53 L Pulse Rate [Forehead] Pulse Rate from SpO2 Sensor 53 L Respiratory Rate 20 Respiratory Effort / Characteristics Respiratory Depth Respiratory Pattern Blood Pressure 194/50 H Blood Pressure [Right Arm] Blood Pressure Mean 98 Blood Pressure Mean [Right Arm] Blood Pressure Position [Right Arm] Pulse Oximetry 99 Oxygen Delivery Method Fraction of Inspired Oxygen Sepsis Recent Fever Within 48 Hours Sepsis New/Unexplained Change in Mental Status Sepsis Action Taken by Nursing End-Tidal CO2 36 Pulse Oximetry Post Tiitration Laboratory Data Result diagrams: 03/07/22 13:00 03/07/22 22:54 Lab Results 03/07/22 03/07/22 03/07/22 Range/Units 11:45 12:28 12:33 WBC (4.8-10.8) K/ul RBC (3.93-5.22) M/uL Hgb (12.0-16.0) g/dl POC Hgb 11.2 L (12.0-16.0) g/dl Hct (34.1-44.9) % POC Hct 33 L (37-47) % MCV (80.0-100.0) fL MCH (25.0-34.0) pg MCHC (32.0-36.0) g/dL RDW Std Deviation (36.4-46.3) fL RDW Coeff of Ruthy (11.5-14.5) % Plt Count (130-400) K/uL MPV (9.4-12.3) fL Immature Gran % (Auto) % Neut % (Auto) % Lymph % (Auto) % Sutton % (Auto) % Eos % (Auto) % Baso % (Auto) % Neut # (Auto) (1.4-6.5) K/uL Lymph # (Auto) (1.2-3.4) K/uL Sutton # (Auto) (0.24-0.82) K/uL Eos # (Auto) (0-0.50) K/uL Baso # (Auto) (0-0.2) K/uL Immature Gran # (Auto) (0.00-0.02) K/uL Macrocytosis ABG pH ABG pCO2 ABG pO2 ABG HCO3 ABG O2 Saturation ABG Base Excess Francois Test Barometric Pressure Oxygen Given POC Sodium 143 (135-144) mmol/L Sodium 145 (136-145) mmol/L POC Potassium 6.5 H* (3.3-5.0) mmol/L Potassium 6.6 H* (3.5-5.1) mmol/L POC Chloride 99 L (101-112) mmol/L Chloride 100 (98-107) mmol/L Carbon Dioxide 37 H (21-32) mmol/L POC Total CO2 > 40 H* (24-31) mmol/L Anion Gap 8 (3-11) POC Anion Gap 8.0 L (16-25) mmol/L POC BUN 50 H (7-18) mg/dl BUN 47 H (6-23) mg/dl Creatinine 0.95 (0.6-1.2) mg/dl POC Creatinine 1.2 (0.6-1.3) mg/dl Est Cr Clr Drug Dosing Not Reportable Est GFR ( Amer) 67.0 ml/min Est GFR (Non-Af Amer) 57.8 ml/min BUN/Creatinine Ratio 49.5 H (10-20) Glucose 87 (70-99(Fasting)) mg/dl POC Glucose (70-99) mg/dl POC Glucose (other) 88 (70-99) mg/dl Lactate (0.4-2.0) mmol/L Calcium 9.4 (8.5-10.1) mg/dl POC Ioniz Calcium Soledad 1.15 (1.12-1.32) mmol/l Magnesium 2.1 (1.7-2.4) mg/dl Total Bilirubin 0.5 (0.2-1.0) mg/dl Direct Bilirubin 0.1 (0-0.2) mg/dl AST 20 (13-39) U/L ALT 8 (7-52) U/L Alkaline Phosphatase 90 (34-104) U/L Troponin I High Sens 41.3 H D (0-14) pg/ml Total Protein 6.4 (6.0-8.3) gm/dl Albumin 3.2 L (3.4-5.0) gm/dl Lipase 33 (11-82) U/L Urine Color Urine Appearance (Clear) Urine pH (4.5-7.5) Ur Specific [place] (1.000-1.030) Urine Protein (Negative) Urine Glucose (UA) (Negative) Urine Ketones (Negative) Urine Blood (Negative) Urine Nitrite (Negative) Urine Bilirubin (Negative) Urine Urobilinogen (Negative) Ur Leukocyte Esterase (Negative) Urine WBC (Auto) (0-5) /hpf Urine RBC (Auto) (0-4) /hpf U Hyaline Cast (Auto) (0-5) /lpf U Epithel Cells (Auto) (0-5) /lpf Urine Bacteria (Auto) (Negative) Ur Renal Epithelial Cell Calcium Oxalate Crystal (None Prsent) Granular Casts (0) /lpf SARS-CoV-2 (PCR) NEGATIVE (Negative) Influenza Type A (PCR) Negative (Neg) Influenza Type B (PCR) Negative (Neg) RSV (RT-PCR) Negative (Neg) 03/07/22 03/07/22 03/07/22 Range/Units 12:42 13:00 13:00 WBC 7.82 (4.8-10.8) K/ul RBC 2.81 L (3.93-5.22) M/uL Hgb 8.8 L (12.0-16.0) g/dl POC Hgb (12.0-16.0) g/dl Hct 31.0 L (34.1-44.9) % POC Hct (37-47) % MCV 110.3 H (80.0-100.0) fL MCH 31.3 (25.0-34.0) pg MCHC 28.4 L (32.0-36.0) g/dL RDW Std Deviation 61.9 H (36.4-46.3) fL RDW Coeff of Ruthy 15.3 H (11.5-14.5) % Plt Count 166 (130-400) K/uL MPV 11.1 (9.4-12.3) fL Immature Gran % (Auto) 0.5 % Neut % (Auto) 74.6 % Lymph % (Auto) 17.3 % Sutton % (Auto) 7.5 % Eos % (Auto) 0.0 % Baso % (Auto) 0.1 % Neut # (Auto) 5.83 (1.4-6.5) K/uL Lymph # (Auto) 1.35 (1.2-3.4) K/uL Sutton # (Auto) 0.59 (0.24-0.82) K/uL Eos # (Auto) 0.00 (0-0.50) K/uL Baso # (Auto) 0.01 (0-0.2) K/uL Immature Gran # (Auto) 0.04 H (0.00-0.02) K/uL Macrocytosis Present ABG pH Cancelled ABG pCO2 Cancelled ABG pO2 Cancelled ABG HCO3 Cancelled ABG O2 Saturation Cancelled ABG Base Excess Cancelled Francois Test Cancelled Barometric Pressure Cancelled Oxygen Given Cancelled POC Sodium (135-144) mmol/L Sodium (136-145) mmol/L POC Potassium (3.3-5.0) mmol/L Potassium (3.5-5.1) mmol/L POC Chloride (101-112) mmol/L Chloride (98-107) mmol/L Carbon Dioxide (21-32) mmol/L POC Total CO2 (24-31) mmol/L Anion Gap (3-11) POC Anion Gap (16-25) mmol/L POC BUN (7-18) mg/dl BUN (6-23) mg/dl Creatinine (0.6-1.2) mg/dl POC Creatinine (0.6-1.3) mg/dl Est Cr Clr Drug Dosing Est GFR ( Amer) ml/min Est GFR (Non-Af Amer) ml/min BUN/Creatinine Ratio (10-20) Glucose (70-99(Fasting)) mg/dl POC Glucose (70-99) mg/dl POC Glucose (other) (70-99) mg/dl Lactate 3.1 H* (0.4-2.0) mmol/L Calcium (8.5-10.1) mg/dl POC Ioniz Calcium Soledad (1.12-1.32) mmol/l Magnesium (1.7-2.4) mg/dl Total Bilirubin (0.2-1.0) mg/dl Direct Bilirubin (0-0.2) mg/dl AST (13-39) U/L ALT (7-52) U/L Alkaline Phosphatase (34-104) U/L Troponin I High Sens (0-14) pg/ml Total Protein (6.0-8.3) gm/dl Albumin (3.4-5.0) gm/dl Lipase (11-82) U/L Urine Color Urine Appearance (Clear) Urine pH (4.5-7.5) Ur Specific [place] (1.000-1.030) Urine Protein (Negative) Urine Glucose (UA) (Negative) Urine Ketones (Negative) Urine Blood (Negative) Urine Nitrite (Negative) Urine Bilirubin (Negative) Urine Urobilinogen (Negative) Ur Leukocyte Esterase (Negative) Urine WBC (Auto) (0-5) /hpf Urine RBC (Auto) (0-4) /hpf U Hyaline Cast (Auto) (0-5) /lpf U Epithel Cells (Auto) (0-5) /lpf Urine Bacteria (Auto) (Negative) Ur Renal Epithelial Cell Calcium Oxalate Crystal (None Prsent) Granular Casts (0) /lpf SARS-CoV-2 (PCR) (Negative) Influenza Type A (PCR) (Neg) Influenza Type B (PCR) (Neg) RSV (RT-PCR) (Neg) 03/07/22 03/07/22 Range/Units 13:06 14:16 WBC (4.8-10.8) K/ul RBC (3.93-5.22) M/uL Hgb (12.0-16.0) g/dl POC Hgb (12.0-16.0) g/dl Hct (34.1-44.9) % POC Hct (37-47) % MCV (80.0-100.0) fL MCH (25.0-34.0) pg MCHC (32.0-36.0) g/dL RDW Std Deviation (36.4-46.3) fL RDW Coeff of Ruthy (11.5-14.5) % Plt Count (130-400) K/uL MPV (9.4-12.3) fL Immature Gran % (Auto) % Neut % (Auto) % Lymph % (Auto) % Sutton % (Auto) % Eos % (Auto) % Baso % (Auto) % Neut # (Auto) (1.4-6.5) K/uL Lymph # (Auto) (1.2-3.4) K/uL Sutton # (Auto) (0.24-0.82) K/uL Eos # (Auto) (0-0.50) K/uL Baso # (Auto) (0-0.2) K/uL Immature Gran # (Auto) (0.00-0.02) K/uL Macrocytosis ABG pH ABG pCO2 ABG pO2 ABG HCO3 ABG O2 Saturation ABG Base Excess Francois Test Barometric Pressure Oxygen Given POC Sodium (135-144) mmol/L Sodium (136-145) mmol/L POC Potassium (3.3-5.0) mmol/L Potassium (3.5-5.1) mmol/L POC Chloride (101-112) mmol/L Chloride (98-107) mmol/L Carbon Dioxide (21-32) mmol/L POC Total CO2 (24-31) mmol/L Anion Gap (3-11) POC Anion Gap (16-25) mmol/L POC BUN (7-18) mg/dl BUN (6-23) mg/dl Creatinine (0.6-1.2) mg/dl POC Creatinine (0.6-1.3) mg/dl Est Cr Clr Drug Dosing Est GFR ( Amer) ml/min Est GFR (Non-Af Amer) ml/min BUN/Creatinine Ratio (10-20) Glucose (70-99(Fasting)) mg/dl POC Glucose 59 L* (70-99) mg/dl POC Glucose (other) (70-99) mg/dl Lactate (0.4-2.0) mmol/L Calcium (8.5-10.1) mg/dl POC Ioniz Calcium Soledad (1.12-1.32) mmol/l Magnesium (1.7-2.4) mg/dl Total Bilirubin (0.2-1.0) mg/dl Direct Bilirubin (0-0.2) mg/dl AST (13-39) U/L ALT (7-52) U/L Alkaline Phosphatase (34-104) U/L Troponin I High Sens (0-14) pg/ml Total Protein (6.0-8.3) gm/dl Albumin (3.4-5.0) gm/dl Lipase (11-82) U/L Urine Color Yellow Urine Appearance Cloudy A (Clear) Urine pH 5.5 (4.5-7.5) Ur Specific [place] 1.022 (1.000-1.030) Urine Protein 2+ H (Negative) Urine Glucose (UA) Negative (Negative) Urine Ketones Trace H (Negative) Urine Blood Negative (Negative) Urine Nitrite Negative (Negative) Urine Bilirubin Negative (Negative) Urine Urobilinogen Negative (Negative) Ur Leukocyte Esterase Negative (Negative) Urine WBC (Auto) 1-5 (0-5) /hpf Urine RBC (Auto) 5-10 H (0-4) /hpf U Hyaline Cast (Auto) >30 H (0-5) /lpf U Epithel Cells (Auto) >30 H (0-5) /lpf Urine Bacteria (Auto) Negative (Negative) Ur Renal Epithelial Cell Not Reportable Calcium Oxalate Crystal Present A (None Prsent) Granular Casts 10-20 H (0) /lpf SARS-CoV-2 (PCR) (Negative) Influenza Type A (PCR) (Neg) Influenza Type B (PCR) (Neg) RSV (RT-PCR) (Neg) Administered Medications Albuterol (Albut/Ipratrop 3mg/0.5mg Neb 3 Ml Vial) 3 ml INH Q6R [facility] Stop: 04/06/22 18:59 Last Admin: 03/08/22 00:52 Dose: 3 ml Documented By: Admin: 03/07/22 19:21 Dose: 3 ml Documented By: BWT Budesonide (Budesonide 0.5 Mg/2 Ml Vial (Pulmicort)) 0.5 mg NEB BIDR [facility] Stop: 04/06/22 18:59 Last Admin: 03/07/22 19:21 Dose: 0.5 mg Documented By: BWT Propofol (Diprivan) 1,000 mg in 100 mls @ 5.7 mls/hr IV .[id number] [facility]; Protocol Stop: 03/10/22 11:44 Last Titration: 03/08/22 03:58 Dose: 25 mcg/kg/min, 5.7 mls/hr Documented By: Admin: 03/07/22 21:24 Dose: 20 mcg/kg/min, 4.6 mls/hr Documented By: BPDonald Co-signed By: XIMENA Titration: 03/07/22 21:24 Dose: 20 mcg/kg/min, 4.6 mls/hr Documented By: TIAGO Co-signed By: XIMENA Titration: 03/07/22 18:59 Dose: 20 mcg/kg/min, 4.6 mls/hr Documented By: WRS Co-signed By: BPY Titration: 03/07/22 16:18 Dose: 20 mcg/kg/min, 4.6 mls/hr Documented By: Titration: 03/07/22 13:10 Dose: 15 mcg/kg/min, 3.4 mls/hr Documented By: Titration: 03/07/22 12:39 Dose: 10 mcg/kg/min, 2.3 mls/hr Documented By: Titration: 03/07/22 12:22 Dose: 7.5 mcg/kg/min, 1.7 mls/hr Documented By: Admin: 03/07/22 12:08 Dose: 5 mcg/kg/min, 1.1 mls/hr Documented By: TREY Co-signed By: PETROS Norepinephrine Bitartrate (Levophed/D5w) 4 mg in 250 mls @ 21.375 mls/hr IV .[id number] [facility]; Protocol Stop: 04/06/22 12:29 Last Titration: 03/08/22 06:47 Dose: 0.17 mcg/kg/min, 24.2 mls/hr Documented By: Titration: 03/08/22 01:29 Dose: 0.2 mcg/kg/min, 28.5 mls/hr Documented By: Admin: 03/08/22 01:27 Dose: 0.14 mcg/kg/min, 20 mls/hr Documented By: BPY Co-signed By: ELS Titration: 03/08/22 01:27 Dose: 0.14 mcg/kg/min, 20 mls/hr Documented By: BPY Co-signed By: ELS Titration: 03/07/22 23:21 Dose: 0.14 mcg/kg/min, 20 mls/hr Documented By: Titration: 03/07/22 18:59 Dose: 0.12 mcg/kg/min, 17.1 mls/hr Documented By: WRS Co-signed By: BPY Titration: 03/07/22 17:42 Dose: 0.12 mcg/kg/min, 17.1 mls/hr Documented By: Titration: 03/07/22 16:15 Dose: 0.15 mcg/kg/min, 21.4 mls/hr Documented By: Titration: 03/07/22 16:11 Dose: 0 mcg/kg/min, 0 mls/hr Documented By: Titration: 03/07/22 15:21 Dose: 0.08 mcg/kg/min, 11.4 mls/hr Documented By: Titration: 03/07/22 15:15 Dose: 0.13 mcg/kg/min, 18.5 mls/hr Documented By: Titration: 03/07/22 14:40 Dose: 0.15 mcg/kg/min, 21.4 mls/hr Documented By: Titration: 03/07/22 14:24 Dose: 0 mcg/kg/min, 0 mls/hr Documented By: Titration: 03/07/22 14:17 Dose: 0.15 mcg/kg/min, 21.4 mls/hr Documented By: Titration: 03/07/22 14:10 Dose: 0.17 mcg/kg/min, 24.2 mls/hr Documented By: Admin: 03/07/22 12:27 Dose: 0.15 mcg/kg/min, 21.4 mls/hr Documented By: TREY Co-signed By: PETROS Cefepime HCl 2,000 mg/ Syringe 20 mls @ 5.5 mls/min IV Q12H [facility]; Protocol Stop: 03/15/22 01:59 Last Admin: 03/08/22 01:43 Dose: 5.5 mls/min Documented By: TIAGO Methylprednisolone 40 mg/ (Syringe) 0.64 mls @ 1.5 mls/min IV Q6H [facility] Stop: 04/06/22 19:59 Last Admin: 03/08/22 02:02 Dose: 1.5 mls/min Documented By: Admin: 03/07/22 19:56 Dose: 1.5 mls/min Documented By: TIAGO Pantoprazole Sodium 40 mg/ (Syringe) 10 mls @ 5 mls/min IV BID [facility]AY Stop: 04/06/22 20:59 Last Admin: 03/07/22 20:00 Dose: 5 mls/min Documented By: TIAGO Discontinued Medications Albuterol (Albut/Ipratrop 3mg/0.5mg Neb 3 Ml Vial) 12 ml NEB ONE ONE; Protocol Stop: 03/07/22 11:40 Last Admin: 03/07/22 11:58 Dose: 12 ml Documented By: JOSE RAFAEL Dexamethasone Sodium Phosphate (DexamethasonePf 10 Mg/Ml Vial) 10 mg IV NOW ONE Stop: 03/07/22 11:40 Last Admin: 03/07/22 14:04 Dose: 10 mg Documented By: TREY Dextrose (Dextrose 50% 50 Ml Syringe) 50 ml IV NOW ONE Stop: 03/07/22 13:50 Last Admin: 03/07/22 14:55 Dose: 50 ml Documented By: TREY Fentanyl Citrate (Fentanyl Citrate 100 Mcg/2 Ml Vial) 25 mcg IV NOW ONE Stop: 03/07/22 12:03 Last Admin: 03/07/22 12:07 Dose: 25 mcg Documented By: TREY Sodium Chloride (Nss 1000ml) 1,000 mls @ 999 mls/hr IV .Q1H1M ONE Stop: 03/07/22 12:39 Last Infusion: 03/07/22 15:51 Dose: 0 mls/hr Documented By: Admin: 03/07/22 12:09 Dose: 999 mls/hr Documented By: TREY Cefepime HCl (Maxipime) 2,000 mg in 20 mls @ 5 mls/min IV NOW STA; Protocol Stop: 03/07/22 13:22 Last Admin: 03/07/22 14:27 Dose: 5 mls/min Documented By: TREY Sodium Chloride (Nss 1000ml) 1,000 mls @ 999 mls/hr IV .Q1H1M ONE Stop: 03/07/22 15:06 Last Infusion: 03/07/22 15:51 Dose: 0 mls/hr Documented By: Admin: 03/07/22 14:12 Dose: 999 mls/hr Documented By: TREY Insulin Human Regular 10 units (/ Syringe) 10 mls @ 30 mls/min IV NOW STA Stop: 03/07/22 14:24 Last Admin: 03/07/22 15:43 Dose: Not Given Documented By: SALBADOR Parenteral Electrolytes (Normosol-R) 1,000 mls @ 125 mls/hr IV .Q8H ONE Stop: 03/08/22 01:59 Last Infusion: 03/08/22 02:23 Dose: 0 mls/hr Documented By: Infusion: 03/07/22 18:59 Dose: 125 mls/hr Documented By: Admin: 03/07/22 18:09 Dose: 125 mls/hr Documented By: ADIA Sodium Chloride (Nss 1000ml) 1,000 mls @ 999 mls/hr IV .Q1H1M ONE Stop: 03/07/22 17:45 Last Admin: 03/07/22 17:40 Dose: Not Given Documented By: ADIA Vancomycin HCl 1,000 mg/ (Sodium Chloride) 270 mls @ 200 mls/hr IV TODAY@1800 ONE Stop: 03/07/22 19:20 Last Infusion: 03/07/22 23:20 Dose: 0 mls/hr Documented By: Infusion: 03/07/22 18:59 Dose: 200 mls/hr Documented By: Admin: 03/07/22 18:15 Dose: 200 mls/hr Documented By: ADIA Pantoprazole Sodium 40 mg/ (Syringe) 10 mls @ 5 mls/min IV NOW ONE Stop: 03/07/22 17:58 Last Admin: 03/07/22 18:33 Dose: 5 mls/min Documented By: ADIA Calcium Gluconate 1,000 mg/ (Dextrose) 60 mls @ 240 mls/hr IV NOW ONE Stop: 03/07/22 18:13 Last Infusion: 03/07/22 18:59 Dose: 0 mls/hr Documented By: Admin: 03/07/22 18:38 Dose: 240 mls/hr Documented By: ADIA Thiamine HCl 300 mg/ Sodium (Chloride) 53 mls @ 212 mls/hr IV NOW STA Stop: 03/07/22 18:15 Last Infusion: 03/07/22 23:19 Dose: 0 mls/hr Documented By: Admin: 03/07/22 19:45 Dose: 212 mls/hr Documented By: TIAGO Ioversol (Optiray 320 125ml) 119 ml IV ONCE ONE Stop: 03/07/22 16:40 Last Admin: 03/07/22 16:40 Dose: 119 ml Documented By: ROLANDOK Sodium Bicarbonate (Sodium Bicarb 8.4% Inj 50 Meq/50 Ml Syr) 50 meq IV NOW STA Stop: 03/07/22 13:50 Last Admin: 03/07/22 15:44 Dose: 50 meq Documented By: TW Imaging Data Radiologist's Impression: Chest X-Ray 03/07/22 11:40 XR chest 1V portable HISTORY: resp failure, intubation COMPARISON: Chest 03/01/2022. FINDINGS: Endotracheal tube terminates approximately 4.9 cm from the ebony. The heart is normal in size. Emphysema and chronic interstitial thickening persists. No new focal lung consolidations. No evidence for pulmonary edema. No pleural fusions. No pneumothorax. 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 IMPRESSION: 1. Endotracheal tube terminates 4.9 cm from the ebony. 2. Chronic interstitial thickening and postoperative changes from prior endograft repair of the thoracic aortic aneurysm again noted. ACT 112: Negative or not required by law. Electronically signed by: Eduardo Peraza M.D. 03/07/2022 12:[address] 03/07/22 12:[address] DOSE: 537.48 mGy.cm HISTORY: Altered mental status, on blood thinner TECHNIQUE: Multiaxial CT images of the head were performed without the use of intravenous contrast. Automated exposure control was utilized for this study. A dose lowering technique was utilized adhering to the principles of ALARA. Comparison: None. Findings: The paranasal sinuses and mastoid air cells are clear. The calvarium and skull base are intact. There is no mass, hematoma, midline shift, acute infarct. White matter hypodensity is nonspecific but suggestive of microvascular ischemic change. The ventricles and sulci demonstrate mild age-related i nvolutional changes. 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 Impression: No acute intracranial abnormality. ACT 112: Negative or not required by law. Electronically signed by: Eduardo Peraza M.D. 03/07/2022 1:47 PM Discharge Plan Visit Data Chief Complaint: Respiratory Distress Stated Complaint: respiratory ED Provider: Kike Simon Discharge Problem: Acute respiratory failure, Acute hypotension, Elevated lactic acid level, Acute hyperkalemia, Obtundation Patient Disposition: Admitted As Inpatient Discharge Instructions Interventions: ED Discharge Assessment Last Done: 03/07/22 16:30 : Acute respiratory failure Qualifiers: Respiratory failure complication: hypoxia Qualified Code(s): J96.01 - Acute respiratory failure with hypoxia
[2022-03-07] MEDS ORDERED: fentaNYL citrate 100 MCG/2 ML VIAL IV ONE ×2 (12:02→12:10)
[2022-03-07] MEDS: propofoL 1,000 MG/100 ML VIAL IV SCH ×2 (12:08→21:24)
[2022-03-07] MEDS ORDERED: ETOMIDATE 2 MG/ML 20 ML VIAL IV ONE (12:10)
[2022-03-07] MEDS ORDERED: SUCCINYLCHOLINE CHLORIDE 20 MG/ML 10 ML VIAL IV ONE (12:10)
[2022-03-07] MEDS: NOREPINEPHRINE/D5W 4 MG/250 ML PLCT IV SCH (12:27)
--- NOTE | 2022-03-07 12:30 | XRay Report ---
XR chest 1V portable HISTORY: resp failure, intubation COMPARISON: Chest 03/01/2022. FINDINGS: Endotracheal tube terminates approximately 4.9 cm from the ebony. The heart is normal in s ize. Emphysema and chronic interstitial thickening persists. No new focal lung consolidations. No devora dence for pulmonary edema. No pleural fusions. No pneumothorax. 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 IMPRESSION: 1. Endotracheal tube terminates 4.9 cm from the ebony. 2. Chronic interstitial thickening and postoperative changes from prior endograft repair of the thora cic aortic aneurysm again noted. ACT 112: Negative or not required by law. Electronically signed by: Eduardo Peraza M.D. 03/07/2022 12:29 PM
[2022-03-07 12:45] LABS: iSTAT Blood Urea Nitrogen 50 mg/dl (7-18); iSTAT Carbon Dioxide > 40 mmol/L (24-31); iSTAT Chloride 99 mmol/L (101-112); iSTAT Creatinine 1.2 mg/dl (0.6-1.3); iSTAT Glucose 88 mg/dl (70-99); iSTAT Hematocrit 33 % (37-47); iSTAT Hemoglobin 11.2 g/dl (12.0-16.0); iSTAT Ionized Calcium 1.15 mmol/l (1.12-1.32); iSTAT Potassium 6.5 mmol/L (3.3-5.0); iSTAT Sodium 143 mmol/L (135-144)
--- NOTE | 2022-03-07 12:54 | Electrocardiogram Report ---
Test Reason : Blood Pressure : / mmHG Vent. Rate : 057 BPM Atrial Rate : 057 BPM P-R Int : 130 ms QRS Dur : 090 ms QT Int : 478 ms P-R-T Axes : 076 063 016 degrees QTc Int : 465 ms Sinus bradycardia with Premature atrial complexes Cannot rule out Inferior infarct , age undetermined Abnormal ECG When compared with ECG of 03-MAR-2022 14:13, Premature atrial complexes are now Present Inverted T waves have replaced nonspecific T wave abnormality in Inferior leads Confirmed by Santiago Godinez ([id number]) on 03/07/2022 12:54:16 PM Referred By: Confirmed By:Santiago Godinez
[2022-03-07 13:09] LABS: Troponin I High Sensitivity 41.3 pg/ml (0-14)
[2022-03-07 13:11] LABS: Hemoglobin 8.8 g/dl (12.0-16.0); Mean Corpuscular Hemoglobin 31.3 pg (25.0-34.0); Mean Corpuscular Hgb Conc 28.4 g/dL (32.0-36.0); Mean Corpuscular Volume 110.3 fL (80.0-100.0); Mean Platelet Volume 11.1 fL (9.4-12.3); Platelet Count 166 K/uL (130-400); RDW Coefficient of Variation 15.3 % (11.5-14.5); RDW Standard Deviation 61.9 fL (36.4-46.3); Red Blood Count 2.81 M/uL (3.93-5.22); White Blood Count 7.82 K/ul (4.8-10.8)
[2022-03-07 13:19] LABS: Influenza A virus by PCR Negative (Neg); Influenza B virus by PCR Negative (Neg); RSV by PCR Negative (Neg); SARS CoV2 RNA(COVID-19) InHosp NEGATIVE (Negative)
[2022-03-07] MEDS ORDERED: CEFEPIME 2,000 MG/20 ML VIAL IV STA (13:19)
[2022-03-07 13:23] LABS: Appearance Urine Cloudy (Clear); Bacteria Urine Automated Negative (Negative); Bilirubin Urine Negative (Negative); Blood Urine Negative (Negative); Color Urine Yellow; Epithelial Cell Urine Auto >30 /lpf (0-5); Glucose Urine UA Negative (Negative); Ketones Urine Trace (Negative); Leukocyte Esterase Urine Negative (Negative); Nitrite Urine Negative (Negative); Protein Urine 2+ (Negative); Specific Gravity Urine 1.022 (1.000-1.030); Urobilinogen Urine Negative (Negative); pH Urine 5.5 (4.5-7.5)
[2022-03-07 13:34] LABS: Cast Urine Automated >30 /lpf (0-5)
[2022-03-07 13:35] LABS: Calcium Oxalate Crystals Urine Present (None Prsent)
[2022-03-07 13:37] LABS: Alanine Aminotransferase 8 U/L (7-52); Albumin Level 3.2 gm/dl (3.4-5.0); Alkaline Phosphatase 90 U/L (34-104); Anion Gap 8 (3-11); Aspartate Aminotransferase 20 U/L (13-39); BUN Creatinine Ratio 49.5 (10-20); Bilirubin Direct 0.1 mg/dl (0-0.2); Bilirubin,Total 0.5 mg/dl (0.2-1.0); Blood Urea Nitrogen 47 mg/dl (6-23); Calcium 9.4 mg/dl (8.5-10.1); Carbon Dioxide 37 mmol/L (21-32); Chloride 100 mmol/L (98-107); Est GFR (Non-African American) 57.8 ml/min; Glucose 87 mg/dl (70-99(Fasting)); Lipase 33 U/L (11-82); Magnesium 2.1 mg/dl (1.7-2.4); Potassium 6.6 mmol/L (3.5-5.1); Sodium 145 mmol/L (136-145); Total Protein 6.4 gm/dl (6.0-8.3)
[2022-03-07 13:37] LABS: Basophils # (auto) 0.01 K/uL (0-0.2); Basophils % (auto) 0.1 %; Immature Granulocytes # (auto) 0.04 K/uL (0.00-0.02); Immature Granulocytes % (auto) 0.5 %; Lymphocytes # (auto) 1.35 K/uL (1.2-3.4); Lymphocytes % (auto) 17.3 %; Macrocytosis Present; Monocytes # (auto) 0.59 K/uL (0.24-0.82); Monocytes % (auto) 7.5 %; Neutrophils # (auto) 5.83 K/uL (1.4-6.5); Neutrophils % (auto) 74.6 %
[2022-03-07] MEDS ORDERED: INSULIN HUMAN REGULAR IV STA (13:49)
[2022-03-07] MEDS ORDERED: DEXTROSE 50% 50 ML SYRINGE IV ONE (13:49)
[2022-03-07] MEDS ORDERED: SODIUM BICARB 8.4% INJ 50 MEQ/50 ML SYR IV STA (13:49)
--- NOTE | 2022-03-07 13:50 | CT Scan Report ---
HEAD CT NONCONTRAST CT DOSE: 537.48 mGy.cm HISTORY: Altered mental status, on blood thinner TECHNIQUE: Multiaxial CT images of the head were performed without the use of intravenous contrast. A utomated exposure control was utilized for this study. A dose lowering technique was utilized adheri ng to the principles of ALARA. Comparison: None. Findings: The paranasal sinuses and mastoid air cells are clear. The calvarium and skull base are int act. There is no mass, hematoma, midline shift, acute infarct. White matter hypodensity is nonspecifi c but suggestive of microvascular ischemic change. The ventricles and sulci demonstrate mild age-rela ekta involutional changes. Focal area of encephalomalacia within the left posterior occipital lobe con sistent with an old infarct. Impression: No acute intracranial abnormality. ACT 112: Negative or not required by law. Electronically signed by: Eduardo Peraza M.D. 03/07/2022 1:47 PM
--- NOTE | 2022-03-07 14:17 | History & Physical Report ---
Date of Service March 07, 2022 History of Present Illness Primary Care Provider: Cathy Cerda DO Allergies Allergy/AdvReac Type Severity Reaction Status Date / Time Sulfa (Sulfonamide Allergy Intermediate Rash Verified 02/19/22 23:33 Antibiotics) Penicillins Allergy Unknown HAPPENED Verified 02/19/22 23:33 A TEENAGER amiodarone AdvReac Intermediate SKIN Verified 02/19/22 23:33 PEELED OFF FEET fexofenadine AdvReac Intermediate "SKIN Verified 02/19/22 23:33 HURTS" HEADACHE lisinopril AdvReac Intermediate COUGH Verified 02/19/22 23:33 Home Medications Medication Instructions Recorded Confirmed Type aspirin 81 mg tablet,delayed 81 mg PO DAILY 10/28/20 02/19/22 History release (Adult Aspirin Regimen) nitroglycerin 0.4 mg sublingual 0.4 mg sublingual Q5M PRN chest 10/28/20 02/19/22 Rx tablet pain #30 tabs cyanocobalamin (vitamin B-12) 1,000 mcg PO DAILY 05/04/21 02/19/22 History 1,000 mcg tablet (Vitamin B-12) rosuvastatin 10 mg tablet 10 mg PO DAILY #30 tabs 08/05/21 02/19/22 Rx metoprolol tartrate 50 mg tablet 50 mg PO BID #180 tabs 09/08/21 02/19/22 Rx Oxygen Home #1 ea 09/30/21 02/12/22 Rx fluticasone fur. 100 mcg-umeclid 1 inh inhalation DAILY #180 ea 10/06/21 02/19/22 Rx 62.5 mcg-vilant 25 mcg inhalat.powder (Trelegy Ellipta) pantoprazole 40 mg tablet,delayed 40 mg PO DAILY 11/25/21 02/19/22 History release lorazepam 0.5 mg tablet 0.5 mg PO Q8H PRN anxiety #45 tabs 01/15/22 02/19/22 Rx ondansetron 4 mg disintegrating 4 mg PO Q8H PRN nausea and 01/15/22 02/19/22 Rx tablet vomiting #30 tabs sertraline 50 mg tablet 50 mg PO DAILY #90 tabs 01/22/22 02/19/22 Rx Walker #1 ea 02/05/22 02/05/22 Rx acetaminophen 325 mg tablet 325 mg PO .COMPLEX PRN FEVER/PAIN 02/19/22 02/19/22 History albuterol sulfate 90 mcg/actuation 2 puff inhalation Q6H PRN 02/20/22 Rx aerosol inhaler (Ventolin HFA) shortness of breath or wheezing #6.7 grams lisinopril 5 mg tablet (Zestril) 5 mg PO QAM 30 days #30 tabs 03/03/22 Rx sotalol 80 mg tablet 80 mg PO DAILY 30 days #30 tabs 03/03/22 Rx apixaban 2.5 mg tablet (Eliquis) 2.5 mg PO BID 90 days #180 tabs 03/06/22 Rx Past Med/Surg History Medical History Anxiety Atrial fibrillation with rapid ventricular response Bronchiectasis Bronchiectasis Chronic respiratory failure COPD (chronic obstructive pulmonary disease) Coronary artery disease Dehydration History of abdominal aortic aneurysm (AAA) History of esophageal ulcer (2013) History of AR (myocardial infarction) (01/08/14) Hypertension Hypomagnesemia Hypoxia Peripheral arterial disease Thoracic aortic aneurysm Tobacco abuse Surgical History H/O heart artery stent (2013) H/O heart bypass surgery (09/15/21) 09/15/21 Dr. Jerry Ellsworth at [facility] [place]- CABG x 2 SVG to LAD and OM/Ligation left atrial appendage with 35 mm Atricure clip/debranching of aortic arch with "Y" graft from ascending aorta to innominate and left carotid artery H/O vascular surgery (11/18/21) L common carotid A to L subclavian artery dacron bypass graft S/P AAA (abdominal aortic aneurysm) repair (07/14/06) open repair, Aortiobiiliac graft S/P aneurysm repair (01/06/22) S/P right cataract extraction S/P ANGEL-BSO (1975) secondary to endometriosis S/P tonsillectomy S/P total hysterectomy and bilateral salpingo-oophorectomy (1975) Status post coronary angiogram 09/10/21 Dr. Jean Baptiste at [facility] [place]- Coronary angiography (recommended bypass) Family History Sister Breast cancer Father Myocardial infarction Coronary heart disease Atrial fibrillation AAA (abdominal aortic aneurysm) Stroke Lung cancer Hypertension Mother AA (aortic aneurysm) Denies family history of Ovarian cancer Prostate cancer Colorectal cancer Social History Smoking Status: Unknown if ever smoked Tobacco Type: Cigarettes Age Started Using Tobacco: 24; Cigarettes Per Day: 1; Second Hand Exposure: No; Hx Alcohol Use: No Hx Substance Use: No Preferred Language: Citizen [place] Communication Ability: Effective Visual Impairment: Limited Hearing Ability: Normal Furniture Packer Required: No Beliefs That Will Affect Care: None marital status: Current Living Situation: Spouse 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 How many Children do You have: 3 Feels Safe at Home: Yes Childhood Exposure to Second-Hand Smoke: Yes (father) caffeine: Yes during the past year weight has: remained stable Dental Care, Regularly: No Physical Activity Frequency: 3-4 Times per Week Physical Activity Frequency Comment: walks Seatbelt Use: always Sunscreen Use: Yes Assistive Devices: Oxygen - Continuous and Walker Results & Data Results & Data ([facility]) Vital Signs (Past 12 Hours) Vital Signs Temp Pulse Pulse Resp BP Pulse Ox O2 Del Method 03/07/22 13:08 69 20 100 03/07/22 12:40 48 L 20 03/07/22 12:40 96/37 L 03/07/22 12:39 63 21 03/07/22 12:39 90/77 L 03/07/22 12:30 47 L 20 90 Mechanical Vent 03/07/22 12:30 111/46 L 03/07/22 12:25 83/30 L 03/07/22 12:25 50 L 20 03/07/22 12:21 93/44 L 03/07/22 12:21 53 L 20 97 03/07/22 12:20 61 14 95 03/07/22 12:17 69/25 L 03/07/22 12:17 50 L 20 81 L 03/07/22 12:16 65/27 L 03/07/22 12:16 52 L 20 100 03/07/22 12:10 54 L 20 100 03/07/22 12:03 70 21 100 03/07/22 12:03 110/44 L 03/07/22 12:00 57 L 18 93 03/07/22 11:57 184/56 H 03/07/22 11:57 62 18 100 03/07/22 11:50 58 L 17 03/07/22 11:50 152/49 H 03/07/22 11:46 136/49 L 03/07/22 11:46 56 L 23 03/07/22 11:42 55 L 10 L 03/07/22 11:42 79/38 L 03/07/22 11:40 58 L 19 100 Mechanical Vent 03/07/22 11:38 59 L 16 03/07/22 11:38 58/35 L 03/07/22 11:39 Mechanical Vent 03/07/22 11:39 Ambu-Bag 03/07/22 11:39 36.5 C 57 L 16 03/07/22 12:00 70 18 100 Mechanical Vent FiO2 03/07/22 13:08 60 03/07/22 12:40 03/07/22 12:40 03/07/22 12:39 03/07/22 12:39 03/07/22 12:30 03/07/22 12:30 03/07/22 12:25 03/07/22 12:25 03/07/22 12:21 03/07/22 12:21 03/07/22 12:20 03/07/22 12:17 03/07/22 12:17 03/07/22 12:16 03/07/22 12:16 03/07/22 12:10 03/07/22 12:03 03/07/22 12:03 03/07/22 12:00 03/07/22 11:57 03/07/22 11:57 03/07/22 11:50 03/07/22 11:50 03/07/22 11:46 03/07/22 11:46 03/07/22 11:42 03/07/22 11:42 03/07/22 11:40 03/07/22 11:38 03/07/22 11:38 03/07/22 11:39 100 03/07/22 11:39 03/07/22 11:39 03/07/22 12:00 60 PG Care Time/CCT Total # of Minutes Spent Total Time Spent with Patient: Total time spent is greater than 50% in coordination of care (as documented) at patient's floor/unit and/or counseling patient: Coding
[2022-03-07] MEDS ORDERED: INSULIN HUMAN REGULAR PER UNIT 10 UNITS in SYRINGE 9.9 ML IV STA (14:23)
[2022-03-07 14:42] LABS: Base Excess ABG 11.1 mEq/L (-9-1.8); HCO3 ABG 39 mmol/L (19-24); Oxygen Saturation ABG 88.1 % (90-95); PCO2 ABG 66 mmHg (35-46); PO2 ABG 53 mmHg (80-95); pH ABG 7.38 (7.35-7.45)
[2022-03-07 15:25] LABS: INR 1.1 (0.9-1.1); Prothrombin Time 11.8 Seconds (9.0-12.0)
--- NOTE | 2022-03-07 15:50 | History & Physical Report ---
Date of Service March 07, 2022 Assessment & Plan (1) Respiratory failure: Plan: Acute on chronic respiratory failure with hypoxia requiring intubation and mechanical ventilation - DDX: COPD vs. PE vs. infectious vs. Encephalopathy from hypoglycemia or combination of above - CXR without opacities but noting emphysema COPD- intubated 7.0 ETT 23 CM lip- better evaluate with CTA - Decadron 10mg IV given in EMD continue with methylpred 40mg IV q6 hour - Scheduled nebs, with Pulmicort BID nebs - empiric abx (2) Shock: Plan: Hypovolemic shock vs. sepsis vs. obstructive - lactate 3.2 - continue with evaluation - encephalopathy - volume responsive requiring Norepinephrine for MAPS >65 currently weaning down- 2.5 liters crystalloid continue with Normosol - LEVOphed on at this time, if remains bradycardic and increase in support required consider adding epinephrine. - blood and urine cultures pending - CTA of the chest rule out PE - no pthx on CXR - continue emperic anbx - reflex lactate - not acidotic - Random cortisol- increase steroid to stress dosing if needed for BP support and glycemic support (3) Hyperkalemia: Plan: Mild at 6.5 without ECG changes likely related to shock although with out acidosis renal function intact making urine given HCO3 in EMD and volume potassium on rehceck downtrending to 5.5 follow with BMP- kaliurese with Lasix if needed follow hypoglycemia- avoid shifting with insulin (4) Encephalopathy: Plan: Metabolic encephalopathy from combination of shock and hypoglycemia is likely cause - localizes and moves all extremities - Correct hypoglycemia- dextrose given and received steroids in EMD- BG checks q4 hours - volume replete - empiric abx - maintain MAP >65 and Pao2 >60 (5) COPD (chronic obstructive pulmonary disease): Plan: Chronic emphysema- ABG obtained following intubation - 7.37/66/53/39 - baseline Pao2 80s - continue with scheduled nebulizers and inhaled corticosteroids, systemic steroids with methyl pred at 40mg q6 - with bronchiectasis flutter valve and vest therapy post extubation likely will assist (6) Paroxysmal atrial flutter: Plan: Bradycardic likley related to hypoxia and hypoglycemia - Sotalol in AM if rate responds and off vasopressor agents (7) Chronic anticoagulation: Plan: Apixaban 2.5mg PO BID - hold for now - on for aflutter (8) Protein calorie malnutrition: Plan: Severe cachetic - place OGT- correct shock and TF initiation per ICU with nutritional evaluaton - follow for refeeding (9) Elevated troponin: Plan: Likely type II demand in the setting of hypotension and hypoxia - trend q6 hour, ECG without acute ST elevation (10) H/O vascular surgery: Plan: GORE TAG thoracic aortic stent covering left subclavian artery (01/11), AAA with aortobiiliac grafts (2005) - continue daily aspirin - Eliquis when able (11) Thoracic aortic aneurysm: Plan: As above- s/p repair (12) Peripheral arterial disease: Plan: As above aspirin continue continue statin History of Present Illness Primary Care Provider: Cathy Cerda, DO 76 YOF: History of PAF (on Sotalol, Eliquis, ICM with EF 40-45%, CAD with 2V CABG 2021, Repair thoracic aneurysm 2021, left subclavian artery bypass for thoracic aneurysm, aortobiiliac graft, COPD with GI bleed. Patient was recently discharged on 03/03/22 for evaluatio for GI bleed. She was sent to rehab facility following this. Report is that she has been becoming progressively weak there and had some complaints of dyspnea last night. She arrived via EMS with them bagging her to maintain saturation. She was immediately intubated in the EMD. She was bradycardic, hypotensive, hypoxic, elevated lactic acidosis, and hyperkalemia, and hypoglycemic. She received 2 doses of Dextrose 50%. ICU was notified and met Dr. Stanton at bedside. Patient does localize pain, and is biting at the ETT occasionally. ABG was obtained with normal PH, CO2 66 and PaO2 of 53. She is currently volume responsive with fluids. Levophed weaning down, she is making urine. Is without leukocytosis. Blood and Urine cultures are pending. Patient will be admitted to the ICU while intubated. Obtain CTA of the chest for PE. WIll need central line access and likely arterial access for monitoring of vasopressors. Will emperically cover with Cefepime and Vancomycin for respiratory failure until infectious etiology is ruled in/out. Patient with multiple co-morbid conditions now requiring intubation and vasopressors to maintain hemodynamic and respiratory support, APACE II 35 with 83% mortality. COVID, FLU, RSV: NEGATIVE Allergies Allergy/AdvReac Type Severity Reaction Status Date / Time Sulfa (Sulfonamide Allergy Intermediate Rash Verified 03/07/22 14:51 Antibiotics) Penicillins Allergy Unknown HAPPENED Verified 03/07/22 14:51 A TEENAGER amiodarone AdvReac Intermediate SKIN Verified 03/07/22 14:51 PEELED OFF FEET fexofenadine AdvReac Intermediate "SKIN Verified 03/07/22 14:51 HURTS" HEADACHE lisinopril AdvReac Intermediate COUGH Verified 03/07/22 14:51 Home Medications Medication Instructions Recorded Confirmed Type aspirin 81 mg tablet,delayed 81 mg PO DAILY 10/28/20 03/07/22 History release (Adult Aspirin Regimen) nitroglycerin 0.4 mg sublingual 0.4 mg sublingual Q5M PRN chest 10/28/20 03/07/22 Rx tablet pain #30 tabs cyanocobalamin (vitamin B-12) 1,000 mcg PO DAILY 05/04/21 03/07/22 History 1,000 mcg tablet (Vitamin B-12) rosuvastatin 10 mg tablet 10 mg PO DAILY #30 tabs 08/05/21 03/07/22 Rx metoprolol tartrate 50 mg tablet 50 mg PO BID #180 tabs 09/08/21 03/07/22 Rx Oxygen Home #1 ea 09/30/21 02/12/22 Rx pantoprazole 40 mg tablet,delayed 40 mg PO DAILY 11/25/21 03/07/22 History release ondansetron 4 mg disintegrating 4 mg PO Q8H PRN nausea and 01/15/22 03/07/22 Rx tablet vomiting #30 tabs sertraline 50 mg tablet 50 mg PO DAILY #90 tabs 01/22/22 03/07/22 Rx Walker #1 ea 02/05/22 02/05/22 Rx acetaminophen 325 mg tablet 325 mg PO Q4H PRN FEVER/PAIN 02/19/22 03/07/22 History albuterol sulfate 90 mcg/actuation 2 puff inhalation Q6H PRN 02/20/22 03/07/22 Rx aerosol inhaler (Ventolin HFA) shortness of breath or wheezing #6.7 grams sotalol 80 mg tablet 80 mg PO DAILY 30 days #30 tabs 03/03/22 03/07/22 Rx apixaban 2.5 mg tablet (Eliquis) 2.5 mg PO BID 90 days #180 tabs 03/06/22 03/07/22 Rx Theracalazinc 1 applic topical TID 03/07/22 03/07/22 History fluticasone fur. 100 mcg-umeclid 1 inh inhalation DAILY 03/07/22 03/07/22 History 62.5 mcg-vilant 25 mcg inhalat.powder (Trelegy Ellipta) guaifenesin 600 mg tablet, 600 mg PO BID 03/07/22 03/07/22 History extended release 12 hr (Mucus Relief ER) lorazepam 0.5 mg tablet 0.25 mg PO Q8H PRN anxiety 03/07/22 03/07/22 History losartan 25 mg tablet 25 mg PO DAILY 03/07/22 03/07/22 History mirtazapine 15 mg disintegrating 15 mg PO HS 03/07/22 03/07/22 History tablet Past Med/Surg History Medical History Anxiety Atrial fibrillation with rapid ventricular response Bronchiectasis Bronchiectasis Chronic respiratory failure COPD (chronic obstructive pulmonary disease) Coronary artery disease Dehydration History of abdominal aortic aneurysm (AAA) History of esophageal ulcer (2013) History of CA (myocardial infarction) (01/08/14) Hypertension Hypomagnesemia Hypoxia Peripheral arterial disease Thoracic aortic aneurysm Tobacco abuse Surgical History H/O heart artery stent (2013) H/O heart bypass surgery (09/15/21) 09/15/21 Dr. Jerry Ellsworth at [facility] [place]- CABG x 2 SVG to LAD and OM/Ligation left atrial appendage with 35 mm Atricure clip/debranching of aortic arch with "Y" graft from ascending aorta to innominate and left carotid artery H/O vascular surgery (11/18/21) L common carotid A to L subclavian artery dacron bypass graft S/P AAA (abdominal aortic aneurysm) repair (07/14/06) open repair, Aortiobiiliac graft S/P aneurysm repair (01/06/22) S/P right cataract extraction S/P ANGEL-BSO (1975) secondary to endometriosis S/P tonsillectomy S/P total hysterectomy and bilateral salpingo-oophorectomy (1975) Status post coronary angiogram 09/10/21 Dr. Jean Baptiste at [facility] [place]- Coronary angiography (recommended bypass) Family History Sister Breast cancer Father Myocardial infarction Coronary heart disease Atrial fibrillation AAA (abdominal aortic aneurysm) Stroke Lung cancer Hypertension Mother AA (aortic aneurysm) Denies family history of Ovarian cancer Prostate cancer Colorectal cancer Social History Smoking Status: Smoker, status unknown Tobacco Type: Cigarettes Age Started Using Tobacco: 24; Cigarettes Per Day: 1; Second Hand Exposure: No; Hx Alcohol Use: No Hx Substance Use: No Preferred Language: Divehi Communication Ability: Effective Visual Impairment: Limited Hearing Ability: Normal Banking Attorney Required: No Beliefs That Will Affect Care: None marital status: Current Living Situation: Spouse 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 How many Children do You have: 3 Other Information That Helps Us Care for You: No Feels Safe at Home: Yes Safety Concerns: Feels Safe At This Time Childhood Exposure to Second-Hand Smoke: Yes (father) caffeine: Yes during the past year weight has: remained stable Dental Care, Regularly: No Physical Activity Frequency: 3-4 Times per Week Physical Activity Frequency Comment: walks Seatbelt Use: always Sunscreen Use: Yes Assistive Devices: Oxygen - Continuous and Walker Review of Systems Review of Systems: REVIEW OF SYSTEMS: Unable to obtain family not at bedside Physical Exam Physical Exam: PHYSICAL EXAM: General: intubated and sedated Head: Normocephalic, atraumatic ENT: PERRLA, blinks eyes closed Neuro: moves all extremities, localizes pain, peerla, Head CT without acute process Chest: equal rise and fall of the chest, decreased air movement throughout, expiratory wheeze Cardiac: irregular rate and rhythm, telemetry reviewed- afib bradycardia, skin warm dry, cap refill >3seconds, extremities cool, pulses 1-2+ GI: NABS x 4 quadrants, soft, nontender to palpation, no rebound, guarding or tenderness : Nazario to gravity draining dao urine Skin: bruises upper and lower extremities Results & Data Results & Data ([facility]) Vital Signs (Past 12 Hours) Vital Signs Temp Pulse Pulse Resp BP BP Pulse Ox 03/07/22 15:15 49 L 16 155/89 H 03/07/22 14:55 03/07/22 14:44 49 L 18 87/38 L 98 03/07/22 14:42 87/38 L 03/07/22 14:41 52 L 21 96 03/07/22 14:40 50 L 21 95 03/07/22 14:40 76/28 L 03/07/22 14:39 68/29 L 03/07/22 14:39 51 L 22 93 03/07/22 14:36 68/37 L 03/07/22 14:36 51 L 20 94 03/07/22 14:32 68/34 L 03/07/22 14:32 65 20 94 03/07/22 14:30 49 L 21 94 03/07/22 14:21 194/50 H 03/07/22 14:21 53 L 20 99 03/07/22 14:20 54 L 21 100 03/07/22 14:17 178/56 H 03/07/22 14:17 47 L 19 99 03/07/22 14:16 49 L 20 98 03/07/22 14:16 163/68 H 03/07/22 14:11 51 L 20 96 03/07/22 14:11 80/29 L 03/07/22 14:10 51 L 20 93 03/07/22 14:08 66/29 L 03/07/22 14:08 50 L 20 99 03/07/22 14:07 50 L 20 94 03/07/22 14:07 73/31 L 03/07/22 14:05 99/35 L 03/07/22 14:05 51 L 20 100 03/07/22 14:00 55 L 20 97 03/07/22 14:00 123/40 L 03/07/22 13:55 116/48 L 03/07/22 13:55 49 L 20 93 03/07/22 13:54 50 L 20 94 03/07/22 13:54 108/45 L 03/07/22 13:50 49 L 20 97 03/07/22 13:45 107/47 L 03/07/22 13:45 48 L 20 03/07/22 13:40 55 L 20 03/07/22 13:40 178/147 H 03/07/22 13:38 100 03/07/22 13:20 20 03/07/22 13:15 129/38 L 03/07/22 13:15 46 L 20 100 03/07/22 13:10 46 L 20 03/07/22 13:10 139/63 03/07/22 13:00 45 L 20 90 03/07/22 13:00 20 104/38 L 97 03/07/22 12:56 125/49 L 03/07/22 12:50 129/52 L 03/07/22 14:17 51 L 20 98 03/07/22 14:10 66/29 L 03/07/22 13:08 69 20 100 03/07/22 12:40 48 L 20 03/07/22 12:40 96/37 L 03/07/22 12:39 63 21 03/07/22 12:39 90/77 L 03/07/22 12:30 47 L 20 90 03/07/22 12:30 111/46 L 03/07/22 12:25 83/30 L 03/07/22 12:25 50 L 20 03/07/22 12:21 93/44 L 03/07/22 12:21 53 L 20 97 03/07/22 12:20 61 14 95 03/07/22 12:17 69/25 L 03/07/22 12:17 50 L 20 81 L 03/07/22 12:16 65/27 L 03/07/22 12:16 52 L 20 100 03/07/22 12:10 54 L 20 100 03/07/22 12:03 70 21 100 03/07/22 12:03 110/44 L 03/07/22 12:00 57 L 18 93 03/07/22 11:57 184/56 H 03/07/22 11:57 62 18 100 03/07/22 11:50 58 L 17 03/07/22 11:50 152/49 H 03/07/22 11:46 136/49 L 03/07/22 11:46 56 L 23 03/07/22 11:42 55 L 10 L 03/07/22 11:42 79/38 L 03/07/22 11:40 58 L 19 100 03/07/22 11:38 59 L 16 03/07/22 11:38 58/35 L 03/07/22 11:39 03/07/22 11:39 03/07/22 11:39 36.5 C 57 L 16 03/07/22 12:00 70 18 100 O2 Del Method FiO2 03/07/22 15:15 03/07/22 14:55 70 03/07/22 14:44 Mechanical Vent 03/07/22 14:42 03/07/22 14:41 03/07/22 14:40 03/07/22 14:40 03/07/22 14:39 03/07/22 14:39 03/07/22 14:36 03/07/22 14:36 03/07/22 14:32 03/07/22 14:32 03/07/22 14:30 03/07/22 14:21 03/07/22 14:21 03/07/22 14:20 03/07/22 14:17 03/07/22 14:17 03/07/22 14:16 03/07/22 14:16 03/07/22 14:11 03/07/22 14:11 03/07/22 14:10 03/07/22 14:08 03/07/22 14:08 03/07/22 14:07 03/07/22 14:07 03/07/22 14:05 03/07/22 14:05 03/07/22 14:00 03/07/22 14:00 03/07/22 13:55 03/07/22 13:55 03/07/22 13:54 03/07/22 13:54 03/07/22 13:50 03/07/22 13:45 03/07/22 13:45 03/07/22 13:40 03/07/22 13:40 03/07/22 13:38 03/07/22 13:20 03/07/22 13:15 03/07/22 13:15 03/07/22 13:10 03/07/22 13:10 03/07/22 13:00 03/07/22 13:00 Mechanical Vent 03/07/22 12:56 03/07/22 12:50 03/07/22 14:17 Mechanical Vent 03/07/22 14:10 03/07/22 13:08 60 03/07/22 12:40 03/07/22 12:40 03/07/22 12:39 03/07/22 12:39 03/07/22 12:30 Mechanical Vent 03/07/22 12:30 03/07/22 12:25 03/07/22 12:25 03/07/22 12:21 03/07/22 12:21 03/07/22 12:20 03/07/22 12:17 03/07/22 12:17 03/07/22 12:16 03/07/22 12:16 03/07/22 12:10 03/07/22 12:03 03/07/22 12:03 03/07/22 12:00 03/07/22 11:57 03/07/22 11:57 03/07/22 11:50 03/07/22 11:50 03/07/22 11:46 03/07/22 11:46 03/07/22 11:42 03/07/22 11:42 03/07/22 11:40 Mechanical Vent 03/07/22 11:38 03/07/22 11:38 03/07/22 11:39 Mechanical Vent 100 03/07/22 11:39 Ambu-Bag 03/07/22 11:39 03/07/22 12:00 Mechanical Vent 60 Laboratory Results Abnormal lab results 03/07/22 03/07/22 03/07/22 Range/Units 12:28 12:33 13:00 RBC (3.93-5.22) M/uL Hgb (12.0-16.0) g/dl POC Hgb 11.2 L (12.0-16.0) g/dl Hct (34.1-44.9) % POC Hct 33 L (37-47) % MCV (80.0-100.0) fL MCHC (32.0-36.0) g/dL RDW Std Deviation (36.4-46.3) fL RDW Coeff of Ruthy (11.5-14.5) % Immature Gran # (Auto) (0.00-0.02) K/uL ABG pCO2 (35-46) mmHg ABG pO2 (80-95) mmHg ABG HCO3 (19-24) mmol/L ABG O2 Saturation (90-95) % ABG Base Excess (-9-1.8) mEq/L POC Potassium 6.5 H* (3.3-5.0) mmol/L Potassium 6.6 H* (3.5-5.1) mmol/L POC Chloride 99 L (101-112) mmol/L Carbon Dioxide 37 H (21-32) mmol/L POC Total CO2 > 40 H* (24-31) mmol/L POC Anion Gap 8.0 L (16-25) mmol/L POC BUN 50 H (7-18) mg/dl BUN 47 H (6-23) mg/dl BUN/Creatinine Ratio 49.5 H (10-20) POC Glucose (70-99) mg/dl Lactate 3.1 H* (0.4-2.0) mmol/L Troponin I High Sens 41.3 H D (0-14) pg/ml Albumin 3.2 L (3.4-5.0) gm/dl Urine Appearance (Clear) Urine Protein (Negative) Urine Ketones (Negative) Urine RBC (Auto) (0-4) /hpf U Hyaline Cast (Auto) (0-5) /lpf U Epithel Cells (Auto) (0-5) /lpf Calcium Oxalate Crystal (None Prsent) Granular Casts (0) /lpf 03/07/22 03/07/22 03/07/22 Range/Units 13:00 13:06 14:16 RBC 2.81 L (3.93-5.22) M/uL Hgb 8.8 L (12.0-16.0) g/dl POC Hgb (12.0-16.0) g/dl Hct 31.0 L (34.1-44.9) % POC Hct (37-47) % MCV 110.3 H (80.0-100.0) fL MCHC 28.4 L (32.0-36.0) g/dL RDW Std Deviation 61.9 H (36.4-46.3) fL RDW Coeff of Ruthy 15.3 H (11.5-14.5) % Immature Gran # (Auto) 0.04 H (0.00-0.02) K/uL ABG pCO2 (35-46) mmHg ABG pO2 (80-95) mmHg ABG HCO3 (19-24) mmol/L ABG O2 Saturation (90-95) % ABG Base Excess (-9-1.8) mEq/L POC Potassium (3.3-5.0) mmol/L Potassium (3.5-5.1) mmol/L POC Chloride (101-112) mmol/L Carbon Dioxide (21-32) mmol/L POC Total CO2 (24-31) mmol/L POC Anion Gap (16-25) mmol/L POC BUN (7-18) mg/dl BUN (6-23) mg/dl BUN/Creatinine Ratio (10-20) POC Glucose 59 L* (70-99) mg/dl Lactate (0.4-2.0) mmol/L Troponin I High Sens (0-14) pg/ml Albumin (3.4-5.0) gm/dl Urine Appearance Cloudy A (Clear) Urine Protein 2+ H (Negative) Urine Ketones Trace H (Negative) Urine RBC (Auto) 5-10 H (0-4) /hpf U Hyaline Cast (Auto) >30 H (0-5) /lpf U Epithel Cells (Auto) >30 H (0-5) /lpf Calcium Oxalate Crystal Present A (None Prsent) Granular Casts 10-20 H (0) /lpf 03/07/22 03/07/22/ Range/Units 14:33 14:51 14:51 RBC (3.93-5.22) M/uL Hgb (12.0-16.0) g/dl POC Hgb (12.0-16.0) g/dl Hct (34.1-44.9) % POC Hct (37-47) % MCV (80.0-100.0) fL MCHC (32.0-36.0) g/dL RDW Std Deviation (36.4-46.3) fL RDW Coeff of Ruthy (11.5-14.5) % Immature Gran # (Auto) (0.00-0.02) K/uL ABG pCO2 66 H (35-46) mmHg ABG pO2 53 L (80-95) mmHg ABG HCO3 39 H (19-24) mmol/L ABG O2 Saturation 88.1 L (90-95) % ABG Base Excess 11.1 H (-9-1.8) mEq/L POC Potassium (3.3-5.0) mmol/L Potassium 5.5 H (3.5-5.1) mmol/L POC Chloride (101-112) mmol/L Carbon Dioxide (21-32) mmol/L POC Total CO2 (24-31) mmol/L POC Anion Gap (16-25) mmol/L POC BUN (7-18) mg/dl BUN (6-23) mg/dl BUN/Creatinine Ratio (10-20) POC Glucose (70-99) mg/dl Lactate 3.7 H* (0.4-2.0) mmol/L Troponin I High Sens (0-14) pg/ml Albumin (3.4-5.0) gm/dl Urine Appearance (Clear) Urine Protein (Negative) Urine Ketones (Negative) Urine RBC (Auto) (0-4) /hpf U Hyaline Cast (Auto) (0-5) /lpf U Epithel Cells (Auto) (0-5) /lpf Calcium Oxalate Crystal (None Prsent) Granular Casts (0) /lpf 03/07/22 Range/Units 15:37 RBC (3.93-5.22) M/uL Hgb (12.0-16.0) g/dl POC Hgb (12.0-16.0) g/dl Hct (34.1-44.9) % POC Hct (37-47) % MCV (80.0-100.0) fL MCHC (32.0-36.0) g/dL RDW Std Deviation (36.4-46.3) fL RDW Coeff of Ruthy (11.5-14.5) % Immature Gran # (Auto) (0.00-0.02) K/uL ABG pCO2 (35-46) mmHg ABG pO2 (80-95) mmHg ABG HCO3 (19-24) mmol/L ABG O2 Saturation (90-95) % ABG Base Excess (-9-1.8) mEq/L POC Potassium (3.3-5.0) mmol/L Potassium (3.5-5.1) mmol/L POC Chloride (101-112) mmol/L Carbon Dioxide (21-32) mmol/L POC Total CO2 (24-31) mmol/L POC Anion Gap (16-25) mmol/L POC BUN (7-18) mg/dl BUN (6-23) mg/dl BUN/Creatinine Ratio (10-20) POC Glucose 120 H (70-99) mg/dl Lactate (0.4-2.0) mmol/L Troponin I High Sens (0-14) pg/ml Albumin (3.4-5.0) gm/dl Urine Appearance (Clear) Urine Protein (Negative) Urine Ketones (Negative) Urine RBC (Auto) (0-4) /hpf U Hyaline Cast (Auto) (0-5) /lpf U Epithel Cells (Auto) (0-5) /lpf Calcium Oxalate Crystal (None Prsent) Granular Casts (0) /lpf Diagnostic Findings Chest X-Ray 03/07/22 11:40 XR chest 1V portable HISTORY: resp failure, intubation COMPARISON: Chest 03/01/2022. FINDINGS: Endotracheal tube terminates approximately 4.9 cm from the ebony. The heart is normal in size. Emphysema and chronic interstitial thickening persists. No new focal lung consolidations. No evidence for pulmonary edema. No pleural fusions. No pneumothorax. 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 IMPRESSION: 1. Endotracheal tube terminates 4.9 cm from the ebony. 2. Chronic interstitial thickening and postoperative changes from prior endograft repair of the thoracic aortic aneurysm again noted. ACT 112: Negative or not required by law. Electronically signed by: Eduardo Peraza M.D. 03/07/2022 12:[address] 03/07/22 12:[address] DOSE: 537.48 mGy.cm HISTORY: Altered mental status, on blood thinner TECHNIQUE: Multiaxial CT images of the head were performed without the use of intravenous contrast. Automated exposure control was utilized for this study. A dose lowering technique was utilized adhering to the principles of ALARA. Comparison: None. Findings: The paranasal sinuses and mastoid air cells are clear. The calvarium and skull base are intact. There is no mass, hematoma, midline shift, acute infarct. White matter hypodensity is nonspecific but suggestive of microvascular ischemic change. The ventricles and sulci demonstrate mild age-related involutional changes. 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 Impression: No acute intracranial abnormality. ACT 112: Negative or not required by law. Electronically signed by: Eduardo Peraza M.D. 03/07/2022 1:47 PM Medications Administered Home Medications aspirin 81 mg tablet,delayed release (Adult Aspirin Regimen) 81 mg PO DAILY 10/28/20 [History Confirmed 03/07/22] nitroglycerin 0.4 mg sublingual tablet 0.4 mg sublingual Q5M PRN chest pain #30 tabs 10/28/20 [Rx Confirmed 03/07/22] cyanocobalamin (vitamin B-12) 1,000 mcg tablet (Vitamin B-12) 1,000 mcg PO DAILY 05/04/21 [History Confirmed 03/07/22] rosuvastatin 10 mg tablet 10 mg PO DAILY #30 tabs 08/05/21 [Rx Confirmed 03/07/22] metoprolol tartrate 50 mg tablet 50 mg PO BID #180 tabs 09/08/21 [Rx Confirmed 03/07/22] Oxygen Home #1 ea 09/30/21 [Rx Confirmed 02/12/22] pantoprazole 40 mg tablet,delayed release 40 mg PO DAILY 11/25/21 [History Confirmed 03/07/22] ondansetron 4 mg disintegrating tablet 4 mg PO Q8H PRN nausea and vomiting #30 tabs 01/15/22 [Rx Confirmed 03/07/22] sertraline 50 mg tablet 50 mg PO DAILY #90 tabs 01/22/22 [Rx Confirmed 03/07/22] Walker #1 ea 02/05/22 [Rx Confirmed 02/05/22] acetaminophen 325 mg tablet 325 mg PO Q4H PRN FEVER/PAIN 02/19/22 [History Confirmed 03/07/22] albuterol sulfate 90 mcg/actuation aerosol inhaler (Ventolin HFA) 2 puff inhalation Q6H PRN shortness of breath or wheezing #6.7 grams 02/20/22 [Rx Confirmed 03/07/22] sotalol 80 mg tablet 80 mg PO DAILY 30 days #30 tabs 03/03/22 [Rx Confirmed 03/07/22] apixaban 2.5 mg tablet (Eliquis) 2.5 mg PO BID 90 days #180 tabs 03/06/22 [Rx Confirmed 03/07/22] Theracalazinc 1 applic topical TID 03/07/22 [History Confirmed 03/07/22] fluticasone fur. 100 mcg-umeclid 62.5 mcg-vilant 25 mcg inhalat.powder (Trelegy Ellipta) 1 inh inhalation DAILY 03/07/22 [History Confirmed 03/07/22] guaifenesin 600 mg tablet, extended release 12 hr (Mucus Relief ER) 600 mg PO BID 03/07/22 [History Confirmed 03/07/22] lorazepam 0.5 mg tablet 0.25 mg PO Q8H PRN anxiety 03/07/22 [History Confirmed 03/07/22] losartan 25 mg tablet 25 mg PO DAILY 03/07/22 [History Confirmed 03/07/22] mirtazapine 15 mg disintegrating tablet 15 mg PO HS 03/07/22 [History Confirmed 03/07/22] Active Medications Propofol (Diprivan) 1,000 mg in 100 mls @ 3.42 mls/hr IV .Q24H NIKOLAY; Protocol Stop: 03/10/22 11:44 Last Titration: 03/07/22 13:10 Dose: 15 mcg/kg/min, 3.4 mls/hr Norepinephrine Bitartrate (Levophed/D5w) 4 mg in 250 mls @ 21.375 mls/hr IV .[id number] NIKOLAY; Protocol Stop: 04/06/22 12:29 Last Titration: 03/07/22 15:21 Dose: 0.08 mcg/kg/min, 11.4 mls/hr Propofol (Diprivan) 1,000 mg in 100 mls @ 3.42 mls/hr IV .Q24H NIKOLAY; Protocol Stop: 03/10/22 11:44 Last Titration: 03/07/22 13:10 Dose: 15 mcg/kg/min, 3.4 mls/hr Documented By: Titration: 03/07/22 12:39 Dose: 10 mcg/kg/min, 2.3 mls/hr Documented By: Titration: 03/07/22 12:22 Dose: 7.5 mcg/kg/min, 1.7 mls/hr Documented By: Admin: 03/07/22 12:08 Dose: 5 mcg/kg/min, 1.1 mls/hr Documented By: TREY Co-signed By: PETROS Norepinephrine Bitartrate (Levophed/D5w) 4 mg in 250 mls @ 21.375 mls/hr IV .[id number] NIKOLAY; Protocol Stop: 04/06/22 12:29 Last Titration: 03/07/22 15:21 Dose: 0.08 mcg/kg/min, 11.4 mls/hr Documented By: Titration: 03/07/22 15:15 Dose: 0.13 mcg/kg/min, 18.5 mls/hr Documented By: Titration: 03/07/22 14:40 Dose: 0.15 mcg/kg/min, 21.4 mls/hr Documented By: Titration: 03/07/22 14:24 Dose: 0 mcg/kg/min, 0 mls/hr Documented By: Titration: 03/07/22 14:17 Dose: 0.15 mcg/kg/min, 21.4 mls/hr Documented By: Titration: 03/07/22 14:10 Dose: 0.17 mcg/kg/min, 24.2 mls/hr Documented By: Admin: 03/07/22 12:27 Dose: 0.15 mcg/kg/min, 21.4 mls/hr Documented By: TREY Co-signed By: PETROS Discontinued Medications Albuterol (Albut/Ipratrop 3mg/0.5mg Neb 3 Ml Vial) 12 ml NEB ONE ONE; Protocol Stop: 03/07/22 11:40 Last Admin: 03/07/22 11:58 Dose: 12 ml Documented By: JOSE RAFAEL Dexamethasone Sodium Phosphate (DexamethasonePf 10 Mg/Ml Vial) 10 mg IV NOW ONE Stop: 03/07/22 11:40 Last Admin: 03/07/22 14:04 Dose: 10 mg Documented By: TREY Dextrose (Dextrose 50% 50 Ml Syringe) 50 ml IV NOW ONE Stop: 03/07/22 13:50 Last Admin: 03/07/22 14:55 Dose: 50 ml Documented By: TREY Fentanyl Citrate (Fentanyl Citrate 100 Mcg/2 Ml Vial) 25 mcg IV NOW ONE Stop: 03/07/22 12:03 Last Admin: 03/07/22 12:07 Dose: 25 mcg Documented By: TREY Sodium Chloride (Nss 1000ml) 1,000 mls @ 999 mls/hr IV .Q1H1M ONE Stop: 03/07/22 12:39 Last Admin: 03/07/22 12:09 Dose: 999 mls/hr Documented By: TREY Cefepime HCl (Maxipime) 2,000 mg in 20 mls @ 5 mls/min IV NOW STA; Protocol Stop: 03/07/22 13:22 Last Admin: 03/07/22 14:27 Dose: 5 mls/min Documented By: TREY Sodium Chloride (Nss 1000ml) 1,000 mls @ 999 mls/hr IV .Q1H1M ONE Stop: 03/07/22 15:06 Last Admin: 03/07/22 14:12 Dose: 999 mls/hr Documented By: TREY Insulin Human Regular 10 units (/ Syringe) 10 mls @ 30 mls/min IV NOW STA Stop: 03/07/22 14:24 Last Admin: 03/07/22 15:43 Dose: Not Given Documented By: SALBADOR Sodium Bicarbonate (Sodium Bicarb 8.4% Inj 50 Meq/50 Ml Syr) 50 meq IV NOW STA Stop: 03/07/22 13:50 Last Admin: 03/07/22 15:44 Dose: 50 meq Documented By: SALBADOR ECG Additional Comments: Vent. Rate : 057 BPM Atrial Rate : 057 BPM P-R Int : 130 ms QRS Dur : 090 ms QT Int : 478 ms P-R-T Axes : 076 063 016 degrees QTc Int : 465 ms Sinus bradycardia with Premature atrial complexes Cannot rule out Inferior infarct , age undetermined Abnormal ECG When compared with ECG of 03-MAR-2022 14:13, Premature atrial complexes are now Present Inverted T waves have replaced nonspecific T wave abnormality in Inferior leads Confirmed by Santiago Godinez ([id number]) on 03/07/2022 12:54:16 PM Code Status & VTE Plan Code Status CODE: FULL- nursing reports family said they would want all life-saving care - they have left to obtain her belongings and have no cellular phone- will clarify with them when they return VTE Prophylaxis Plan VTE Prophylaxis will be ordered: Yes Critical Care Time Critical Care Time: Yes Total Critical Care Time: 60 Supervising Physician Co-Signing Physician Notes Patient seen and examined at bedside. Obtained a history and physical examination during face to face encounter. I reivewed above note and agree with it. Discussed plan of care with patient and APC Norris. Patient will be admitted for acute respiratory failure. Patient is intubated and going to the ICU. PG Care Time/CCT Total # of Minutes Spent Total Time Spent with Patient: Total time spent is greater than 50% in coordination of care (as documented) at patient's floor/unit and/or counseling patient: Critical Care Time: Yes Total Critical Care Time: 60 60 minutes critical care time time spent reviewing images chart, volume resuscitation, vasopressor adjusting, arterial blood draw, interpreting and ordering diagnostics, procedural time is separate Coding Level of Care Code None Diagnoses Respiratory failure J96.90 Shock R57.9 Hyperkalemia E87.5 Encephalopathy G93.40 COPD (chronic obstructive pulmonary disease) J44.9 Paroxysmal atrial flutter I48.92 Chronic anticoagulation Z79.01 Protein calorie malnutrition E46 Elevated troponin R77.8 H/O vascular surgery Z98.890 Thoracic aortic aneurysm I71.2 Peripheral arterial disease I73.9 Additional Codes Critical Care Time - Critical Care Time: Yes ([id number]) Time Spent (min) 60 Comment critical care billing
--- NOTE | 2022-03-07 15:56 | XRay Report ---
XR chest 1V portable HISTORY: eval line placment left subclavian COMPARISON: Chest 03/07/2022. FINDINGS: Interval placement left subclavian central venous catheter which terminates at the proximal SVC. Endotracheal tube remains in good position. No pneumothorax. No pleural effusions. Emphysema an d chronic interstitial thickening persists. No new focal lung consolidations. The heart is normal in size. 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 This remains unchanged. There are poststernotomy changes. IMPRESSION: 1. The left subclavian central venous catheter terminates at the proximal SVC. No pneumothorax. 2. Endotracheal tube is unchanged in position. ACT 112: Negative or not required by law. Electronically signed by: Eduardo Peraza M.D. 03/07/2022 3:55 PM
--- NOTE | 2022-03-07 16:28 | Procedure Note ---
Procedure Note Date of Service March 07, 2022 Note ARTERIAL LINE PROCEDURE NOTE: Intravascular placement of catheter- aborted- MODIFIER CODE 52 Procedure: Femoral Arterial Line Placement Attending: Dr. Stanton APC: Brian Pisano ([facility] Indication: Monitoring on Pressors Anesthesia: [x]Lidocaine 1% Emergent consent was implied as patient was intubated, hypotensive requiring vasopressor support. Patient;s left groin was prepped and draped in the usual sterile fashion. Femoral ligament was palpated and pulse was palpated below this landmark. A 20g Arrow seeker was advanced with flash of bright blood, syringe was removed and pulsatile flow was maintained, however guidewire with resistance, this was removed easily. Re-attempt at positioning needle again with pulsatile flow obtained, 10 ml blood withdrawn for labs, wire again meeting resistance. Needle was removed and pressure held. Syringe and needle flushed. Again flash was obtained with intial pass and pulsating blood noted. Wire again meeting resistance. At this time Dr. Stanton moved his attention following central line access to femoral artery. Needle dart short catheter was inserted into the artery and remained with inability to thread catheter. Kit was changed out and final attempt was again met with wire resistance. Procedure was then aborted and pressure was maintained for hemostasis. Blood Loss: 10ml for blood draw, and 6-8 ml estimated Complications: None immediately identified Procedure Date: 03/07/22 Indication: hemodynamic monitoring, frequent blood draws Attending: Dr. Stanton Coding CPT Codes Tubes, Drains, and Vasc Access - Tubes, Drains, and Vasc Access: [id number] Place Catheter In Artery ([id number]) [facility] [place]Charges) Tubes, Drains, and Vasc Access Procedure 1: Tubes, Drains, and Vasc Access: [id number] Place Catheter In Artery
[2022-03-07] MEDS ORDERED: NOREPINEPHRINE/D5W 4 MG/250 ML PLCT IV SCH (16:38)
[2022-03-07] MEDS ORDERED: ICU PROTOCOL FOR HYPERGLYCEMIA PRN (16:38)
[2022-03-07] MEDS ORDERED: VANCOMYCIN CONSULT ACTIVE PRN (16:38)
[2022-03-07] MEDS ORDERED: OPTIRAY 320 125ml IV ONE (16:39)
[2022-03-07] MEDS ORDERED: ACETAMINOPHEN 325 MG TAB PO PRN (16:51)
[2022-03-07] MEDS ORDERED: fentaNYL citrate 100 MCG/2 ML VIAL IV PRN (16:51)
--- NOTE | 2022-03-07 16:56 | CT Scan Report ---
CHEST CTA for PULMONARY ARTERIES CT DOSE: 267.18 mGy.cm HISTORY: Shortness of breath. TECHNIQUE: Multiaxial CT images of the chest were performed following the intravenous administration of contrast to evaluate the pulmonary arteries. Maximal intensity projection images were also obtaine d. A dose lowering technique was utilized adhering to the principles of ALARA. COMPARISON STUDY: Chest CTA 02/20/2022. FINDINGS: The visualized liver and spleen are unremarkable. Mild adrenal gland thickening is likely a ge-related. Trace bilateral pleural effusions. No significant pericardial effusion. Endotracheal tube terminates 2.2 cm from the ebony. A left subclavian central venous catheter terminates in the proxi mal SVC. No mediastinal or hilar lymphadenopathy. Normal esophagus. The heart remains mildly enlarged . 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 The aneurysm sac is similar in size measuring 7.2 x 3.9 cm. No evidence for an endoleak. Mild aneurysmal dilatation of the distal descending thoracic aorta remains unchanged measuring up to 3.[address] No evidence for acute aortic dissection. 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 This remains unchanged. No filling defects within the pulmonary arteries to suggest a pulmonary embolus. No acute fractures w ithin the visualized osseous structures. No pneumothorax. Moderate emphysema. Multiple small scattere d nodular and patchy airspace opacities are again noted throughout the lungs. This has slightly progr essed in the interval and is consistent with a multifocal bronchopneumonia the. Mild central bronchia l wall thickening, unchanged. The central airways are patent. No pneumothorax. IMPRESSION: 1. No evidence for pulmonary embolus. 2. Interval progression of the multiple scattered small nodular and patchy airspace opacities within the lungs. This is consistent with a multifocal bronchopneumonia. 3. Emphysema. 4. Satisfactory support line placement. 5. 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 The aneurysm sac remains unchanged. No e vidence for an endoleak. 6. Trace bilateral pleural effusions. ACT 112: Negative or not required by law. Electronically signed by: Eduardo Peraza M.D. 03/07/2022 4:54 PM
[2022-03-07 17:49] LABS: BUN Creatinine Ratio 59.7 (10-20); Calcium 7.3 mg/dl (8.5-10.1); Creatinine Clr Calc Pharmacy 42.2 ml/min; Est GFR (African American) 98.3 ml/min; Est GFR (Non-African American) 84.8 ml/min; Potassium 4.7 mmol/L (3.5-5.1)
[2022-03-07] MEDS ORDERED: PANTOprazole 40 MG in SYRINGE 0 ML IV ONE (17:57)
[2022-03-07] MEDS ORDERED: STAT IV STA (17:59)
[2022-03-07] MEDS ORDERED: CALCIUM GLUCONATE 10% 1,000 MG in DEXTROSE 5% 50 ML IV ONE (17:59)
[2022-03-07] MEDS ORDERED: NORMOSOL-R 1,000 ML IV ONE (18:00)
[2022-03-07] MEDS ORDERED: VANCOMYCIN HCL 1,000 MG in SODIUM CHLORIDE 0.9% 250 ML IV ONE (18:00)
[2022-03-07] MEDS ORDERED: THIAMINE HCL 300 MG in SODIUM CHLORIDE 0.9% 50 ML IV STA (18:14)
--- NOTE | 2022-03-07 18:53 | Pharmacy Report ---
Pharmacy PK ABX Note - Date of Service March 07, 2022 - Assessment and Plan Assessment 76 year old F receiving IV Vancomycin + Cefepime for treatment of sepsis, possible pulmonary source. Chest Xray consistent with multifocal bronchopneumonia. Flu, RSV, COVID negative MRSA nasal swab pending Procal 0.19 Plan Vancomycin * Loading dose: 1000 mg IV x 1 then * Maintenance dose: 750 mg IV every 12 hours * Regimen is predicted to achieve target AUC/ABIDA of 400-600 mg/L.hr Cefepime 2g IV q12h for CrCl 30-60ml/min Pharmacy will continue to follow and will adjust dose/frequency as necessary. Thank you. Pharmacy has transitioned to AUC monitoring for vancomycin. AUC/ABIDA is the preferred PK/PD target and is associated with decreased risk of nephrotoxicity compared to traditional trough targets.
[2022-03-07] MEDS: BUDESONIDE 0.5 MG/2 ML VIAL (PULMICORT) NEB SCH (19:21)
[2022-03-07] MEDS: ALBUT/IPRATROP 3MG/0.5MG NEB 3 ML VIAL INH SCH (19:21)
[2022-03-07] MEDS: methylPREDNISolone 40 MG in SYRINGE 0 ML IV SCH (19:56)
[2022-03-07] MEDS: PANTOprazole 40 MG in SYRINGE 0 ML IV SCH (20:00)
--- NOTE | 2022-03-07 20:20 | Critical Care Consultation ---
Date of Consultation March 07, 2022 Assessment & Plan (1) Shock: Reason Critically Ill: Patient presents to the ICU with acute respiratory failure and circulatory shock requiring vasopressor support and mechanical ventilation. Neuro - Sedation: Propofol Cardiac - Shocksuspect this is most likely septic in nature. However cannot rule out other etiologies at this time -See ID treatment below -Repeat troponin downtrending. No ST elevations on EKG. Recent echo with EF 45%, grade 2 diastolic dysfunction -Continue vasopressor support to maintain maps greater than 65. Wean as tolerated -Cortisol 18. We will continue stress dose steroids for now Paroxysmal atrial flutterhold Eliquis and hold MTP for now in the setting of hypotension. -Barrios CADstatus post 2V CABG 2021. Continue aspirin, statin. Hold MTP Respiratory - Acute hypoxic respiratory failurecurrently mechanically ventilated. Weaning FiO2 as tolerated -CTA negative for PE but suggestive of multifocal pneumonia. Given patient's history, there is high chance of aspiration with difficulty swallowing -History of COPD. Lungs currently clear to auscultation and no significant acidosis on ABG. Continue budesonide. Nebs as needed -Hold on diuresis for now given hypotension -Continuous monitoring with pulse ox, end-tidal CO2 GI - N.p.o. Protein calorie malnutritionpatient with recent decreased p.o. intake and was to be seen for GI for possible tube placement -Would likely benefit from tube feeds when stable. Consult to nutrition RENAL/LYTES - Creatinine within normal limits, monitor routine BMP Hyperkalemia resolved with fluid resuscitation - Foleystrict I's and O's ENDO - No history of diabetes or thyroid disease Hypoglycemialikely in the setting of decreased p.o. intake/malnutrition and septic shock -Continue with D5 for now. Monitor frequent glucose and treat as necessary HEME - H&H stable, monitor routine CBCs ID - Sepsis?Suspect this is most likely a pulmonary source given imaging findings -Blood cultures and urine culture pending. UA mostly unremarkable -COVID-negative, influenza RSV negative -Pro-Virgil unremarkable? No leukocytosis. Low-grade fever. Initial lactic acidosis now cleared with fluid resuscitation -Continue with broad-spectrum antibiotics cefepime, vancomycin for now LINES/IV ACCESS - Subclavian CVC, ET tube, OG tube DVT PROPHYLAXIS - SCDs, holding Eliquis for now I have personally spent 45 minutes of critical care time in the direct management of this patient. This is a life/limb threatening event. This includes time spent evaluating patient, direct bedside care, chart review, placing orders, interpretation of diagnostic studies, discussion with consultants, patient, and family members, as well as other required patient management activities. This time is exclusive of all separately billable procedures, and teaching time and separate from and in addition to any other critical care service time. Thank you for allowing us to participate in the care of this patient. Please refer to my attending physician's documentation for any further recommendations. (2) Acute respiratory failure: (3) Elevated lactic acid level: (4) Acute hyperkalemia: (5) Paroxysmal atrial flutter: (6) Opacity of lung on imaging study: (7) Ischemic cardiomyopathy: (8) SVT (supraventricular tachycardia): (9) COPD (chronic obstructive pulmonary disease): (10) Coronary artery disease: Supervising Physician Co-Signing Physician Notes I saw the patient in the emergency department. Patient is critically ill due to hypercapnic respiratory failure. Patient has multiple comorbidities and has had decreasing functional status. I am concerned a poor prognosis. Family members desire IV nutrition and PEG tube placement, I believe that would be approaching medical futility. I have personally spent 45 minutes of critical care time in the direct management of this patient. This is a life/limb threatening event. This includes time spent evaluating patient, direct bedside care, chart review, placing orders, interpretation of diagnostic studies, discussion with consultants, patient, and/or family members regarding treatment decisions, as well as other required patient management activities. This time is exclusive of all separately billable procedures, and teaching time and separate from and in addition to any other critical care service time. History of Present Illness Attending Physician: Andreas Campbell History of Present Illness Patient is a 76-year-old female that presented from rehab facility earlier this evening. Patient recently had trouble swallowing and decreased eating as well as weight loss and was undergoing care for failure to thrive. She has a past medical history PAF, HF SD EF, CAD (CABG 2021), repair of thoracic aneurysm, left subclavian artery bypass, aortobiiliac graft, COPD and recent hospitalization for GI bleed. Patient was reported to have become progressively weak and she was short of breath since last evening. She presented to the emergency department and was severely hypoxic with EMS using Ambu bag to maintain oxygen saturations in which she was immediately intubated in the ER. She was noted to be hypotensive, bradycardic and hypoxic. She had elevated lactate and was hypoglycemic. CTA chest negative for PE but was suspicious for multifocal pneumonia. She is also requiring vasopressor support with Levophed. She is now being admitted to ICU for further management at this time. Allergies Allergy/AdvReac Type Severity Reaction Status Date / Time Sulfa (Sulfonamide Allergy Intermediate Rash Verified 03/07/22 14:51 Antibiotics) Penicillins Allergy Unknown HAPPENED Verified 03/07/22 14:51 A TEENAGER amiodarone AdvReac Intermediate SKIN Verified 03/07/22 14:51 PEELED OFF FEET fexofenadine AdvReac Intermediate "SKIN Verified 03/07/22 14:51 HURTS" HEADACHE lisinopril AdvReac Intermediate COUGH Verified 03/07/22 14:51 Home Medications Medication Instructions Recorded Confirmed Type aspirin 81 mg tablet,delayed 81 mg PO DAILY 10/28/20 03/07/22 History release (Adult Aspirin Regimen) nitroglycerin 0.4 mg sublingual 0.4 mg sublingual Q5M PRN chest 10/28/20 03/07/22 Rx tablet pain #30 tabs cyanocobalamin (vitamin B-12) 1,000 mcg PO DAILY 05/04/21 03/07/22 History 1,000 mcg tablet (Vitamin B-12) rosuvastatin 10 mg tablet 10 mg PO DAILY #30 tabs 08/05/21 03/07/22 Rx metoprolol tartrate 50 mg tablet 50 mg PO BID #180 tabs 09/08/21 03/07/22 Rx Oxygen Home #1 ea 09/30/21 02/12/22 Rx pantoprazole 40 mg tablet,delayed 40 mg PO DAILY 11/25/21 03/07/22 History release ondansetron 4 mg disintegrating 4 mg PO Q8H PRN nausea and 01/15/22 03/07/22 Rx tablet vomiting #30 tabs sertraline 50 mg tablet 50 mg PO DAILY #90 tabs 01/22/22 03/07/22 Rx Walker #1 ea 02/05/22 02/05/22 Rx acetaminophen 325 mg tablet 325 mg PO Q4H PRN FEVER/PAIN 02/19/22 03/07/22 Histo ry albuterol sulfate 90 mcg/actuation 2 puff inhalation Q6H PRN 02/20/22 03/07/22 Rx aerosol inhaler (Ventolin HFA) shortness of breath or wheezing #6.7 grams sotalol 80 mg tablet 80 mg PO DAILY 30 days #30 tabs 03/03/22 03/07/22 Rx apixaban 2.5 mg tablet (Eliquis) 2.5 mg PO BID 90 days #180 tabs 03/06/22 03/07/22 Rx Theracalazinc 1 applic topical TID 03/07/22 03/07/22 History fluticasone fur. 100 mcg-umeclid 1 inh inhalation DAILY 03/07/22 03/07/22 History 62.5 mcg-vilant 25 mcg inhalat.powder (Trelegy Ellipta) guaifenesin 600 mg tablet, 600 mg PO BID 03/07/22 03/07/22 History extended release 12 hr (Mucus Relief ER) lorazepam 0.5 mg tablet 0.25 mg PO Q8H PRN anxiety 03/07/22 03/07/22 History losartan 25 mg tablet 25 mg PO DAILY 03/07/22 03/07/22 History mirtazapine 15 mg disintegrating 15 mg PO HS 03/07/22 03/07/22 History tablet Patient History Medical History Anxiety Atrial fibrillation with rapid ventricular response Bronchiectasis Bronchiectasis Chronic respiratory failure COPD (chronic obstructive pulmonary disease) Coronary artery disease Dehydration History of abdominal aortic aneurysm (AAA) History of esophageal ulcer (2013) History of DE (myocardial infarction) (01/08/14) Hypertension Hypomagnesemia Hypoxia Peripheral arterial disease Thoracic aortic aneurysm Tobacco abuse Surgical History H/O heart artery stent (2013) H/O heart bypass surgery (09/15/21) 09/15/21 Dr. Jerry Ellsworth at [facility]- CABG x 2 SVG to LAD and OM/Ligation left atrial appendage with 35 mm Atricure clip/debranching of aortic arch with "Y" graft from ascending aorta to innominate and left carotid artery H/O vascular surgery (11/18/21) L common carotid A to L subclavian artery dacron bypass graft S/P AAA (abdominal aortic aneurysm) repair (07/14/06) open repair, Aortiobiiliac graft S/P aneurysm repair (01/06/22) S/P right cataract extraction S/P ANGEL-BSO (1975) secondary to endometriosis S/P tonsillectomy S/P total hysterectomy and bilateral salpingo-oophorectomy (1975) Status post coronary angiogram 09/10/21 Dr. Jean Baptiste at [facility]- Coronary angiography (recommended bypass) Family History Sister Breast cancer Father Myocardial infarction Coronary heart disease Atrial fibrillation AAA (abdominal aortic aneurysm) Stroke Lung cancer Hypertension Mother AA (aortic aneurysm) Denies family history of Ovarian cancer Prostate cancer Colorectal cancer Social History Smoking Status: Smoker, status unknown Tobacco Type: Cigarettes Age Started Using Tobacco: 24; Cigarettes Per Day: 1; Second Hand Exposure: No; Hx Alcohol Use: No Hx Substance Use: No Preferred Language: Nigerian Communication Ability: Effective Visual Impairment: Limited Hearing Ability: Normal Reprint Sorter Required: No Beliefs That Will Affect Care: None marital status: Current Living Situation: Spouse 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 How many Children do You have: 3 Other Information That Helps Us Care for You: No Feels Safe at Home: Yes Safety Concerns: Feels Safe At This Time Childhood Exposure to Second-Hand Smoke: Yes (father) caffeine: Yes during the past year weight has: remained stable Dental Care, Regularly: No Physical Activity Frequency: 3-4 Times per Week Physical Activity Frequency Comment: walks Seatbelt Use: always Sunscreen Use: Yes Assistive Devices: Oxygen - Continuous and Walker Review of Systems Review of Systems: Unobtainable due to cognitive status and Unobtainable due to endotracheal tube Physical Exam Constitutional: + thin and + mechanically ventilated Eyes: PERRL, conjunctivae normal, anicteric sclerae ENMT: external ear and nose normal, oropharynx normal Neck: trachea midline, no thyromegaly Respiratory: normal respiratory effort, lungs clear to auscultation symmetric chest movement; no cough Mechanically ventilated Cardiovascular: RRR, no murmur, no edema Heart Sounds: normal S1 and normal S2 Extremities: no edema Gastrointestinal (Abdomen): normal bowel sounds, soft, nontender, no hepatosplenomegaly Musculoskeletal: Unable to assess due to sedation Skin: No rashes, frail, warm and dry Neurologic: Unable to assess due to sedation Psychiatric: Unable to assess due to sedation Genitourinary: Nazairo catheter present Results & Data Results & Data ([facility]) Vital Signs (Past 12 Hours) Vital Signs Temp Pulse Pulse Pulse Resp BP BP 03/07/22 19:23 63 18 03/07/22 19:23 63 18 03/07/22 18:15 36.4 C L 62 18 103/50 L 03/07/22 18:12 36.3 C L 63 18 99/48 L 03/07/22 18:00 36.3 C L 59 L 18 91/43 L 03/07/22 17:45 36.2 C L 59 L 18 98/41 L 03/07/22 17:30 36.0 C L 58 L 18 110/48 L 03/07/22 17:22 36.0 C L 57 L 16 115/63 03/07/22 17:15 58 L 18 124/56 L 03/07/22 17:14 59 L 16 127/59 L 03/07/22 17:01 54 L 15 148/55 H 03/07/22 16:58 59 L 18 165/56 H 03/07/22 16:50 64 22 129/63 03/07/22 17:31 03/07/22 16:56 55 L 18 03/07/22 16:38 03/07/22 16:38 36.6 C 60 60 18 90/54 L 03/07/22 16:38 03/07/22 16:38 58 L 03/07/22 16:14 49 L 20 75/43 L 03/07/22 16:10 50 L 20 129/54 L 03/07/22 15:55 50 L 16 100/53 L 03/07/22 15:43 49 L 16 119/45 L 03/07/22 15:15 49 L 16 155/89 H 03/07/22 14:55 03/07/22 14:44 49 L 18 87/38 L 03/07/22 14:42 87/38 L 03/07/22 14:41 52 L 21 22 14:40 50 L 21 03/07/22 14:40 76/28 L 03/07/22 14:39 68/29 L 03/07/22 14:39 51 L 03/07/22 14:36 68/37 L 03/07/22 14:36 51 L 20 03/07/22 14:32 68/34 L 03/07/22 14:32 65 20 03/07/22 14:30 49 L 21 03/07/22 14:21 194/50 H 03/07/22 14:21 53 L 20 03/07/22 14:20 54 L 21 03/07/22 14:17 178/56 H 03/07/22 14:17 47 L 03/07/22 14:16 49 L 03/07/22 14:16 163/68 H 03/07/22 14:11 51 L 20 03/07/22 14:11 80/29 L 03/07/22 14:10 51 L 03/07/22 14:08 66/29 L 03/07/22 14:08 50 L 03/07/22 14:07 50 L 03/07/22 14:07 73/31 L 03/07/22 14:05 99/35 L 03/07/22 14:05 51 L 03/07/22 14:00 55 L 03/07/22 14:00 123/40 L 03/07/22 13:55 116/48 L 03/07/22 13:55 49 L 03/07/22 13:54 50 L 03/07/22 13:54 108/45 L 03/07/22 13:50 49 L 03/07/22 13:45 107/47 L 03/07/22 13:45 48 L 03/07/22 13:40 55 L 03/07/22 13:40 178/147 H 03/07/22 13:38 03/07/22 13:20 03/07/22 13:15 129/38 L 03/07/22 13:15 46 L 20 03/07/22 13:10 46 L 03/07/22 13:10 139/63 03/07/22 13:00 45 L 03/07/22 13:00 20 104/38 L 03/07/22 12:56 125/49 L 03/07/22 12:50 129/52 L 03/07/22 14:17 51 L 20 03/07/22 14:10 66/29 L 03/07/22 13:08 69 20 03/07/22 12:40 48 L 20 03/07/22 12:40 96/37 L 03/07/22 12:39 63 21 03/07/22 12:39 90/77 L 03/07/22 12:30 47 L 20 03/07/22 12:30 111/46 L 03/07/22 12:25 83/30 L 03/07/22 12:25 50 L 20 03/07/22 12:21 93/44 L 03/07/22 12:21 53 L 20 03/07/22 12:20 61 14 03/07/22 12:17 69/25 L 03/07/22 12:17 50 L 20 03/07/22 12:16 65/27 L 03/07/22 12:16 52 L 20 03/07/22 12:10 54 L 20 03/07/22 12:03 70 21 03/07/22 12:03 110/44 L 03/07/22 12:00 57 L 18 03/07/22 11:57 184/56 H 03/07/22 11:57 62 18 03/07/22 11:50 58 L 17 03/07/22 11:50 152/49 H 03/07/22 11:46 136/49 L 03/07/22 11:46 56 L 23 03/07/22 11:42 55 L 10 L 03/07/22 11:42 79/38 L 03/07/22 11:40 58 L 19 03/07/22 11:38 59 L 16 03/07/22 11:38 58/35 L 03/07/22 11:39 03/07/22 11:39 03/07/22 11:39 36.5 C 57 L 16 03/07/22 12:00 70 18 Pulse Ox O2 Del Method FiO2 03/07/22 19:23 99 60 03/07/22 19:23 99 Mechanical Vent 60 03/07/22 18:15 100 Mechanical Vent 60 03/07/22 18:12 100 Mechanical Vent 60 03/07/22 18:00 90 Mechanical Vent 60 03/07/22 17:45 100 Mechanical Vent 60 03/07/22 17:30 100 Mechanical Vent 70 03/07/22 17:22 100 Mechanical Vent 70 03/07/22 17:15 Mechanical Vent 70 03/07/22 17:14 70 03/07/22 17:01 Mechanical Vent 70 03/07/22 16:58 Mechanical Vent 70 03/07/22 16:50 Mechanical Vent 70 03/07/22 17:31 60 03/07/22 16:56 89 L 70 03/07/22 16:38 Mechanical Vent 70 03/07/22 16:38 99 Mechanical Vent 70 03/07/22 16:38 70 03/07/22 16:38 03/07/22 16:14 97 Mechanical Vent 70 03/07/22 16:10 98 Mechanical Vent 70 03/07/22 15:55 97 Mechanical Vent 70 03/07/22 15:43 98 Mechanical Vent 70 03/07/22 15:15 03/07/22 14:55 70 03/07/22 14:44 98 Mechanical Vent 03/07/22 14:42 03/07/22 14:41 96 03/07/22 14:40 95 03/07/22 14:40 03/07/22 14:39 03/07/22 14:39 93 03/07/22 14:36 03/07/22 14:36 94 03/07/22 14:32 03/07/22 14:32 94 03/07/22 14:30 94 03/07/22 14:21 03/07/22 14:21 99 03/07/22 14:20 100 03/07/22 14:17 03/07/22 14:17 99 03/07/22 14:16 98 03/07/22 14:16 03/07/22 14:11 96 03/07/22 14:11 03/07/22 14:10 93 03/07/22 14:08 03/07/22 14:08 99 03/07/22 14:07 94 03/07/22 14:07 03/07/22 14:05 03/07/22 14:05 100 03/07/22 14:00 97 03/07/22 14:00 03/07/22 13:55 03/07/22 13:55 93 03/07/22 13:54 94 03/07/22 13:54 03/07/22 13:50 97 03/07/22 13:45 03/07/22 13:45 03/07/22 13:40 03/07/22 13:40 03/07/22 13:38 100 03/07/22 13:20 03/07/22 13:15 03/07/22 13:15 100 03/07/22 13:10 03/07/22 13:10 03/07/22 13:00 90 03/07/22 13:00 97 Mechanical Vent 03/07/22 12:56 03/07/22 12:50 03/07/22 14:17 98 Mechanical Vent 03/07/22 14:10 03/07/22 13:08 100 60 03/07/22 12:40 03/07/22 12:40 03/07/22 12:39 03/07/22 12:39 03/07/22 12:30 90 Mechanical Vent 03/07/22 12:30 03/07/22 12:25 03/07/22 12:25 03/07/22 12:21 03/07/22 12:21 97 03/07/22 12:20 95 03/07/22 12:17 03/07/22 12:17 81 L 03/07/22 12:16 03/07/22 12:16 100 03/07/22 12:10 100 03/07/22 12:03 100 03/07/22 12:03 03/07/22 12:00 93 03/07/22 11:57 03/07/22 11:57 100 03/07/22 11:50 03/07/22 11:50 03/07/22 11:46 03/07/22 11:46 03/07/22 11:42 03/07/22 11:42 03/07/22 11:40 100 Mechanical Vent 03/07/22 11:38 03/07/22 11:38 03/07/22 11:39 Mechanical Vent 100 03/07/22 11:39 Ambu-Bag 03/07/22 11:39 03/07/22 12:00 100 Mechanical Vent 60 Coding Level of Care Code Critical Care 1st 30-74 mins Diagnoses Shock R57.9 Acute respiratory failure J96.01 Respiratory failure complication: hypoxia Elevated lactic acid level R79.89 Acute hyperkalemia E87.5 Paroxysmal atrial flutter I48.92 Opacity of lung on imaging study R91.8 Ischemic cardiomyopathy I25.5 SVT (supraventricular tachycardia) I47.1 COPD (chronic obstructive pulmonary disease) J44.9 Coronary artery disease I25.10 (1) Acute respiratory failure Respiratory failure complication: hypoxia Qualified Code(s): J96.01 - Acute respiratory failure with hypoxia
[2022-03-07 23:50] LABS: BUN Creatinine Ratio 53.8 (10-20); Calcium 9.2 mg/dl (8.5-10.1); Creatinine Clr Calc Pharmacy 35.3 ml/min; Est GFR (African American) 82.4 ml/min; Est GFR (Non-African American) 71.1 ml/min; Potassium 4.6 mmol/L (3.5-5.1)
[2022-03-08] MEDS: ALBUT/IPRATROP 3MG/0.5MG NEB 3 ML VIAL INH SCH ×2 (00:52→08:44)
[2022-03-08] MEDS: NOREPINEPHRINE/D5W 4 MG/250 ML PLCT IV SCH ×2 (01:27→13:35)
[2022-03-08] MEDS: CEFEPIME 2,000 MG in SYRINGE 0 ML IV SCH ×2 (01:43→13:42)
[2022-03-08] MEDS: methylPREDNISolone 40 MG in SYRINGE 0 ML IV SCH ×4 (02:02→20:46)
[2022-03-08 04:54] LABS: iSTAT Allen Test Pass; iSTAT Art Bld Gas pCO2 Correct 36 mmHg (35-46); iSTAT Art Bld Gas pH Corrected 7.537 (7.35-7.45); iSTAT Arterial Blood Gas HCO3 30 meg/L (19-24); iSTAT Arterial Blood Gas pCO2 36 mmHg (35-46); iSTAT Arterial Blood Gas pH 7.54 (7.35-7.45); iSTAT Arterial Blood Gas pO2 71 mmHg (80-95); iSTAT Arterial Blood Gas pO2 C 71; iSTAT Carbon Dioxide 31 mmol/L (24-31); iSTAT FiO2 30 %; iSTAT Hematocrit 27 % (37-47); iSTAT Hemoglobin 9.2 g/dl (12.0-16.0); iSTAT Potassium 3.9 mmol/L (3.3-5.0); iSTAT Site L Radial; iSTAT Sodium 141 mmol/L (135-144)
[2022-03-08] MEDS: ASPIRIN 81 MG ECTAB PO SCH (08:30)
[2022-03-08] MEDS: BUDESONIDE 0.5 MG/2 ML VIAL (PULMICORT) NEB SCH (08:44)
[2022-03-08] MEDS ORDERED: Nursing to Pharmacy Communication SCH (08:45)
[2022-03-08 08:50] LABS: Hematocrit (blood only) 29.4 % (34.1-44.9); Hemoglobin 8.7 g/dl (12.0-16.0); Immature Granulocytes # (auto) 0.05 K/uL (0.00-0.02); Immature Granulocytes % (auto) 0.6 %; Lymphocytes # (auto) 1.05 K/uL (1.2-3.4); Lymphocytes % (auto) 11.6 %; Mean Corpuscular Hemoglobin 31.3 pg (25.0-34.0); Mean Corpuscular Hgb Conc 29.6 g/dL (32.0-36.0); Mean Corpuscular Volume 105.8 fL (80.0-100.0); Monocytes # (auto) 0.41 K/uL (0.24-0.82); Monocytes % (auto) 4.5 %; Neutrophils # (auto) 7.54 K/uL (1.4-6.5); Neutrophils % (auto) 83.3 %; Platelet Count 229 K/uL (130-400); RDW Coefficient of Variation 15.9 % (11.5-14.5); Red Blood Count 2.78 M/uL (3.93-5.22); White Blood Count 9.05 K/ul (4.8-10.8)
[2022-03-08] MEDS ORDERED: VANCOMYCIN HCL 750 MG in SODIUM CHLORIDE 0.9% 250 ML IV SCH (09:00)
[2022-03-08] MEDS: PANTOprazole 40 MG in SYRINGE 0 ML IV SCH ×2 (09:13→20:46)
[2022-03-08] MEDS: THIAMINE HCL 300 MG in SODIUM CHLORIDE 0.9% 50 ML IV SCH (09:14)
[2022-03-08 09:17] LABS: BUN Creatinine Ratio 46.3 (10-20); Calcium 8.3 mg/dl (8.5-10.1); Creatinine Clr Calc Pharmacy 38.1 ml/min; Magnesium 1.9 mg/dl (1.7-2.4); Phosphorus 2.2 mg/dl (2.5-4.9)
--- NOTE | 2022-03-08 10:09 | Procedure Note ---
Procedure Note Date of Service March 08, 2022 Note Procedure date: Noted above Procedure: Central venous access Pre-procedure indication: Need for vasoactive medication administration Post-procedure Diagnosis: same as above Prior to Procedure: Informed Consent: Emergent consent implied Attending Staff: Ras Stanton DO Resident/APC: Norris Skin Prep: Chlorhexidine Anesthesia: 4 mL 1% lidocaine without epinephrine The identity of the patient was confirmed and a bedside time out was performed. Description of Procedure: After sterile prep and sterile drape utilizing standard sterile technique the superficial skin of the left subclavian area was anesthetized. The target vessel was identified and entered with an 18-gauge needle. Dark venous blood return was noted. A guidewire was inserted through the needle and into the vessel. The needle was withdrawn and a skin renetta was made. A tissue dilator was advanced via Seldinger technique and removed. A triple lumen catheter was inserted via Seldinger technique and the guidewire removed. All ports john and flushed easily. A Biopatch was placed, and the catheter was secured via commercial securement device. A sterile dressing was then applied. Complications: None Coding
--- NOTE | 2022-03-08 10:23 | Critical Care Progress Note ---
Date of Service March 08, 2022 Assessment & Plan (1) Shock: Plan: Reason Critically Ill: Patient presents to the ICU with acute respiratory failure and circulatory shock requiring vasopressor support and mechanical ventilation. Neuro - Sedation: Propofol Cardiac - Shocksuspect this is most likely septic in nature. However cannot rule out other etiologies at this time -See ID treatment below -Repeat troponin downtrending. No ST elevations on EKG. Recent echo with EF 45%, grade 2 diastolic dysfunction -Continue vasopressor support to maintain maps greater than 65. Wean as tolerated -Cortisol 18. We will continue stress dose steroids for now Paroxysmal atrial flutterhold Eliquis and hold MTP for now in the setting of hypotension. -Barrios CADstatus post 2V CABG 2021. Continue aspirin, statin. Hold MTP Respiratory - Acute hypoxic respiratory failurecurrently mechanically ventilated. Weaning FiO2 as tolerated -CTA negative for PE but suggestive of multifocal pneumonia. Given patient's history, there is high chance of aspiration with difficulty swallowing -History of COPD. Lungs currently clear to auscultation and no significant acidosis on ABG. Continue budesonide. Nebs as needed -Hold on diuresis for now given hypotension -Continuous monitoring with pulse ox, end-tidal CO2 GI - N.p.o. Protein calorie malnutritionpatient with recent decreased p.o. intake and was to be seen for GI for possible tube placement -Would likely benefit from tube feeds when stable. Consult to nutrition RENAL/LYTES - Creatinine within normal limits, monitor routine BMP Hyperkalemia resolved with fluid resuscitation - Foleystrict I's and O's ENDO - No history of diabetes or thyroid disease Hypoglycemialikely in the setting of decreased p.o. intake/malnutrition and septic shock -Continue with D5 for now. Monitor frequent glucose and treat as necessary HEME - H&H stable, monitor routine CBCs ID - SepsisSuspect this is most likely a pulmonary source given imaging findings -Blood cultures and urine culture pending. UA mostly unremarkable -COVID-negative, influenza RSV negative -No leukocytosis. Low-grade fever. Initial lactic acidosis now cleared with fluid resuscitation -Continue with broad-spectrum antibiotics cefepime, vancomycin for now LINES/IV ACCESS - Subclavian CVC, ET tube, OG tube DVT PROPHYLAXIS - SCDs, holding Eliquis for now I have personally spent 45 minutes of critical care time in the direct management of this patient. This is a life/limb threatening event. This includes time spent evaluating patient, direct bedside care, chart review, placing orders, interpretation of diagnostic studies, discussion with consultants, patient, and family members, as well as other required patient management activities. This time is exclusive of all separately billable procedures, and teaching time and separate from and in addition to any other critical care service time. (2) Acute respiratory failure: (3) Elevated lactic acid level: (4) Acute hyperkalemia: (5) Paroxysmal atrial flutter: (6) Opacity of lung on imaging study: (7) Ischemic cardiomyopathy: (8) SVT (supraventricular tachycardia): (9) COPD (chronic obstructive pulmonary disease): (10) Coronary artery disease: Admission and Anticipated Discharge Date Admission Date: March 07, 2022 Subjective No overnight events. Opens eyes with spontaneous voice with decreased sedation Review of Systems Review of Systems: Unobtainable due to endotracheal tube Physical Exam Physical Exam: General: Sedated. nontoxic. Skin: Warm, dry, Head: Atraumatic Ears, nose, mouth and throat: airway obscured by endotracheal tube Cardiovascular: Normal peripheral perfusion Respiratory: Ventilator settings reviewed Gastrointestinal: Non distended Musculoskeletal: No deformity Results & Data Results & Data ([facility]) Vital Signs (Past 12 Hours) Vital Signs Temp Pulse Pulse Resp BP Pulse Ox O2 Del Method 03/08/22 09:56 36.9 C 87 28 H 135/71 97 CPAP, Mechanical Vent 03/08/22 09:31 37.0 C 95 H 20 104/52 L 100 CPAP, Mechanical Vent 03/08/22 09:30 37.0 C 94 H 18 93/51 L 100 CPAP, Mechanical Vent 03/08/22 09:22 37.0 C 88 25 H 105/64 94 CPAP, Mechanical Vent 03/08/22 09:15 37.0 C 92 H 28 H 98 03/08/22 09:00 37.0 C 80 26 H 144/69 H 98 CPAP, Mechanical Vent 03/08/22 08:57 37.0 C 78 25 H 166/76 H 99 CPAP, Mechanical Vent 03/08/22 08:46 37.0 C 72 21 169/72 H 100 CPAP, Mechanical Vent 03/08/22 08:37 37.1 C 68 18 173/70 H 100 CPAP, Mechanical Vent 03/08/22 08:30 37.1 C 68 17 172/70 H 100 CPAP, Mechanical Vent 03/08/22 08:14 37.1 C 72 12 104/53 L 99 Mechanical Vent 03/08/22 08:00 37.1 C 72 14 97/51 L 100 Mechanical Vent 03/08/22 08:00 Mechanical Vent 03/08/22 08:33 78 23 99 03/08/22 08:00 73 03/08/22 07:30 03/08/22 07:42 37.1 C 73 14 155/71 H 100 Mechanical Vent 03/08/22 07:30 37.1 C 77 14 132/64 100 Mechanical Vent 03/08/22 07:00 37.3 C 75 14 128/65 100 Mechanical Vent 03/08/22 07:09 74 19 100 03/08/22 04:56 14 03/08/22 04:03 37.7 C H 80 18 100 03/08/22 04:03 82/41 L 03/08/22 04:01 37.7 C H 81 15 100 03/08/22 04:00 37.7 C H 81 18 100 03/08/22 03:50 37.7 C H 82 18 100 03/08/22 03:45 127/56 L 03/08/22 03:45 37.8 C H 82 18 100 03/08/22 03:43 189/72 H 03/08/22 03:43 37.8 C H 81 16 100 03/08/22 03:40 37.9 C H 79 16 100 03/08/22 03:30 38.0 C H 80 18 100 03/08/22 03:30 182/73 H 03/08/22 03:20 38.1 C H 86 18 100 03/08/22 03:10 38.0 C H 94 H 16 100 03/08/22 03:00 38.1 C H 95 H 19 100 03/08/22 03:00 103/51 L 03/08/22 02:50 38.0 C H 95 H 18 99 03/08/22 02:40 38.0 C H 94 H 16 99 03/08/22 02:30 38.0 C H 94 H 18 100 03/08/22 02:30 96/55 L 03/08/22 02:20 38.0 C H 95 H 18 100 03/08/22 02:10 38.0 C H 93 H 16 100 03/08/22 02:00 37.9 C H 91 H 18 99 03/08/22 02:00 116/62 03/08/22 01:50 38.0 C H 88 18 100 03/08/22 01:40 38.0 C H 92 H 18 99 03/08/22 01:30 38.0 C H 88 18 100 03/08/22 01:30 118/56 L 03/08/22 01:20 37.9 C H 86 18 100 03/08/22 01:10 37.9 C H 84 18 100 03/08/22 01:00 37.9 C H 79 18 100 03/08/22 01:00 96/47 L 03/08/22 00:50 37.9 C H 77 18 100 03/08/22 00:40 37.8 C H 75 16 100 03/08/22 00:30 37.8 C H 76 18 100 03/08/22 00:30 112/49 L 03/08/22 00:20 37.8 C H 76 18 100 03/08/22 00:18 37.8 C H 75 18 100 03/08/22 00:18 91/49 L 03/08/22 00:15 37.8 C H 70 18 100 03/08/22 00:15 81/50 L 03/08/22 04:00 03/08/22 02:42 74 18 99 03/08/22 00:52 74 18 99 Mechanical Vent 03/08/22 00:10 37.8 C H 74 16 100 03/08/22 00:00 37.7 C H 76 18 100 03/08/22 00:00 91/47 L 03/07/22 23:50 37.8 C H 68 18 100 03/07/22 23:45 105/49 L 03/07/22 23:45 37.7 C H 73 18 100 03/07/22 23:40 37.7 C H 75 16 100 03/07/22 23:30 37.7 C H 75 18 100 03/07/22 23:30 107/50 L 03/07/22 23:20 37.6 C H 72 18 100 03/07/22 23:15 96/41 L 03/07/22 23:15 37.6 C H 73 18 100 03/07/22 23:10 37.6 C H 75 18 100 03/07/22 23:00 37.6 C H 74 18 100 03/07/22 23:00 81/44 L 03/07/22 22:50 37.6 C H 72 18 100 03/07/22 22:45 92/43 L 03/07/22 22:45 37.6 C H 73 18 100 03/07/22 22:40 37.6 C H 75 18 100 03/07/22 22:30 37.5 C 75 18 100 03/07/22 22:30 96/49 L 03/07/22 22:20 37.5 C 73 18 100 03/08/22 00:00 74 03/08/22 00:00 03/07/22 22:47 75 18 100 FiO2 03/08/22 09:56 30 03/08/22 09:31 30 03/08/22 09:30 30 03/08/22 09:22 30 03/08/22 09:15 03/08/22 09:00 30 03/08/22 08:57 30 03/08/22 08:46 30 03/08/22 08:37 30 03/08/22 08:30 30 03/08/22 08:14 30 03/08/22 08:00 30 03/08/22 08:00 30 03/08/22 08:33 30 03/08/22 08:00 03/08/22 07:30 30 03/08/22 07:42 30 03/08/22 07:30 30 03/08/22 07:00 30 03/08/22 07:09 30 03/08/22 04:56 03/08/22 04:03 03/08/22 04:03 03/08/22 04:01 03/08/22 04:00 03/08/22 03:50 03/08/22 03:45 03/08/22 03:45 03/08/22 03:43 03/08/22 03:43 03/08/22 03:40 03/08/22 03:30 03/08/22 03:30 03/08/22 03:20 03/08/22 03:10 03/08/22 03:00 03/08/22 03:00 03/08/22 02:50 03/08/22 02:40 03/08/22 02:30 03/08/22 02:30 03/08/22 02:20 03/08/22 02:10 03/08/22 02:00 03/08/22 02:00 03/08/22 01:50 03/08/22 01:40 03/08/22 01:30 03/08/22 01:30 03/08/22 01:20 03/08/22 01:10 03/08/22 01:00 03/08/22 01:00 03/08/22 00:50 03/08/22 00:40 03/08/22 00:30 03/08/22 00:30 03/08/22 00:20 03/08/22 00:18 03/08/22 00:18 03/08/22 00:15 03/08/22 00:15 03/08/22 04:00 03/08/22 02:42 03/08/22 00:52 03/08/22 00:10 03/08/22 00:00 03/08/22 00:00 03/07/22 23:50 03/07/22 23:45 03/07/22 23:45 03/07/22 23:40 03/07/22 23:30 03/07/22 23:30 03/07/22 23:20 03/07/22 23:15 03/07/22 23:15 03/07/22 23:10 03/07/22 23:00 03/07/22 23:00 03/07/22 22:50 03/07/22 22:45 03/07/22 22:45 03/07/22 22:40 03/07/22 22:30 03/07/22 22:30 03/07/22 22:20 03/08/22 00:00 03/08/22 00:00 40 03/07/22 22:47 40 Critical Care Results & Data Vital Signs (Past 12 Hours) Vital Signs Temp Pulse Pulse Resp BP Pulse Ox O2 Del Method 03/08/22 09:56 36.9 C 87 28 H 135/71 97 CPAP, Mechanical Vent 03/08/22 09:31 37.0 C 95 H 20 104/52 L 100 CPAP, Mechanical Vent 03/08/22 09:30 37.0 C 94 H 18 93/51 L 100 CPAP, Mechanical Vent 03/08/22 09:22 37.0 C 88 25 H 105/64 94 CPAP, Mechanical Vent 03/08/22 09:15 37.0 C 92 H 28 H 98 03/08/22 09:00 37.0 C 80 26 H 144/69 H 98 CPAP, Mechanical Vent 03/08/22 08:57 37.0 C 78 25 H 166/76 H 99 CPAP, Mechanical Vent 03/08/22 08:46 37.0 C 72 21 169/72 H 100 CPAP, Mechanical Vent 03/08/22 08:37 37.1 C 68 18 173/70 H 100 CPAP, Mechanical Vent 03/08/22 08:30 37.1 C 68 17 172/70 H 100 CPAP, Mechanical Vent 03/08/22 08:14 37.1 C 72 12 104/53 L 99 Mechanical Vent 03/08/22 08:00 37.1 C 72 14 97/51 L 100 Mechanical Vent 03/08/22 08:00 Mechanical Vent 03/08/22 08:33 78 23 99 03/08/22 08:00 73 03/08/22 07:30 03/08/22 07:42 37.1 C 73 14 155/71 H 100 Mechanical Vent 03/08/22 07:30 37.1 C 77 14 132/64 100 Mechanical Vent 03/08/22 07:00 37.3 C 75 14 128/65 100 Mechanical Vent 03/08/22 07:09 74 19 100 03/08/22 04:56 14 03/08/22 04:03 37.7 C H 80 18 100 03/08/22 04:03 82/41 L 03/08/22 04:01 37.7 C H 81 15 100 03/08/22 04:00 37.7 C H 81 18 100 03/08/22 03:50 37.7 C H 82 18 100 03/08/22 03:45 127/56 L 03/08/22 03:45 37.8 C H 82 18 100 03/08/22 03:43 189/72 H 03/08/22 03:43 37.8 C H 81 16 100 03/08/22 03:40 37.9 C H 79 16 100 03/08/22 03:30 38.0 C H 80 18 100 03/08/22 03:30 182/73 H 03/08/22 03:20 38.1 C H 86 18 100 03/08/22 03:10 38.0 C H 94 H 16 100 03/08/22 03:00 38.1 C H 95 H 19 100 03/08/22 03:00 103/51 L 03/08/22 02:50 38.0 C H 95 H 18 99 03/08/22 02:40 38.0 C H 94 H 16 99 03/08/22 02:30 38.0 C H 94 H 18 100 03/08/22 02:30 96/55 L 03/08/22 02:20 38.0 C H 95 H 18 100 03/08/22 02:10 38.0 C H 93 H 16 100 03/08/22 02:00 37.9 C H 91 H 18 99 03/08/22 02:00 116/62 03/08/22 01:50 38.0 C H 88 18 100 03/08/22 01:40 38.0 C H 92 H 18 99 03/08/22 01:30 38.0 C H 88 18 100 03/08/22 01:30 118/56 L 03/08/22 01:20 37.9 C H 86 18 100 03/08/22 01:10 37.9 C H 84 18 100 03/08/22 01:00 37.9 C H 79 18 100 03/08/22 01:00 96/47 L 03/08/22 00:50 37.9 C H 77 18 100 03/08/22 00:40 37.8 C H 75 16 100 03/08/22 00:30 37.8 C H 76 18 100 03/08/22 00:30 112/49 L 03/08/22 00:20 37.8 C H 76 18 100 03/08/22 00:18 37.8 C H 75 18 100 03/08/22 00:18 91/49 L 03/08/22 00:15 37.8 C H 70 18 100 03/08/22 00:15 81/50 L 03/08/22 04:00 03/08/22 02:42 74 18 99 03/08/22 00:52 74 18 99 Mechanical Vent 03/08/22 00:10 37.8 C H 74 16 100 03/08/22 00:00 37.7 C H 76 18 100 03/08/22 00:00 91/47 L 03/07/22 23:50 37.8 C H 68 18 100 03/07/22 23:45 105/49 L 03/07/22 23:45 37.7 C H 73 18 100 03/07/22 23:40 37.7 C H 75 16 100 03/07/22 23:30 37.7 C H 75 18 100 03/07/22 23:30 107/50 L 03/07/22 23:20 37.6 C H 72 18 100 03/07/22 23:15 96/41 L 03/07/22 23:15 37.6 C H 73 18 100 03/07/22 23:10 37.6 C H 75 18 100 03/07/22 23:00 37.6 C H 74 18 100 03/07/22 23:00 81/44 L 03/07/22 22:50 37.6 C H 72 18 100 03/07/22 22:45 92/43 L 03/07/22 22:45 37.6 C H 73 18 100 03/07/22 22:40 37.6 C H 75 18 100 03/07/22 22:30 37.5 C 75 18 100 03/07/22 22:30 96/49 L 03/07/22 22:20 37.5 C 73 18 100 03/08/22 00:00 74 03/08/22 00:00 03/07/22 22:47 75 18 100 FiO2 03/08/22 09:56 30 03/08/22 09:31 30 03/08/22 09:30 30 03/08/22 09:22 30 03/08/22 09:15 03/08/22 09:00 30 03/08/22 08:57 30 03/08/22 08:46 30 03/08/22 08:37 30 03/08/22 08:30 30 03/08/22 08:14 30 03/08/22 08:00 30 03/08/22 08:00 30 03/08/22 08:33 30 03/08/22 08:00 03/08/22 07:30 30 03/08/22 07:42 30 03/08/22 07:30 30 03/08/22 07:00 30 03/08/22 07:09 30 03/08/22 04:56 03/08/22 04:03 03/08/22 04:03 03/08/22 04:01 03/08/22 04:00 03/08/22 03:50 03/08/22 03:45 03/08/22 03:45 03/08/22 03:43 03/08/22 03:43 03/08/22 03:40 03/08/22 03:30 03/08/22 03:30 03/08/22 03:20 03/08/22 03:10 03/08/22 03:00 03/08/22 03:00 03/08/22 02:50 03/08/22 02:40 03/08/22 02:30 03/08/22 02:30 03/08/22 02:20 03/08/22 02:10 03/08/22 02:00 03/08/22 02:00 03/08/22 01:50 03/08/22 01:40 03/08/22 01:30 03/08/22 01:30 03/08/22 01:20 03/08/22 01:10 03/08/22 01:00 03/08/22 01:00 03/08/22 00:50 03/08/22 00:40 03/08/22 00:30 03/08/22 00:30 03/08/22 00:20 03/08/22 00:18 03/08/22 00:18 03/08/22 00:15 03/08/22 00:15 03/08/22 04:00 03/08/22 02:42 03/08/22 00:52 03/08/22 00:10 03/08/22 00:00 03/08/22 00:00 03/07/22 23:50 03/07/22 23:45 03/07/22 23:45 03/07/22 23:40 03/07/22 23:30 03/07/22 23:30 03/07/22 23:20 03/07/22 23:15 03/07/22 23:15 03/07/22 23:10 03/07/22 23:00 03/07/22 23:00 03/07/22 22:50 03/07/22 22:45 03/07/22 22:45 03/07/22 22:40 03/07/22 22:30 03/07/22 22:30 03/07/22 22:20 03/08/22 00:00 03/08/22 00:00 40 03/07/22 22:47 40 Lab & Micro Results (Past 24 Hours) RBC 2.78 M/uL (3.93-5.22) L 03/08/22 WBC 9.05 K/ul (4.8-10.8) 03/08/22 Hgb 8.7 g/dl (12.0-16.0) L 03/08/22 Hct 29.4 % (34.1-44.9) L 03/08/22 MCV 105.8 fL (80.0-100.0) H 03/08/22 MCH 31.3 pg (25.0-34.0) 03/08/22 MCHC 29.6 g/dL (32.0-36.0) L 03/08/22 RDW Standard Deviation 62.0 fL (36.4-46.3) H 03/08/22 RDW Coefficient of Variation 15.9 % (11.5-14.5) H 03/08/22 Plt Count 229 K/uL (130-400) 03/08/22 MPV 12.0 fL (9.4-12.3) 03/08/22 Neutrophils (%) (Auto) 83.3 % 03/08/22 Lymphocytes (%) (Auto) 11.6 % 03/08/22 Monocytes # (Auto) 0.41 K/uL (0.24-0.82) 03/08/22 Eosinophils # (Auto) 0.00 K/uL (0-0.50) 03/08/22 Immature Granulocyte % (Auto) 0.6 % 03/08/22 Neutrophils # (Auto) 7.54 K/uL (1.4-6.5) H 03/08/22 Lymphocytes # (Auto) 1.05 K/uL (1.2-3.4) L 03/08/22 Monocytes # (Auto) 0.41 K/uL (0.24-0.82) 03/08/22 Eosinophils # (Auto) 0.00 K/uL (0-0.50) 03/08/22 Basophils # (Auto) 0.00 K/uL (0-0.2) 03/08/22 Immature Granulocyte # (Auto) 0.05 K/uL (0.00-0.02) H 03/08 Na 146 mmol/L (136-145) H 03/08/22 K 4.0 mmol/L (3.5-5.1) 03/08/22 Cl 104 mmol/L (98-107) 03/08/22 CO2 32 mmol/L (21-32) 03/08/22 Anion Gap 10 (3-11) 03/08/22 BUN 38 mg/dl (6-23) H 03/08/22 Creatinine 0.82 mg/dl (0.6-1.2) 03/08/22 Estimated GFR ( Amer) 80.0 ml/min 03/08/22 Estimated GFR (Non-Af Amer) 69.0 ml/min 03/08/22 BUN/Creatinine Ratio 46.3 (10-20) H 03/08/22 Glu 178 mg/dl (70-99(Fasting)) H 03/08/22 Ca 8.3 mg/dl (8.5-10.1) L 03/08/22 Phosphorus Level 2.2 mg/dl (2.5-4.9) L 03/08/22 Mg 1.9 mg/dl (1.7-2.4) 03/08/22 07:26 Calcium Level 8.3 mg/dl (8.5-10.1) L 03/08/22 07:26 Francois Test Pass 03/08/22 04:41 Diagnostic Findings (Past 24 Hours) Chest X-Ray 03/07/22 11:40 XR chest 1V portable HISTORY: resp failure, intubation COMPARISON: Chest 03/01/2022. FINDINGS: Endotracheal tube terminates approximately 4.9 cm from the ebony. The heart is normal in size. Emphysema and chronic interstitial thickening persists. No new focal lung consolidations. No evidence for pulmonary edema. No pleural fusions. No pneumothorax. 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 IMPRESSION: 1. Endotracheal tube terminates 4.9 cm from the ebony. 2. Chronic interstitial thickening and postoperative changes from prior endograft repair of the thoracic aortic aneurysm again noted. ACT 112: Negative or not required by law. Electronically signed by: Eduardo Peraza M.D. 03/07/2022 12:[address] 03/07/22 12:[address] DOSE: 537.48 mGy.cm HISTORY: Altered mental status, on blood thinner TECHNIQUE: Multiaxial CT images of the head were performed without the use of intravenous contrast. Automated exposure control was utilized for this study. A dose lowering technique was utilized adhering to the principles of ALARA. Comparison: None. Findings: The paranasal sinuses and mastoid air cells are clear. The calvarium and skull base are intact. There is no mass, hematoma, midline shift, acute infarct. White matter hypodensity is nonspecific but suggestive of microvascular ischemic change. The ventricles and sulci demonstrate mild age-related involutional changes. 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 Impression: No acute intracranial abnormality. ACT 112: Negative or not required by law. Electronically signed by: Eduardo Peraza M.D. 03/07/2022 1:47 PM Chest X-Ray 03/07/22 15:29 XR chest 1V portable HISTORY: eval line placment left subclavian COMPARISON: Chest 03/07/2022. FINDINGS: Interval placement left subclavian central venous catheter which terminates at the proximal SVC. Endotracheal tube remains in good position. No pneumothorax. No pleural effusions. Emphysema and chronic interstitial thickening persists. No new focal lung consolidations. The heart is normal in size. 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 This remains unchanged. There are poststernotomy changes. IMPRESSION: 1. The left subclavian central venous catheter terminates at the proximal SVC. No pneumothorax. 2. Endotracheal tube is unchanged in position. ACT 112: Negative or not required by law. Electronically signed by: Eduardo Peraza M.D. 03/07/2022 3:55 PM Chest CTA 03/07/22 16:17 CHEST CTA for PULMONARY ARTERIES CT DOSE: 267.18 mGy.cm HISTORY: Shortness of breath. TECHNIQUE: Multiaxial CT images of the chest were performed following the intravenous administration of contrast to evaluate the pulmonary arteries. Maxim al intensity projection images were also obtained. A dose lowering technique was utilized adhering to the principles of ALARA. COMPARISON STUDY: Chest CTA 02/20/2022. FINDINGS: The visualized liver and spleen are unremarkable. Mild adrenal gland thickening is likely age-related. Trace bilateral pleural effusions. No significant pericardial effusion. Endotracheal tube terminates 2.2 cm from the ebony. A left subclavian central venous catheter terminates in the proximal SVC. No mediastinal or hilar lymphadenopathy. Normal esophagus. The heart r emains mildly enlarged. 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 The aneurysm sac is similar in size measuring 7.2 x 3.9 cm. No evidence for an endoleak. Mild aneurysmal dilatation of the distal descending thoracic aorta remains unchanged measuring up to 3.[address] No evidence for acute aortic dissection. 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 This remains unchanged. No filling defects within the pulmonary arteries to suggest a pulmonary embolus. No acute fractures within the visualized osseous structures. No pneumothorax. Moderate emphysema. Multiple small scattered nodular and patchy airspace opacities are again noted throughout the lungs. This has slightly progressed in the interval and is consistent with a multifocal bronchopneumonia the. Mild central bronchial wall thickening, unchanged. The central airways are patent. No pneumothorax. IMPRESSION: 1. No evidence for pulmonary embolus. 2. Interval progression of the multiple scattered small nodular and patchy airspace opacities within the lungs. This is consistent with a multifocal bronchopneumonia. 3. Emphysema. 4. Satisfactory support line placement. 5. 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 The aneurysm sac remains unchanged. No evidence for an endoleak. 6. Trace bilateral pleural effusions. ACT 112: Negative or not required by law. Electronically signed by: Eduardo Peraza M.D. 03/07/2022 4:54 PM I & O Totals 24 Hours 03/07/22 03/08/22 03/09/22 06:59 06:59 06:59 Intake Total 3836.499 / 3836.499 126.368 / 126.368 Output Total 575 / 575 100 / 100 Balance 3261.499 / 3261.499 26.368 / 26.368 Cumulative 03/07/22 11:16 thru 03/08/22 10:06 Intake Total 3962.867 Output Total 675 Balance 3287.867 RT Ventilator Mngmt (Last Documented) Ventilator Ordered Settings Ventilator Support Mode CPAP 03/08/22 08:33 Respiratory Rate 28 03/08/22 09:56 Ventilator Tidal Volume 400 03/08/22 08:00 Setting Minute Ventilation 5.3 03/08/22 08:33 Ventilator Positive Pressure 5 03/08/22 08:33 Support Setting Positive End Expiratory 5 03/08/22 08:33 Pressure Fraction of Inspired Oxygen 30 03/08/22 09:56 Machine Comment placed on CPAP by physician @ 03/08/22 08:33 aprox, 8:30 Ventilator - PT Measurements Respiratory Rate 28 Exhaled Tidal Volume 376 Minute Ventilation 5.3 Peak Inspiratory Airway 23 Pressure Plateau Pressure 13.6 Respiratory Cycle Inspiratory: 1:3.8 Expiratory Ratio Inspiratory Phase Time 0.68 End-Tidal CO2 29 Static Lung Compliance 46.86 Dynamic Lung Compliance 20.89 Normal Static Lung Compliance 46.00 Coding Level of Care Code Critical Care 1st 30-74 mins Diagnoses Shock R57.9 Acute respiratory failure J96.01 Respiratory failure complication: hypoxia Elevated lactic acid level R79.89 Acute hyperkalemia E87.5 Paroxysmal atrial flutter I48.92 Opacity of lung on imaging study R91.8 Ischemic cardiomyopathy I25.5 SVT (supraventricular tachycardia) I47.1 COPD (chronic obstructive pulmonary disease) J44.9 Coronary artery disease I25.10 Time Spent (min) 45 (1) Acute respiratory failure Respiratory failure complication: hypoxia Qualified Code(s): J96.01 - Acute respiratory failure with hypoxia
[2022-03-08] MEDS: SOTALOL HCL 80 MG TAB PO SCH (10:29)
--- NOTE | 2022-03-08 11:25 | Hospitalist Progress Note ---
Date of Service March 08, 2022 Assessment & Plan (1) Respiratory failure: Plan: Acute on chronic respiratory failure with hypoxia requiring intubation and mechanical ventilation, presumably secondary to multifocal PNA given x ray findings. Patient was discharged from this hospital to Rehab just a few days ago Patient currently intubated and ventilated in the ICU Plans for weaning trials Continue broad spectrum abx, Vanc and cefepime (patient was recently d/c from t his hospital) (2) Shock: Plan: Hypovolemic shock vs. sepsis vs. obstructive Initial lactate 3.2 - continue with evaluation source is presumably multifocal PNA as seen on x ray Continue pressure support Wean as tolerated Appreciate critical care input (3) Hyperkalemia: Plan: resolved (4) Encephalopathy: Plan: Metabolic encephalopathy from combination of shock and hypoglycemia is likely c ause - localizes and moves all extremities - Correct hypoglycemia- dextrose given and received steroids in EMD- BG checks q4 hours - volume replete - empiric abx - maintain MAP >65 and Pao2 >60 (5) COPD (chronic obstructive pulmonary disease): Plan: Chronic emphysema- ABG obtained following intubation - 7.37/66/53/39 - baseline Pao2 80s - continue with scheduled nebulizers and inhaled corticosteroids, systemic steroids with methyl pred at 40mg q6 - with bronchiectasis flutter valve and vest therapy post extubation likely will assist (6) Paroxysmal atrial flutter: Plan: Bradycardic likley related to hypoxia and hypoglycemia - Sotalol in AM if rate responds and off vasopressor agents (7) Chronic anticoagulation: Plan: Apixaban 2.5mg PO BID - hold for now - on for aflutter (8) Protein calorie malnutrition: Plan: Severe cachetic - place OGT- correct shock and TF initiation per ICU with nutritional evaluaton - follow for refeeding (9) Elevated troponin: Plan: Likely type II demand in the setting of hypotension and hypoxia - trend q6 hour, ECG without acute ST elevation (10) H/O vascular surgery: Plan: GORE TAG thoracic aortic stent covering left subclavian artery (01/11), AAA with aortobiiliac grafts (2005) - continue daily aspirin - Eliquis when able (11) Thoracic aortic aneurysm: Plan: As above- s/p repair (12) Peripheral arterial disease: Plan: As above aspirin continue continue statin Plan continue hospitalization Admission and Anticipated Discharge Date Admission Date: March 07, 2022 Subjective patient seen and examined today, intubated and ventilated Review of Systems Review of Systems: unable to obtain Physical Exam Physical Exam: The patient is intubated and ventilated HEENT--PERRL, EOMI, mucous membranes and oropharynx mildly dry Neck--supple. No JVD. No bruits. Thyroid normal, trachea midline, no adenopathy. Heart--normal S1 and S2. No murmurs, rubs or gallops. Lungs--Reduced air entry on ausculatation Abdomen--normal bowel sounds and soft. Mild epigastric and left sided abdominal pain Extremities--no cyanosis or clubbing. No edema. Dermatologic--normal skin turgor, normal color, no abnormal lymph nodes, no rash. Neurologic--unable to fully assess Rheumatologic--normal range of motion. Psychiatric--unable to assess Results & Data Results & Data ([facility]) Vital Signs (Past 12 Hours) Vital Signs Temp Pulse Pulse Resp BP Pulse Ox O2 Del Method 03/08/22 09:56 98.4 F 87 28 H 135/71 97 CPAP, Mechanical Vent 03/08/22 09:31 98.6 F 95 H 20 104/52 L 100 CPAP, Mechanical Vent 03/08/22 09:30 98.6 F 94 H 18 93/51 L 100 CPAP, Mechanical Vent 03/08/22 09:22 98.6 F 88 25 H 105/64 94 CPAP, Mechanical Vent 03/08/22 09:15 98.6 F 92 H 28 H 98 03/08/22 09:00 98.6 F 80 26 H 144/69 H 98 CPAP, Mechanical Vent 03/08/22 08:57 98.6 F 78 25 H 166/76 H 99 CPAP, Mechanical Vent 03/08/22 08:46 98.6 F 72 21 169/72 H 100 CPAP, Mechanical Vent 03/08/22 08:37 98.8 F 68 18 173/70 H 100 CPAP, Mechanical Vent 03/08/22 08:30 98.8 F 68 17 172/70 H 100 CPAP, Mechanical Vent 03/08/22 08:14 98.8 F 72 12 104/53 L 99 Mechanical Vent 03/08/22 08:00 98.8 F 72 14 97/51 L 100 Mechanical Vent 03/08/22 08:00 Mechanical Vent 03/08/22 08:33 78 23 99 07/17/22 08:00 73 03/08/22 07:30 03/08/22 07:42 98.8 F 73 14 155/71 H 100 Mechanical Vent 03/08/22 07:30 98.8 F 77 14 132/64 100 Mechanical Vent 03/08/22 07:00 99.1 F 75 14 128/65 100 Mechanical Vent 03/08/22 07:09 74 19 100 03/08/22 04:56 14 03/08/22 04:03 99.9 F H 80 18 100 03/08/22 04:03 82/41 L 03/08/22 04:01 99.9 F H 81 15 100 03/08/22 04:00 99.9 F H 81 18 100 03/08/22 03:50 99.9 F H 82 18 100 03/08/22 03:45 127/56 L 03/08/22 03:45 100.0 F H 82 18 100 03/08/22 03:43 189/72 H 03/08/22 03:43 100.0 F H 81 16 100 03/08/22 03:40 100.2 F H 79 16 100 03/08/22 03:30 100.4 F H 80 18 100 03/08/22 03:30 182/73 H 03/08/22 03:20 100.6 F H 86 18 100 03/08/22 03:10 100.4 F H 94 H 16 100 03/08/22 03:00 100.6 F H 95 H 19 100 03/08/22 03:00 103/51 L 03/08/22 02:50 100.4 F H 95 H 18 99 03/08/22 02:40 100.4 F H 94 H 16 99 03/08/22 02:30 100.4 F H 94 H 18 100 03/08/22 02:30 96/55 L 03/08/22 02:20 100.4 F H 95 H 18 100 03/08/22 02:10 100.4 F H 93 H 16 100 03/08/22 02:00 100.2 F H 91 H 18 99 03/08/22 02:00 116/62 03/08/22 01:50 100.4 F H 88 18 100 03/08/22 01:40 100.4 F H 92 H 18 99 03/08/22 01:30 100.4 F H 88 18 100 03/08/22 01:30 118/56 L 03/08/22 01:20 100.2 F H 86 18 100 03/08/22 01:10 100.2 F H 84 18 100 03/08/22 01:00 100.2 F H 79 18 100 03/08/22 01:00 96/47 L 03/08/22 00:50 100.2 F H 77 18 100 03/08/22 00:40 100.0 F H 75 16 100 03/08/22 00:30 100.0 F H 76 18 100 03/08/22 00:30 112/49 L 03/08/22 00:20 100.0 F H 76 18 100 03/08/22 00:18 100.0 F H 75 18 100 03/08/22 00:18 91/49 L 03/08/22 00:15 100.0 F H 70 18 100 03/08/22 00:15 81/50 L 03/08/22 04:00 03/08/22 02:42 74 18 99 03/08/22 00:52 74 18 99 Mechanical Vent 03/08/22 00:10 100.0 F H 74 16 100 03/08/22 00:00 99.9 F H 76 18 100 03/08/22 00:00 91/47 L 03/07/22 23:50 100.0 F H 68 18 100 03/07/22 23:45 105/49 L 03/07/22 23:45 99.9 F H 73 18 100 03/07/22 23:40 99.9 F H 75 16 100 03/07/22 23:30 99.9 F H 75 18 100 03/07/22 23:30 107/50 L 03/07/22 23:20 99.7 F H 72 18 100 03/08/22 00:00 74 03/08/22 00:00 FiO2 03/08/22 09:56 30 03/08/22 09:31 30 03/08/22 09:30 30 03/08/22 09:22 30 03/08/22 09:15 03/08/22 09:00 30 03/08/22 08:57 30 03/08/22 08:46 30 03/08/22 08:37 30 03/08/22 08:30 30 03/08/22 08:14 30 03/08/22 08:00 30 03/08/22 08:00 30 03/08/22 08:33 30 03/08/22 08:00 03/08/22 07:30 30 03/08/22 07:42 30 03/08/22 07:30 30 03/08/22 07:00 30 03/08/22 07:09 30 03/08/22 04:56 03/08/22 04:03 03/08/22 04:03 03/08/22 04:01 03/08/22 04:00 03/08/22 03:50 03/08/22 03:45 03/08/22 03:45 03/08/22 03:43 03/08/22 03:43 03/08/22 03:40 03/08/22 03:30 03/08/22 03:30 03/08/22 03:20 03/08/22 03:10 03/08/22 03:00 03/08/22 03:00 03/08/22 02:50 03/08/22 02:40 03/08/22 02:30 03/08/22 02:30 03/08/22 02:20 03/08/22 02:10 03/08/22 02:00 03/08/22 02:00 03/08/22 01:50 03/08/22 01:40 03/08/22 01:30 03/08/22 01:30 03/08/22 01:20 03/08/22 01:10 03/08/22 01:00 03/08/22 01:00 03/08/22 00:50 03/08/22 00:40 03/08/22 00:30 03/08/22 00:30 03/08/22 00:20 03/08/22 00:18 03/08/22 00:18 03/08/22 00:15 03/08/22 00:15 03/08/22 04:00 03/08/22 02:42 03/08/22 00:52 03/08/22 00:10 03/08/22 00:00 03/08/22 00:00 03/07/22 23:50 03/07/22 23:45 03/07/22 23:45 03/07/22 23:40 03/07/22 23:30 03/07/22 23:30 03/07/22 23:20 03/08/22 00:00 03/08/22 00:00 40 PG Care Time/CCT Total # of Minutes Spent Total Time Spent with Patient: Total time spent is greater than 50% in coordination of care (as documented) at patient's floor/unit and/or counseling patient: Coding Level of Care Code 01380 Subseq Hosp Care Lvl 2 Diagnoses Respiratory failure J96.90 Shock R57.9 Hyperkalemia E87.5 Encephalopathy G93.40 COPD (chronic obstructive pulmonary disease) J44.9 Paroxysmal atrial flutter I48.92 Chronic anticoagulation Z79.01 Protein calorie malnutrition E46 Elevated troponin R77.8 H/O vascular surgery Z98.890 Thoracic aortic aneurysm I71.2 Peripheral arterial disease I73.9 Time Spent (min) 35
[2022-03-08] MEDS ORDERED: ALBUT/IPRATROP 3MG/0.5MG NEB 3 ML VIAL INH PRN (11:45)
--- NOTE | 2022-03-08 12:56 | Electrocardiogram Report ---
Test Reason : Blood Pressure : / mmHG Vent. Rate : 080 BPM Atrial Rate : 080 BPM P-R Int : 104 ms QRS Dur : 094 ms QT Int : 380 ms P-R-T Axes : 069 066 -76 degrees QTc Int : 438 ms Sinus rhythm with short HI Anterior ST abnormality Possible Inferior infarct (cited on or before 07-MAR-2022) Abnormal ECG When compared with ECG of 07-MAR-2022 11:38, Premature atrial complexes are no longer Present Confirmed by Santiago Godinez ([id number]) on 03/08/2022 12:56:09 PM Referred By: REFERRED SELF Confirmed By:Santiago Godinez
[2022-03-09] MEDS: methylPREDNISolone 40 MG in SYRINGE 0 ML IV SCH ×3 (02:40→19:45)
[2022-03-09] MEDS: CEFEPIME 2,000 MG in SYRINGE 0 ML IV SCH (02:40)
[2022-03-09 06:23] LABS: BUN Creatinine Ratio 43.8 (10-20); Calcium 9.3 mg/dl (8.5-10.1); Creatinine Clr Calc Pharmacy 29.8 ml/min; Est GFR (African American) 59.3 ml/min; Est GFR (Non-African American) 51.2 ml/min; Magnesium 2.1 mg/dl (1.7-2.4); Phosphorus 4.2 mg/dl (2.5-4.9); Potassium 4.5 mmol/L (3.5-5.1)
[2022-03-09 06:33] LABS: Hematocrit (blood only) 32.1 % (34.1-44.9); Hemoglobin 9.2 g/dl (12.0-16.0); Mean Corpuscular Hemoglobin 31.8 pg (25.0-34.0); Mean Corpuscular Hgb Conc 28.7 g/dL (32.0-36.0); Mean Corpuscular Volume 111.1 fL (80.0-100.0); Mean Platelet Volume 11.5 fL (9.4-12.3); Platelet Count 162 K/uL (130-400); RDW Standard Deviation 66.1 fL (36.4-46.3); Red Blood Count 2.89 M/uL (3.93-5.22); White Blood Count 9.58 K/ul (4.8-10.8)
[2022-03-09 06:35] LABS: Basophilic Stippling 1+; Immature Granulocytes # (auto) 0.05 K/uL (0.00-0.02); Immature Granulocytes % (auto) 0.5 %; Lymphocytes % (auto) 6.3 %; Macrocytosis Present; Monocytes # (auto) 0.47 K/uL (0.24-0.82); Monocytes % (auto) 4.9 %; Neutrophils # (auto) 8.46 K/uL (1.4-6.5); Neutrophils % (auto) 88.3 %
[2022-03-09] MEDS ORDERED: GLUCOSE 10 TAB/TUBE PO PRN (08:07)
[2022-03-09] MEDS ORDERED: DEXTROSE 50% 50 ML SYRINGE IV PRN (08:07)
[2022-03-09] MEDS ORDERED: DEXTROSE 50% 50 ML SYRINGE IV ONE ×2 (08:07→08:12)
[2022-03-09] MEDS ORDERED: CARBOHYDRATES FOR HYPOGLYCEMIA PO PRN (08:07)
[2022-03-09] MEDS ORDERED: GLUCAGON FOR INJ 1 MG VIAL SQ PRN (08:07)
[2022-03-09] MEDS ORDERED: GLUCOSE 40% GEL 15 GM TUBE PO PRN (08:07)
[2022-03-09] MEDS: THIAMINE HCL 300 MG in SODIUM CHLORIDE 0.9% 50 ML IV SCH (08:17)
[2022-03-09] MEDS: PANTOprazole 40 MG in SYRINGE 0 ML IV SCH ×2 (08:17→19:45)
[2022-03-09] MEDS ORDERED: D5W AND 1/2NSS 1,000 ML IV SCH (09:00)
--- NOTE | 2022-03-09 09:04 | Critical Care Progress Note ---
Date of Service March 09, 2022 Assessment & Plan (1) Severe protein-energy malnutrition: (2) Failure to thrive: (3) Shock: (4) Acute respiratory failure: (5) Elevated lactic acid level: (6) Acute hyperkalemia: (7) Paroxysmal atrial flutter: (8) Opacity of lung on imaging study: (9) Ischemic cardiomyopathy: (10) SVT (supraventricular tachycardia): (11) COPD (chronic obstructive pulmonary disease): (12) Coronary artery disease: Plan Reason Critically Ill: Patient presents to the ICU with acute respiratory failure and circulatory shock requiring vasopressor support and mechanical ventilation. Neuro - Sedation: Minimize sedation unless patient is under palliative or hospice care. Cardiac - Shock has resolved. Likely sedation related.Continue sotalol and aspirin for history of atrial fibrillation. We will need to consider restarting full dose anticoagulation. Patient with recent extensive cardiac surgery completed in [place] for thoracic aortic aneurysm. CADstatus post 2V CABG 2021. Continue aspirin, statin. Respiratory - Acute on chronic hypercapnic and hypoxemic respiratory failure. Patient has advanced COPD. She is chronically on oxygen. CT chest from earlier this admission reviewed suggestive of multifocal tree-in-bud opacities. Consider po ssible KISHORE infection. Unlikely to tolerate bronchoscopy. We will start the patient on scheduled nebulized budesonide and formoterol. We will also start the patient on LAMA. GI - Nutrition extremely poor. Patient with failure to thrive low BMI. Nutrition consult pending. May need to consider G-tube placement if family wishes to pursue aggressive measures. RENAL/LYTES - Hyperkalemia resolving. Patient with mild hypernatremia due to poor p.o. intake. We will start patient on D5, half-normal saline at a rate of 80 cc/h. - Foleystrict I's and O's ENDO - No history of diabetes or thyroid disease. Periodic hypoglycemic episodes. Hypoglycemia protocol ordered. Start D5. HEME - H&H stable, monitor routine CBCs ID - Sepsisblood and urine cultures negative to date. CT chest consistent with chronic atypical organism infection/aspiration. Cefepime discontinued. Levaquin ordered. LINES/IV ACCESS - Will discontinue subclavian line today. DVT PROPHYLAXIS - SCDs, holding Eliquis for now Disposition: Patient stable transfer to floor. Overall prognosis is very poor. Palliative care consult placed. Admission and Anticipated Discharge Date Admission Date: March 07, 2022 Subjective Patient seen and examined. She notes that she feels short of breath. She is laying in bed. Denies chest pain. Glucose in the 60s on initial check. Repeat in the 160s. She did receive D50. Review of Systems Review of Systems: All systems reviewed & are unremarkable except as noted in HPI & below Physical Exam Physical Exam: Constitutional: Frail and thin appearing. Mildly distressed. Eyes: Pupils are equal round and reactive to light. Conjunctivae are normal. Anicteric sclera. Ears nose, mouth and throat: Deferred. Neck: Trachea is midline. Visual inspection is normal. Respiratory: No wheezes. Prolonged phase of exhalation. Diminished lung sounds bilaterally. Cardiovascular: Regular rate and rhythm. No murmurs. No edema. Gastrointestinal: Normal bowel sounds, soft, nontender and nondistended. No hepatosplenomegaly noted. Musculoskeletal: No cyanosis. Patient is able to move all extremities. Skin: No rashes, warm dry and intact. Neurologic: No obvious focal neurological deficits seen. Psychiatric: Anxious appearing. Alert and oriented. Results & Data Results & Data ([facility]) Vital Signs (Past 12 Hours) Vital Signs Temp Pulse Resp BP Pulse Ox 03/09/22 05:00 36.7 C 58 L 25 H 100 03/09/22 04:00 36.6 C 60 23 100 03/09/22 04:00 116/67 03/09/22 03:00 36.5 C 62 21 100 03/09/22 03:00 123/42 L 03/09/22 02:00 36.4 C L 58 L 21 100 03/09/22 02:00 128/48 L 03/09/22 02:48 54 L 03/09/22 01:00 36.3 C L 54 L 15 100 03/09/22 01:00 94/36 L 03/09/22 00:00 36.2 C L 53 L 17 100 03/09/22 00:00 91/36 L 03/08/22 23:00 35.9 C L 59 L 18 97 03/08/22 23:00 152/51 H 03/08/22 22:00 35.9 C L 54 L 22 100 03/08/22 22:00 89/32 L 03/08/22 21:00 35.8 C L 58 L 24 96 03/08/22 21:00 138/47 L Coding Level of Care Code 92601 Subseq Hosp Care Lvl 3 Diagnoses Severe protein-energy malnutrition E43 Failure to thrive Shock R57.9 Acute respiratory failure J96.01 Respiratory failure complication: hypoxia Elevated lactic acid level R79.89 Acute hyperkalemia E87.5 Paroxysmal atrial flutter I48.92 Opacity of lung on imaging study R91.8 Ischemic cardiomyopathy I25.5 SVT (supraventricular tachycardia) I47.1 COPD (chronic obstructive pulmonary disease) J44.9 Coronary artery disease I25.10 (1) Acute respiratory failure Respiratory failure complication: hypoxia Qualified Code(s): J96.01 - Acute respiratory failure with hypoxia
[2022-03-09] MEDS ORDERED: levoFLOXacin/D5W 500 MG/100 ML BAG IV ONE (09:30)
[2022-03-09] MEDS: NOREPINEPHRINE/D5W 4 MG/250 ML PLCT IV SCH (09:34)
[2022-03-09 09:40] LABS: BUN Creatinine Ratio 39.8 (10-20); Calcium 9.2 mg/dl (8.5-10.1); Creatinine Clr Calc Pharmacy 27.6 ml/min; Est GFR (African American) 54.3 ml/min; Est GFR (Non-African American) 46.8 ml/min; Potassium 4.2 mmol/L (3.5-5.1)
[2022-03-09] MEDS: BUDESONIDE 0.25 MG/2 ML VIAL (PULMICORT) NEB SCH ×2 (09:45→20:05)
[2022-03-09] MEDS: FORMOTEROL 20 MCG/2 ML VIAL NEB SCH ×2 (09:46→20:05)
[2022-03-09] MEDS: HEPARIN SOD 5,000 UNIT/0.5 ML VIAL SQ SCH ×2 (10:58→22:14)
[2022-03-09] MEDS: UMECLIDINIUM BROMIDE 62.5MCG/BLISTER 7 PUFFS/INHALER INH SCH (10:59)
--- NOTE | 2022-03-09 15:19 | Palliative Care Consultation ---
Date of Consultation March 09, 2022 Assessment & Plan (1) Severe protein-energy malnutrition: Catarina has had multiple medical challenges in the last few months with anorexia and significant weight loss of 25% of her baseline weight since August. Her and family feel very strongly that lack of nutrition is a primary contributor to her current status and that if she were able to get some nutrition, she could "get better". They are definitely interested in artificial feeding to try and improve her nutritional status. (2) Palliative care encounter: I talked with Catarina and her about whether they had ever discussed goals and wishes for her healthcare if she were very ill. They have not. Catarina deferred further discussion to her . He tells me that after her heart surgery, she had talked about completing an advance directive, which surprised him, but they were not able to do that with her illness. She is a full code and they have not considered any limits to the care that she would want. We talked about her multiple comorbidities and frailty. While nutrition is certainly a factor, it may be more of a symptom than a cause of her current debility. We reviewed her comorbidities and also talked about possible options for artificial feeding, including PEG, NG feeding or TPN. We also discussed concern that in her current condition, she may very well have complications from artificial feeding including aspiration, volume overload and infection. Mr. Joy asked me if I thought that she may not get better and I expressed concern that she may not. He told me that if this was how she were going to live, she would not want to live like that. However, he continues to hope that with nutrition, she may improve. We discussed using artificial nutrition as a trial and if her status does not improve, that would be a sign that her body is not able to recover. He is agreeable to a trial of artificial nutrition with daily monitoring. Discussed with Dr. Silva and Dr. Campbell. History of Present Illness Reason for Consultation: goals of care Requesting Physician: Dr. Campbell Attending Physician: Andreas Campbell History of Present Illness 76 yo lady who has been in and out of the hospital since August of this year. She has had hospitalizations at [facility] for CABG in August, a syncopal episode and a thoracic aneurysm repair. She was hospitalized here in early February with lightheadedness, hypotension and SVT, requiring cardioversion. She has known advanced COPD and was admitted two days ago with hypoxic respiratory failure requiring intubation and short term vent support. She was extubated yesterday. She has significant protein calorie malnutrition with a 20+ pound weight loss since August. She is awake and able to speak but very weak and defers questions to her who is at bedside. He tells me that she has had very poor appetite with virtually no po intake in the last few weeks. She denies nausea. She does have some esophageal dysfunction and per her , she was planning to see GI as an outpatient for further evaluation. She complains of feeling this stick in her throat at times. She was seen by speech therapy today and found to have no overt signs of aspiration and recommendation was made for possible barium swallow to evaluated further. Allergies Allergy/AdvReac Type Severity Reaction Status Date / Time Sulfa (Sulfonamide Allergy Intermediate Rash Verified 03/07/22 14:51 Antibiotics) Penicillins Allergy Unknown HAPPENED Verified 03/07/22 14:51 A TEENAGER amiodarone AdvReac Intermediate SKIN Verified 03/07/22 14:51 PEELED OFF FEET fexofenadine AdvReac Intermediate "SKIN Verified 03/07/22 14:51 HURTS" HEADACHE lisinopril AdvReac Intermediate COUGH Verified 03/07/22 14:51 Home Medications Medication Instructions Recorded Confirmed Type aspirin 81 mg tablet,delayed 81 mg PO DAILY 10/28/20 03/07/22 History release (Adult Aspirin Regimen) nitroglycerin 0.4 mg sublingual 0.4 mg sublingual Q5M PRN chest 10/28/20 03/07/22 Rx tablet pain #30 tabs cyanocobalamin (vitamin B-12) 1,000 mcg PO DAILY 05/04/21 03/07/22 History 1,000 mcg tablet (Vitamin B-12) rosuvastatin 10 mg tablet 10 mg PO DAILY #30 tabs 08/05/21 03/07/22 Rx metoprolol tartrate 50 mg tablet 50 mg PO BID #180 tabs 09/08/21 03/07/22 Rx Oxygen Home #1 ea 09/30/21 02/12/22 Rx pantoprazole 40 mg tablet,delayed 40 mg PO DAILY 11/25/21 03/07/22 History release ondansetron 4 mg disintegrating 4 mg PO Q8H PRN nausea and 01/15/22 03/07/22 Rx tablet vomiting #30 tabs sertraline 50 mg tablet 50 mg PO DAILY #90 tabs 01/22/22 03/07/22 Rx Walker #1 ea 02/05/22 02/05/22 Rx acetaminophen 325 mg tablet 325 mg PO Q4H PRN FEVER/PAIN 02/19/22 03/07/22 History albuterol sulfate 90 mcg/actuation 2 puff inhalation Q6H PRN 02/20/22 03/07/22 Rx aerosol inhaler (Ventolin HFA) shortness of breath or wheezing #6.7 grams sotalol 80 mg tablet 80 mg PO DAILY 30 days #30 tabs 03/03/22 03/07/22 Rx apixaban 2.5 mg tablet (Eliquis) 2.5 mg PO BID 90 days #180 tabs 03/06/22 03/07/22 Rx Theracalazinc 1 applic topical TID 03/07/22 03/07/22 History fluticasone fur. 100 mcg-umeclid 1 inh inhalation DAILY 03/07/22 03/07/22 History 62.5 mcg-vilant 25 mcg inhalat.powder (Trelegy Ellipta) guaifenesin 600 mg tablet, 600 mg PO BID 03/07/22 03/07/22 History extended release 12 hr (Mucus Relief ER) lorazepam 0.5 mg tablet 0.25 mg PO Q8H PRN anxiety 03/07/22 03/07/22 History losartan 25 mg tablet 25 mg PO DAILY 03/07/22 03/07/22 History mirtazapine 15 mg disintegrating 15 mg PO HS 03/07/22 03/07/22 History tablet Patient History Medical History Anxiety Atrial fibrillation with rapid ventricular response Bronchiectasis Bronchiectasis Chronic respiratory failure COPD (chronic obstructive pulmonary disease) Coronary artery disease Dehydration Failure to thrive History of abdominal aortic aneurysm (AAA) History of esophageal ulcer (2013) History of MA (myocardial infarction) (01/08/14) Hypertension Hypomagnesemia Hypoxia Peripheral arterial disease Severe protein-energy malnutrition Thoracic aortic aneurysm Tobacco abuse Surgical History H/O heart artery stent (2013) H/O heart bypass surgery (09/15/21) 09/15/21 Dr. Jerry Ellsworth at [facility]- CABG x 2 SVG to LAD and OM/Ligation left atrial appendage with 35 mm Atricure clip/debranching of aortic arch with "Y" graft from ascending aorta to innominate and left carotid artery H/O vascular surgery (11/18/21) L common carotid A to L subclavian artery dacron bypass graft S/P AAA (abdominal aortic aneurysm) repair (07/14/06) open repair, Aortiobiiliac graft S/P aneurysm repair (01/06/22) S/P right cataract extraction S/P ANGEL-BSO (1975) secondary to endometriosis S/P tonsillectomy S/P total hysterectomy and bilateral salpingo-oophorectomy (1975) Status post coronary angiogram 09/10/21 Dr. Jean Baptiste at [facility]- Coronary angiography (recommended bypass) Family History Sister Breast cancer Father Myocardial infarction Coronary heart disease Atrial fibrillation AAA (abdominal aortic aneurysm) Stroke Lung cancer Hypertension Mother AA (aortic aneurysm) Denies family history of Ovarian cancer Prostate cancer Colorectal cancer Social History Smoking Status: Smoker, status unknown Tobacco Type: Cigarettes Age Started Using Tobacco: 24; Cigarettes Per Day: 1; Second Hand Exposure: No; Hx Alcohol Use: No Hx Substance Use: No Preferred Language: Estonian Communication Ability: Unable Visual Impairment: Limited Hearing Ability: Normal Family Life Counselor Required: No Beliefs That Will Affect Care: None marital status: Current Living Situation: Spouse 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 How many Children do You have: 3 Other Information That Helps Us Care for You: No Feels Safe at Home: Yes Safety Concerns: Feels Safe At This Time Childhood Exposure to Second-Hand Smoke: Yes (father) caffeine: Yes during the past year weight has: remained stable Dental Care, Regularly: No Physical Activity Frequency: 3-4 Times per Week Physical Activity Frequency Comment: walks Seatbelt Use: always Sunscreen Use: Yes Assistive Devices: Oxygen - Continuous and Walker Review of Systems Review of Systems: ESAS Pain 0/3 Dyspnea 2/3 Fatigue 3/3 Nausea 0/3 Drowsiness 2/3 PPS 30% Physical Exam Constitutional: + cachectic ENMT: Mouth: + dry oral mucous membranes Respiratory: using accessory muscles Musculoskeletal: Extremities: + muscle atrophy Neurologic: Speech / Cognition: normal cognition Results & Data ([facility]) Vital Signs (Past 12 Hours) Vital Signs Temp Pulse Pulse Resp BP Pulse Ox O2 Del Method 03/09/22 11:00 97.3 F L 63 20 147/54 H 97 Oxyhood 03/09/22 10:00 97.7 F 65 20 143/53 H 88 L Oxymask 03/09/22 09:00 97.7 F 63 23 128/48 L 92 Oxymask 03/09/22 08:00 98.1 F 61 23 119/45 L 100 03/09/22 07:00 98.1 F 63 21 124/51 L 100 Nasal Cannula 03/09/22 08:00 Oxymask 03/09/22 10:33 84 L Oxymask 03/09/22 08:00 60 03/09/22 09:50 64 18 94 Oxymask 03/09/22 05:00 98.1 F 58 L 25 H 100 03/09/22 04:00 97.9 F 60 23 100 03/09/22 04:00 116/67 O2 Flow Rate 03/09/22 11:00 2 03/09/22 10:00 2 03/09/22 09:00 1 03/09/22 08:00 03/09/22 07:00 3 03/09/22 08:00 2 03/09/22 10:33 3 03/09/22 08:00 03/09/22 09:50 2 03/09/22 05:00 03/09/22 04:00 03/09/22 04:00 PG Care Time/CCT Total # of Minutes Spent Total Time Spent: 70 Total Time Spent with Patient: Total time spent is greater than 50% in coordination of care (as documented) at patient's floor/unit and/or counseling patient: goals of care, patient and family education and support, coordination of care Coding Level of Care Code 64394 Initial Inpt Care Lvl 3 Diagnoses Severe protein-energy malnutrition E43 Palliative care encounter Z51.5
--- NOTE | 2022-03-09 16:03 | XRay Report ---
KUB HISTORY: Confirm feeding tube placement COMPARISON: None. FINDINGS: The bowel gas pattern is unremarkable. There are no dilated loops of small bowel to suggest an obstruction. No renal calculi. No ureteral calculi. No pneumoperitoneum or pneumatosis. Mass or calcifications are noted. The tip of the feeding tube terminates at the gastroesophageal junction. Th is should be advanced by approximately 10 cm. There are surgical clips within the left upper quadrant . There are poststernotomy changes. Partially visualized rectal catheter is noted. IMPRESSION: The tip of the feeding tube terminates at the gastroesophageal junction. This should be advanced by a pproximately 10 cm ACT 112: Negative or not required by law. Electronically signed by: Eduardo Peraza M.D. 03/09/2022 4:01 PM
[2022-03-09] MEDS: ASPIRIN 81 MG ECTAB PO SCH (16:36)
[2022-03-09] MEDS: SOTALOL HCL 80 MG TAB PO SCH (16:36)
[2022-03-09] MEDS ORDERED: TUBE FEEDING WATER FLUSH NG SCH (17:00)
[2022-03-09] MEDS ORDERED: IMPACT LIQD 1.0 CAL 1,000 ML BAG NG SCH (17:00)
--- NOTE | 2022-03-09 18:49 | Hospitalist Progress Note ---
Date of Service March 09, 2022 Assessment & Plan (1) Respiratory failure: Plan: Acute on chronic respiratory failure with hypoxia requiring intubation and mechanical ventilation - DDX: COPD vs. PE vs. infectious vs. Encephalopathy from hypoglycemia or combination of above - CXR without opacities but noting emphysema COPD - extubated on 03/08 - Decadron 10mg IV given in EMD continue with methylpred 40mg IV q6 hour -methyprednisolone titrated to q12h on 03/09 - Scheduled nebs, with Pulmicort BID nebs - empiric abx (2) Shock: Plan: Hypovolemic shock vs. sepsis vs. obstructive - lactate 3.2 - continue with evaluation -off pressors -patient no longer appears to be encephalopathic - Random cortisol- increase steroid to stress dosing if needed for BP support and glycemic support (3) Hyperkalemia: Plan: Mild at 6.5 without ECG changes likely related to shock although with out acidosis -improved potassium 4.2 renal function intact making urine given HCO3 in EMD follow with BMP- kaliurese with Lasix if needed follow hypoglycemia- avoid shifting with insulin (4) Encephalopathy: Plan: Metabolic encephalopathy from combination of shock and hypoglycemia is likely cause - localizes and moves all extremities - Correct hypoglycemia- dextrose given and received steroids in EMD- BG checks q4 hours - volume replete - empiric abx - maintain MAP >65 and Pao2 >60 (5) COPD (chronic obstructive pulmonary disease): Plan: Chronic emphysema- ABG obtained following intubation - 7.37/66/53/39 - baseline Pao2 80s - continue with scheduled nebulizers and inhaled corticosteroids, systemic s teroids with methyl pred at 40mg q6 - with bronchiectasis flutter valve and vest therapy post extubation likely will assist (6) Paroxysmal atrial flutter: Plan: Bradycardic likley related to hypoxia and hypoglycemia - Sotalol has been started (7) Chronic anticoagulation: Plan: Apixaban 2.5mg PO BID - hold for now - on for aflutter (8) Protein calorie malnutrition: Plan: Severe cachetic - place OGT- correct shock and TF initiation per ICU with nutritional evaluaton - follow for refeeding (9) Elevated troponin: Plan: Likely type II demand in the setting of hypotension and hypoxia - trend q6 hour, ECG without acute ST elevation (10) H/O vascular surgery: Plan: GORE TAG thoracic aortic stent covering left subclavian artery (01/11), AAA with aortobiiliac grafts (2005) - continue daily aspirin - Eliquis when able (11) Thoracic aortic aneurysm: Plan: As above- s/p repair (12) Peripheral arterial disease: Plan: As above aspirin continue continue statin Admission and Anticipated Discharge Date Admission Date: March 07, 2022 Subjective Patient reports she is interested in trying nutrition through NG tube. Review of Systems Review of Systems: All systems reviewed & are unremarkable except as noted in HPI & below Physical Exam Physical Exam: The patient is lying in bed with oxymask. HEENT--PERRL, EOMI Neck--supple. No JVD. No bruits. Thyroid normal, trachea midline, no adenopathy. Heart--normal S1 and S2. No murmurs, rubs or gallops. Lungs--Reduced air entry on auscultation Abdomen--normal bowel sounds and soft. Mild epigastric and left sided abdominal pain Extremities--no cyanosis or clubbing. No edema. Dermatologic--normal skin turgor, normal color, no abnormal lymph nodes, no rash. Neurologic--unable to fully assess Rheumatologic--normal range of motion. Results & Data Results & Data ([facility]) Vital Signs (Past 12 Hours) Vital Signs Temp Pulse Pulse Resp BP Pulse Ox O2 Del Method 03/09/22 16:00 67 03/09/22 15:00 36.1 C L 67 23 138/55 L 98 03/09/22 14:00 36.1 C L 68 29 H 140/55 L 91 03/09/22 13:00 36.2 C L 68 24 151/57 H 93 03/09/22 12:00 36.2 C L 68 17 129/57 L 89 L 03/09/22 11:00 36.3 C L 63 20 147/54 H 97 Oxyhood 03/09/22 10:00 36.5 C 65 20 143/53 H 88 L Oxymask 03/09/22 09:00 36.5 C 63 23 128/48 L 92 Oxymask 03/09/22 08:00 36.7 C 61 23 119/45 L 100 03/09/22 07:00 36.7 C 63 21 124/51 L 100 Nasal Cannula 03/09/22 08:00 Oxymask 03/09/22 10:33 84 L Oxymask 03/09/22 08:00 60 03/09/22 09:50 64 18 94 Oxymask O2 Flow Rate 03/09/22 16:00 03/09/22 15:00 03/09/22 14:00 03/09/22 13:00 03/09/22 12:00 03/09/22 11:00 2 03/09/22 10:00 2 03/09/22 09:00 1 03/09/22 08:00 03/09/22 07:00 3 03/09/22 08:00 2 03/09/22 10:33 3 03/09/22 08:00 03/09/22 09:50 2 PG Care Time/CCT Total # of Minutes Spent Total Time Spent with Patient: Total time spent is greater than 50% in coordination of care (as documented) at patient's floor/unit and/or counseling patient: Coding Level of Care Code 17340 Subseq Hosp Care Lvl 3 Diagnoses Respiratory failure J96.90 Shock R57.9 Hyperkalemia E87.5 Encephalopathy G93.40 COPD (chronic obstructive pulmonary disease) J44.9 Paroxysmal atrial flutter I48.92 Chronic anticoagulation Z79.01 Protein calorie malnutrition E46 Elevated troponin R77.8 H/O vascular surgery Z98.890 Thoracic aortic aneurysm I71.2 Peripheral arterial disease I73.9
[2022-03-09] MEDS ORDERED: PEPTAMEN INTENSE VHP 1.0 CAL 1,000 ML BAG GT SCH (19:00)
[2022-03-10] MEDS ORDERED: ALBUMIN 25% 100 mL 25 GM/100 ML VIAL IV ONE (05:17)
[2022-03-10] MEDS ORDERED: SODIUM CHLORIDE 0.9% 1000ML 500 ML IV ONE (05:18)
--- NOTE | 2022-03-10 05:33 | Communication Note ---
Date of Service: March 10, 2022 I was informed by the patient's nurse that she has increasingly noisy breath sounds and is not responsive. On evaluation the patient is visibly tachypneic but with minimal chest rise. Not responsive to verbal/tactile/painful stimuli. Very faint breath sounds bilaterally. Arms with generalized edema and bruising. 2+ radial and femoral pulses palpated. Heart with RRR. No LE edema. Acute on chronic hypercapnic respiratory failure: This is an extremely frail patient with severe COPD and possible MAC infection, who seemingly has been unable to maintain adequate respirations on her own. Also patient is hypotensive at 93/49. - for hypotension in this malnourished patient - started Albumin 25gm x1 and NSS 500cc bolus - BiPAP urgently placed, although unable to maintain adequate tidal volume - Urgent ABG showed significant respiratory failure with pH 7.0 and pCO2 127 - spoke with patient's Santiago, and discussed the patient's medical status and need for emergent intubation - he understands that the patient is extremely frail with a poor prognosis, but would nonetheless like for us to proceed with intubation - spoke with [employer] who presented at the patient's bedside with an ER provider for emergent intubation - placed ICU transfer order
[2022-03-10 05:49] LABS: iSTAT Allen Test Pass; iSTAT Art Bld Gas pCO2 Correct 127 mmHg (35-46); iSTAT Art Bld Gas pH Corrected 7.096 (7.35-7.45); iSTAT Arterial Blood Gas HCO3 39 meg/L (19-24); iSTAT Arterial Blood Gas pCO2 > 115 mmHg (35-46); iSTAT Arterial Blood Gas pH 7.09 (7.35-7.45); iSTAT Arterial Blood Gas pO2 109 mmHg (80-95); iSTAT Arterial Blood Gas pO2 C 107; iSTAT Carbon Dioxide > 40 mmol/L (24-31); iSTAT Hematocrit 27 % (37-47); iSTAT Hemoglobin 9.2 g/dl (12.0-16.0); iSTAT Potassium 4.5 mmol/L (3.3-5.0); iSTAT Site R Radial; iSTAT Sodium 145 mmol/L (135-144)
[2022-03-10] MEDS ORDERED: NOREPINEPHRINE/D5W 4 MG/250 ML IV ONE (05:49)
[2022-03-10] MEDS ORDERED: STAT IV Infusion **Titration per Protocol STA ×6 (05:54→13:37)
[2022-03-10] MEDS ORDERED: PROPOFOL BOLUS FROM BAG IV PRN (05:54)
[2022-03-10] MEDS ORDERED: fentaNYL citrate 2,500 MCG/250 ML BAG IV SCH (06:00)
[2022-03-10] MEDS ORDERED: propofoL 1,000 MG/100 ML VIAL IV SCH (06:00)
[2022-03-10] MEDS ORDERED: NOREPINEPHRINE/D5W 4 MG/250 ML PLCT IV SCH (06:00)
[2022-03-10] MEDS: FORMOTEROL 20 MCG/2 ML VIAL NEB SCH (06:07)
[2022-03-10] MEDS: BUDESONIDE 0.25 MG/2 ML VIAL (PULMICORT) NEB SCH (06:07)
[2022-03-10] MEDS: TUBE FEEDING WATER FLUSH NG SCH ×4 (06:08→12:08)
--- NOTE | 2022-03-10 06:10 | Procedure Note ---
Procedure Note Date of Service March 10, 2022 Note INTUBATION PROCEDURE NOTE: Provider: MAYI Euceda Attending: Ricardo A time-out was completed verifying correct patient, procedure, site, positioning. Patient was evaluated and required intubation for acute hypercapnic respiratory failure. Sedative agent used: Etomidate Paralysis agent used: Succinylcholine Emergent consent was implied given patients rapidly declining clinical status and need for airway protection. The patient was prepared in the appropriate fashion. Sedation was achieved utilizing etomidate and succinylcholine, per Dr. Mcgraw administration. The patient was easily ventilated using [id number] to achieve adequate oxygenation. A 7.0 E[place] endotracheal tube was placed with the assistance of video laryngoscope. Vocal cords were visualized and tube was inserted into the trachea to 23 cm at the lip. The stylette was removed and balloon was inflated with 10mL of air. Appropriate Colorimetric change was appreciated. Bilateral breath sounds were heard without air sounds in the abdomen. Dr. Mcgraw was present for the entire procedure. Post Intubation Chest X-ray confirms placement without pneumothorax. Patient tolerated the procedure well and there were no immediate complications. Coding CPT Codes Resuscitation - Resuscitation: 01270 Endotracheal Intubation, emergency ([id number]) [facility] [place] Procedure Codes (Charges) Resuscitation Resuscitation: 01703 Endotracheal Intubation, emergency
[2022-03-10 06:41] LABS: iSTAT Allen Test Pass; iSTAT Art Bld Gas pCO2 Correct 66 mmHg (35-46); iSTAT Art Bld Gas pH Corrected 7.326 (7.35-7.45); iSTAT Arterial Blood Gas HCO3 34 meg/L (19-24); iSTAT Arterial Blood Gas pCO2 67 mmHg (35-46); iSTAT Arterial Blood Gas pH 7.32 (7.35-7.45); iSTAT Arterial Blood Gas pO2 40 mmHg (80-95); iSTAT Arterial Blood Gas pO2 C 39; iSTAT Carbon Dioxide 36 mmol/L (24-31); iSTAT FiO2 50 %; iSTAT Hematocrit 23 % (37-47); iSTAT Hemoglobin 7.8 g/dl (12.0-16.0); iSTAT Potassium 4.3 mmol/L (3.3-5.0); iSTAT Site R Brachial; iSTAT Sodium 144 mmol/L (135-144)
[2022-03-10 06:42] LABS: Calcium 8.4 mg/dl (8.5-10.1); Creatinine Clr Calc Pharmacy 19.8 ml/min; Est GFR (African American) 36.2 ml/min; Est GFR (Non-African American) 31.2 ml/min; Phosphorus 5.5 mg/dl (2.5-4.9); Potassium 4.4 mmol/L (3.5-5.1)
[2022-03-10 06:58] LABS: Basophils # (auto) 0.01 K/uL (0-0.2); Basophils % (auto) 0.1 %; Hemoglobin 7.3 g/dl (12.0-16.0); Hypochromasia Present; Immature Granulocytes # (auto) 0.03 K/uL (0.00-0.02); Immature Granulocytes % (auto) 0.4 %; Lymphocytes # (auto) 0.43 K/uL (1.2-3.4); Lymphocytes % (auto) 5.2 %; Mean Corpuscular Hemoglobin 31.1 pg (25.0-34.0); Mean Corpuscular Volume 114.9 fL (80.0-100.0); Mean Platelet Volume 10.9 fL (9.4-12.3); Monocytes # (auto) 0.62 K/uL (0.24-0.82); Monocytes % (auto) 7.5 %; Neutrophils # (auto) 7.23 K/uL (1.4-6.5); Neutrophils % (auto) 86.8 %; Platelet Count 144 K/uL (130-400); RDW Coefficient of Variation 15.9 % (11.5-14.5); RDW Standard Deviation 66.8 fL (36.4-46.3); Red Blood Count 2.35 M/uL (3.93-5.22); White Blood Count 8.32 K/ul (4.8-10.8)
--- NOTE | 2022-03-10 07:24 | XRay Report ---
XR chest 1V portable CLINICAL HISTORY: intubation. COMPARISON STUDY: 03/07/2022 TECHNIQUE: 1 view of the chest FINDINGS: Single frontal view of the chest demonstrates the heart size to be within normal limits status post p revious cardiothoracic surgery. There is again an endotracheal tube in place with its tip approximate ly 1 cm above the ebony. This should be retracted at least 2 cm. There is hyperinflation of the lungs with attenuation of the pulmonary vasculature peripherally bridgett cteristic of underlying chronic obstructive pulmonary disease. The lungs are clear of alveolar opacit ies. There is no evidence for pleural effusion. There is no evidence for vascular congestion. There i s no acute osseous pathology. IMPRESSION: 1. COPD with no definite acute chest disease. 2. Tip of the endotracheal tube is 1 cm above the ebony and should probably be retracted at least 1 to 2 cm. ACT 112: Negative or not required by law. Electronically signed by: Cliff Fong M.D. 03/10/2022 7:22 AM
[2022-03-10] MEDS ORDERED: MIDAZOLAM BOLUS FROM BAG IV PRN (07:37)
[2022-03-10] MEDS ORDERED: MIDAZOLAM HCL 125 MG/250 ML BAG IV SCH (07:45)
--- NOTE | 2022-03-10 07:48 | Critical Care Progress Note ---
Date of Service March 10, 2022 Assessment & Plan (1) Severe protein-energy malnutrition: (2) Failure to thrive: (3) Shock: (4) Acute respiratory failure: (5) Elevated lactic acid level: (6) Acute hyperkalemia: (7) Paroxysmal atrial flutter: (8) Opacity of lung on imaging study: (9) Ischemic cardiomyopathy: (10) SVT (supraventricular tachycardia): (11) COPD (chronic obstructive pulmonary disease): (12) Coronary artery disease: Plan Reason Critically Ill: Patient presents to the ICU with acute respiratory failure and circulatory shock requiring vasopressor support and mechanical ventilation. Neuro - Sedation: Currently intubated and sedated with propofol and fentanyl. We will transition to Versed given hypotension. Acute encephalopathy secondary to hypercapnic respiratory failure. Cardiac - Patient with hypotension secondary to sedation. We will discontinue propofol and initiate Versed. Maintain mean arterial pressures above 65 mmHg. Patient with recent extensive cardiac surgery completed in [place] for thoracic aortic aneurysm. Continue sotalol. CADstatus post 2V CABG 2021. Continue aspirin, statin. Respiratory - Acute on chronic hypercapnic and hypoxemic respiratory failure. Patient has advanced COPD. She is chronically on oxygen. CT chest from earlier this admission reviewed suggestive of multifocal tree-in-bud opacities. Consider possible KISHORE infection. Continue nebulization therapy. Patient with very poor prognosis given respiratory failure and pulmonary cachexia. Palliative care on board. GI - Nutrition extremely poor. Patient with failure to thrive and low BMI. Continue tube feeds. Monitor for refeeding syndrome. RENAL/LYTES - Continue IV fluids due to hypernatremia and DARLINE. Monitor urine output closely. - Foleystrict I's and O's ENDO - No history of diabetes or thyroid disease. Periodic hypoglycemic episodes. Hypoglycemia protocol ordered. HEME - Hemoglobin trending down. Continue to monitor. ID - Sepsisblood and urine cultures negative to date. CT chest consistent with chronic atypical organism infection/aspiration. Cefepime discontinued. Continue levofloxacin. Sputum cultures ordered. AFB sputum cultures ordered as well. LINES/IV ACCESS - Will need to consider placement of a central line given need for vasopressors. We will ask ultrasound team to place an ultrasound-guided IV. DVT PROPHYLAXIS - SCDs, holding Eliquis for now Patient is gravely ill and prognosis is extremely poor. Appreciate palliative care input. Patient's would like to continue with full code at this time. CRITICAL CARE TIME - I have personally spent 46 minutes of critical care time in the direct management of this patient. This is a life/limb threatening event. This includes time spent evaluating patient, direct bedside care, chart review, placing orders, interpretation of diagnostic studies, discussion with consultants, patient, and family members, as well as other required patient management activities. This time is exclusive of all separately billable procedures, and teaching time and separate from and in addition to any other critical care service time. Admission and Anticipated Discharge Date Admission Date: March 07, 2022 Subjective Patient had a decline in her mental status and worsening hypercapnic respiratory failure. She was emergently intubated overnight. She is currently on low-dose Levophed and continuous propofol and fentanyl for sedation and pain control. She is unable to give any review of systems given that she is intubated and sedated. Physical Exam Physical Exam: Constitutional: Frail and thin appearing. Intubated and sedated. Eyes: Pinpoint pupils. Ears nose, mouth and throat: ET tube in place and NG in place. Neck: Trachea is midline. Visual inspection is normal. Respiratory: Coarse lung sounds bilaterally. No wheezes. Prolonged phase of exhalation. Cardiovascular: Regular rate and rhythm. No murmurs. No edema. Gastrointestinal: Normal bowel sounds, soft, nontender and nondistended. No hepatosplenomegaly noted. Musculoskeletal: No cyanosis. Patient is able to move all extremities. Skin: No rashes, warm dry and intact. Neurologic: No obvious focal neurological deficits seen. Psychiatric: Unable to assess. Results & Data Results & Data ([facility]) Vital Signs (Past 12 Hours) Vital Signs Temp Pulse Pulse Resp BP Pulse Ox O2 Del Method 03/10/22 06:35 36.6 C 55 L 22 100 03/10/22 06:35 131/47 L 03/10/22 06:30 103/38 L 03/10/22 06:30 36.5 C 57 L 22 100 03/10/22 06:25 36.5 C 55 L 26 H 100 03/10/22 06:25 116/47 L 03/10/22 06:19 107/44 L 03/10/22 06:19 36.4 C L 54 L 26 H 100 03/10/22 06:15 36.4 C L 55 L 26 H 100 03/10/22 06:15 89/45 L 03/10/22 06:10 36.4 C L 60 26 H 100 03/10/22 06:10 87/46 L 03/10/22 06:06 36.5 C 60 26 H 100 03/10/22 06:06 110/42 L 03/10/22 06:00 36.5 C 58 L 26 H 100 03/10/22 06:00 133/48 L 03/10/22 05:55 105/39 L 03/10/22 05:55 36.6 C 57 L 26 H 100 03/10/22 05:52 36.6 C 55 L 24 100 03/10/22 05:52 73/35 L 03/10/22 05:51 36.6 C 59 L 22 100 03/10/22 05:51 69/34 L 03/10/22 05:49 36.6 C 64 18 97 03/10/22 05:49 67/38 L 03/10/22 05:48 36.6 C 65 12 92 03/10/22 05:48 80/33 L 03/10/22 05:46 36.7 C 57 L 18 88 L 03/10/22 05:46 61/37 L 03/10/22 05:00 36.8 C 60 9 L 97 03/10/22 05:00 97/43 L 03/10/22 04:01 36.9 C 62 10 L 96 03/10/22 04:01 104/39 L 03/10/22 04:00 36.9 C 62 17 96 03/10/22 04:00 75/63 L 03/10/22 03:00 36.9 C 63 14 96 03/10/22 03:00 105/41 L 03/10/22 02:00 37.0 C 64 28 H 96 03/10/22 02:00 111/42 L 03/10/22 01:00 37.1 C 68 27 H 95 03/10/22 01:00 119/42 L 03/10/22 06:08 55 L 26 H 100 Mechanical Vent 03/10/22 05:45 55 L 27 H 100 03/10/22 00:00 37.2 C 74 31 H 93 03/10/22 00:00 117/47 L 03/09/22 23:00 37.2 C 76 25 H 94 03/09/22 23:00 130/48 L 03/09/22 22:00 36.9 C 80 25 H 93 03/09/22 22:00 132/55 L 03/09/22 21:00 36.1 C L 72 21 90 03/09/22 21:00 131/56 L 03/09/22 23:32 76 03/09/22 20:00 35.8 C L 65 18 98 03/09/22 20:00 121/54 L 03/09/22 20:05 66 20 100 Oxymask 03/09/22 20:09 Room Air O2 Flow Rate FiO2 03/10/22 06:35 03/10/22 06:35 03/10/22 06:30 03/10/22 06:30 03/10/22 06:25 03/10/22 06:25 03/10/22 06:19 03/10/22 06:19 03/10/22 06:15 03/10/22 06:15 03/10/22 06:10 03/10/22 06:10 03/10/22 06:06 03/10/22 06:06 03/10/22 06:00 03/10/22 06:00 03/10/22 05:55 03/10/22 05:55 03/10/22 05:52 03/10/22 05:52 03/10/22 05:51 03/10/22 05:51 03/10/22 05:49 03/10/22 05:49 03/10/22 05:48 03/10/22 05:48 03/10/22 05:46 03/10/22 05:46 03/10/22 05:00 03/10/22 05:00 03/10/22 04:01 03/10/22 04:01 03/10/22 04:00 03/10/22 04:00 03/10/22 03:00 03/10/22 03:00 03/10/22 02:00 03/10/22 02:00 03/10/22 01:00 03/10/22 01:00 03/10/22 06:08 500 03/10/22 05:45 50 03/10/22 00:00 03/10/22 00:00 03/09/22 23:00 03/09/22 23:00 03/09/22 22:00 03/09/22 22:00 03/09/22 21:00 03/09/22 21:00 03/09/22 23:32 03/09/22 20:00 03/09/22 20:00 03/09/22 20:05 3 03/09/22 20:09 Coding Level of Care Code Critical Care 1st 30-74 mins Diagnoses Severe protein-energy malnutrition E43 Failure to thrive Shock R57.9 Acute respiratory failure J96.01 Respiratory failure complication: hypoxia Elevated lactic acid level R79.89 Acute hyperkalemia E87.5 Paroxysmal atrial flutter I48.92 Opacity of lung on imaging study R91.8 Ischemic cardiomyopathy I25.5 SVT (supraventricular tachycardia) I47.1 COPD (chronic obstructive pulmonary disease) J44.9 Coronary artery disease I25.10 Time Spent (min) 46 (1) Acute respiratory failure Respiratory failure complication: hypoxia Qualified Code(s): J96.01 - Acute respiratory failure with hypoxia
[2022-03-10] MEDS ORDERED: METOPROLOL TARTRATE 1 MG/ML VIAL IV ONE (08:38)
[2022-03-10] MEDS ORDERED: PHENYLEPHRINE 100MCG/ML 5ML SYR IV STA (08:46)
[2022-03-10] MEDS ORDERED: AMIODARONE 150MG / 100ML D5W IV ONE (08:48)
[2022-03-10] MEDS ORDERED: 0.2 MICRON FILTER SET 1 EACH IV ONE (08:49)
[2022-03-10] MEDS ORDERED: AMIODARONE / D5W 150 MG/100 ML BAG IV STA ×2 (08:49→09:03)
[2022-03-10] MEDS ORDERED: PHENYLEPHRINE HCL 20 MG in DEXTROSE 5% 500 ML IV SCH (09:00)
[2022-03-10] MEDS ORDERED: MULTI VIT W/MINERALS LIQUID 15 ML UDP NG SCH (09:00)
[2022-03-10] MEDS ORDERED: AMIODARONE 360MG / 200ML D5W IV ONE (09:01)
[2022-03-10] MEDS ORDERED: 0.2 MICRON FILTER SET 1 EACH IV STA (09:03)
[2022-03-10] MEDS ORDERED: AMIODARONE IV BOLUS & DRIP IV STA (09:03)
[2022-03-10] MEDS ORDERED: METOPROLOL TARTRATE 1 MG/ML VIAL IV STA (09:09)
[2022-03-10] MEDS ORDERED: AMIODARONE / D5W 360 MG/200 ML BAG IV ONE (09:14)
[2022-03-10] MEDS ORDERED: NORMOSOL-R 500 ML IV SCH (09:15)
[2022-03-10] MEDS: methylPREDNISolone 40 MG in SYRINGE 0 ML IV SCH (09:20)
[2022-03-10] MEDS: THIAMINE HCL 300 MG in SODIUM CHLORIDE 0.9% 50 ML IV SCH (09:20)
[2022-03-10] MEDS: PANTOprazole 40 MG in SYRINGE 0 ML IV SCH (09:21)
[2022-03-10] MEDS ORDERED: ASPIRIN 81 MG CHEW PO SCH (09:30)
[2022-03-10] MEDS: UMECLIDINIUM BROMIDE 62.5MCG/BLISTER 7 PUFFS/INHALER INH SCH (09:31)
[2022-03-10] MEDS: ASPIRIN 81 MG ECTAB PO SCH (09:33)
--- NOTE | 2022-03-10 09:57 | Procedure Note ---
Procedure Note Date of Service March 10, 2022 Note FEMORAL CENTRAL LINE PROCEDURE NOTE: Procedure: Femoral Central Line Placement Indication: Central Drug Administration, Poor Venous Access, Multiple Lab Draws Necessary, etc. Anesthesia: Patient was on continuous Versed and fentanyl/8 mL lidocaine 1% Procedure was done emergently due to hypotension and atrial fibrillation with rapid ventricular response. A time-out was completed verifying correct patient, procedure, site, positio percy, and implants(s) or special equipment if applicable. Patients right groin was cleansed and draped in the typical sterile fashion using Chloraprep. The Femoral Vein and Femoral Artery were identified using ultrasound. The superficial tissue was anesthetized using 8 mL of 1% lidocaine without epinephrine under direct visualization with the ultrasound. After adequate anesthetization was achieved, the Femoral artery was cannulated under direct ultrasound guidance using an introducer needle on a syringe. Good venous blood return was maintained prior to removal of syringe from introducer needle. Using Seldinger Technique, a guide wire was advanced through the introducer needle without resistance. The introducer needle was removed and ultrasound images were obtained of the guide wire within the Femoral artery and saved to the patients medical record. 12 cm femoral arterial line was placed over the wire. The guide wire was removed intact from the catheter without issue. The arterial line was hooked up to the IV tubing to capture the waveform. Adequate waveform was seen. Tegaderm dressing was applied over the catheter with careful attention to sterility. Patient tolerated procedure well. No immediate complications were met. Images obtained are saved for permanent record Procedural Ultrasound Guidance utilized Coding CPT Codes Tubes, Drains, and Vasc Access - Tubes, Drains, and Vasc Access: [id number] Ultrasound Guidance For Vascular ([id number]) Tubes, Drains, and Vasc Access - Tubes, Drains, and Vasc Access: [id number] Place Catheter In Artery ([id number]) [facility] [place]Charges) Tubes, Drains, and Vasc Access Procedure 1: Tubes, Drains, and Vasc Access: [id number] Ultrasound Guidance For Vascular Procedure 2: Tubes, Drains, and Vasc Access: [id number] Place Catheter In Artery
--- NOTE | 2022-03-10 09:57 | Procedure Note ---
Procedure Note Date of Service March 10, 2022 Note FEMORAL CENTRAL LINE PROCEDURE NOTE: Procedure: Femoral Central Line Placement Indication: Central Drug Administration, Poor Venous Access, Multiple Lab Draws Necessary, etc. Anesthesia: Continuous Versed and fentanyl were infusing. 8 mL of 1% local lidocaine was utilized. Procedure was done emergently due to hypotension and atrial fibrillation with rapid ventricular response. A time-out was completed verifying correct patient, procedure, site, positioning, and implants(s) or special equipment if applicable. Patients right groin was cleansed and draped in the typical sterile fashion using Chloraprep. The Femoral Vein and Femoral Artery were identified using ultrasound. The superficial tissue was anesthetized using 8 mL of 1% lidocaine without epinephrine under direct visualization with the ultrasound. After adequate anes thetization was achieved, the Femoral Vein was cannulated under direct ultrasound guidance using an introducer needle on a syringe. Good venous blood return was maintained prior to removal of syringe from introducer needle. Using Seldinger Technique, a guide wire was advanced through the introducer needle without resistance. The introducer needle was removed and ultrasound images were obtained of the guide wire within the Femoral Vein and saved to the patients medical record. A small incision was made in penetrating fashion at the guide wire insertion site utilizing an 11 blade scalpel. The dilator was advanced to the vessel without resistance. The dilator was exchanged for the triple lumen catheter which was advanced into the vessel without resistance. The guide wire was removed intact from the catheter without issue. Claves were placed on each catheter tip with confirmation of good blood flow from each lumen. Each port was easily flushed with sterile saline. The catheter was placed at the hub and sutured in place. BioPatch was applied to the catheter and a sterile Tegaderm dressing was applied over the catheter with careful attention to sterility. Patient tolerated procedure well. No immediate complications were met. Images obtained are saved for permanent record Procedural Ultrasound Guidance utilized Coding CPT Codes Tubes, Drains, and Vasc Access - Tubes, Drains, and Vasc Access: [id number] Place catheter in vein superior or inferior vena cava ([id number]) Tubes, Drains, and Vasc Access - Tubes, Drains, and Vasc Access: [id number] Ultrasound Guidance For Vascular ([id number]) [facility] [place] Procedure Codes (Charges) Tubes, Drains, and Vasc Access Procedure 1: Tubes, Drains, and Vasc Access: [id number] Place catheter in vein superior or inferior vena cava Procedure 2: Tubes, Drains, and Vasc Access: [id number] Ultrasound Guidance For Vascular
[2022-03-10] MEDS ORDERED: ESMOLOL / NSS 2,500 MG/250 ML BAG IV SCH ×2 (10:00)
[2022-03-10] MEDS ORDERED: levoFLOXacin/D5W 250 MG/50 ML BAG IV SCH (10:00)
[2022-03-10] MEDS ORDERED: ASPIRIN 81 MG CHEW ONE (10:21)
[2022-03-10] MEDS: SOTALOL HCL 80 MG TAB PO SCH (10:46)
[2022-03-10 12:17] LABS: Hematocrit (blood only) 24.3 % (34.1-44.9); Hemoglobin 6.9 g/dl (12.0-16.0); Mean Corpuscular Hemoglobin 31.2 pg (25.0-34.0); Mean Corpuscular Hgb Conc 28.4 g/dL (32.0-36.0); Mean Platelet Volume 10.7 fL (9.4-12.3); Platelet Count 144 K/uL (130-400); RDW Coefficient of Variation 15.9 % (11.5-14.5); RDW Standard Deviation 64.4 fL (36.4-46.3); Red Blood Count 2.21 M/uL (3.93-5.22); White Blood Count 7.65 K/ul (4.8-10.8)
[2022-03-10 13:04] LABS: BUN Creatinine Ratio 33.9 (10-20); Calcium 8.2 mg/dl (8.5-10.1); Creatinine Clr Calc Pharmacy 18.9 ml/min; Est GFR (African American) 34.4 ml/min; Est GFR (Non-African American) 29.6 ml/min; Potassium 3.5 mmol/L (3.5-5.1)
[2022-03-10] MEDS ORDERED: MoRPHine SULFATE 2 MG/ML CARP IV PRN (13:37)
[2022-03-10] MEDS ORDERED: ONDANSETRON 4 MG OD TAB SL PRN (13:37)
[2022-03-10] MEDS ORDERED: LORazepam 0.5 MG TAB PO PRN (13:37)
[2022-03-10] MEDS ORDERED: LORazepam 0.5 MG in SYRINGE 0.25 ML IV PRN (13:37)
[2022-03-10] MEDS ORDERED: ONDANSETRON INJ 2 MG/ML 2 ML VIAL IV PRN (13:37)
[2022-03-10] MEDS ORDERED: GLYCOPYRROLATE 0.2 MG/ML VIAL IV PRN (13:37)
[2022-03-10] MEDS ORDERED: MoRPHine SULFATE 5 MG/0.25 ML UDP PO PRN (13:37)
[2022-03-10] MEDS ORDERED: HYDROmorphone/NSS 100 MG/100 ML BAG IV SCH (13:45)
[2022-03-10] MEDS ORDERED: AMIODARONE / D5W 360 MG/200 ML BAG IV SCH (15:15)
[2022-03-10] MEDS ORDERED: SUCCINYLCHOLINE CHLORIDE 20 MG/ML 10 ML VIAL IV ONE (16:19)
[2022-03-10] MEDS ORDERED: ETOMIDATE 2 MG/ML 20 ML VIAL IV ONE (16:19)
--- NOTE | 2022-03-10 16:56 | Electrocardiogram Report ---
Test Reason : Blood Pressure : / mmHG Vent. Rate : 061 BPM Atrial Rate : 061 BPM P-R Int : 138 ms QRS Dur : 092 ms QT Int : 362 ms P-R-T Axes : 078 063 071 degrees QTc Int : 364 ms Normal sinus rhythm Possible Left atrial enlargement Anteroseptal ST abnormality Abnormal ECG When compared with ECG of 08-MAR-2022 05:20, ST no longer elevated in Anterior leads Nonspecific T wave abnormality has replaced inverted T waves in Inferior leads QT has shortened Confirmed by Santiago Godinez ([id number]) on 03/10/2022 4:55:47 PM Referred By: REFERRED SELF Confirmed By:Santiago Godinez
--- NOTE | 2022-03-10 17:16 | Electrocardiogram Report ---
Test Reason : Blood Pressure : / mmHG Vent. Rate : 134 BPM Atrial Rate : 312 BPM P-R Int : 000 ms QRS Dur : 094 ms QT Int : 262 ms P-R-T Axes : 000 047 252 degrees QTc Int : 391 ms Atrial fibrillation with rapid ventricular response Possible Inferior infarct , age undetermined Abnormal ECG When compared with ECG of 09-MAR-2022 05:12, (unconfirmed) Significant changes have occurred Confirmed by Santiago Godinez ([id number]) on 03/10/2022 5:15:31 PM Referred By: REFERRED SELF Confirmed By:Santiago Godinez
[2022-03-12] MEDS ORDERED: levoFLOXacin/D5W 250 MG/50 ML BAG IV SCH (09:00)
--- NOTE | 2022-03-16 23:08 | Discharge Summary ---
Date of Service March 10, 2022 Admission HPI Per Admitting Provider 76 YOF: History of PAF (on Sotalol, Eliquis, ICM with EF 40-45%, CAD with 2V CABG 2021, Repair thoracic aneurysm 2021, left subclavian artery bypass for thoracic aneurysm, aortobiiliac graft, COPD with GI bleed. Patient was recently discharged on 03/03/22 for evaluatio for GI bleed. She was sent to rehab facility following this. Report is that she has been becoming progressively weak there and had some complaints of dyspnea last night. She arrived via EMS with them bagging her to maintain saturation. She was immediately intubated in the EMD. She was bradycardic, hypotensive, hypoxic, elevated lactic acidosis, and hyperkalemia, and hypoglycemic. She received 2 doses of Dextrose 50%. ICU was notified and met Dr. Stanton at bedside. Patient does localize pain, and is biting at the ETT occasionally. ABG was obtained with normal PH, CO2 66 and PaO2 of 53. She is currently volume responsive with fluids. Levophed weaning down, she is making urine. Is without leukocytosis. Blood and Urine cultures are pending. Patient will be admitted to the ICU while intubated. Obtain CTA of the chest for PE. WIll need central line access and likely arterial access for monitoring of vasopressors. Will emperically cover with Cefepime and Vancomycin for respiratory failure until infectious etiology is ruled in/out. Patient with multiple co-morbid conditions now requiring intubation and vasopressors to maintain hemodynamic and respiratory support, APACE II 35 with 83% mortality. COVID, FLU, RSV: NEGATIVE Principal Diagnosis resiratory failure Discharge Exam please read note Discharge Data Allergies Allergy/AdvReac Type Severity Reaction Status Date / Time Sulfa (Sulfonamide Allergy Intermediate Rash Verified 03/07/22 14:51 Antibiotics) Penicillins Allergy Unknown HAPPENED Verified 03/07/22 14:51 A TEENAGER amiodarone AdvReac Intermediate SKIN Verified 03/07/22 14:51 PEELED OFF FEET fexofenadine AdvReac Intermediate "SKIN Verified 03/07/22 14:51 HURTS" HEADACHE lisinopril AdvReac Intermediate COUGH Verified 03/07/22 14:51 Consultations 03/07/22 14:20 ED Decision to Admit Stat 03/07/22 16:38 Consult Experimental [employer]ic Routine 03/09/22 08:35 Consult Palliative Care Routine Ordered Studies 03/07/22 12:33 CT head/brain wo con Stat 03/07/22 16:17 CT angio chest PE protocol Stat 03/10/22 08:57 US point of care ultrasound Stat Hospital Course (1) Respiratory failure: Acute on chronic respiratory failure with hypoxia requiring intubation and mechanical ventilation - DDX: COPD vs. PE vs. infectious vs. Encephalopathy from hypoglycemia or combination of above - CXR without opacities but noting emphysema COPD - extubated on 03/08 - Decadron 10mg IV given in EMD continue with methylpred 40mg IV q6 hour -methyprednisolone titrated to q12h on 03/09 - Scheduled nebs, with Pulmicort BID nebs - empiric abx On 03/10 Patient was intubated overnight, and required pressors. During course of day, patient did not improve. Patient was terminally extubated after discussion with family and ICU team. Patient 14:43 Family at bedside. (2) Shock: Hypovolemic shock vs. sepsis vs. obstructive - lactate 3.2 - continue with evaluation -off pressors -patient no longer appears to be encephalopathic - Random cortisol- increase steroid to stress dosing if needed for BP support and glycemic support (3) Hyperkalemia: Mild at 6.5 without ECG changes likely related to shock although with out acidosis -improved potassium 4.2 renal function intact making urine given HCO3 in EMD follow with BMP- kaliurese with Lasix if needed follow hypoglycemia- avoid shifting with insulin (4) Encephalopathy: Metabolic encephalopathy from combination of shock and hypoglycemia is likely cause - localizes and moves all extremities - Correct hypoglycemia- dextrose given and received steroids in EMD- BG checks q4 hours - volume replete - empiric abx - maintain MAP >65 and Pao2 >60 (5) COPD (chronic obstructive pulmonary disease): Chronic emphysema- ABG obtained following intubation - 7.37/66/53/39 - baseline Pao2 80s - continue with scheduled nebulizers and inhaled corticosteroids, systemic steroids with methyl pred at 40mg q6 - with bronchiectasis flutter valve and vest therapy post extubation likely will assist (6) Paroxysmal atrial flutter: Bradycardic likley related to hypoxia and hypoglycemia - Sotalol has been started (7) Chronic anticoagulation: Apixaban 2.5mg PO BID - hold for now - on for aflutter (8) Protein calorie malnutrition: Severe cachetic - place OGT- correct shock and TF initiation per ICU with nutritional evaluaton - follow for refeeding (9) Elevated troponin: Likely type II demand in the setting of hypotension and hypoxia - trend q6 hour, ECG without acute ST elevation (10) H/O vascular surgery: GORE TAG thoracic aortic stent covering left subclavian artery (01/11), AAA with aortobiiliac grafts (2005) - continue daily aspirin - Eliquis when able (11) Thoracic aortic aneurysm: As above- s/p repair (12) Peripheral arterial disease: As above aspirin continue continue statin Total Time Total Time Spent Total Time Spent (In Minutes): 40 Discharge Plan Discharge Items Patient Disposition: Other Date/Time: 03/10/22 14:43 Coding Level of Care Code D/C DAY MANAGEMENT >30 MINS Diagnoses Respiratory failure J96.90 Shock R57.9 Hyperkalemia E87.5 Encephalopathy G93.40 COPD (chronic obstructive pulmonary disease) J44.9 Paroxysmal atrial flutter I48.92 Chronic anticoagulation Z79.01 Protein calorie malnutrition E46 Elevated troponin R77.8 H/O vascular surgery Z98.890 Thoracic aortic aneurysm I71.2 Peripheral arterial disease I73.9
--- NOTE | 2022-03-16 23:10 | Death Pronouncement Note ---
Date of Service March 10, 2022 Pronouncement Note Admission Date March 07, 2022 Date and Time of Date of : 03/10/22 Time of : 14:43 Preliminary Cause of (1) Respiratory failure: (2) Shock: (3) Hyperkalemia: (4) Encephalopathy: (5) COPD (chronic obstructive pulmonary disease): (6) Paroxysmal atrial flutter: (7) Chronic anticoagulation: (8) Protein calorie malnutrition: (9) Elevated troponin: (10) H/O vascular surgery: (11) Thoracic aortic aneurysm: (12) Peripheral arterial disease: Summary please refer to Discharge summary Additional Data Confirmation of : no pulse, no respirations, no heart sounds and pupils fixed and dilated Pronouncement Performed By: Attending Physician Family: at bedside Attending/PCP notified?: Yes Attending physician: Andreas Campbell Was code activated?: No Autopsy requested?: No waste examiner notified?: No Organ bank notified?: Yes Coding Level of Care Code None Diagnoses Respiratory failure J96.90 Shock R57.9 Hyperkalemia E87.5 Encephalopathy G93.40 COPD (chronic obstructive pulmonary disease) J44.9 Paroxysmal atrial flutter I48.92 Chronic anticoagulation Z79.01 Protein calorie malnutrition E46 Elevated troponin R77.8 H/O vascular surgery Z98.890 Thoracic aortic aneurysm I71.2 Peripheral arterial disease I73.9
--- NOTE | 2022-03-17 11:48 | Coding Query ---
CODING QUERY To promote full compliance with coding requirements relating to patient care, provider participation is requested in all cases of edge polisher uncertainty. Please assist us with the question(s) below: Coding Question(s): The following documentation is unable to be accurately coded. Please indicate a more specific meaning of this. Thank you. Elevated troponin: Likely type II demand Physician's Response(s): ( x ) Demand ischemia ( ) Type II HI ( ) Other, please specify ( ) Cannot determine Thank you Aleyda Mcfarlane Principal Diagnosis: "that condition established after study, to be chiefly responsible for occasioning the admission of the patient to the hospital for care." Co-Existing Principal Diagnosis: "when two or more diagnoses equally meet the criteria for principal diagnosis as determined by the circumstances of admission, diagnostic work up, and/or therapy provided, and the Alphabetic Index, Tabular List, or another coding guideline does not provide sequencing direction, any one of the diagnoses may be sequenced first." "When the physician has documented what appears to be a current diagnosis in the body of the record, but has not included the diagnosis in the final diagnostic statement, the physician should be asked whether the diagnosis should be added." (Source Coding [facility] 2 QTR90. p3-4) BOO
== END 2022-03-10 16:20 | disposition expired | DRG 871 ==
LOC: ED 11:30 → SUATTDRO 14:28 → 1E 14:28